=== PATIENT | female | born 1930 | race Caucasian/White ===

== ENCOUNTER 2017-04-30 16:18 | Inpatient (IN) | payer MEDICARE ==
[~2017-04-30] VITALS: Ht 175.3 cm; Wt 100.9 kg
--- NOTE | 2017-04-30 16:42 | PHYS DOC ---
General Chief Complaint: PSYCH EVALUATION Stated Complaint: [facility] EVALUATION Time Seen by MD: 16:32 Source: patient, assisted records Exam Limitations: clinical condition Problems: History of Present Illness Initial Comments Patient is an 86-year-old female sent to the emergency department from [facility] by EMS for medical clearance and [facility] admission. Facility records relay that the patient has had lifelong psychiatric issues, has history of ECT in the past. For the past week the patient has been yelling at others very agitated she's been hitting staff members and refusing medications and treatments. She's had hallucinations and worsening of confusion. She's been laughing inappropriately restless and not sleeping at night and makes jerking movements. Patient takes Coumadin. In the department the patient is hallucinating very confused she has difficulty following directions and screams inappropriately at times. No useful information obtained interviewing her. A CT of the head without contrast was completed April 26 of this year revealing no acute intracranial hemorrhage or hematoma. There was diffuse cerebral atrophy and chronic small vessel disease changes no acute intracranial process is noted. The results were placed on the chart. Patient has a DNR Timing/Duration: 1 week Severity: severe Modifying Factors: improves with other Associated Symptoms: other Past Medical History Medical History: other (major depressive disorder, diabetes, bipolar, cellulitis, atrial fibrillation, hypothyroidism, dementia, CHF, diabetes, hypertension, GERD) Surgical History: other (pacemaker) Social History Smoker: non-smoker Alcohol: none Drugs: none Review of Systems All Other Systems: Reviewed and Negative (patient has altered mental status accurate review of systems is unobtainable.) Physical Exam General Appearance: moderate distress Ear, Nose, Throat: hearing grossly normal, normal ENT inspection Neck: full range of motion, supple Respiratory: normal breath sounds, no respiratory distress Cardiovascular: normal peripheral pulses, irregularly irregular Gastrointestinal: normal bowel sounds, non tender, soft Back: no CVA tenderness, no vertebral tenderness Extremities: normal range of motion, non-tender Neurologic/Psychiatric: 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 Interpreted by me. Pertinent labs: Potassium 3.4, magnesium 1.4, INR 1.5 subtherapeutic IMPRESSIONS: Dementia with behavioral disorder Chronic congestive heart failure Hypokalemia/hypomagnesemia Diabetes Patient will be admitted to Dr. Lorenz as she is medically cleared for [facility] admission. Potassium and magnesium replacement initiated from the emergency department, we'll defer further replacement and INR adjustment to admitting physician. TSH is pending. Departure Disposition: ADMITTED INPATIENT Diagnosis: dementia with behavioral disorder, chronic CHF, hy Condition: STABLE Additional Instructions: [facility] admission [facility] is accepting JASMIN GOSS DO Apr 30, 2017 16:42
[2017-04-30 17:14] LABS: BASO % 1 % (0-3); EOS # 0.1 x10^3/uL (0.0-0.7); EOS % 1 % (0-3); HEMATOCRIT 38.4 % (36.0-47.0); HEMOGLOBIN 12.5 g/dL (12.0-15.5); LYMPH # 1.4 x10^3/uL (1.0-4.8); LYMPH % 21 % (24-48); MEAN CORPUSCULAR HEMOGLOBIN 28 pg (25-35); MEAN CORPUSCULAR HGB CONC 33 g/dL (31-37); MEAN CORPUSCULAR VOLUME 85 fL (79-100); MONO # 0.4 x10^3/uL (0.0-1.1); MONO % 6 % (0-9); NEUT # 4.9 x10^3uL (1.8-7.7); NEUT % 71 % (31-73); PLATELET COUNT 115 x10^3/uL (140-400); RED BLOOD COUNT 4.53 x10^6/uL (3.50-5.40); RED CELL DISTRIBUTION WIDTH 16.2 % (11.5-14.5); WHITE BLOOD COUNT 6.9 x10^3/uL (4.0-11.0)
[2017-04-30 17:25] LABS: BACTERIA,URINE 0 /HPF (0-FEW); BILIRUBIN,URINE NEG (NEG); CLARITY,URINE CLEAR; COLOR,URINE YELLOW; GLUCOSE,URINE NEG (NEG); NITRITE,URINE NEG (NEG); RBC,URINE 0 /HPF (0-2); UROBILINOGEN,URINE 0.2 mg/dL (0.2 mg/dL); WBC,URINE OCC /HPF (0-4)
[2017-04-30 17:30] LABS: ALBUMIN 3.6 g/dL (3.4-5.0); GFR 52.7; MAGNESIUM 1.4 mg/dL (1.8-2.4); POTASSIUM 3.4 mmol/L (3.5-5.1); TOTAL BILIRUBIN 0.6 mg/dL (0.2-1.0); TOTAL PROTEIN 7.2 g/dL (6.4-8.2)
[2017-04-30 17:42] LABS: DIG 0.5 ng/dL (0.9-2.0)
--- NOTE | 2017-04-30 18:28 | EKG ---
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
[2017-04-30] MEDS ORDERED: ACETAMINOPHEN 325 MG TABLET PO PRN ×2 (18:30→20:00)
[2017-04-30] MEDS ORDERED: TAMO20TA PO (19:42)
[2017-04-30] MEDS ORDERED: POTA10CA PO (19:42)
[2017-04-30] MEDS ORDERED: GLUC1TAB26 PO (19:42)
[2017-04-30] MEDS ORDERED: UBID1CAP41 PO (19:42)
[2017-04-30] MEDS ORDERED: CINN500C2 PO (19:42)
[2017-04-30] MEDS ORDERED: MELA1TAB2 PO (19:42)
[2017-04-30] MEDS ORDERED: DIGO125T PO (19:42)
[2017-04-30] MEDS ORDERED: SERT25TA PO (19:42)
[2017-04-30] MEDS ORDERED: MULT-299 PO (19:42)
[2017-04-30] MEDS ORDERED: WARF6TAB PO (19:42)
[2017-04-30] MEDS ORDERED: METF850T2 PO (19:42)
[2017-04-30] MEDS ORDERED: MIRT15TA PO (19:42)
[2017-04-30] MEDS ORDERED: SERT50TA PO (19:42)
[2017-04-30] MEDS ORDERED: CALC500T13 PO (19:42)
[2017-04-30] MEDS ORDERED: MIRT30TA PO (19:42)
[2017-04-30] MEDS ORDERED: ALLO100T PO (19:42)
[2017-04-30] MEDS ORDERED: FURO80TA72 PO (19:42)
[2017-04-30] MEDS ORDERED: OMEP20TA8 PO (19:42)
[2017-04-30] MEDS ORDERED: LUTE20CA4 PO (19:42)
[2017-04-30] MEDS ORDERED: LACT1CAP29 PO (19:42)
[2017-04-30] MEDS ORDERED: ATEN50TA PO (19:42)
[2017-04-30] MEDS ORDERED: CHOL10003 PO (19:42)
[2017-04-30] MEDS ORDERED: MAGNESIUM HYDROXIDE 2,400 MG/30 ML ORAL.SUSP. PO PRN (20:00)
[2017-04-30] MEDS ORDERED: POTASSIUM CHLORIDE 20 MEQ TABLET.ER. PO ONE (20:00)
[2017-04-30] MEDS ORDERED: MAG HYDROX/AL HYDROX/SIMETH 30 ML ORAL.SUSP PO PRN (20:00)
--- NOTE | 2017-04-30 20:13 | NUR ---
Admit Note: Admit 86 year old female patient of Dr. Mcmanus with DX: MDD, Pt arrived via EMS from ER at 2004, Pt alert and oriented to Name only, believes she is in [place] "[facility]" Pt is calm and cooperative with cares and assessment, Apical pulse 82 and Irregular with S1 and S2 heart tones noted, Respirations 20 shallow even and non-labored, Lungs CTA with diminished bases bilaterally, bowel sounds active x 4 quads, ABD round soft and non-tender to palpation, skin w/d with 2+ edema noted to BLE. Call placed to Dr. Mcmanus, Notified of arrival, Medications reviewed, orders received to continue Zoloft 50mg QHS (do not initiate taper in 3 days per facility DEC) Hold initiation of Remeron, Change Melatonin to 4.5mg QHS and Start Zydis 2.5mg PRN Q4Hr for Psychosis. Call placed to Dr. Mercer, Informed of Mg+ level of 1.4, Order received for Magnesium Oxide 400mg PO BID to start this HS. All orders processed at this time.
--- NOTE | 2017-04-30 20:41 | NUR ---
Skin Assessment complete, Pt noted with 2 small Skin tears to the R lateral Lower Leg, Upper on Measures 0.5cm x 0.2cm, Lower one Measures 0.1cm x 0.75cm. Both areas cleaned with wound wash and covered with Aquacel Foam, Wound consult entered. Pt also noted with Red Coccyx, Area does carmencita, Calzyme applied per Protocol at this time
[2017-04-30] MEDS ORDERED: WARFARIN 1 MG TABLET. PO ONE (20:45)
[2017-04-30] MEDS ORDERED: WARFARIN 6 MG TABLET. PO ONE (20:45)
[2017-04-30] MEDS: MELATONIN 3 MG TABLET PO SCH (20:52)
[2017-04-30] MEDS: MAGNESIUM OXIDE 400 MG TABLET PO SCH (20:52)
[2017-04-30] MEDS: ATENOLOL 50 MG TABLET PO SCH (20:53)
[2017-04-30] MEDS ORDERED: NON FORMULARY ITEM (Lutein 20 MG) PO SCH (21:00)
[2017-04-30] MEDS ORDERED: SERTRALINE 50 MG TABLET. PO SCH (21:00)
[2017-04-30] MEDS ORDERED: MELATONIN PO SCH (21:00)
[2017-04-30] MEDS ORDERED: PYRIDOXINE PO SCH (21:00)
[2017-04-30 23:31] VITALS: BP 169/76
--- NOTE | 2017-05-01 00:20 | NUR ---
Nursing Note: Patient awake in bed, anxious, agitated, combative, and yelling out that "...bugs are crawling on my legs!" Patient given PRN Zydis 2.5 mg at this time. Nursing will monitor response.
--- NOTE | 2017-05-01 02:45 | NUR ---
Nursing Note: Patient in her room; awake in bed. Continues to talk to herself, but less anxious/agitated s/p administration of PRN Zydis.
[2017-05-01 06:03] VITALS: BP 151/86
[2017-05-01] MEDS ORDERED: NON FORMULARY ITEM (Cinnamon Bark (Cinnamon) 500 MG) PO SCH (08:00)
[2017-05-01] MEDS: LACTOBACILLUS ACIDOPH & BULGAR 1 TABLET. PO SCH (09:18)
[2017-05-01] MEDS: PANTOPRAZOLE 40 MG TABLET. PO SCH (09:18)
[2017-05-01] MEDS: CHOLECALCIFEROL (VITAMIN D3) 1,000 UNIT TABLET PO SCH (09:19)
[2017-05-01] MEDS: GLUCOSAMINE/CHOND 500/400MG CAPSULE PO SCH ×2 (09:19→16:56)
[2017-05-01] MEDS: metFORMIN 850 MG TABLET PO SCH ×2 (09:19→16:56)
[2017-05-01] MEDS: CALCIUM CARBONATE 500 MG TABLET PO SCH ×2 (09:19→16:56)
[2017-05-01] MEDS: POTASSIUM CHLORIDE 20 MEQ TABLET.ER. PO SCH ×2 (09:21→19:46)
[2017-05-01] MEDS: MULTIVITAMIN I-VITE TABLET. PO SCH (09:21)
[2017-05-01] MEDS: MAGNESIUM OXIDE 400 MG TABLET PO SCH ×2 (09:24→19:46)
[2017-05-01] MEDS: DIGOXIN 125 MCG TABLET PO SCH (09:24)
[2017-05-01] MEDS: FUROSEMIDE 80 MG TABLET PO SCH (09:24)
[2017-05-01] MEDS: MAGNESIUM CHLORIDE ER 64 MG TABLET.ER PO SCH (09:24)
[2017-05-01] MEDS: TAMOXIFEN 10 MG TABLET PO SCH (09:26)
[2017-05-01] MEDS: ATENOLOL 50 MG TABLET PO SCH ×2 (09:26→19:46)
[2017-05-01] MEDS: UBIDECARENONE 50 MG CAPSULE. PO SCH ×2 (09:27→19:46)
--- NOTE | 2017-05-01 12:00 | NUR ---
Behavior Intervention Response and Plan: BIRP Note: Behavior: Assumed Care of patient, patient located in Patient Room at shift change. Patient exhibited the following behavior Restless, Agitated, Anxious. Brief assessment on rounds of vital signs, medication needs, lab studies, and pain. Treatment plan problems . Intervention: Patient assessed and the following interventions initiated safety checks 15 Minute Checks Medications , Head to toe Assessment , Cognitive Assessment. Response: After interactions and interventions patient responded in the following manner, Disorganized , Interactive ,Restless. Continue to assess behaviors and condition will continue to monitor throughout the shift as needed. 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 Continue to assess patient for changes in above assessment. Monitor for medication needs, pain, and safety concerns. Hourly rounding performed to ensure safe environment.
[2017-05-01 13:11] LABS: T3 TOTAL 93 ng/dL (71-180); THYROXINE 7.1 ug/dL (4.5-12.0)
--- NOTE | 2017-05-01 13:11 | PDOC ---
Exam Tahir Demential Exam: Tahir Note: Please also refer to the separate dictated note~for this date of service dictated separately.~Patient seen individually. Discussed the patient with Nursing staff reviewed the chart.~Reviewed interim history and current functioning. Reviewed vital signs,~Labs/ Radiology~and current medications noted below. Continue current treatment with the changes noted in the dictated addendum note Assessment: Vital Signs: Vital Signs Date Time Temp Pulse Resp B/P (MAP) Pulse Ox O2 Delivery O2 Flow Rate FiO2 05/01/17 09:26 108 151/86 05/01/17 06:03 97.9 20 100 I&O Intake and Output 05/01/17 07:00 Intake Total 0 ml Balance 0 ml Intake Oral 0 ml # Voids 2 Labs: Laboratory Tests Test 04/30/17 16:25 04/30/17 16:45 04/30/17 17:48 04/30/17 20:20 White Blood Count 6.9 x10^3/uL (4.0-11.0) Red Blood Count 4.53 x10^6/uL (3.50-5.40) Hemoglobin 12.5 g/dL (12.0-15.5) Hematocrit 38.4 % (36.0-47.0) Mean Corpuscular Volume 85 fL (79-100) Mean Corpuscular Hemoglobin 28 pg (25-35) Mean Corpuscular Hemoglobin Concent 33 g/dL (31-37) Red Cell Distribution Width 16.2 % (11.5-14.5) H Platelet Count 115 x10^3/uL (140-400) L Neutrophils (%) (Auto) 71 % (31-73) Lymphocytes (%) (Auto) 21 % (24-48) L Monocytes (%) (Auto) 6 % (0-9) Eosinophils (%) (Auto) 1 % (0-3) Basophils (%) (Auto) 1 % (0-3) Neutrophils # (Auto) 4.9 x10^3uL (1.8-7.7) Lymphocytes # (Auto) 1.4 x10^3/uL (1.0-4.8) Monocytes # (Auto) 0.4 x10^3/uL (0.0-1.1) Eosinophils # (Auto) 0.1 x10^3/uL (0.0-0.7) Basophils # (Auto) 0.0 x10^3/uL (0.0-0.2) Sodium Level 141 mmol/L (136-145) Potassium Level 3.4 mmol/L (3.5-5.1) L Chloride Level 101 mmol/L (98-107) Carbon Dioxide Level 30 mmol/L (21-32) Anion Gap 10 (6-14) Blood Urea Nitrogen 25 mg/dL (7-20) H Creatinine 1.0 mg/dL (0.6-1.0) Estimated GFR (Cockcroft-Gault) 52.7 BUN/Creatinine Ratio 25 (6-20) H Glucose Level 222 mg/dL (70-99) H Calcium Level 9.0 mg/dL (8.5-10.1) Magnesium Level 1.4 mg/dL (1.8-2.4) L Iron Level 32 ug/dL (50-170) L Total Iron Binding Capacity 463 ug/dL (250-450) H Iron Saturation 7 % (15-34) L Total Bilirubin 0.6 mg/dL (0.2-1.0) Aspartate Amino Transferase (AST) 23 U/L (15-37) Alanine Aminotransferase (ALT) 23 U/L (14-59) Alkaline Phosphatase 62 U/L (46-116) Creatine Kinase 65 U/L (26-192) Troponin I Quantitative < 0.017 ng/mL (0-0.055) AQ-Jbr-T-Type Natriuretic Peptide 1732 pg/mL (0-449) H Total Protein 7.2 g/dL (6.4-8.2) Albumin 3.6 g/dL (3.4-5.0) Albumin/Globulin Ratio 1.0 (1.0-1.7) 25-Hydroxy Vitamin D Total 38.1 ng/mL (30.0-100.0) Thyroid Stimulating Hormone (TSH) 1.535 uIU/mL (0.358-3.740) Urine Collection Type U cath Urine Color Yellow Urine Clarity Clear Urine pH 6.0 Urine Specific [place] 1.010 Urine Protein Neg (NEG-TRACE) Urine Glucose (UA) Neg mg/dL (NEG) Urine Ketones (Stick) Neg mg/dL (NEG) Urine Blood Neg (NEG) Urine Nitrite Neg (NEG) Urine Bilirubin Neg (NEG) Urine Urobilinogen Dipstick 0.2 mg/dL (0.2 mg/dL) Urine Leukocyte Esterase Neg (NEG) Urine RBC 0 /HPF (0-2) Urine WBC Occ /HPF (0-4) Urine Squamous Epithelial Cells None /LPF Urine Bacteria 0 /HPF (0-FEW) Digoxin Level 0.5 ng/dL (0.9-2.0) L Digoxin Last Dose Date 04/30/17 Digoxin Last Dose Time 0700 Prothrombin Time 15.3 SEC (9.4-11.4) H Prothrombin Time INR 1.5 (0.9-1.1) H PTT 26 SEC (23-33) Triglycerides Level 85 mg/dL (0-150) Cholesterol Level 146 mg/dL (0-200) LDL Cholesterol, Calculated 84 mg/dL (0-100) VLDL Cholesterol, Calculated 17 mg/dL (0-40) Non-HDL Cholesterol Calculated 101 mg/dL (0-129) HDL Cholesterol 45 mg/dL (40-60) Cholesterol/HDL Ratio 3.0 Test 05/01/17 07:19 05/01/17 11:23 Glucose (Fingerstick) 251 mg/dL (70-99) H 359 mg/dL (70-99) H Current Medications: Meds: Current Medications Acetaminophen (Tylenol) 650 mg PRN Q6HRS PRN PO PAIN / TEMP; Start 04/30/17 at 18:30; Stop 04/30/17 at 19:53; Status DC Potassium Chloride (Klor-Con) 20 meq 1X ONCE PO Last administered on 20:51; Start 04/30/17 at 20:00; Stop 04/30/17 at 20:01; Status DC Magnesium Chloride (Mag Delay) 64 mg DAILY PO Last administered on 05/01/17 09: 24; Start 05/01/17 at 09:00 Acetaminophen (Tylenol) 650 mg PRN Q6HRS PRN PO PAIN / TEMP; Start 04/30/17 at 20:00 Al Hydroxide/Mg Hydroxide (Mylanta Plus Xs) 15 ml PRN AFTMEALHC PRN PO DYSPEPSIA; Start 04/30/17 at 20:00 Magnesium Hydroxide (Milk Of Magnesia) 2,400 mg PRN QHS PRN PO CONSTIPATION; Start 04/30/17 at 20:00 Allopurinol (Zyloprim) 200 mg DAILYWSUP PO ; Start 05/01/17 at 17:00 Atenolol (Tenormin) 50 mg BID PO Last administered on 05/01/17 09:26; Start at 21:00 Calcium Carbonate/ Glycine (Oscal) 500 mg BIDWMEALS PO Last administered on 05/01 09:19; Start 05/01/17 at 08:00 Vitamin D (Vitamin D3) 1,000 unit DAILYWBKFT PO Last administered on 05/01/17 09:19; Start 05/01/17 at 08:00 Digoxin (Lanoxin) 125 mcg DAILY PO Last administered on 05/01/17 09:24; Start 05/01/17 at 09:00 Furosemide (Lasix) 120 mg DAILY PO Last administered on 05/01/17 09:24; Start 05/01/17 at 09:00 Metformin HCl (Glucophage) 850 mg BIDWMEALS PO Last administered on 05/01/17 09 :19; Start 05/01/17 at 08:00 Potassium Chloride (Klor-Con) 20 meq BID PO Last administered on 05/01/17 09:21 ; Start 05/01/17 at 09:00 Warfarin Sodium (Coumadin) 6 mg DAILY16 PO ; Start 05/01/17 at 16:00 Non-Formulary Medication 500 mg BIDWMEALS PO ; Start 05/01/17 at 08:00; Stop 05/01 at 08:00; Status DC Glucosamine/ Chondroitin (Glucosamine-Chondroitin 500/400mg) 1 cap BIDWMEALS PO Last administered on 05/01/17 09:19; Start 05/01/17 at 08:00 Lactobacillus Acidophilus (Bacid, Orly-Bid) 2 tab DAILYWBKFT PO Last administered on 05/01/17 09:18; Start 05/01/17 at 08:00 Non-Formulary Medication 20 mg QHS PO ; Start 04/30/17 at 21:00; Stop 04/30/17 at 21:00; Status DC Non-Formulary Medication 5 mg QHS PO ; Start 04/30/17 at 21:00; Stop 04/30/17 at 21:00; Status DC Multivitamins/ Minerals (I-Gera) 1 tab DAILY PO Last administered on 05/01/17 09:21; Start 05/01/17 at 09:00 Pantoprazole Sodium (Protonix) 40 mg DAILYAC PO Last administered on 05/01/17 09:18; Start 05/01/17 at 07:30 Tamoxifen Citrate (Nolvadex) 20 mg DAILY PO Last administered on 05/01/17 09:26 ; Start 05/01/17 at 09:00 Coenzyme Q10 (Coenzyme Q10) 100 mg BID PO Last administered on 05/01/17 09:27; Start 05/01/17 at 09:00 Sertraline HCl (Zoloft) 50 mg QHS PO Last administered on 04/30/17 20:51; Start 04/30/17 at 21:00; Stop 05/01/17 at 11:00; Status DC Melatonin 4.5 mg QHS PO Last administered on 04/30/17 20:52; Start 04/30/17 at 21:00 Olanzapine (ZyPREXA ZYDIS) 2.5 mg PRN Q4HRS PRN PO Psych Last administered on 00:16; Start 04/30/17 at 20:15 Magnesium Oxide (Magnesium Oxide) 400 mg BID PO Last administered on 05/01/17 09:24; Start 04/30/17 at 21:00 Warfarin Sodium (Coumadin) 6 mg 1X WARF ONCE PO Last administered on 20:51; Start 04/30/17 at 20:45; Stop 04/30/17 at 20:46; Status DC Warfarin Sodium (Coumadin) 0.5 mg 1X WARF ONCE PO Last administered on 20:51; Start 04/30/17 at 20:45; Stop 04/30/17 at 20:46; Status DC Warfarin Sodium (Coumadin Per Physician) 1 each PRN DAILY PRN MC SEE COMMENTS; Start 05/01/17 at 09:45 Risperidone (RisperDAL) 0.25 mg HS PO ; Start 05/01/17 at 21:00 Trazodone HCl (Desyrel) 100 mg QHS PO ; Start 05/01/17 at 21:00 Trazodone HCl (Desyrel) 100 mg PRN QHS PRN PO INSOMNIA; Start 05/01/17 at 10:45 Active Scripts Active Reported Probiotic (Lactobacillus Combo No.10) 1 Each Capsule 1 Cap PO DAILYWBKFT Women's Daily Caplet (Multivits,Ca,Minerals/Iron/Fa) 1 Each Tablet 1 Tab PO BID Zoloft (Sertraline Hcl) 25 Mg Tablet 25 Mg PO QHS 7 Days Zoloft (Sertraline Hcl) 50 Mg Tablet 50 Mg PO QHS 3 Days Omeprazole 20 Mg Tablet.dr 20 Mg PO DAILY07 Allopurinol 100 Mg Tablet 200 Mg PO DAILYWSUP Vitamin D3 (Cholecalciferol (Vitamin D3)) 1,000 Unit Tablet 1,000 Unit PO DAILYWBKFT Oyster Shell Calcium (Calcium Carbonate) 500 Mg Tablet 500 Mg PO BIDWMEALS Cinnamon (Cinnamon Bark) 500 Mg Capsule 500 Mg PO BIDWMEALS Co Q-10 100 Mg Softgel (Ubidecarenone/Vit E Acetate) 1 Each Capsule 100 Mg PO BID Melatonin 5 Mg Tablet (Melatonin/Pyridoxine) 1 Each Tablet 5 Mg PO QHS Lutein 20 Mg Capsule 20 Mg PO QHS Sgypurabcv-Ozlejlcaeix-Snp Tab (Gluc/Victor M-Msm#2/C/D3/Anthony/Born) 1 Each Tablet 1 Tab PO BIDWMEALS Metformin Hcl 850 Mg Tablet 850 Mg PO BIDWMEALS Digoxin 125 Mcg Tablet 125 Mcg PO DAILY Tamoxifen Citrate 20 Mg Tablet 20 Mg PO DAILY Atenolol 50 Mg Tablet 50 Mg PO BID Lasix (Furosemide) 80 Mg Tablet 120 Mg PO DAILY Coumadin (Warfarin Sodium) 6 Mg Tablet 6 Mg PO QPM Potassium Chloride 10 Meq Capsule.er 10 Meq PO BID Diagnosis: Problems: (1) Anxiety disorder (2) Bipolar affective, mixed, sev w/ psych (3) Impulse control disorder (4) Dementia, vascular, 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
[2017-05-01] MEDS ORDERED: DEXTROSE 50% 25 GM / 50ML DISP.SYRIN. IV PRN (14:45)
--- NOTE | 2017-05-01 15:15 | NUR ---
Pharmacy Warfarin Dosing Note S:Pharmacy consulted to assist with anticoagulation therapy started with target INR: 2 -3 O:RAINER WASHINGTON is a 86 year old F with Atrial Fibrillation LABS: Last INR: 1.5 Last HGB: 12.5 Last HCT: 38.4 Last PLT: 115 Last dose of 6.5 given on 04/30/17 at 2100 Previous Regimen: 6MG DAILY Vitamin K given: Drug Interaction Changes: Ongoing Drug Interactions: ALLOPURINOL, TAMOXIFEN, GLUCOSAMINE/CHONDROTIN A:INR Below desired Range. Target Range for this patient is: 2 -3 P: Warfarin dose: 6 mg Today at 1600 Bridge Therapy: Next INR due 05/02 Pharmacy anticoagulation service will continue to follow. TERI CARLSON, 05/01/17 [id number]
[2017-05-01] MEDS ORDERED: WARFARIN 6 MG TABLET. PO SCH (16:00)
[2017-05-01 16:26] VITALS: BP 118/64
[2017-05-01] MEDS: ALLOPURINOL 100 MG TABLET. PO SCH (16:56)
[2017-05-01] MEDS: INSULIN ASPART 300 UNITS/3 ML INSULN.PEN SQ SCH ×2 (17:02→20:06)
--- NOTE | 2017-05-01 17:03 | NUR ---
Dr. Mercer informed of FSBS of 374. new order to give SS 5 units plus additional 10.
[2017-05-01] MEDS ORDERED: INSULIN ASPART 300 UNITS/3 ML INSULN.PEN SQ ONE (17:15)
[2017-05-01] MEDS: MELATONIN 3 MG TABLET PO SCH (19:46)
[2017-05-01] MEDS: risperiDONE 0.25 MG TABLET. PO SCH (19:47)
[2017-05-01] MEDS: traZODone 100 MG TABLET. PO SCH (19:47)
[2017-05-01] MEDS: INSULIN DETEMIR 300 UNITS/3 ML INSULN.PEN. SQ SCH (20:08)
--- NOTE | 2017-05-01 21:36 | PDOC ---
Exam Tahir Demential Exam: Tahir Note: Please also refer to the separate dictated note~for this date of service dictated separately.~Patient seen individually. Discussed the patient with Nursing staff reviewed the chart.~Reviewed interim history and current functioning. Reviewed vital signs,~Labs/ Radiology~and current medications noted below. Continue current treatment with the changes noted in the dictated addendum note Assessment: Vital Signs: Vital Signs Date Time Temp Pulse Resp B/P (MAP) Pulse Ox O2 Delivery O2 Flow Rate FiO2 05/01/17 19:46 89 118/64 05/01/17 16:26 98.4 20 96 I&O Intake and Output 05/01/17 07:00 Intake Total 0 ml Balance 0 ml Intake Oral 0 ml # Voids 2 Labs: Laboratory Tests Test 05/01/17 07:19 05/01/17 11:23 05/01/17 16:59 05/01/17 18:59 Glucose (Fingerstick) 251 mg/dL (70-99) H 359 mg/dL (70-99) H 374 mg/dL (70-99) H 303 mg/dL (70-99) H Current Medications: Meds: Current Medications Acetaminophen (Tylenol) 650 mg PRN Q6HRS PRN PO PAIN / TEMP; Start 04/30/17 at 18:30; Stop 04/30/17 at 19:53; Status DC Potassium Chloride (Klor-Con) 20 meq 1X ONCE PO Last administered on 20:51; Start 04/30/17 at 20:00; Stop 04/30/17 at 20:01; Status DC Magnesium Chloride (Mag Delay) 64 mg DAILY PO Last administered on 05/01/17 09: 24; Start 05/01/17 at 09:00 Acetaminophen (Tylenol) 650 mg PRN Q6HRS PRN PO PAIN / TEMP; Start 04/30/17 at 20:00 Al Hydroxide/Mg Hydroxide (Mylanta Plus Xs) 15 ml PRN AFTMEALHC PRN PO DYSPEPSIA; Start 04/30/17 at 20:00 Magnesium Hydroxide (Milk Of Magnesia) 2,400 mg PRN QHS PRN PO CONSTIPATION; Start 04/30/17 at 20:00 Allopurinol (Zyloprim) 200 mg DAILYWSUP PO Last administered on 05/01/17 16:56 ; Start 05/01/17 at 17:00 Atenolol (Tenormin) 50 mg BID PO Last administered on 05/01/17 19:46; Start at 21:00 Calcium Carbonate/ Glycine (Oscal) 500 mg BIDWMEALS PO Last administered on 05/01 16:56; Start 05/01/17 at 08:00 Vitamin D (Vitamin D3) 1,000 unit DAILYWBKFT PO Last administered on 05/01/17 09:19; Start 05/01/17 at 08:00 Digoxin (Lanoxin) 125 mcg DAILY PO Last administered on 05/01/17 09:24; Start 05/01/17 at 09:00 Furosemide (Lasix) 120 mg DAILY PO Last administered on 05/01/17 09:24; Start 05/01/17 at 09:00 Metformin HCl (Glucophage) 850 mg BIDWMEALS PO Last administered on 05/01/17 16 :56; Start 05/01/17 at 08:00 Potassium Chloride (Klor-Con) 20 meq BID PO Last administered on 05/01/17 19:46 ; Start 05/01/17 at 09:00 Warfarin Sodium (Coumadin) 6 mg DAILY16 PO Last administered on 05/01/17 16:56 ; Start 05/01/17 at 16:00 Non-Formulary Medication 500 mg BIDWMEALS PO ; Start 05/01/17 at 08:00; Stop 05/01 at 08:00; Status DC Glucosamine/ Chondroitin (Glucosamine-Chondroitin 500/400mg) 1 cap BIDWMEALS PO Last administered on 05/01/17 16:56; Start 05/01/17 at 08:00 Lactobacillus Acidophilus (Bacid, Orly-Bid) 2 tab DAILYWBKFT PO Last administered on 05/01/17 09:18; Start 05/01/17 at 08:00 Non-Formulary Medication 20 mg QHS PO ; Start 04/30/17 at 21:00; Stop 04/30/17 at 21:00; Status DC Non-Formulary Medication 5 mg QHS PO ; Start 04/30/17 at 21:00; Stop 04/30/17 at 21:00; Status DC Multivitamins/ Minerals (I-Gera) 1 tab DAILY PO Last administered on 05/01/17 09:21; Start 05/01/17 at 09:00 Pantoprazole Sodium (Protonix) 40 mg DAILYAC PO Last administered on 05/01/17 09:18; Start 05/01/17 at 07:30 Tamoxifen Citrate (Nolvadex) 20 mg DAILY PO Last administered on 05/01/17 09:26 ; Start 05/01/17 at 09:00 Coenzyme Q10 (Coenzyme Q10) 100 mg BID PO Last administered on 05/01/17 19:46; Start 05/01/17 at 09:00 Sertraline HCl (Zoloft) 50 mg QHS PO Last administered on 04/30/17 20:51; Start 04/30/17 at 21:00; Stop 05/01/17 at 11:00; Status DC Melatonin 4.5 mg QHS PO Last administered on 05/01/17 19:46; Start 04/30/17 at 21:00 Olanzapine (ZyPREXA ZYDIS) 2.5 mg PRN Q4HRS PRN PO Psych Last administered on 00:16; Start 04/30/17 at 20:15 Magnesium Oxide (Magnesium Oxide) 400 mg BID PO Last administered on 05/01/17 19:46; Start 04/30/17 at 21:00 Warfarin Sodium (Coumadin) 6 mg 1X WARF ONCE PO Last administered on 20:51; Start 04/30/17 at 20:45; Stop 04/30/17 at 20:46; Status DC Warfarin Sodium (Coumadin) 0.5 mg 1X WARF ONCE PO Last administered on 20:51; Start 04/30/17 at 20:45; Stop 04/30/17 at 20:46; Status DC Warfarin Sodium (Coumadin Per Physician) 1 each PRN DAILY PRN MC SEE COMMENTS; Start 05/01/17 at 09:45; Stop 05/01/17 at 14:54; Status DC Risperidone (RisperDAL) 0.25 mg HS PO Last administered on 05/01/17 19:47; Start 05/01/17 at 21:00 Trazodone HCl (Desyrel) 100 mg QHS PO Last administered on 05/01/17 19:47; Start 05/01/17 at 21:00 Trazodone HCl (Desyrel) 100 mg PRN QHS PRN PO INSOMNIA; Start 05/01/17 at 10:45 Insulin Detemir (Levemir) 5 units QHS SQ Last administered on 05/01/17 20:08; Start 05/01/17 at 21:00 Insulin Aspart (NovoLOG) 0-5 UNITS QIDACHS SQ Last administered on 05/01/17 20: 06; Start 05/01/17 at 16:30 Dextrose 12.5 gm PRN Q15MIN PRN IV SEE COMMENTS; Start 05/01/17 at 14:45 Warfarin Sodium (Coumadin Per Pharmacy) 1 each PRN DAILY PRN MC SEE COMMENTS Last administered on 05/01/17 15:08; Start 05/01/17 at 14:45 Insulin Aspart (NovoLOG) 10 units 1X ONCE SQ Last administered on 05/01/17 17: 15; Start 05/01/17 at 17:15; Stop 05/01/17 at 17:16; Status DC Active Scripts Active Reported Probiotic (Lactobacillus Combo No.10) 1 Each Capsule 1 Cap PO DAILYWBKFT Women's Daily Caplet (Multivits,Ca,Minerals/Iron/Fa) 1 Each Tablet 1 Tab PO BID Zoloft (Sertraline Hcl) 25 Mg Tablet 25 Mg PO QHS 7 Days Zoloft (Sertraline Hcl) 50 Mg Tablet 50 Mg PO QHS 3 Days Omeprazole 20 Mg Tablet.dr 20 Mg PO DAILY07 Allopurinol 100 Mg Tablet 200 Mg PO DAILYWSUP Vitamin D3 (Cholecalciferol (Vitamin D3)) 1,000 Unit Tablet 1,000 Unit PO DAILYWBKFT Oyster Shell Calcium (Calcium Carbonate) 500 Mg Tablet 500 Mg PO BIDWMEALS Cinnamon (Cinnamon Bark) 500 Mg Capsule 500 Mg PO BIDWMEALS Co Q-10 100 Mg Softgel (Ubidecarenone/Vit E Acetate) 1 Each Capsule 100 Mg PO BID Melatonin 5 Mg Tablet (Melatonin/Pyridoxine) 1 Each Tablet 5 Mg PO QHS Lutein 20 Mg Capsule 20 Mg PO QHS Ucyjlbzuxi-Gakbhpyidln-Fjz Tab (Gluc/Victor M-Msm#2/C/D3/Anthony/Born) 1 Each Tablet 1 Tab PO BIDWMEALS Metformin Hcl 850 Mg Tablet 850 Mg PO BIDWMEALS Digoxin 125 Mcg Tablet 125 Mcg PO DAILY Tamoxifen Citrate 20 Mg Tablet 20 Mg PO DAILY Atenolol 50 Mg Tablet 50 Mg PO BID Lasix (Furosemide) 80 Mg Tablet 120 Mg PO DAILY Coumadin (Warfarin Sodium) 6 Mg Tablet 6 Mg PO QPM Potassium Chloride 10 Meq Capsule.er 10 Meq PO BID Diagnosis: Problems: (1) Dementia with behavioral disturbance (2) Anxiety disorder (3) Impulse control disorder (4) Bipolar affective, mixed, sev w/ psych (5) Dementia, vascular, with delusions (6) Dementia in Alzheimer's disease with delusions CHAU GROSS MD May 01, 2017 21:36
--- NOTE | 2017-05-01 22:38 | NUR ---
Nursing Note: Pt up in day room, very restless and agitated, exit seeking, pounding on the doors, becomes very agitated and tearful with attempts to redirect, PRN Zydis administered per PRN order r/t continued escalation of agitation, aggression and exit seeking.
--- NOTE | 2017-05-01 23:28 | NUR ---
Behavior Intervention Response and Plan: BIRP Note: Behavior: Assumed Care of patient, patient located in Day Room at shift change. Patient exhibited the following behavior Restless, Irritable, Agitated. Brief assessment on rounds of vital signs, medication needs, lab studies, and pain. Treatment plan problems Alteration in Mood, Danger to Others and Fall Risk. Intervention: Patient assessed and the following interventions initiated safety checks 15 Minute Checks Cognitive Assessment , Head to toe Assessment , Medications. Response: After interactions and interventions patient responded in the following manner, Calm , Compliant ,Cooperative. Continue to assess behaviors and condition will continue to monitor throughout the shift as needed. 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 Continue to assess patient for changes in above assessment. Monitor for medication needs, pain, and safety concerns. Hourly rounding performed to ensure safe environment.
[2017-05-02 01:11] LABS: HEMOGLOBIN A1C 6.9 % (4.8-5.6)
[2017-05-02 06:25] VITALS: BP 153/58
[2017-05-02] MEDS: INSULIN ASPART 300 UNITS/3 ML INSULN.PEN SQ SCH ×4 (07:53→19:43)
[2017-05-02] MEDS: PANTOPRAZOLE 40 MG TABLET. PO SCH (07:54)
[2017-05-02] MEDS: LACTOBACILLUS ACIDOPH & BULGAR 1 TABLET. PO SCH (07:54)
[2017-05-02] MEDS: GLUCOSAMINE/CHOND 500/400MG CAPSULE PO SCH ×3 (07:56→17:35)
[2017-05-02] MEDS: CALCIUM CARBONATE 500 MG TABLET PO SCH ×3 (07:56→17:35)
[2017-05-02] MEDS: metFORMIN 850 MG TABLET PO SCH ×3 (07:56→17:34)
[2017-05-02] MEDS: MULTIVITAMIN I-VITE TABLET. PO SCH (07:57)
[2017-05-02] MEDS: UBIDECARENONE 50 MG CAPSULE. PO SCH ×2 (07:57→19:42)
[2017-05-02] MEDS: POTASSIUM CHLORIDE 20 MEQ TABLET.ER. PO SCH ×2 (07:57→19:40)
[2017-05-02] MEDS: CHOLECALCIFEROL (VITAMIN D3) 1,000 UNIT TABLET PO SCH (07:57)
[2017-05-02] MEDS: MAGNESIUM CHLORIDE ER 64 MG TABLET.ER PO SCH (07:58)
[2017-05-02] MEDS: FUROSEMIDE 80 MG TABLET PO SCH (07:58)
[2017-05-02] MEDS: MAGNESIUM OXIDE 400 MG TABLET PO SCH ×2 (07:58→19:40)
[2017-05-02] MEDS: ATENOLOL 50 MG TABLET PO SCH ×2 (07:58→19:39)
[2017-05-02] MEDS: DIGOXIN 125 MCG TABLET PO SCH (07:58)
[2017-05-02] MEDS: TAMOXIFEN 10 MG TABLET PO SCH (08:10)
--- NOTE | 2017-05-02 09:28 | NUR ---
Behavior Intervention Response and Plan: BIRP Note: Behavior: Assumed Care of patient, patient located in Patient Room at shift change. Patient exhibited the following behavior Restless at times, calm at other times, Anxious but cooperative with medication and assessment. Brief assessment on rounds of vital signs, medication needs, lab studies, and pain. Treatment plan problems . Intervention: Patient assessed and the following interventions initiated safety checks 15 Minute Checks Medications , Head to toe Assessment , Cognitive Assessment. Response: After interactions and interventions patient responded in the following manner, Disorganized , Interactive ,Restless, and cooperative. Continue to assess behaviors and condition will continue to monitor throughout the shift as needed. Plan: Continue to monitor Master Treatment Plan for patient's progress toward short term goals of Medication Compliance, Decreased Aggression, nursing home goals to return to previous living setting vs placement. Continue to assess patient for changes in above assessment. Monitor for medication needs, pain, and safety concerns. Hourly rounding performed to ensure safe environment.
[2017-05-02] MEDS ORDERED: WARFARIN 7.5 MG TABLET. PO ONE (16:00)
[2017-05-02 16:04] VITALS: BP 146/81
[2017-05-02] MEDS: ALLOPURINOL 100 MG TABLET. PO SCH (17:17)
--- NOTE | 2017-05-02 17:35 | NUR ---
Pt spit out evening medications. Nurse made multiple attempts to administer pts medication including hiding medication. COPY LATHE OPERATOR also encouraged pt to take medication however pt spit out medication. Nurse reminded pt how important her medications are however pt was not able to focus on task and would yell out random words.
[2017-05-02] MEDS: MELATONIN 3 MG TABLET PO SCH (19:38)
[2017-05-02] MEDS: traZODone 100 MG TABLET. PO SCH (19:39)
[2017-05-02] MEDS: risperiDONE 0.25 MG TABLET. PO SCH (19:39)
[2017-05-02] MEDS: INSULIN DETEMIR 300 UNITS/3 ML INSULN.PEN. SQ SCH (19:46)
--- NOTE | 2017-05-02 19:55 | NUR ---
Behavior Intervention Response and Plan: BIRP Note: Behavior: Assumed Care of patient, patient located in Day Room at shift change. Patient exhibited the following behavior Restless at times, calm at other times, Anxious but cooperative with medication and assessment, hyperverbal. Brief assessment on rounds of vital signs, medication needs, lab studies, and pain. Treatment plan problems:1-2 . Intervention: Patient assessed and the following interventions initiated safety checks 15 Minute Checks Medications , Head to toe Assessment , Cognitive Assessment. Response: After interactions and interventions patient responded in the following manner, Disorganized , Interactive ,Restless, and cooperative. Continue to assess behaviors and condition will continue to monitor throughout the shift as needed. Plan: Continue to monitor Master Treatment Plan for patient's progress toward short term goals of Improved Mood, Decreased Anxiety, nursing home goals to return to previous living setting vs placement. Continue to assess patient for changes in above assessment. Monitor for medication needs, pain, and safety concerns. Hourly rounding performed to ensure safe environment.
--- NOTE | 2017-05-02 21:21 | PDOC ---
Exam Tahir Demential Exam: Tahir Note: Please also refer to the separate dictated note~for this date of service dictated separately.~Patient seen individually. Discussed the patient with Nursing staff reviewed the chart.~Reviewed interim history and current functioning. Reviewed vital signs,~Labs/ Radiology~and current medications noted below. Continue current treatment with the changes noted in the dictated addendum note Assessment: Vital Signs: Vital Signs Date Time Temp Pulse Resp B/P (MAP) Pulse Ox O2 Delivery O2 Flow Rate FiO2 05/02/17 19:39 90 146/81 05/02/17 16:04 98.0 24 98 04/30/17 16:18 Room Air I&O Intake and Output 05/02/17 07:00 Intake Total 480 ml Balance 480 ml Intake Oral 480 ml # Voids 2 Labs: Laboratory Tests Test 05/02/17 07:18 05/02/17 07:24 05/02/17 12:02 05/02/17 16:50 Glucose (Fingerstick) 160 mg/dL (70-99) H 261 mg/dL (70-99) H 167 mg/dL (70-99) H Prothrombin Time 16.1 SEC (9.4-11.4) H Prothrombin Time INR 1.6 (0.9-1.1) H Test 05/02/17 19:06 Glucose (Fingerstick) 191 mg/dL (70-99) H Current Medications: Meds: Current Medications Acetaminophen (Tylenol) 650 mg PRN Q6HRS PRN PO PAIN / TEMP; Start 04/30/17 at 18:30; Stop 04/30/17 at 19:53; Status DC Potassium Chloride (Klor-Con) 20 meq 1X ONCE PO Last administered on 20:51; Start 04/30/17 at 20:00; Stop 04/30/17 at 20:01; Status DC Magnesium Chloride (Mag Delay) 64 mg DAILY PO Last administered on 05/02/17 07: 58; Start 05/01/17 at 09:00 Acetaminophen (Tylenol) 650 mg PRN Q6HRS PRN PO PAIN / TEMP; Start 04/30/17 at 20:00 Al Hydroxide/Mg Hydroxide (Mylanta Plus Xs) 15 ml PRN AFTMEALHC PRN PO DYSPEPSIA; Start 04/30/17 at 20:00 Magnesium Hydroxide (Milk Of Magnesia) 2,400 mg PRN QHS PRN PO CONSTIPATION; Start 04/30/17 at 20:00 Allopurinol (Zyloprim) 200 mg DAILYWSUP PO Last administered on 05/02/17 17:17 ; Start 05/01/17 at 17:00 Atenolol (Tenormin) 50 mg BID PO Last administered on 05/02/17 19:39; Start at 21:00 Calcium Carbonate/ Glycine (Oscal) 500 mg BIDWMEALS PO Last administered on 05/02 07:56; Start 05/01/17 at 08:00 Vitamin D (Vitamin D3) 1,000 unit DAILYWBKFT PO Last administered on 05/02/17 07:57; Start 05/01/17 at 08:00 Digoxin (Lanoxin) 125 mcg DAILY PO Last administered on 05/02/17 07:58; Start 05/01/17 at 09:00 Furosemide (Lasix) 120 mg DAILY PO Last administered on 05/02/17 07:58; Start 05/01/17 at 09:00 Metformin HCl (Glucophage) 850 mg BIDWMEALS PO Last administered on 05/02/17 07 :56; Start 05/01/17 at 08:00 Potassium Chloride (Klor-Con) 20 meq BID PO Last administered on 05/02/17 19:40 ; Start 05/01/17 at 09:00 Warfarin Sodium (Coumadin) 6 mg DAILY16 PO Last administered on 05/01/17 16:56 ; Start 05/01/17 at 16:00; Stop 05/02/17 at 11:39; Status DC Non-Formulary Medication 500 mg BIDWMEALS PO ; Start 05/01/17 at 08:00; Stop 05/01 at 08:00; Status DC Glucosamine/ Chondroitin (Glucosamine-Chondroitin 500/400mg) 1 cap BIDWMEALS PO Last administered on 05/02/17 07:56; Start 05/01/17 at 08:00 Lactobacillus Acidophilus (Bacid, Orly-Bid) 2 tab DAILYWBKFT PO Last administered on 05/02/17 07:54; Start 05/01/17 at 08:00 Non-Formulary Medication 20 mg QHS PO ; Start 04/30/17 at 21:00; Stop 04/30/17 at 21:00; Status DC Non-Formulary Medication 5 mg QHS PO ; Start 04/30/17 at 21:00; Stop 04/30/17 at 21:00; Status DC Multivitamins/ Minerals (I-Gera) 1 tab DAILY PO Last administered on 05/02/17 07:57; Start 05/01/17 at 09:00 Pantoprazole Sodium (Protonix) 40 mg DAILYAC PO Last administered on 05/02/17 07:54; Start 05/01/17 at 07:30 Tamoxifen Citrate (Nolvadex) 20 mg DAILY PO Last administered on 05/02/17 08:10 ; Start 05/01/17 at 09:00 Coenzyme Q10 (Coenzyme Q10) 100 mg BID PO Last administered on 05/02/17 07:57; Start 05/01/17 at 09:00 Sertraline HCl (Zoloft) 50 mg QHS PO Last administered on 04/30/17 20:51; Start 04/30/17 at 21:00; Stop 05/01/17 at 11:00; Status DC Melatonin 4.5 mg QHS PO Last administered on 05/02/17 19:38; Start 04/30/17 at 21:00 Olanzapine (ZyPREXA ZYDIS) 2.5 mg PRN Q4HRS PRN PO Psych Last administered on 22:40; Start 04/30/17 at 20:15 Magnesium Oxide (Magnesium Oxide) 400 mg BID PO Last administered on 05/02/17 19:40; Start 04/30/17 at 21:00 Warfarin Sodium (Coumadin) 6 mg 1X WARF ONCE PO Last administered on 20:51; Start 04/30/17 at 20:45; Stop 04/30/17 at 20:46; Status DC Warfarin Sodium (Coumadin) 0.5 mg 1X WARF ONCE PO Last administered on 20:51; Start 04/30/17 at 20:45; Stop 04/30/17 at 20:46; Status DC Warfarin Sodium (Coumadin Per Physician) 1 each PRN DAILY PRN MC SEE COMMENTS; Start 05/01/17 at 09:45; Stop 05/01/17 at 14:54; Status DC Risperidone (RisperDAL) 0.25 mg HS PO Last administered on 05/02/17 19:39; Start 05/01/17 at 21:00 Trazodone HCl (Desyrel) 100 mg QHS PO Last administered on 05/02/17 19:39; Start 05/01/17 at 21:00 Trazodone HCl (Desyrel) 100 mg PRN QHS PRN PO INSOMNIA; Start 05/01/17 at 10:45 Insulin Detemir (Levemir) 5 units QHS SQ Last administered on 05/02/17 19:46; Start 05/01/17 at 21:00 Insulin Aspart (NovoLOG) 0-5 UNITS QIDACHS SQ Last administered on 05/02/17 17: 16; Start 05/01/17 at 16:30 Dextrose 12.5 gm PRN Q15MIN PRN IV SEE COMMENTS; Start 05/01/17 at 14:45 Warfarin Sodium (Coumadin Per Pharmacy) 1 each PRN DAILY PRN MC SEE COMMENTS Last administered on 05/02/17 11:49; Start 05/01/17 at 14:45 Insulin Aspart (NovoLOG) 10 units 1X ONCE SQ Last administered on 05/01/17 17: 15; Start 05/01/17 at 17:15; Stop 05/01/17 at 17:16; Status DC Warfarin Sodium (Coumadin) 7.5 mg 1X WARF ONCE PO Last administered on 17:16; Start 05/02/17 at 16:00; Stop 05/02/17 at 16:01; Status DC Active Scripts Active Reported Probiotic (Lactobacillus Combo No.10) 1 Each Capsule 1 Cap PO DAILYWBKFT Women's Daily Caplet (Multivits,Ca,Minerals/Iron/Fa) 1 Each Tablet 1 Tab PO BID Zoloft (Sertraline Hcl) 25 Mg Tablet 25 Mg PO QHS 7 Days Zoloft (Sertraline Hcl) 50 Mg Tablet 50 Mg PO QHS 3 Days Omeprazole 20 Mg Tablet.dr 20 Mg PO DAILY07 Allopurinol 100 Mg Tablet 200 Mg PO DAILYWSUP Vitamin D3 (Cholecalciferol (Vitamin D3)) 1,000 Unit Tablet 1,000 Unit PO DAILYWBKFT Oyster Shell Calcium (Calcium Carbonate) 500 Mg Tablet 500 Mg PO BIDWMEALS Cinnamon (Cinnamon Bark) 500 Mg Capsule 500 Mg PO BIDWMEALS Co Q-10 100 Mg Softgel (Ubidecarenone/Vit E Acetate) 1 Each Capsule 100 Mg PO BID Melatonin 5 Mg Tablet (Melatonin/Pyridoxine) 1 Each Tablet 5 Mg PO QHS Lutein 20 Mg Capsule 20 Mg PO QHS Jojgdrtcub-Usuppmmjaum-Ive Tab (Gluc/Victor M-Msm#2/C/D3/Anthony/Born) 1 Each Tablet 1 Tab PO BIDWMEALS Metformin Hcl 850 Mg Tablet 850 Mg PO BIDWMEALS Digoxin 125 Mcg Tablet 125 Mcg PO DAILY Tamoxifen Citrate 20 Mg Tablet 20 Mg PO DAILY Atenolol 50 Mg Tablet 50 Mg PO BID Lasix (Furosemide) 80 Mg Tablet 120 Mg PO DAILY Coumadin (Warfarin Sodium) 6 Mg Tablet 6 Mg PO QPM Potassium Chloride 10 Meq Capsule.er 10 Meq PO BID Diagnosis: Problems: (1) Anxiety disorder (2) Impulse control disorder (3) Bipolar affective, mixed, sev w/ psych (4) Dementia, vascular, 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
[2017-05-03 06:50] VITALS: BP 128/50
[2017-05-03] MEDS: PANTOPRAZOLE 40 MG TABLET. PO SCH (07:18)
[2017-05-03] MEDS: metFORMIN 850 MG TABLET PO SCH ×2 (07:19→16:19)
[2017-05-03] MEDS: GLUCOSAMINE/CHOND 500/400MG CAPSULE PO SCH ×2 (07:19→16:18)
[2017-05-03] MEDS: LACTOBACILLUS ACIDOPH & BULGAR 1 TABLET. PO SCH (07:19)
[2017-05-03] MEDS: UBIDECARENONE 50 MG CAPSULE. PO SCH ×2 (07:20→20:03)
[2017-05-03] MEDS: MULTIVITAMIN I-VITE TABLET. PO SCH (07:20)
[2017-05-03] MEDS: CHOLECALCIFEROL (VITAMIN D3) 1,000 UNIT TABLET PO SCH (07:20)
[2017-05-03] MEDS: CALCIUM CARBONATE 500 MG TABLET PO SCH ×2 (07:20→16:19)
[2017-05-03] MEDS: POTASSIUM CHLORIDE 20 MEQ TABLET.ER. PO SCH ×2 (07:21→22:53)
[2017-05-03] MEDS: DIGOXIN 125 MCG TABLET PO SCH (07:21)
[2017-05-03] MEDS: FUROSEMIDE 80 MG TABLET PO SCH (07:22)
[2017-05-03] MEDS: MAGNESIUM OXIDE 400 MG TABLET PO SCH ×2 (07:22→20:04)
[2017-05-03] MEDS: MAGNESIUM CHLORIDE ER 64 MG TABLET.ER PO SCH (07:22)
[2017-05-03] MEDS: TAMOXIFEN 10 MG TABLET PO SCH (07:25)
[2017-05-03] MEDS: ATENOLOL 50 MG TABLET PO SCH ×2 (07:28→20:03)
[2017-05-03] MEDS: INSULIN ASPART 300 UNITS/3 ML INSULN.PEN SQ SCH ×4 (07:48→20:53)
--- NOTE | 2017-05-03 11:30 | NUR ---
THERAPEUTIC RECREATION GROUP NOTE TITLE :[place] and Fun ACTIVITY : Leisure Awareness GOAL : Increase knowledge of leisure activities DURATION : 30 Minutes RESPONSE : Minimal participation. Pt. sat with the group the entire time but had difficulty answering the questions. She was very talkative and at times shouted loudly. She randomly waved her arms and hands around. She held other patient's arms at times and needed to be redirected.
--- NOTE | 2017-05-03 13:00 | NUR ---
THERAPEUTIC RECREATION GROUP NOTE TITLE :Movement to Music: Flexibility ACTIVITY : Movement/ Exercise GOAL : Increase morale, attention, flexibility. Decrease stress/anxiety. DURATION : 30 Minutes RESPONSE : Full participation. Pt. began the session very talkative while following along with the moves. She did not make sense when she spoke. She needed occasional prompting but she was moving the entire time. She moved arms while remaining quiet towards the second half of the session.
--- NOTE | 2017-05-03 13:57 | NUR ---
Group Note [facility] Group Type May [facility] Start Time: 10:20 End Time: 10:55 Problem: Agitation Purpose: Increase Attention, motivation, stimulation, socialization Level of Participation:high Behaviors or Symptoms Observed: Intrusive and impulsivity. Interventions: Reinforcement Response: high Plan: Group Participation Additional Comments: Pt sat at table and colored for a little while, pt started her jerking movements and unable to focus on task as she was singing and talking to herself. Pt thoughts and ideas had lose associations. Pt mood was very liable throughout the group.
--- NOTE | 2017-05-03 14:03 | NUR ---
Behavior Intervention Response and Plan: BIRP Note: Behavior: Assumed Care of patient, patient located in Dining Room at shift change. Patient exhibited the following behavior Restless, Disorganized, Non Compliant. Brief assessment on rounds of vital signs, medication needs, lab studies, and pain. Treatment plan problems 1 and 2. Intervention: Patient assessed and the following interventions initiated safety checks 15 Minute Checks Cognitive Assessment , Head to toe Assessment , Medications. Response: After interactions and interventions patient responded in the following manner, Non Compliant with Meds , Delusions ,Hallucinating. Continue to assess behaviors and condition will continue to monitor throughout the shift as needed. 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 Continue to assess patient for changes in above assessment. Monitor for medication needs, pain, and safety concerns. Hourly rounding performed to ensure safe environment.
--- NOTE | 2017-05-03 14:35 | NUR ---
ACTIVITY THERAPY ASSESSMENT Completed based on observation and interview in the day room. Pt. had her dentures in her hand and was singing "Row your boat." She did not stop talking and handed her dentured to FULLER BRUSH MAN. Pt. was able to copy one shape with popsicle sticks she was given by FULLER BRUSH MAN. Pt. banged them on the table and then handed them back to FULLER BRUSH MAN. Pt. was able to identify numbers, letters and colors but had difficulty following directions. She is unable to carry a conversation and answer assessment questions clearly. She randomly touches and grabs other people. Family that was visiting over lunch stated Pt. used to like to read, sing/ music, and talk about her family. They did not know what she might enjoy now. Initial goal aimed to increase relaxation and socialization: Pt. will participate appropriately in all groups she is invited to.
--- NOTE | 2017-05-03 14:57 | NUR ---
Pharmacy Warfarin Dosing Note S:Pharmacy consulted to assist with anticoagulation therapy started with target INR: 2 -3 O:RAINER WASHINGTON is a 86 year old F with Atrial Fibrillation LABS: Last INR: 1.5 Last HGB: 12.5 Last HCT: 38.4 Last PLT: 115 Last dose of 7.5 mg given on 05/02/17 at 1600 Previous Regimen: 6MG DAILY Ongoing Drug Interactions: ALLOPURINOL, TAMOXIFEN, GLUCOSAMINE/CHONDROTIN A:INR is below the desired range. Target Range for this patient is: 2 -3. P: Warfarin dose: Coumadin 7.5mg po today at 1600. Bridge Therapy: none Next INR due 05/04/17 Pharmacy anticoagulation service will continue to follow. JESUS CLEANING, [facility] 05/03/17 [id number]
--- NOTE | 2017-05-03 15:00 | NUR ---
THERAPEUTIC RECREATION GROUP NOTE TITLE :Cookie Decoratin04 of May ACTIVITY : Activities and Games GOAL : Facilitate sense of belonging and well-being, elevate mood, increase socialization and social skills. Incorporate traditions. DURATION : 45 minutes RESPONSE : Full participation. Pt. was very talkative and needed repeat prompting to eat her cookies. She only ate the cookie when it did not have frosting on it. She hooted, hollered randomly the entire session. She did not make sense when she spoke.
--- NOTE | 2017-05-03 15:41 | NUR ---
SHYANN met with pt son who came in for lunch visitation. Pt grew up in [place], [place]. Pt had 2 full siblings and 2 1/2 siblings. Pt had one sibling pass a . Pt son reports he doesn't know much about her childhood. Pt has a GED and didn't work much if any outside of the home. Pt was at the age of 17, and had her first "breakdown" prior to giving to her first child. She lost her first child in and had another "breakdown". Pt son reports then she had a breakdown about five years ago. Pt has 4 children whom are all involved in her care. Pt lives with son and he hopes for her to return home with him as he reports she had been independent two weeks prior. Pt has only been at facility for a few days prior to coming to [place]. Pt has long history of MDD. Pt at this time unable to answer questions, pt is signing at times, pt words have little to no assoication. Pt family goal is for pt to return home. ( pt has family support) Pt to be stable and have residential placement(Pt is verbal )
[2017-05-03 15:55] VITALS: BP 125/64
[2017-05-03] MEDS ORDERED: WARFARIN 7.5 MG TABLET. PO ONE (16:00)
[2017-05-03] MEDS: ALLOPURINOL 100 MG TABLET. PO SCH ×2 (16:19→17:00)
[2017-05-03] MEDS: traZODone 100 MG TABLET. PO SCH (20:03)
[2017-05-03] MEDS: MELATONIN 3 MG TABLET PO SCH (20:05)
--- NOTE | 2017-05-03 20:06 | NUR ---
Nursing Note Patient is agitated yelling in day room and is non redirectable. Patient is resistive to medications. Patient given PRN Zyprexa per PRN order.
[2017-05-03] MEDS: INSULIN DETEMIR 300 UNITS/3 ML INSULN.PEN. SQ SCH (20:52)
--- NOTE | 2017-05-03 21:00 | PDOC1 ---
History and Physicial Identifying data: This is late entry for date of service 05/01/2017. The patient is an 87-year-old female referred to us from [facility] by Dr. Jakob Hardy, her primary care physician on account of yelling out, being intrusive, increasingly agitated, physically hitting staff members, not taking her medications, having startling jerking movements, laughing inappropriately, not sleeping, restless, and psychotic. Symptoms have worsened for one week and she has failed past inpatient psychiatric admissions at [facility] and has a history of electroconvulsive therapy in the past for bipolar disorder and a lifelong history of psychiatric problems. Chief complaint: "La, la, la, la, going there, , march there." The patient 's verbalizations were unintelligible. She was at times singing, laughing, disorganized, and psychotic as I met with her. H P I: The patient has a lifelong history of bipolar disorder treated with ECTs in the past. More recently she has been getting more demented, confused. The patient is admitted to [facility] April 27 from the [facility] emergency room prior to where she was living at home with her son. She has had marked insomnia, psychotic symptoms, grandiosity, mood lability, aggression, dangerous behaviors as noted above prompting this referral. No active suicidal or homicidal ideation. Past Psychiatric History: As noted above. Medical History: Atrial fibrillation, pacemaker in place, diabetes mellitus, history of cellulitis, and Accu-Cheks a.c. and h.s. Allergies: Sulfa, aspirin, codeine, morphine, milk. Current Psychotropics: Melatonin 4.5 mg h.s., Zoloft 50 mg a day, and Zyprexa p.r.n. Family H/o: Noncontributory. Social H/o: No alcohol or drug abuse, physical, sexual, and/or abuse history is noted. She is not known to be a perpetrator. Vital Signs: Temperature 97.9, BP 151/86, pulse 108, respirations 20. Review of Systems: Ambulation impaired, in wheelchair. No CV, , Eye, ENT, Pulmonary system symptoms on review. Reliability poor. MSE: The patient is oriented to herself, anxious, labile, hyperverbal, distractible, loud, singing repeatedly as I met with her at some length. Insight and judgment, recent and remote memory, attention and concentration, fund of knowledge poor consistent with her diagnosis. Labs: Reviewed. Impression: Bipolar I disorder mixed with psychotic features; anxiety disorder , unspecified; impulse control disorder, unspecified nature; neurocognitive disorder Alzheimer vascular with delusions; behavioral disturbance. Rest of the diagnoses as above. Plan: Continue current psychotropics but stopped the Zoloft as it could be worsening her manic symptoms. Start Risperdal 0.25 mg h.s., trazodone 100 mg h.s. p.r.n., may repeat x1 for insomnia. I will see the patient daily from a psychiatric standpoint and request medical follow up with Dr. Mercer. Problems: CHAU GROSS MD May 03, 2017 21:00
--- NOTE | 2017-05-03 21:13 | PDOC ---
Exam Tahir Demential Exam: Tahir Note: Please also refer to the separate dictated note~for this date of service dictated separately.~Patient seen individually. Discussed the patient with Nursing staff reviewed the chart.~Reviewed interim history and current functioning. Reviewed vital signs,~Labs/ Radiology~and current medications noted below. Continue current treatment with the changes noted in the dictated addendum note Assessment: Vital Signs: Vital Signs Date Time Temp Pulse Resp B/P (MAP) Pulse Ox O2 Delivery O2 Flow Rate FiO2 05/03/17 20:03 88 125/64 05/03/17 15:55 98.2 22 96 Room Air I&O Intake and Output 05/03/17 07:00 Intake Total 1080 ml Balance 1080 ml Intake Oral 1080 ml # Voids 1 # Bowel Movements 1 Labs: Laboratory Tests Test 05/03/17 07:03 05/03/17 07:18 05/03/17 11:29 05/03/17 16:43 Glucose (Fingerstick) 223 mg/dL (70-99) H 231 mg/dL (70-99) H 233 mg/dL (70-99) H Prothrombin Time 15.4 SEC (9.4-11.4) H Prothrombin Time INR 1.5 (0.9-1.1) H Test 05/03/17 19:11 Glucose (Fingerstick) 275 mg/dL (70-99) H Current Medications: Meds: Current Medications Acetaminophen (Tylenol) 650 mg PRN Q6HRS PRN PO PAIN / TEMP; Start 04/30/17 at 18:30; Stop 04/30/17 at 19:53; Status DC Potassium Chloride (Klor-Con) 20 meq 1X ONCE PO Last administered on 20:51; Start 04/30/17 at 20:00; Stop 04/30/17 at 20:01; Status DC Magnesium Chloride (Mag Delay) 64 mg DAILY PO Last administered on 05/03/17 07: 22; Start 05/01/17 at 09:00 Acetaminophen (Tylenol) 650 mg PRN Q6HRS PRN PO PAIN / TEMP; Start 04/30/17 at 20:00 Al Hydroxide/Mg Hydroxide (Mylanta Plus Xs) 15 ml PRN AFTMEALHC PRN PO DYSPEPSIA; Start 04/30/17 at 20:00 Magnesium Hydroxide (Milk Of Magnesia) 2,400 mg PRN QHS PRN PO CONSTIPATION; Start 04/30/17 at 20:00 Allopurinol (Zyloprim) 200 mg DAILYWSUP PO Last administered on 05/03/17 16:19 ; Start 05/01/17 at 17:00 Atenolol (Tenormin) 50 mg BID PO Last administered on 05/03/17 20:03; Start at 21:00 Calcium Carbonate/ Glycine (Oscal) 500 mg BIDWMEALS PO Last administered on 05/03 16:19; Start 05/01/17 at 08:00 Vitamin D (Vitamin D3) 1,000 unit DAILYWBKFT PO Last administered on 05/03/17 07:20; Start 05/01/17 at 08:00 Digoxin (Lanoxin) 125 mcg DAILY PO Last administered on 05/03/17 07:21; Start 05/01/17 at 09:00 Furosemide (Lasix) 120 mg DAILY PO Last administered on 05/03/17 07:22; Start 05/01/17 at 09:00 Metformin HCl (Glucophage) 850 mg BIDWMEALS PO Last administered on 05/03/17 16 :19; Start 05/01/17 at 08:00 Potassium Chloride (Klor-Con) 20 meq BID PO Last administered on 05/03/17 07:21 ; Start 05/01/17 at 09:00 Warfarin Sodium (Coumadin) 6 mg DAILY16 PO Last administered on 05/01/17 16:56 ; Start 05/01/17 at 16:00; Stop 05/02/17 at 11:39; Status DC Non-Formulary Medication 500 mg BIDWMEALS PO ; Start 05/01/17 at 08:00; Stop 05/01 at 08:00; Status DC Glucosamine/ Chondroitin (Glucosamine-Chondroitin 500/400mg) 1 cap BIDWMEALS PO Last administered on 05/03/17 16:18; Start 05/01/17 at 08:00 Lactobacillus Acidophilus (Bacid, Orly-Bid) 2 tab DAILYWBKFT PO Last administered on 05/03/17 07:19; Start 05/01/17 at 08:00 Non-Formulary Medication 20 mg QHS PO ; Start 04/30/17 at 21:00; Stop 04/30/17 at 21:00; Status DC Non-Formulary Medication 5 mg QHS PO ; Start 04/30/17 at 21:00; Stop 04/30/17 at 21:00; Status DC Multivitamins/ Minerals (I-Gera) 1 tab DAILY PO Last administered on 05/03/17 07:20; Start 05/01/17 at 09:00 Pantoprazole Sodium (Protonix) 40 mg DAILYAC PO Last administered on 05/03/17 07:18; Start 05/01/17 at 07:30 Tamoxifen Citrate (Nolvadex) 20 mg DAILY PO Last administered on 05/03/17 07:25 ; Start 05/01/17 at 09:00 Coenzyme Q10 (Coenzyme Q10) 100 mg BID PO Last administered on 05/03/17 20:03; Start 05/01/17 at 09:00 Sertraline HCl (Zoloft) 50 mg QHS PO Last administered on 04/30/17 20:51; Start 04/30/17 at 21:00; Stop 05/01/17 at 11:00; Status DC Melatonin 4.5 mg QHS PO Last administered on 05/03/17 20:05; Start 04/30/17 at 21:00 Olanzapine (ZyPREXA ZYDIS) 2.5 mg PRN Q4HRS PRN PO Psych Last administered on 20:06; Start 04/30/17 at 20:15 Magnesium Oxide (Magnesium Oxide) 400 mg BID PO Last administered on 05/03/17 20:04; Start 04/30/17 at 21:00 Warfarin Sodium (Coumadin) 6 mg 1X WARF ONCE PO Last administered on 20:51; Start 04/30/17 at 20:45; Stop 04/30/17 at 20:46; Status DC Warfarin Sodium (Coumadin) 0.5 mg 1X WARF ONCE PO Last administered on 20:51; Start 04/30/17 at 20:45; Stop 04/30/17 at 20:46; Status DC Warfarin Sodium (Coumadin Per Physician) 1 each PRN DAILY PRN MC SEE COMMENTS; Start 05/01/17 at 09:45; Stop 05/01/17 at 14:54; Status DC Risperidone (RisperDAL) 0.25 mg HS PO Last administered on 05/02/17 19:39; Start 05/01/17 at 21:00; Stop 05/03/17 at 18:28; Status DC Trazodone HCl (Desyrel) 100 mg QHS PO Last administered on 05/03/17 20:03; Start 05/01/17 at 21:00 Trazodone HCl (Desyrel) 100 mg PRN QHS PRN PO INSOMNIA; Start 05/01/17 at 10:45 Insulin Detemir (Levemir) 5 units QHS SQ Last administered on 05/03/17 20:52; Start 05/01/17 at 21:00 Insulin Aspart (NovoLOG) 0-5 UNITS QIDACHS SQ Last administered on 05/03/17 20: 53; Start 05/01/17 at 16:30 Dextrose 12.5 gm PRN Q15MIN PRN IV SEE COMMENTS; Start 05/01/17 at 14:45 Warfarin Sodium (Coumadin Per Pharmacy) 1 each PRN DAILY PRN MC SEE COMMENTS Last administered on 05/03/17 14:57; Start 05/01/17 at 14:45 Insulin Aspart (NovoLOG) 10 units 1X ONCE SQ Last administered on 05/01/17 17: 15; Start 05/01/17 at 17:15; Stop 05/01/17 at 17:16; Status DC Warfarin Sodium (Coumadin) 7.5 mg 1X WARF ONCE PO Last administered on 17:16; Start 05/02/17 at 16:00; Stop 05/02/17 at 16:01; Status DC Warfarin Sodium (Coumadin) 7.5 mg 1X WARF ONCE PO Last administered on 16:18; Start 05/03/17 at 16:00; Stop 05/03/17 at 16:01; Status DC Risperidone (RisperDAL) 0.5 mg HS SL ; Start 05/03/17 at 21:00 Valproic Acid (Depakene) 250 mg BIDWMEALS PO ; Start 05/04/17 at 08:00 Active Scripts Active Reported Probiotic (Lactobacillus Combo No.10) 1 Each Capsule 1 Cap PO DAILYWBKFT Women's Daily Caplet (Multivits,Ca,Minerals/Iron/Fa) 1 Each Tablet 1 Tab PO BID Zoloft (Sertraline Hcl) 25 Mg Tablet 25 Mg PO QHS 7 Days Zoloft (Sertraline Hcl) 50 Mg Tablet 50 Mg PO QHS 3 Days Omeprazole 20 Mg Tablet.dr 20 Mg PO DAILY07 Allopurinol 100 Mg Tablet 200 Mg PO DAILYWSUP Vitamin D3 (Cholecalciferol (Vitamin D3)) 1,000 Unit Tablet 1,000 Unit PO DAILYWBKFT Oyster Shell Calcium (Calcium Carbonate) 500 Mg Tablet 500 Mg PO BIDWMEALS Cinnamon (Cinnamon Bark) 500 Mg Capsule 500 Mg PO BIDWMEALS Co Q-10 100 Mg Softgel (Ubidecarenone/Vit E Acetate) 1 Each Capsule 100 Mg PO BID Melatonin 5 Mg Tablet (Melatonin/Pyridoxine) 1 Each Tablet 5 Mg PO QHS Lutein 20 Mg Capsule 20 Mg PO QHS Wokdzfbkhi-Mvngytkkrsj-Hjo Tab (Gluc/Victor M-Msm#2/C/D3/Anthony/Born) 1 Each Tablet 1 Tab PO BIDWMEALS Metformin Hcl 850 Mg Tablet 850 Mg PO BIDWMEALS Digoxin 125 Mcg Tablet 125 Mcg PO DAILY Tamoxifen Citrate 20 Mg Tablet 20 Mg PO DAILY Atenolol 50 Mg Tablet 50 Mg PO BID Lasix (Furosemide) 80 Mg Tablet 120 Mg PO DAILY Coumadin (Warfarin Sodium) 6 Mg Tablet 6 Mg PO QPM Potassium Chloride 10 Meq Capsule.er 10 Meq PO BID Diagnosis: Problems: (1) Anxiety disorder (2) Impulse control disorder (3) Bipolar affective, mixed, sev w/ psych (4) Dementia, vascular, 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
[2017-05-03] MEDS: risperiDONE ORAL 1 MG/ML 30ml BOTTLE. SL SCH (22:17)
[2017-05-04] MEDS: traZODone 100 MG TABLET. PO PRN (00:32)
--- NOTE | 2017-05-04 00:32 | NUR ---
Nursing Note Patient is in bed yelling unintelligible words. Patient grabs this nurse when approaching bedside and holds hand tightly and is hesitant to let go. Patient is agitated and having difficulty sleeping. Patient given PRN Zyprexa and Trazodone per PRN order.
[2017-05-04 06:08] VITALS: BP 130/74
--- NOTE | 2017-05-04 06:18 | NUR ---
Behavior Intervention Response and Plan: BIRP Note: Behavior: Assumed Care of patient, patient located in Day Room at shift change. Patient exhibited the following behavior Restless, Compliant, Cooperative. Brief assessment on rounds of vital signs, medication needs, lab studies, and pain. Treatment plan problems Alteration in Mood, Danger to Others and Fall Risk. Intervention: Patient assessed and the following interventions initiated safety checks 15 Minute Checks Personal Alarm in place , Cognitive Assessment , Medications. Response: After interactions and interventions patient responded in the following manner, Calm , Compliant ,Cooperative. Continue to assess behaviors and condition will continue to monitor throughout the shift as needed. 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 Continue to assess patient for changes in above assessment. Monitor for medication needs, pain, and safety concerns. Hourly rounding performed to ensure safe environment.
[2017-05-04] MEDS: PANTOPRAZOLE 40 MG TABLET. PO SCH ×2 (07:30→07:42)
[2017-05-04] MEDS: MULTIVITAMIN I-VITE TABLET. PO SCH ×2 (07:42→09:00)
[2017-05-04] MEDS: UBIDECARENONE 50 MG CAPSULE. PO SCH ×3 (07:42→20:36)
[2017-05-04] MEDS: FUROSEMIDE 80 MG TABLET PO SCH ×2 (07:42→09:00)
[2017-05-04] MEDS: GLUCOSAMINE/CHOND 500/400MG CAPSULE PO SCH ×3 (07:43→16:03)
[2017-05-04] MEDS: metFORMIN 850 MG TABLET PO SCH ×3 (07:43→16:02)
[2017-05-04] MEDS: LACTOBACILLUS ACIDOPH & BULGAR 1 TABLET. PO SCH ×2 (07:43→08:00)
[2017-05-04] MEDS: POTASSIUM CHLORIDE 20 MEQ TABLET.ER. PO SCH ×3 (07:43→20:37)
[2017-05-04] MEDS: CHOLECALCIFEROL (VITAMIN D3) 1,000 UNIT TABLET PO SCH ×2 (07:43→08:00)
[2017-05-04] MEDS: MAGNESIUM CHLORIDE ER 64 MG TABLET.ER PO SCH ×2 (07:44→09:00)
[2017-05-04] MEDS: CALCIUM CARBONATE 500 MG TABLET PO SCH ×3 (07:44→16:03)
[2017-05-04] MEDS: DIGOXIN 125 MCG TABLET PO SCH ×2 (07:44→09:00)
[2017-05-04] MEDS: MAGNESIUM OXIDE 400 MG TABLET PO SCH ×3 (07:44→20:37)
[2017-05-04] MEDS: ATENOLOL 50 MG TABLET PO SCH ×3 (07:44→20:37)
[2017-05-04] MEDS: TAMOXIFEN 10 MG TABLET PO SCH ×2 (07:46→09:00)
[2017-05-04] MEDS: VALPROATE ACID 250 MG/5 ML ORAL SOLUTION PO SCH ×2 (07:47→16:02)
[2017-05-04] MEDS: INSULIN ASPART 300 UNITS/3 ML INSULN.PEN SQ SCH ×4 (08:01→20:45)
--- NOTE | 2017-05-04 09:15 | NUR ---
THERAPEUTIC RECREATION GROUP NOTE TITLE :04 of May Jeopardy and Holiday Sing Along ACTIVITY : Cognitive Stimulation, Music GOAL : Maintain or improve cognitive functioning and memory. Increase morale, attention, flexibility. Decrease stress/anxiety. DURATION : 45 Minutes RESPONSE : Full participation. Pt. was alert and stayed with the group the entire time. At times, she sat quietly and at other times she talked loudly and shouted. She mumbled several guesses and answered one question clearly and correctly. She watched and sang along to several patriotic songs after jeopardy. Throughout the entire session, she randomly waved her arms around in the air.
--- NOTE | 2017-05-04 10:23 | NUR ---
Behavior Intervention Response and Plan: BIRP Note: Behavior: Assumed Care of patient, patient located in Dining Room at shift change. Patient exhibited the following behavior Disorganized, Compulsive, Non Compliant. Brief assessment on rounds of vital signs, medication needs, lab studies, and pain. Treatment plan problems . Intervention: Patient assessed and the following interventions initiated safety checks 15 Minute Checks Cognitive Assessment , Head to toe Assessment , Medications. Response: After interactions and interventions patient responded in the following manner, Restless , Disorganized ,Delusions. Continue to assess behaviors and condition will continue to monitor throughout the shift as needed. 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 Continue to assess patient for changes in above assessment. Monitor for medication needs, pain, and safety concerns. Hourly rounding performed to ensure safe environment.
--- NOTE | 2017-05-04 11:00 | NUR ---
SW talked w/Pt. while Pt. sitting in wc in hallway. PT. was making random chirping noises. SW asked how Pt. was doing and Pt. began to mime her answer. SW asked if PT. could use her words to talk w/this PT. and Pt. smiled, leaned back in her wc and continued to "act out" her answer. Pt. did make a statement about being in pain and pointed to her pelvic area. SHYANN asked Pt. if she would like for SHYANN to notify a nurse and Pt. answered yes w/her head. SHYANN notified RN who stated Pt. was not med compliant this am, therefore not able to provide w/Pain medication yet.
--- NOTE | 2017-05-04 11:30 | NUR ---
THERAPEUTIC RECREATION GROUP NOTE TITLE :Ball Bounce ACTIVITY : Movement/ Exercise GOAL : Increase morale, attention, flexibility. Decrease stress/anxiety. DURATION : 30 Minutes RESPONSE : No participation.
--- NOTE | 2017-05-04 13:21 | NUR ---
Pharmacy Warfarin Dosing Note S:Pharmacy consulted to assist with anticoagulation therapy started with target INR: 2 -3 O:RAINER WASHINGTON is a 86 year old F with Atrial Fibrillation LABS: Last INR: 1.4 Last HGB: 12.5 Last HCT: 38.4 Last PLT: 115 Last dose of 7.5 mg given on 05/03/17 at 1600 Previous Regimen: 6MG DAILY Vitamin K given: No Drug Interaction Changes: No Ongoing Drug Interactions: ALLOPURINOL, TAMOXIFEN, GLUCOSAMINE/CHONDROTIN A:INR is below the desired range. Unsure if patient is being compliant with meds. Bridge therapy may be necessary. Will continue to order Coumadin 7.5mg for now. P: Warfarin dose: Coumadin 7.5mg po today at 1600 Bridge Therapy: None Next INR due 05/05/17. Pharmacy anticoagulation service will continue to follow. JESUS CLEANING RPh 05/04/17 [id number]
--- NOTE | 2017-05-04 14:23 | NUR ---
pt up in wc for meals. yelling out intermittently. non sensical speech. miming with hands. refused am meds in [place]. Gave Depakene per syringe. took well. Family here at noon. was able to give. atenolol, lasix and digoxin with family help. c/0 pain befor lunch. gave tylenol and zydis. pt took meds whole.
[2017-05-04] MEDS ORDERED: WARFARIN 7.5 MG TABLET. PO ONE (16:00)
[2017-05-04] MEDS: ALLOPURINOL 100 MG TABLET. PO SCH (16:03)
[2017-05-04 16:31] VITALS: BP 109/78
--- NOTE | 2017-05-04 20:23 | PDOC ---
Exam Tahir Demential Exam: Tahir Note: Please also refer to the separate dictated note~for this date of service dictated separately.~Patient seen individually. Discussed the patient with Nursing staff reviewed the chart.~Reviewed interim history and current functioning. Reviewed vital signs,~Labs/ Radiology~and current medications noted below. Continue current treatment with the changes noted in the dictated addendum note DATE OF SERVICE: 05/02/2017. PSYCHIATRIC PROGRESS NOTE This is a late entry for Date of Service 05/02/2017 and covers elements not covered in my initial note. The patient remains confused, anxious, restless, labile in her mood, somewhat intrusive, agitated, singing disrupting the unit, redirects at times. REVIEW OF SYSTEMS Ambulation impaired. No CV, , pulmonary, eye, ENT systems symptoms, on review. Reliability poor. MENTAL STATUS EXAM: Oriented to herself. Insight and judgment, recent and remote memory, attention and concentration, fund of knowledge poor consistent with her diagnosis mentioned in my initial note. IMPRESSION: Major neurocognitive disorder; Alzheimer vascular with depression, delusion, behavioral disturbance; bipolar 1 disorder, mixed with psychotic features; anxiety disorder, unspecified. PLAN: Continue melatonin, Risperdal, trazodone, May increase Risperdal starting tomorrow and consider Depakote as a mood stabilizer. Assessment: Vital Signs: Vital Signs Date Time Temp Pulse Resp B/P (MAP) Pulse Ox O2 Delivery O2 Flow Rate FiO2 05/04/17 16:31 98.3 72 16 109/78 (88) 93 05/03/17 15:55 Room Air I&O Intake and Output 05/04/17 07:00 Intake Total 240 ml Balance 240 ml Intake Oral 240 ml Labs: Laboratory Tests Test 05/04/17 07:48 05/04/17 09:40 05/04/17 12:21 05/04/17 17:18 Glucose (Fingerstick) 187 mg/dL (70-99) H 258 mg/dL (70-99) H 276 mg/dL (70-99) H Prothrombin Time 14.3 SEC (9.4-11.4) H Prothrombin Time INR 1.4 (0.9-1.1) H Test 05/04/17 18:57 Glucose (Fingerstick) 255 mg/dL (70-99) H Current Medications: Meds: Current Medications Acetaminophen (Tylenol) 650 mg PRN Q6HRS PRN PO PAIN / TEMP; Start 04/30/17 at 18:30; Stop 04/30/17 at 19:53; Status DC Potassium Chloride (Klor-Con) 20 meq 1X ONCE PO Last administered on 20:51; Start 04/30/17 at 20:00; Stop 04/30/17 at 20:01; Status DC Magnesium Chloride (Mag Delay) 64 mg DAILY PO Last administered on 05/03/17 07: 22; Start 05/01/17 at 09:00 Acetaminophen (Tylenol) 650 mg PRN Q6HRS PRN PO PAIN / TEMP Last administered on 05/04/17 11:44; Start 04/30/17 at 20:00 Al Hydroxide/Mg Hydroxide (Mylanta Plus Xs) 15 ml PRN AFTMEALHC PRN PO DYSPEPSIA; Start 04/30/17 at 20:00 Magnesium Hydroxide (Milk Of Magnesia) 2,400 mg PRN QHS PRN PO CONSTIPATION; Start 04/30/17 at 20:00 Allopurinol (Zyloprim) 200 mg DAILYWSUP PO Last administered on 05/04/17 16:03 ; Start 05/01/17 at 17:00 Atenolol (Tenormin) 50 mg BID PO Last administered on 05/04/17 09:00; Start at 21:00 Calcium Carbonate/ Glycine (Oscal) 500 mg BIDWMEALS PO Last administered on 05/03 16:19; Start 05/01/17 at 08:00 Vitamin D (Vitamin D3) 1,000 unit DAILYWBKFT PO Last administered on 05/03/17 07:20; Start 05/01/17 at 08:00 Digoxin (Lanoxin) 125 mcg DAILY PO Last administered on 05/04/17 09:00; Start 05/01/17 at 09:00 Furosemide (Lasix) 120 mg DAILY PO Last administered on 05/04/17 09:00; Start 05/01/17 at 09:00 Metformin HCl (Glucophage) 850 mg BIDWMEALS PO Last administered on 05/04/17 16 :02; Start 05/01/17 at 08:00 Potassium Chloride (Klor-Con) 20 meq BID PO Last administered on 05/03/17 22:53 ; Start 05/01/17 at 09:00 Warfarin Sodium (Coumadin) 6 mg DAILY16 PO Last administered on 05/01/17 16:56 ; Start 05/01/17 at 16:00; Stop 05/02/17 at 11:39; Status DC Non-Formulary Medication 500 mg BIDWMEALS PO ; Start 05/01/17 at 08:00; Stop 05/01 at 08:00; Status DC Glucosamine/ Chondroitin (Glucosamine-Chondroitin 500/400mg) 1 cap BIDWMEALS PO Last administered on 05/03/17 16:18; Start 05/01/17 at 08:00 Lactobacillus Acidophilus (Bacid, Orly-Bid) 2 tab DAILYWBKFT PO Last administered on 05/03/17 07:19; Start 05/01/17 at 08:00 Non-Formulary Medication 20 mg QHS PO ; Start 04/30/17 at 21:00; Stop 04/30/17 at 21:00; Status DC Non-Formulary Medication 5 mg QHS PO ; Start 04/30/17 at 21:00; Stop 04/30/17 at 21:00; Status DC Multivitamins/ Minerals (I-Gera) 1 tab DAILY PO Last administered on 05/03/17 07:20; Start 05/01/17 at 09:00 Pantoprazole Sodium (Protonix) 40 mg DAILYAC PO Last administered on 05/03/17 07:18; Start 05/01/17 at 07:30 Tamoxifen Citrate (Nolvadex) 20 mg DAILY PO Last administered on 05/03/17 07:25 ; Start 05/01/17 at 09:00 Coenzyme Q10 (Coenzyme Q10) 100 mg BID PO Last administered on 05/03/17 20:03; Start 05/01/17 at 09:00 Sertraline HCl (Zoloft) 50 mg QHS PO Last administered on 04/30/17 20:51; Start 04/30/17 at 21:00; Stop 05/01/17 at 11:00; Status DC Melatonin 4.5 mg QHS PO Last administered on 05/03/17 20:05; Start 04/30/17 at 21:00 Olanzapine (ZyPREXA ZYDIS) 2.5 mg PRN Q4HRS PRN PO Psych Last administered on 11:44; Start 04/30/17 at 20:15 Magnesium Oxide (Magnesium Oxide) 400 mg BID PO Last administered on 05/03/17 20:04; Start 04/30/17 at 21:00 Warfarin Sodium (Coumadin) 6 mg 1X WARF ONCE PO Last administered on 20:51; Start 04/30/17 at 20:45; Stop 04/30/17 at 20:46; Status DC Warfarin Sodium (Coumadin) 0.5 mg 1X WARF ONCE PO Last administered on 20:51; Start 04/30/17 at 20:45; Stop 04/30/17 at 20:46; Status DC Warfarin Sodium (Coumadin Per Physician) 1 each PRN DAILY PRN MC SEE COMMENTS; Start 05/01/17 at 09:45; Stop 05/01/17 at 14:54; Status DC Risperidone (RisperDAL) 0.25 mg HS PO Last administered on 05/02/17 19:39; Start 05/01/17 at 21:00; Stop 05/03/17 at 18:28; Status DC Trazodone HCl (Desyrel) 100 mg QHS PO Last administered on 05/03/17 20:03; Start 05/01/17 at 21:00 Trazodone HCl (Desyrel) 100 mg PRN QHS PRN PO INSOMNIA Last administered on 05/04 00:32; Start 05/01/17 at 10:45 Insulin Detemir (Levemir) 5 units QHS SQ Last administered on 05/03/17 20:52; Start 05/01/17 at 21:00 Insulin Aspart (NovoLOG) 0-5 UNITS QIDACHS SQ Last administered on 05/04/17 17: 20; Start 05/01/17 at 16:30 Dextrose 12.5 gm PRN Q15MIN PRN IV SEE COMMENTS; Start 05/01/17 at 14:45 Warfarin Sodium (Coumadin Per Pharmacy) 1 each PRN DAILY PRN MC SEE COMMENTS Last administered on 05/04/17 13:21; Start 05/01/17 at 14:45 Insulin Aspart (NovoLOG) 10 units 1X ONCE SQ Last administered on 05/01/17 17: 15; Start 05/01/17 at 17:15; Stop 05/01/17 at 17:16; Status DC Warfarin Sodium (Coumadin) 7.5 mg 1X WARF ONCE PO Last administered on 17:16; Start 05/02/17 at 16:00; Stop 05/02/17 at 16:01; Status DC Warfarin Sodium (Coumadin) 7.5 mg 1X WARF ONCE PO Last administered on 16:18; Start 05/03/17 at 16:00; Stop 05/03/17 at 16:01; Status DC Risperidone (RisperDAL) 0.5 mg HS SL Last administered on 05/03/17 22:17; Start 05/03/17 at 21:00 Valproic Acid (Depakene) 250 mg BIDWMEALS PO Last administered on 05/04/17 16: 02; Start 05/04/17 at 08:00 Warfarin Sodium (Coumadin) 7.5 mg 1X WARF ONCE PO Last administered on 16:02; Start 05/04/17 at 16:00; Stop 05/04/17 at 16:01; Status DC Mirtazapine (Remeron) 7.5 mg QHS PO ; Start 05/04/17 at 21:00 Active Scripts Active Reported Probiotic (Lactobacillus Combo No.10) 1 Each Capsule 1 Cap PO DAILYWBKFT Women's Daily Caplet (Multivits,Ca,Minerals/Iron/Fa) 1 Each Tablet 1 Tab PO BID Zoloft (Sertraline Hcl) 25 Mg Tablet 25 Mg PO QHS 7 Days Zoloft (Sertraline Hcl) 50 Mg Tablet 50 Mg PO QHS 3 Days Omeprazole 20 Mg Tablet.dr 20 Mg PO DAILY07 Allopurinol 100 Mg Tablet 200 Mg PO DAILYWSUP Vitamin D3 (Cholecalciferol (Vitamin D3)) 1,000 Unit Tablet 1,000 Unit PO DAILYWBKFT Oyster Shell Calcium (Calcium Carbonate) 500 Mg Tablet 500 Mg PO BIDWMEALS Cinnamon (Cinnamon Bark) 500 Mg Capsule 500 Mg PO BIDWMEALS Co Q-10 100 Mg Softgel (Ubidecarenone/Vit E Acetate) 1 Each Capsule 100 Mg PO BID Melatonin 5 Mg Tablet (Melatonin/Pyridoxine) 1 Each Tablet 5 Mg PO QHS Lutein 20 Mg Capsule 20 Mg PO QHS Ctalctjaqf-Swclspkrcsy-Apy Tab (Gluc/Victor M-Msm#2/C/D3/Anthony/Born) 1 Each Tablet 1 Tab PO BIDWMEALS Metformin Hcl 850 Mg Tablet 850 Mg PO BIDWMEALS Digoxin 125 Mcg Tablet 125 Mcg PO DAILY Tamoxifen Citrate 20 Mg Tablet 20 Mg PO DAILY Atenolol 50 Mg Tablet 50 Mg PO BID Lasix (Furosemide) 80 Mg Tablet 120 Mg PO DAILY Coumadin (Warfarin Sodium) 6 Mg Tablet 6 Mg PO QPM Potassium Chloride 10 Meq Capsule.er 10 Meq PO BID CHAU GROSS MD May 04, 2017 20:23
[2017-05-04] MEDS: MELATONIN 3 MG TABLET PO SCH (20:37)
[2017-05-04] MEDS: traZODone 100 MG TABLET. PO SCH (20:37)
[2017-05-04] MEDS: risperiDONE ORAL 1 MG/ML 30ml BOTTLE. SL SCH (20:41)
[2017-05-04] MEDS: INSULIN DETEMIR 300 UNITS/3 ML INSULN.PEN. SQ SCH (20:43)
--- NOTE | 2017-05-04 20:49 | PDOC ---
Exam Tahir Demential Exam: Tahir Note: Please also refer to the separate dictated note~for this date of service dictated separately.~Patient seen individually. Discussed the patient with Nursing staff reviewed the chart.~Reviewed interim history and current functioning. Reviewed vital signs,~Labs/ Radiology~and current medications noted below. Continue current treatment with the changes noted in the dictated addendum note Assessment: Vital Signs: Vital Signs Date Time Temp Pulse Resp B/P (MAP) Pulse Ox O2 Delivery O2 Flow Rate FiO2 05/04/17 20:37 72 109/78 05/04/17 16:31 98.3 16 93 05/03/17 15:55 Room Air I&O Intake and Output 05/04/17 07:00 Intake Total 240 ml Balance 240 ml Intake Oral 240 ml Labs: Laboratory Tests Test 05/04/17 07:48 05/04/17 09:40 05/04/17 12:21 05/04/17 17:18 Glucose (Fingerstick) 187 mg/dL (70-99) H 258 mg/dL (70-99) H 276 mg/dL (70-99) H Prothrombin Time 14.3 SEC (9.4-11.4) H Prothrombin Time INR 1.4 (0.9-1.1) H Test 05/04/17 18:57 Glucose (Fingerstick) 255 mg/dL (70-99) H Current Medications: Meds: Current Medications Acetaminophen (Tylenol) 650 mg PRN Q6HRS PRN PO PAIN / TEMP; Start 04/30/17 at 18:30; Stop 04/30/17 at 19:53; Status DC Potassium Chloride (Klor-Con) 20 meq 1X ONCE PO Last administered on 20:51; Start 04/30/17 at 20:00; Stop 04/30/17 at 20:01; Status DC Magnesium Chloride (Mag Delay) 64 mg DAILY PO Last administered on 05/03/17 07: 22; Start 05/01/17 at 09:00 Acetaminophen (Tylenol) 650 mg PRN Q6HRS PRN PO PAIN / TEMP Last administered on 05/04/17 11:44; Start 04/30/17 at 20:00 Al Hydroxide/Mg Hydroxide (Mylanta Plus Xs) 15 ml PRN AFTMEALHC PRN PO DYSPEPSIA; Start 04/30/17 at 20:00 Magnesium Hydroxide (Milk Of Magnesia) 2,400 mg PRN QHS PRN PO CONSTIPATION; Start 04/30/17 at 20:00 Allopurinol (Zyloprim) 200 mg DAILYWSUP PO Last administered on 05/04/17 16:03 ; Start 05/01/17 at 17:00 Atenolol (Tenormin) 50 mg BID PO Last administered on 05/04/17 20:37; Start at 21:00 Calcium Carbonate/ Glycine (Oscal) 500 mg BIDWMEALS PO Last administered on 05/03 16:19; Start 05/01/17 at 08:00 Vitamin D (Vitamin D3) 1,000 unit DAILYWBKFT PO Last administered on 05/03/17 07:20; Start 05/01/17 at 08:00 Digoxin (Lanoxin) 125 mcg DAILY PO Last administered on 05/04/17 09:00; Start 05/01/17 at 09:00 Furosemide (Lasix) 120 mg DAILY PO Last administered on 05/04/17 09:00; Start 05/01/17 at 09:00 Metformin HCl (Glucophage) 850 mg BIDWMEALS PO Last administered on 05/04/17 16 :02; Start 05/01/17 at 08:00 Potassium Chloride (Klor-Con) 20 meq BID PO Last administered on 05/04/17 20:37 ; Start 05/01/17 at 09:00 Warfarin Sodium (Coumadin) 6 mg DAILY16 PO Last administered on 05/01/17 16:56 ; Start 05/01/17 at 16:00; Stop 05/02/17 at 11:39; Status DC Non-Formulary Medication 500 mg BIDWMEALS PO ; Start 05/01/17 at 08:00; Stop 05/01 at 08:00; Status DC Glucosamine/ Chondroitin (Glucosamine-Chondroitin 500/400mg) 1 cap BIDWMEALS PO Last administered on 05/03/17 16:18; Start 05/01/17 at 08:00 Lactobacillus Acidophilus (Bacid, Orly-Bid) 2 tab DAILYWBKFT PO Last administered on 05/03/17 07:19; Start 05/01/17 at 08:00 Non-Formulary Medication 20 mg QHS PO ; Start 04/30/17 at 21:00; Stop 04/30/17 at 21:00; Status DC Non-Formulary Medication 5 mg QHS PO ; Start 04/30/17 at 21:00; Stop 04/30/17 at 21:00; Status DC Multivitamins/ Minerals (I-Gera) 1 tab DAILY PO Last administered on 05/03/17 07:20; Start 05/01/17 at 09:00 Pantoprazole Sodium (Protonix) 40 mg DAILYAC PO Last administered on 05/03/17 07:18; Start 05/01/17 at 07:30 Tamoxifen Citrate (Nolvadex) 20 mg DAILY PO Last administered on 05/03/17 07:25 ; Start 05/01/17 at 09:00 Coenzyme Q10 (Coenzyme Q10) 100 mg BID PO Last administered on 05/04/17 20:36; Start 05/01/17 at 09:00 Sertraline HCl (Zoloft) 50 mg QHS PO Last administered on 04/30/17 20:51; Start 04/30/17 at 21:00; Stop 05/01/17 at 11:00; Status DC Melatonin 4.5 mg QHS PO Last administered on 05/04/17 20:37; Start 04/30/17 at 21:00 Olanzapine (ZyPREXA ZYDIS) 2.5 mg PRN Q4HRS PRN PO Psych Last administered on 11:44; Start 04/30/17 at 20:15 Magnesium Oxide (Magnesium Oxide) 400 mg BID PO Last administered on 05/04/17 20:37; Start 04/30/17 at 21:00 Warfarin Sodium (Coumadin) 6 mg 1X WARF ONCE PO Last administered on 20:51; Start 04/30/17 at 20:45; Stop 04/30/17 at 20:46; Status DC Warfarin Sodium (Coumadin) 0.5 mg 1X WARF ONCE PO Last administered on 20:51; Start 04/30/17 at 20:45; Stop 04/30/17 at 20:46; Status DC Warfarin Sodium (Coumadin Per Physician) 1 each PRN DAILY PRN MC SEE COMMENTS; Start 05/01/17 at 09:45; Stop 05/01/17 at 14:54; Status DC Risperidone (RisperDAL) 0.25 mg HS PO Last administered on 05/02/17 19:39; Start 05/01/17 at 21:00; Stop 05/03/17 at 18:28; Status DC Trazodone HCl (Desyrel) 100 mg QHS PO Last administered on 05/04/17 20:37; Start 05/01/17 at 21:00 Trazodone HCl (Desyrel) 100 mg PRN QHS PRN PO INSOMNIA Last administered on 05/04 00:32; Start 05/01/17 at 10:45 Insulin Detemir (Levemir) 5 units QHS SQ Last administered on 05/04/17 20:43; Start 05/01/17 at 21:00 Insulin Aspart (NovoLOG) 0-5 UNITS QIDACHS SQ Last administered on 05/04/17 20: 45; Start 05/01/17 at 16:30 Dextrose 12.5 gm PRN Q15MIN PRN IV SEE COMMENTS; Start 05/01/17 at 14:45 Warfarin Sodium (Coumadin Per Pharmacy) 1 each PRN DAILY PRN MC SEE COMMENTS Last administered on 05/04/17 13:21; Start 05/01/17 at 14:45 Insulin Aspart (NovoLOG) 10 units 1X ONCE SQ Last administered on 05/01/17 17: 15; Start 05/01/17 at 17:15; Stop 05/01/17 at 17:16; Status DC Warfarin Sodium (Coumadin) 7.5 mg 1X WARF ONCE PO Last administered on 17:16; Start 05/02/17 at 16:00; Stop 05/02/17 at 16:01; Status DC Warfarin Sodium (Coumadin) 7.5 mg 1X WARF ONCE PO Last administered on 16:18; Start 05/03/17 at 16:00; Stop 05/03/17 at 16:01; Status DC Risperidone (RisperDAL) 0.5 mg HS SL Last administered on 05/04/17 20:41; Start 05/03/17 at 21:00 Valproic Acid (Depakene) 250 mg BIDWMEALS PO Last administered on 05/04/17 16: 02; Start 05/04/17 at 08:00 Warfarin Sodium (Coumadin) 7.5 mg 1X WARF ONCE PO Last administered on 16:02; Start 05/04/17 at 16:00; Stop 05/04/17 at 16:01; Status DC Mirtazapine (Remeron) 7.5 mg QHS PO Last administered on 05/04/17 20:38; Start 05/04/17 at 21:00 Active Scripts Active Reported Probiotic (Lactobacillus Combo No.10) 1 Each Capsule 1 Cap PO DAILYWBKFT Women's Daily Caplet (Multivits,Ca,Minerals/Iron/Fa) 1 Each Tablet 1 Tab PO BID Zoloft (Sertraline Hcl) 25 Mg Tablet 25 Mg PO QHS 7 Days Zoloft (Sertraline Hcl) 50 Mg Tablet 50 Mg PO QHS 3 Days Omeprazole 20 Mg Tablet.dr 20 Mg PO DAILY07 Allopurinol 100 Mg Tablet 200 Mg PO DAILYWSUP Vitamin D3 (Cholecalciferol (Vitamin D3)) 1,000 Unit Tablet 1,000 Unit PO DAILYWBKFT Oyster Shell Calcium (Calcium Carbonate) 500 Mg Tablet 500 Mg PO BIDWMEALS Cinnamon (Cinnamon Bark) 500 Mg Capsule 500 Mg PO BIDWMEALS Co Q-10 100 Mg Softgel (Ubidecarenone/Vit E Acetate) 1 Each Capsule 100 Mg PO BID Melatonin 5 Mg Tablet (Melatonin/Pyridoxine) 1 Each Tablet 5 Mg PO QHS Lutein 20 Mg Capsule 20 Mg PO QHS Jmhyctmwyi-Ekyjfhcvdbo-Jln Tab (Gluc/Victor M-Msm#2/C/D3/Anthony/Born) 1 Each Tablet 1 Tab PO BIDWMEALS Metformin Hcl 850 Mg Tablet 850 Mg PO BIDWMEALS Digoxin 125 Mcg Tablet 125 Mcg PO DAILY Tamoxifen Citrate 20 Mg Tablet 20 Mg PO DAILY Atenolol 50 Mg Tablet 50 Mg PO BID Lasix (Furosemide) 80 Mg Tablet 120 Mg PO DAILY Coumadin (Warfarin Sodium) 6 Mg Tablet 6 Mg PO QPM Potassium Chloride 10 Meq Capsule.er 10 Meq PO BID Diagnosis: Problems: (1) Anxiety disorder (2) Impulse control disorder (3) Bipolar affective, mixed, sev w/ psych (4) Dementia, vascular, 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
[2017-05-04] MEDS ORDERED: MIRTAZAPINE 7.5 MG TABLET. PO SCH (21:00)
--- NOTE | 2017-05-05 01:48 | NUR ---
Behavior Intervention Response and Plan: BIRP Note: Behavior: Assumed Care of patient, patient located in Day Room at shift change. Patient exhibited the following behavior Restless, Disorganized, Agitated. Brief assessment on rounds of vital signs, medication needs, lab studies, and pain. Treatment plan problems Alteration in Mood, Danger to Others and Fall Risk. Intervention: Patient assessed and the following interventions initiated safety checks 15 Minute Checks Personal Alarm in place , Cognitive Assessment , Medications. Response: After interactions and interventions patient responded in the following manner, Disorganized , Non Compliant with Meds ,Disorganized. Continue to assess behaviors and condition will continue to monitor throughout the shift as needed. Plan: Continue to monitor Master Treatment Plan for patient's progress toward short term goals of Decreased Agitation, Medication Compliance, fci goals to return to previous living setting vs placement. Continue to assess patient for changes in above assessment. Monitor for medication needs, pain, and safety concerns. Hourly rounding performed to ensure safe environment.
[2017-05-05 06:02] VITALS: BP 111/75
[2017-05-05] MEDS: PANTOPRAZOLE 40 MG TABLET. PO SCH (07:47)
[2017-05-05] MEDS: VALPROATE ACID 250 MG/5 ML ORAL SOLUTION PO SCH ×2 (07:47→16:45)
[2017-05-05] MEDS: INSULIN ASPART 300 UNITS/3 ML INSULN.PEN SQ SCH ×4 (07:48→20:24)
[2017-05-05] MEDS: metFORMIN 850 MG TABLET PO SCH ×3 (08:00→16:45)
[2017-05-05] MEDS: LACTOBACILLUS ACIDOPH & BULGAR 1 TABLET. PO SCH ×2 (08:00→09:15)
[2017-05-05] MEDS: CHOLECALCIFEROL (VITAMIN D3) 1,000 UNIT TABLET PO SCH ×2 (08:00→09:14)
[2017-05-05] MEDS: GLUCOSAMINE/CHOND 500/400MG CAPSULE PO SCH ×3 (08:00→16:45)
[2017-05-05] MEDS: CALCIUM CARBONATE 500 MG TABLET PO SCH ×3 (08:00→16:45)
[2017-05-05] MEDS: MAGNESIUM OXIDE 400 MG TABLET PO SCH ×4 (09:00→21:00)
[2017-05-05] MEDS: TAMOXIFEN 10 MG TABLET PO SCH ×2 (09:00→09:17)
[2017-05-05] MEDS: DIGOXIN 125 MCG TABLET PO SCH ×3 (09:00→13:31)
[2017-05-05] MEDS: FUROSEMIDE 80 MG TABLET PO SCH ×3 (09:00→13:31)
[2017-05-05] MEDS: MULTIVITAMIN I-VITE TABLET. PO SCH ×2 (09:00→09:15)
[2017-05-05] MEDS: ATENOLOL 50 MG TABLET PO SCH ×5 (09:00→21:00)
[2017-05-05] MEDS: MAGNESIUM CHLORIDE ER 64 MG TABLET.ER PO SCH ×2 (09:00→09:15)
[2017-05-05] MEDS: UBIDECARENONE 50 MG CAPSULE. PO SCH ×2 (09:00→09:16)
[2017-05-05] MEDS: POTASSIUM CHLORIDE 20 MEQ TABLET.ER. PO SCH ×2 (09:00→09:15)
--- NOTE | 2017-05-05 09:10 | NUR ---
THERAPEUTIC RECREATION GROUP NOTE TITLE :[place], [place], and Laughter Therapy ACTIVITY : Movement/ Exercise, Humor GOAL : Increase morale, attention, flexibility. Decrease stress/anxiety. DURATION : 50 Minutes RESPONSE : Full participation. Pt. followed directions with simple cues but often made random movements. At times, she sat quietly but at other times she hooted, hollered, talked loudly. She and REPORT WRITER exchanged funny faces to each other and she laughed often and different ways during laughter therapy.
--- NOTE | 2017-05-05 09:40 | NUR ---
Behavior Intervention Response and Plan: BIRP Note: Behavior: Assumed Care of patient, patient located in Day Room at shift change. Patient exhibited the following behavior Motor Retardation, Disorganized, Non Compliant with Meds. Brief assessment on rounds of vital signs, medication needs, lab studies, and pain. Treatment plan problems 1 & 2. Intervention: Patient assessed and the following interventions initiated safety checks 15 Minute Checks Cognitive Assessment , Head to toe Assessment , Cognitive Assessment. Response: After interactions and interventions patient responded in the following manner, Calm , Appropriate ,Compliant. Continue to assess behaviors and condition will continue to monitor throughout the shift as needed. Plan: Continue to monitor Master Treatment Plan for patient's progress toward short term goals of Decreased Agitation, Medication Compliance, intermission coordinator goals to return to previous living setting vs placement. Continue to assess patient for changes in above assessment. Monitor for medication needs, pain, and safety concerns. Hourly rounding performed to ensure safe environment.
--- NOTE | 2017-05-05 11:20 | NUR ---
THERAPEUTIC RECREATION GROUP NOTE TITLE :Movement to Music: Strength ACTIVITY : Movement/ Exercise GOAL : Increase morale, attention, flexibility. Decrease stress/anxiety. DURATION : 40 Minutes RESPONSE : Moderate participation. Pt. was alert and with the group the entire time. She moved her arms randomly about half of the time and followed along with the moves, to the best of her ability, the rest of the time. She shouted out randomly throughout the entire session. She occasionally reached out and touched other patient's arms and hands.
--- NOTE | 2017-05-05 13:11 | NUR ---
Pharmacy Warfarin Dosing Note S:Pharmacy consulted to assist with anticoagulation therapy started with target INR: 2 -3 O:RAINER WASHINGTON is a 86 year old F with Atrial Fibrillation LABS: Last INR: 1.7 Last HGB: 12.5 Last HCT: 38.4 Last PLT: 115 Last dose of 7.5 mg given on 05/04/17 at 1600 Previous Regimen: 6MG DAILY Vitamin K given: Drug Interaction Changes: Ongoing Drug Interactions: ALLOPURINOL, TAMOXIFEN, GLUCOSAMINE/CHONDROTIN A:INR Below desired Range but did increase from 1.4 yesterday to 1.7 today. Target Range for this patient is: 2 -3 Warfarin doses charted as given, but RN states pt has been non compliant and some meds being crushed in pudding and it is questionalbe if pt has been mouth pocketing meds. INR has not increased significantly on the 7.5mg dose the past 3 days. P: Warfarin dose: 7.5 mg Today at 1600 and recheck INR tomorrow Bridge Therapy: Next INR due 05/06/17 Pharmacy anticoagulation service will continue to follow. JOSE M ERAZO, 05/05/17 [id number]
--- NOTE | 2017-05-05 14:15 | NUR ---
THERAPEUTIC RECREATION GROUP NOTE TITLE :[place] ACTIVITY : Activities and Games GOAL : Increase social interaction, fine motor skills. Maintain or improve mental functioning. Decrease restlessness DURATION : 50 Minutes RESPONSE : No participation.
[2017-05-05] MEDS ORDERED: WARFARIN 7.5 MG TABLET. PO ONE (16:00)
[2017-05-05 16:14] VITALS: BP 119/59
[2017-05-05] MEDS: ALLOPURINOL 100 MG TABLET. PO SCH (16:45)
--- NOTE | 2017-05-05 19:55 | PDOC ---
Exam Tahir Demential Exam: Tahir Note: Please also refer to the separate dictated note~for this date of service dictated separately.~Patient seen individually. Discussed the patient with Nursing staff reviewed the chart.~Reviewed interim history and current functioning. Reviewed vital signs,~Labs/ Radiology~and current medications noted below. Continue current treatment with the changes noted in the dictated addendum note Assessment: Vital Signs: Vital Signs Date Time Temp Pulse Resp B/P (MAP) Pulse Ox O2 Delivery O2 Flow Rate FiO2 05/05/17 16:14 97.6 74 20 119/59 (79) 97 05/03/17 15:55 Room Air I&O Intake and Output 05/05/17 07:00 Intake Total 960 ml Balance 960 ml Intake Oral 960 ml # Bowel Movements 3 Labs: Laboratory Tests Test 05/05/17 06:01 05/05/17 07:03 05/05/17 11:49 05/05/17 16:42 Prothrombin Time 17.1 SEC (9.4-11.4) H Prothrombin Time INR 1.7 (0.9-1.1) H Glucose (Fingerstick) 214 mg/dL (70-99) H 294 mg/dL (70-99) H 225 mg/dL (70-99) H Test 05/05/17 19:01 Glucose (Fingerstick) 231 mg/dL (70-99) H Current Medications: Meds: Current Medications Acetaminophen (Tylenol) 650 mg PRN Q6HRS PRN PO PAIN / TEMP; Start 04/30/17 at 18:30; Stop 04/30/17 at 19:53; Status DC Potassium Chloride (Klor-Con) 20 meq 1X ONCE PO Last administered on 20:51; Start 04/30/17 at 20:00; Stop 04/30/17 at 20:01; Status DC Magnesium Chloride (Mag Delay) 64 mg DAILY PO Last administered on 05/03/17 07: 22; Start 05/01/17 at 09:00 Acetaminophen (Tylenol) 650 mg PRN Q6HRS PRN PO PAIN / TEMP Last administered on 05/04/17 11:44; Start 04/30/17 at 20:00; Stop 05/05/17 at 19:37; Status DC Al Hydroxide/Mg Hydroxide (Mylanta Plus Xs) 15 ml PRN AFTMEALHC PRN PO DYSPEPSIA; Start 04/30/17 at 20:00 Magnesium Hydroxide (Milk Of Magnesia) 2,400 mg PRN QHS PRN PO CONSTIPATION; Start 04/30/17 at 20:00 Allopurinol (Zyloprim) 200 mg DAILYWSUP PO Last administered on 05/05/17 16:45 ; Start 05/01/17 at 17:00 Atenolol (Tenormin) 50 mg BID PO Last administered on 05/05/17 13:30; Start at 21:00 Calcium Carbonate/ Glycine (Oscal) 500 mg BIDWMEALS PO Last administered on 05/05 16:45; Start 05/01/17 at 08:00 Vitamin D (Vitamin D3) 1,000 unit DAILYWBKFT PO Last administered on 05/03/17 07:20; Start 05/01/17 at 08:00 Digoxin (Lanoxin) 125 mcg DAILY PO Last administered on 05/05/17 13:31; Start 05/01/17 at 09:00 Furosemide (Lasix) 120 mg DAILY PO Last administered on 05/05/17 13:31; Start 05/01/17 at 09:00; Stop 05/05/17 at 19:39; Status DC Metformin HCl (Glucophage) 850 mg BIDWMEALS PO Last administered on 05/05/17 16 :45; Start 05/01/17 at 08:00 Potassium Chloride (Klor-Con) 20 meq BID PO Last administered on 05/04/17 20:37 ; Start 05/01/17 at 09:00; Stop 05/05/17 at 19:31; Status DC Warfarin Sodium (Coumadin) 6 mg DAILY16 PO Last administered on 05/01/17 16:56 ; Start 05/01/17 at 16:00; Stop 05/02/17 at 11:39; Status DC Non-Formulary Medication 500 mg BIDWMEALS PO ; Start 05/01/17 at 08:00; Stop 05/01 at 08:00; Status DC Glucosamine/ Chondroitin (Glucosamine-Chondroitin 500/400mg) 1 cap BIDWMEALS PO Last administered on 05/05/17 16:45; Start 05/01/17 at 08:00; Stop 05/05/17 at 18:18; Status DC Lactobacillus Acidophilus (Bacid, Orly-Bid) 2 tab DAILYWBKFT PO Last administered on 05/03/17 07:19; Start 05/01/17 at 08:00; Stop 05/05/17 at 18:18; Status DC Non-Formulary Medication 20 mg QHS PO ; Start 04/30/17 at 21:00; Stop 04/30/17 at 21:00; Status DC Non-Formulary Medication 5 mg QHS PO ; Start 04/30/17 at 21:00; Stop 04/30/17 at 21:00; Status DC Multivitamins/ Minerals (I-Gera) 1 tab DAILY PO Last administered on 05/03/17 07:20; Start 05/01/17 at 09:00; Stop 05/05/17 at 19:39; Status DC Pantoprazole Sodium (Protonix) 40 mg DAILYAC PO Last administered on 05/05/17 07:47; Start 05/01/17 at 07:30 Tamoxifen Citrate (Nolvadex) 20 mg DAILY PO Last administered on 05/03/17 07:25 ; Start 05/01/17 at 09:00 Coenzyme Q10 (Coenzyme Q10) 100 mg BID PO Last administered on 05/04/17 20:36; Start 05/01/17 at 09:00; Stop 05/05/17 at 18:18; Status DC Sertraline HCl (Zoloft) 50 mg QHS PO Last administered on 04/30/17 20:51; Start 04/30/17 at 21:00; Stop 05/01/17 at 11:00; Status DC Melatonin 4.5 mg QHS PO Last administered on 05/04/17 20:37; Start 04/30/17 at 21:00; Stop 05/05/17 at 18:18; Status DC Olanzapine (ZyPREXA ZYDIS) 2.5 mg PRN Q4HRS PRN PO Psych Last administered on 11:44; Start 04/30/17 at 20:15 Magnesium Oxide (Magnesium Oxide) 400 mg BID PO Last administered on 05/04/17 20:37; Start 04/30/17 at 21:00 Warfarin Sodium (Coumadin) 6 mg 1X WARF ONCE PO Last administered on 20:51; Start 04/30/17 at 20:45; Stop 04/30/17 at 20:46; Status DC Warfarin Sodium (Coumadin) 0.5 mg 1X WARF ONCE PO Last administered on 20:51; Start 04/30/17 at 20:45; Stop 04/30/17 at 20:46; Status DC Warfarin Sodium (Coumadin Per Physician) 1 each PRN DAILY PRN MC SEE COMMENTS; Start 05/01/17 at 09:45; Stop 05/01/17 at 14:54; Status DC Risperidone (RisperDAL) 0.25 mg HS PO Last administered on 05/02/17 19:39; Start 05/01/17 at 21:00; Stop 05/03/17 at 18:28; Status DC Trazodone HCl (Desyrel) 100 mg QHS PO Last administered on 05/04/17 20:37; Start 05/01/17 at 21:00 Trazodone HCl (Desyrel) 100 mg PRN QHS PRN PO INSOMNIA Last administered on 05/04 00:32; Start 05/01/17 at 10:45 Insulin Detemir (Levemir) 5 units QHS SQ Last administered on 05/04/17 20:43; Start 05/01/17 at 21:00 Insulin Aspart (NovoLOG) 0-5 UNITS QIDACHS SQ Last administered on 05/05/17 16: 48; Start 05/01/17 at 16:30 Dextrose 12.5 gm PRN Q15MIN PRN IV SEE COMMENTS; Start 05/01/17 at 14:45 Warfarin Sodium (Coumadin Per Pharmacy) 1 each PRN DAILY PRN MC SEE COMMENTS Last administered on 05/05/17 13:09; Start 05/01/17 at 14:45 Insulin Aspart (NovoLOG) 10 units 1X ONCE SQ Last administered on 05/01/17 17: 15; Start 05/01/17 at 17:15; Stop 05/01/17 at 17:16; Status DC Warfarin Sodium (Coumadin) 7.5 mg 1X WARF ONCE PO Last administered on 17:16; Start 05/02/17 at 16:00; Stop 05/02/17 at 16:01; Status DC Warfarin Sodium (Coumadin) 7.5 mg 1X WARF ONCE PO Last administered on 16:18; Start 05/03/17 at 16:00; Stop 05/03/17 at 16:01; Status DC Risperidone (RisperDAL) 0.5 mg HS SL Last administered on 05/04/17 20:41; Start 05/03/17 at 21:00; Stop 05/05/17 at 19:33; Status DC Valproic Acid (Depakene) 250 mg BIDWMEALS PO Last administered on 05/05/17 16: 45; Start 05/04/17 at 08:00 Warfarin Sodium (Coumadin) 7.5 mg 1X WARF ONCE PO Last administered on 16:02; Start 05/04/17 at 16:00; Stop 05/04/17 at 16:01; Status DC Mirtazapine (Remeron) 7.5 mg QHS PO Last administered on 05/04/17 20:38; Start 05/04/17 at 21:00; Stop 05/05/17 at 19:33; Status DC Warfarin Sodium (Coumadin) 7.5 mg 1X WARF ONCE PO Last administered on 16:46; Start 05/05/17 at 16:00; Stop 05/05/17 at 16:01; Status DC Potassium Chloride (KCl Oral Soln) 20 meq BID PO ; Start 05/05/17 at 21:00 Risperidone (RisperDAL) 1 mg HS SL ; Start 05/05/17 at 21:00 Mirtazapine (Remeron Olive-Tab) 7.5 mg QHS PO ; Start 05/05/17 at 21:00 Acetaminophen (Tylenol) 650 mg PRN Q6HRS PRN PO PAIN / TEMP; Start 05/05/17 at 19:45 Furosemide (Lasix) 120 mg DAILY PO ; Start 05/06/17 at 09:00 Multivitamins (Thera-Plus) 5 ml DAILY PO ; Start 05/06/17 at 09:00 Active Scripts Active Reported Probiotic (Lactobacillus Combo No.10) 1 Each Capsule 1 Cap PO DAILYWBKFT Women's Daily Caplet (Multivits,Ca,Minerals/Iron/Fa) 1 Each Tablet 1 Tab PO BID Zoloft (Sertraline Hcl) 25 Mg Tablet 25 Mg PO QHS 7 Days Zoloft (Sertraline Hcl) 50 Mg Tablet 50 Mg PO QHS 3 Days Omeprazole 20 Mg Tablet.dr 20 Mg PO DAILY07 Allopurinol 100 Mg Tablet 200 Mg PO DAILYWSUP Vitamin D3 (Cholecalciferol (Vitamin D3)) 1,000 Unit Tablet 1,000 Unit PO DAILYWBKFT Oyster Shell Calcium (Calcium Carbonate) 500 Mg Tablet 500 Mg PO BIDWMEALS Cinnamon (Cinnamon Bark) 500 Mg Capsule 500 Mg PO BIDWMEALS Co Q-10 100 Mg Softgel (Ubidecarenone/Vit E Acetate) 1 Each Capsule 100 Mg PO BID Melatonin 5 Mg Tablet (Melatonin/Pyridoxine) 1 Each Tablet 5 Mg PO QHS Lutein 20 Mg Capsule 20 Mg PO QHS Vripthyzmz-Cguzqixtywn-Dhy Tab (Gluc/Victor M-Msm#2/C/D3/Anthony/Born) 1 Each Tablet 1 Tab PO BIDWMEALS Metformin Hcl 850 Mg Tablet 850 Mg PO BIDWMEALS Digoxin 125 Mcg Tablet 125 Mcg PO DAILY Tamoxifen Citrate 20 Mg Tablet 20 Mg PO DAILY Atenolol 50 Mg Tablet 50 Mg PO BID Lasix (Furosemide) 80 Mg Tablet 120 Mg PO DAILY Coumadin (Warfarin Sodium) 6 Mg Tablet 6 Mg PO QPM Potassium Chloride 10 Meq Capsule.er 10 Meq PO BID Diagnosis: Problems: (1) Anxiety disorder (2) Impulse control disorder (3) Bipolar affective, mixed, sev w/ psych (4) Dementia, vascular, with delusions (5) Dementia in Alzheimer's disease with delusions (6) Dementia with behavioral disturbance CHAU GROSS MD May 05, 2017 19:55
[2017-05-05] MEDS: POTASSIUM CHLORIDE 20 MEQ/15 ML ORAL LIQUID. PO SCH ×2 (20:12→21:00)
[2017-05-05] MEDS: MIRTAZAPINE 15 MG TAB.RAPDIS PO SCH ×2 (20:13→21:00)
[2017-05-05] MEDS: traZODone 100 MG TABLET. PO SCH ×2 (20:13→21:00)
[2017-05-05] MEDS: risperiDONE ORAL 1 MG/ML 30ml BOTTLE. SL SCH ×2 (20:15→21:00)
[2017-05-05] MEDS: INSULIN DETEMIR 300 UNITS/3 ML INSULN.PEN. SQ SCH (20:24)
--- NOTE | 2017-05-05 22:52 | NUR ---
Nursing Note: Pt resistive to medications at HS. Attempted to hide medications in snack, however, pt spit meds/snack out.
--- NOTE | 2017-05-06 03:30 | NUR ---
Behavior Intervention Response and Plan: BIRP Note: Behavior: Assumed Care of patient, patient located in Day Room at shift change. Patient exhibited the following behavior Restless, Agitated, Hallucinating. Brief assessment on rounds of vital signs, medication needs, lab studies, and pain. Treatment plan problems 1 and 2. Intervention: Patient assessed and the following interventions initiated safety checks 15 Minute Checks Cognitive Assessment , Head to toe Assessment , Medications. Response: After interactions and interventions patient responded in the following manner, Non Compliant , Non Compliant with Meds ,Hallucinating. Continue to assess behaviors and condition will continue to monitor throughout the shift as needed. Plan: Continue to monitor Master Treatment Plan for patient's progress toward short term goals of No harm To self/ others, Medication Compliance, care home goals to return to previous living setting vs placement. Continue to assess patient for changes in above assessment. Monitor for medication needs, pain, and safety concerns. Hourly rounding performed to ensure safe environment.
[2017-05-06 06:11] VITALS: BP 137/72
[2017-05-06 06:43] LABS: BASO % 0 % (0-3); EOS # 0.1 x10^3/uL (0.0-0.7); EOS % 2 % (0-3); HEMATOCRIT 37.1 % (36.0-47.0); HEMOGLOBIN 12.1 g/dL (12.0-15.5); LYMPH # 1.4 x10^3/uL (1.0-4.8); LYMPH % 25 % (24-48); MEAN CORPUSCULAR HEMOGLOBIN 27 pg (25-35); MEAN CORPUSCULAR HGB CONC 33 g/dL (31-37); MEAN CORPUSCULAR VOLUME 84 fL (79-100); MONO # 0.3 x10^3/uL (0.0-1.1); MONO % 5 % (0-9); NEUT # 3.8 x10^3uL (1.8-7.7); NEUT % 68 % (31-73); PLATELET COUNT 108 x10^3/uL (140-400); RED BLOOD COUNT 4.43 x10^6/uL (3.50-5.40); RED CELL DISTRIBUTION WIDTH 15.7 % (11.5-14.5); WHITE BLOOD COUNT 5.6 x10^3/uL (4.0-11.0)
[2017-05-06 06:54] LABS: ALBUMIN 3.3 g/dL (3.4-5.0); CALCIUM 8.2 mg/dL (8.5-10.1); CREATININE 1.2 mg/dL (0.6-1.0); GFR 42.7; POTASSIUM 3.1 mmol/L (3.5-5.1); TOTAL BILIRUBIN 0.6 mg/dL (0.2-1.0); TOTAL PROTEIN 6.6 g/dL (6.4-8.2)
[2017-05-06 06:57] LABS: VAL ACID 23 mcg/mL (50-100)
[2017-05-06] MEDS: INSULIN ASPART 300 UNITS/3 ML INSULN.PEN SQ SCH ×4 (07:30→23:33)
[2017-05-06] MEDS: VALPROATE ACID 250 MG/5 ML ORAL SOLUTION PO SCH ×2 (08:15→18:00)
[2017-05-06] MEDS: POTASSIUM CHLORIDE 20 MEQ/15 ML ORAL LIQUID. PO SCH ×2 (08:15→20:47)
[2017-05-06] MEDS: MAGNESIUM CHLORIDE ER 64 MG TABLET.ER PO SCH (08:16)
[2017-05-06] MEDS: ATENOLOL 50 MG TABLET PO SCH ×2 (08:16→20:48)
[2017-05-06] MEDS: CALCIUM CARBONATE 500 MG TABLET PO SCH ×2 (08:16→18:01)
[2017-05-06] MEDS: DIGOXIN 125 MCG TABLET PO SCH (08:16)
[2017-05-06] MEDS: metFORMIN 850 MG TABLET PO SCH ×2 (08:16→18:01)
[2017-05-06] MEDS: PANTOPRAZOLE 40 MG TABLET. PO SCH (08:16)
[2017-05-06] MEDS: MAGNESIUM OXIDE 400 MG TABLET PO SCH ×2 (08:16→20:47)
[2017-05-06] MEDS: CHOLECALCIFEROL (VITAMIN D3) 1,000 UNIT TABLET PO SCH (08:17)
[2017-05-06] MEDS: MULTIVITAMINS,THERAPEUTIC 5 ML ORAL LIQUID. PO SCH (08:19)
[2017-05-06] MEDS: TAMOXIFEN 10 MG TABLET PO SCH (08:20)
[2017-05-06] MEDS: FUROSEMIDE 40 MG/5 ML PO SCH (08:20)
--- NOTE | 2017-05-06 11:25 | NUR ---
THERAPEUTIC RECREATION GROUP NOTE TITLE :Movement to Music: Flexibility ACTIVITY : Movement/ Exercise GOAL : Increase morale, attention, flexibility. Decrease stress/anxiety. DURATION : 35 Minutes RESPONSE : Full participation. Pt. was quiet and alert the entire time and followed along with most of the moves involving both her arms and legs. She smiled often and occasionally moves body to the beat of the music instead of the stretches.
--- NOTE | 2017-05-06 11:33 | NUR ---
Pharmacy Warfarin Dosing Note S:Pharmacy consulted to assist with anticoagulation therapy started with target INR: 2 -3 O:RAINER WASHINGTON is a 86 year old F with Atrial Fibrillation LABS: Last INR: 1.9 Last HGB: 12.1 Last HCT: 37.1 Last PLT: 108 Last dose of 7.5 mg given on 05/05/17 at 1600 Previous Regimen: 6MG DAILY Vitamin K given: NO Drug Interaction Changes: NONE Ongoing Drug Interactions: ALLOPURINOL, TAMOXIFEN, GLUCOSAMINE/CHONDROTIN A:INR is slightly below the desired range. Target Range for this patient is: 2 -3 P: Warfarin dose: Give Coumadin 7.5mg po today at 1600 Bridge Therapy: none Next INR due 05/07/17 Pharmacy anticoagulation service will continue to follow. JESUS CLEANING [facility] 05/06/17 1139
--- NOTE | 2017-05-06 14:00 | NUR ---
THERAPEUTIC RECREATION GROUP NOTE TITLE :Music Bingo ACTIVITY : Music GOAL : Increase socialization, elevate mood, stimulate memory DURATION : 60 minutes RESPONSE : No participation.
[2017-05-06 15:33] VITALS: BP 161/68
--- NOTE | 2017-05-06 16:55 | NUR ---
wound care patient seen per wound care consult. see wound assessment. patient had documentation of 2 wounds to the right lower leg, 1 wound is closed/scabbed at this time the right lateral lower leg wound is open an has a minimal amount of yellow drainage, patient has very edematous lower legs, recommendations of an Aquacel foam, change every 3 days or prn if saturated, and a Medigrip. notified AXEL Hoang about the POC and wound care will continue to f/u for possible changes.
[2017-05-06] MEDS: ALLOPURINOL 100 MG TABLET. PO SCH (18:00)
[2017-05-06] MEDS ORDERED: MELATONIN 3 MG TABLET PO PRN (18:15)
--- NOTE | 2017-05-06 20:19 | PDOC ---
Exam Tahir Demential Exam: Tahir Note: Please also refer to the separate dictated note~for this date of service dictated separately.~Patient seen individually. Discussed the patient with Nursing staff reviewed the chart.~Reviewed interim history and current functioning. Reviewed vital signs,~Labs/ Radiology~and current medications noted below. Continue current treatment with the changes noted in the dictated addendum note S/O: This is a late entry for date of service 05/03/2017. The patient was seen individually on May 03. This note covers elements not covered in my initial note. Per nursing report, the patient slept five hours. Her son shared information that she was at one point at [facility], transferred to [place] and then back to [place]. She remains quiet psychotic, labile in her mood, loudly singing, disorganized as I met with her. Review of Systems: Ambulation impaired. No CV, , Pulmonary, Eye, ENT system symptoms on review. Reliability poor. MSE: Oriented to herself. Insight, judgment, recent and remote memory, attention and concentration, fund of knowledge are poor consistent with her diagnosis mentioned in my initial note. Plan: Increase Risperdal from 0.25 mg h.s. to Risperdal liquid 0.5 mg h.s. since she does not take the tablets even if it is crushed. We will change on this weekend to liquid. Continue melatonin 4.5 mg h.s., trazodone, and Zyprexa p.r.n. Start Depakene liquid 250 mg twice a day. Check labs and the valproic acid level in three days. Hopefully, the Depakote would help stabilize her bipolar symptoms or we may have to adjust the Risperdal further. Assessment: Vital Signs: Vital Signs Date Time Temp Pulse Resp B/P (MAP) Pulse Ox O2 Delivery O2 Flow Rate FiO2 05/06/17 15:33 98.4 90 20 161/68 (99) 96 05/06/17 06:11 Room Air I&O Intake and Output 05/06/17 07:00 Intake Total 780 ml Balance 780 ml Intake Oral 780 ml Labs: Laboratory Tests Test 05/06/17 06:22 05/06/17 07:19 05/06/17 12:02 05/06/17 17:12 White Blood Count 5.6 x10^3/uL (4.0-11.0) Red Blood Count 4.43 x10^6/uL (3.50-5.40) Hemoglobin 12.1 g/dL (12.0-15.5) Hematocrit 37.1 % (36.0-47.0) Mean Corpuscular Volume 84 fL (79-100) Mean Corpuscular Hemoglobin 27 pg (25-35) Mean Corpuscular Hemoglobin Concent 33 g/dL (31-37) Red Cell Distribution Width 15.7 % (11.5-14.5) H Platelet Count 108 x10^3/uL (140-400) L Neutrophils (%) (Auto) 68 % (31-73) Lymphocytes (%) (Auto) 25 % (24-48) Monocytes (%) (Auto) 5 % (0-9) Eosinophils (%) (Auto) 2 % (0-3) Basophils (%) (Auto) 0 % (0-3) Neutrophils # (Auto) 3.8 x10^3uL (1.8-7.7) Lymphocytes # (Auto) 1.4 x10^3/uL (1.0-4.8) Monocytes # (Auto) 0.3 x10^3/uL (0.0-1.1) Eosinophils # (Auto) 0.1 x10^3/uL (0.0-0.7) Basophils # (Auto) 0.0 x10^3/uL (0.0-0.2) Prothrombin Time 19.6 SEC (9.4-11.4) H Prothrombin Time INR 1.9 (0.9-1.1) H Sodium Level 141 mmol/L (136-145) Potassium Level 3.1 mmol/L (3.5-5.1) L Chloride Level 101 mmol/L (98-107) Carbon Dioxide Level 30 mmol/L (21-32) Anion Gap 10 (6-14) Blood Urea Nitrogen 34 mg/dL (7-20) H Creatinine 1.2 mg/dL (0.6-1.0) H Estimated GFR (Cockcroft-Gault) 42.7 BUN/Creatinine Ratio 28 (6-20) H Glucose Level 183 mg/dL (70-99) H Calcium Level 8.2 mg/dL (8.5-10.1) L Total Bilirubin 0.6 mg/dL (0.2-1.0) Aspartate Amino Transferase (AST) 25 U/L (15-37) Alanine Aminotransferase (ALT) 26 U/L (14-59) Alkaline Phosphatase 52 U/L (46-116) Total Protein 6.6 g/dL (6.4-8.2) Albumin 3.3 g/dL (3.4-5.0) L Albumin/Globulin Ratio 1.0 (1.0-1.7) Valproic Acid Level 23 mcg/mL (50-100) L Valproic Acid Last Dose Date 05/05/2017 Valproic Acid Last Dose Time 1700 Glucose (Fingerstick) 143 mg/dL (70-99) H 189 mg/dL (70-99) H 235 mg/dL (70-99) H Test 05/06/17 19:05 Glucose (Fingerstick) 291 mg/dL (70-99) H Current Medications: Meds: Current Medications Acetaminophen (Tylenol) 650 mg PRN Q6HRS PRN PO PAIN / TEMP; Start 04/30/17 at 18:30; Stop 04/30/17 at 19:53; Status DC Potassium Chloride (Klor-Con) 20 meq 1X ONCE PO Last administered on 20:51; Start 04/30/17 at 20:00; Stop 04/30/17 at 20:01; Status DC Magnesium Chloride (Mag Delay) 64 mg DAILY PO Last administered on 05/06/17 08: 16; Start 05/01/17 at 09:00; Stop 05/06/17 at 18:08; Status DC Acetaminophen (Tylenol) 650 mg PRN Q6HRS PRN PO PAIN / TEMP Last administered on 05/04/17 11:44; Start 04/30/17 at 20:00; Stop 05/05/17 at 19:37; Status DC Al Hydroxide/Mg Hydroxide (Mylanta Plus Xs) 15 ml PRN AFTMEALHC PRN PO DYSPEPSIA; Start 04/30/17 at 20:00 Magnesium Hydroxide (Milk Of Magnesia) 2,400 mg PRN QHS PRN PO CONSTIPATION; Start 04/30/17 at 20:00 Allopurinol (Zyloprim) 200 mg DAILYWSUP PO Last administered on 05/06/17 18:00 ; Start 05/01/17 at 17:00 Atenolol (Tenormin) 50 mg BID PO Last administered on 05/06/17 08:16; Start at 21:00 Calcium Carbonate/ Glycine (Oscal) 500 mg BIDWMEALS PO Last administered on 05/06 18:01; Start 05/01/17 at 08:00 Vitamin D (Vitamin D3) 1,000 unit DAILYWBKFT PO Last administered on 05/06/17 08:17; Start 05/01/17 at 08:00 Digoxin (Lanoxin) 125 mcg DAILY PO Last administered on 05/06/17 08:16; Start 05/01/17 at 09:00 Furosemide (Lasix) 120 mg DAILY PO Last administered on 05/05/17 13:31; Start 05/01/17 at 09:00; Stop 05/05/17 at 19:39; Status DC Metformin HCl (Glucophage) 850 mg BIDWMEALS PO Last administered on 05/06/17 18 :01; Start 05/01/17 at 08:00 Potassium Chloride (Klor-Con) 20 meq BID PO Last administered on 05/04/17 20:37 ; Start 05/01/17 at 09:00; Stop 05/05/17 at 19:31; Status DC Warfarin Sodium (Coumadin) 6 mg DAILY16 PO Last administered on 05/01/17 16:56 ; Start 05/01/17 at 16:00; Stop 05/02/17 at 11:39; Status DC Non-Formulary Medication 500 mg BIDWMEALS PO ; Start 05/01/17 at 08:00; Stop 05/01 at 08:00; Status DC Glucosamine/ Chondroitin (Glucosamine-Chondroitin 500/400mg) 1 cap BIDWMEALS PO Last administered on 05/05/17 16:45; Start 05/01/17 at 08:00; Stop 05/05/17 at 18:18; Status DC Lactobacillus Acidophilus (Bacid, Orly-Bid) 2 tab DAILYWBKFT PO Last administered on 05/03/17 07:19; Start 05/01/17 at 08:00; Stop 05/05/17 at 18:18; Status DC Non-Formulary Medication 20 mg QHS PO ; Start 04/30/17 at 21:00; Stop 04/30/17 at 21:00; Status DC Non-Formulary Medication 5 mg QHS PO ; Start 04/30/17 at 21:00; Stop 04/30/17 at 21:00; Status DC Multivitamins/ Minerals (I-Gera) 1 tab DAILY PO Last administered on 05/03/17 07:20; Start 05/01/17 at 09:00; Stop 05/05/17 at 19:39; Status DC Pantoprazole Sodium (Protonix) 40 mg DAILYAC PO Last administered on 05/06/17 08:16; Start 05/01/17 at 07:30 Tamoxifen Citrate (Nolvadex) 20 mg DAILY PO Last administered on 05/06/17 08:20 ; Start 05/01/17 at 09:00 Coenzyme Q10 (Coenzyme Q10) 100 mg BID PO Last administered on 05/04/17 20:36; Start 05/01/17 at 09:00; Stop 05/05/17 at 18:18; Status DC Sertraline HCl (Zoloft) 50 mg QHS PO Last administered on 04/30/17 20:51; Start 04/30/17 at 21:00; Stop 05/01/17 at 11:00; Status DC Melatonin 4.5 mg QHS PO Last administered on 05/04/17 20:37; Start 04/30/17 at 21:00; Stop 05/05/17 at 18:18; Status DC Olanzapine (ZyPREXA ZYDIS) 2.5 mg PRN Q4HRS PRN PO Psych Last administered on 16:52; Start 04/30/17 at 20:15 Magnesium Oxide (Magnesium Oxide) 400 mg BID PO Last administered on 05/06/17 08:16; Start 04/30/17 at 21:00 Warfarin Sodium (Coumadin) 6 mg 1X WARF ONCE PO Last administered on 20:51; Start 04/30/17 at 20:45; Stop 04/30/17 at 20:46; Status DC Warfarin Sodium (Coumadin) 0.5 mg 1X WARF ONCE PO Last administered on 20:51; Start 04/30/17 at 20:45; Stop 04/30/17 at 20:46; Status DC Warfarin Sodium (Coumadin Per Physician) 1 each PRN DAILY PRN MC SEE COMMENTS; Start 05/01/17 at 09:45; Stop 05/01/17 at 14:54; Status DC Risperidone (RisperDAL) 0.25 mg HS PO Last administered on 05/02/17 19:39; Start 05/01/17 at 21:00; Stop 05/03/17 at 18:28; Status DC Trazodone HCl (Desyrel) 100 mg QHS PO Last administered on 05/04/17 20:37; Start 05/01/17 at 21:00 Trazodone HCl (Desyrel) 100 mg PRN QHS PRN PO INSOMNIA Last administered on 05/04 00:32; Start 05/01/17 at 10:45 Insulin Detemir (Levemir) 5 units QHS SQ Last administered on 05/05/17 20:24; Start 05/01/17 at 21:00 Insulin Aspart (NovoLOG) 0-5 UNITS QIDACHS SQ Last administered on 05/06/17 18: 09; Start 05/01/17 at 16:30 Dextrose 12.5 gm PRN Q15MIN PRN IV SEE COMMENTS; Start 05/01/17 at 14:45 Warfarin Sodium (Coumadin Per Pharmacy) 1 each PRN DAILY PRN MC SEE COMMENTS Last administered on 05/06/17 11:33; Start 05/01/17 at 14:45 Insulin Aspart (NovoLOG) 10 units 1X ONCE SQ Last administered on 05/01/17 17: 15; Start 05/01/17 at 17:15; Stop 05/01/17 at 17:16; Status DC Warfarin Sodium (Coumadin) 7.5 mg 1X WARF ONCE PO Last administered on 17:16; Start 05/02/17 at 16:00; Stop 05/02/17 at 16:01; Status DC Warfarin Sodium (Coumadin) 7.5 mg 1X WARF ONCE PO Last administered on 16:18; Start 05/03/17 at 16:00; Stop 05/03/17 at 16:01; Status DC Risperidone (RisperDAL) 0.5 mg HS SL Last administered on 05/04/17 20:41; Start 05/03/17 at 21:00; Stop 05/05/17 at 19:33; Status DC Valproic Acid (Depakene) 250 mg BIDWMEALS PO Last administered on 05/06/17 18: 00; Start 05/04/17 at 08:00 Warfarin Sodium (Coumadin) 7.5 mg 1X WARF ONCE PO Last administered on 16:02; Start 05/04/17 at 16:00; Stop 05/04/17 at 16:01; Status DC Mirtazapine (Remeron) 7.5 mg QHS PO Last administered on 05/04/17 20:38; Start 05/04/17 at 21:00; Stop 05/05/17 at 19:33; Status DC Warfarin Sodium (Coumadin) 7.5 mg 1X WARF ONCE PO Last administered on 16:46; Start 05/05/17 at 16:00; Stop 05/05/17 at 16:01; Status DC Potassium Chloride (KCl Oral Soln) 20 meq BID PO Last administered on 05/06/17 08:15; Start 05/05/17 at 21:00 Risperidone (RisperDAL) 1 mg HS SL ; Start 05/05/17 at 21:00; Stop 05/06/17 at 11: 05; Status DC Mirtazapine (Remeron Olive-Tab) 7.5 mg QHS PO ; Start 05/05/17 at 21:00 Acetaminophen (Tylenol) 650 mg PRN Q6HRS PRN PO PAIN / TEMP; Start 05/05/17 at 19:45 Furosemide (Lasix) 120 mg DAILY PO Last administered on 05/06/17 08:20; Start 05/06/17 at 09:00 Multivitamins (Thera-Plus) 5 ml DAILY PO Last administered on 05/06/17 08:19; Start 05/06/17 at 09:00 Risperidone (RisperDAL) 0.5 mg HS SL ; Start 05/06/17 at 21:00; Stop 05/09/17 at 09:00 Melatonin 3 mg PRN QHS PRN PO INSOMNIA; Start 05/06/17 at 18:15 Active Scripts Active Reported Probiotic (Lactobacillus Combo No.10) 1 Each Capsule 1 Cap PO DAILYWBKFT Women's Daily Caplet (Multivits,Ca,Minerals/Iron/Fa) 1 Each Tablet 1 Tab PO BID Zoloft (Sertraline Hcl) 25 Mg Tablet 25 Mg PO QHS 7 Days Zoloft (Sertraline Hcl) 50 Mg Tablet 50 Mg PO QHS 3 Days Omeprazole 20 Mg Tablet.dr 20 Mg PO DAILY07 Allopurinol 100 Mg Tablet 200 Mg PO DAILYWSUP Vitamin D3 (Cholecalciferol (Vitamin D3)) 1,000 Unit Tablet 1,000 Unit PO DAILYWBKFT Oyster Shell Calcium (Calcium Carbonate) 500 Mg Tablet 500 Mg PO BIDWMEALS Cinnamon (Cinnamon Bark) 500 Mg Capsule 500 Mg PO BIDWMEALS Co Q-10 100 Mg Softgel (Ubidecarenone/Vit E Acetate) 1 Each Capsule 100 Mg PO BID Melatonin 5 Mg Tablet (Melatonin/Pyridoxine) 1 Each Tablet 5 Mg PO QHS Lutein 20 Mg Capsule 20 Mg PO QHS Gqvpnhepec-Mvtjzmlebeh-Gin Tab (Gluc/Victor M-Msm#2/C/D3/Anthony/Born) 1 Each Tablet 1 Tab PO BIDWMEALS Metformin Hcl 850 Mg Tablet 850 Mg PO BIDWMEALS Digoxin 125 Mcg Tablet 125 Mcg PO DAILY Tamoxifen Citrate 20 Mg Tablet 20 Mg PO DAILY Atenolol 50 Mg Tablet 50 Mg PO BID Lasix (Furosemide) 80 Mg Tablet 120 Mg PO DAILY Coumadin (Warfarin Sodium) 6 Mg Tablet 6 Mg PO QPM Potassium Chloride 10 Meq Capsule.er 10 Meq PO BID CHAU GROSS MD May 06, 2017 20:19
[2017-05-06] MEDS: MIRTAZAPINE 15 MG TAB.RAPDIS PO SCH (20:47)
[2017-05-06] MEDS: traZODone 100 MG TABLET. PO SCH (20:48)
[2017-05-06] MEDS: risperiDONE ORAL 1 MG/ML 30ml BOTTLE. SL SCH (20:50)
[2017-05-06] MEDS: INSULIN DETEMIR 300 UNITS/3 ML INSULN.PEN. SQ SCH (20:51)
--- NOTE | 2017-05-06 20:57 | PDOC ---
Exam Tahir Demential Exam: Tahir Note: Please also refer to the separate dictated note~for this date of service dictated separately.~Patient seen individually. Discussed the patient with Nursing staff reviewed the chart.~Reviewed interim history and current functioning. Reviewed vital signs,~Labs/ Radiology~and current medications noted below. Continue current treatment with the changes noted in the dictated addendum note DATE OF SERVICE: 05/04/2017. PSYCHIATRIC PROGRESS NOTE This is a late entry for Date of Service 05/04/2017. The patient seen individually on rounds the evening of 05/04/2017. Discussed with nursing staff. Reviewed the chart. The patient seen in the evening of 05/05/2017. Per nursing report she slept four hours last night. Yelling at times. Took her Depakote syringed. She has been singing with some clanging and miming. Remains somewhat grandiose consistent with the bipolar manic. REVIEW OF SYSTEMS Ambulation impaired in wheelchair. No CV, , pulmonary, eye systems symptoms on review. Reliability poor. MENTAL STATUS EXAM: Oriented to herself. Insight, judgment, recent memory is impaired. Language function intact. Mood and affect remains labile. LABS: Reviewed. IMPRESSION: Bipolar 1 disorder, mixed versus manic with psychotic features. Major neurocognitive disorder, Alzheimer vascular with psychotic features. Rest unchanged. PLAN: Start Remeron 7.5 mg h.s. and she slept four hours. Continue rest of the psychotropics. Follow labs level and the Depakote adjust as clinically indicated. Assessment: Vital Signs: Vital Signs Date Time Temp Pulse Resp B/P (MAP) Pulse Ox O2 Delivery O2 Flow Rate FiO2 05/06/17 20:48 90 161/68 05/06/17 15:33 98.4 20 96 05/06/17 06:11 Room Air I&O Intake and Output 05/06/17 07:00 Intake Total 780 ml Balance 780 ml Intake Oral 780 ml Labs: Laboratory Tests Test 05/06/17 06:22 05/06/17 07:19 05/06/17 12:02 05/06/17 17:12 White Blood Count 5.6 x10^3/uL (4.0-11.0) Red Blood Count 4.43 x10^6/uL (3.50-5.40) Hemoglobin 12.1 g/dL (12.0-15.5) Hematocrit 37.1 % (36.0-47.0) Mean Corpuscular Volume 84 fL (79-100) Mean Corpuscular Hemoglobin 27 pg (25-35) Mean Corpuscular Hemoglobin Concent 33 g/dL (31-37) Red Cell Distribution Width 15.7 % (11.5-14.5) H Platelet Count 108 x10^3/uL (140-400) L Neutrophils (%) (Auto) 68 % (31-73) Lymphocytes (%) (Auto) 25 % (24-48) Monocytes (%) (Auto) 5 % (0-9) Eosinophils (%) (Auto) 2 % (0-3) Basophils (%) (Auto) 0 % (0-3) Neutrophils # (Auto) 3.8 x10^3uL (1.8-7.7) Lymphocytes # (Auto) 1.4 x10^3/uL (1.0-4.8) Monocytes # (Auto) 0.3 x10^3/uL (0.0-1.1) Eosinophils # (Auto) 0.1 x10^3/uL (0.0-0.7) Basophils # (Auto) 0.0 x10^3/uL (0.0-0.2) Prothrombin Time 19.6 SEC (9.4-11.4) H Prothrombin Time INR 1.9 (0.9-1.1) H Sodium Level 141 mmol/L (136-145) Potassium Level 3.1 mmol/L (3.5-5.1) L Chloride Level 101 mmol/L (98-107) Carbon Dioxide Level 30 mmol/L (21-32) Anion Gap 10 (6-14) Blood Urea Nitrogen 34 mg/dL (7-20) H Creatinine 1.2 mg/dL (0.6-1.0) H Estimated GFR (Cockcroft-Gault) 42.7 BUN/Creatinine Ratio 28 (6-20) H Glucose Level 183 mg/dL (70-99) H Calcium Level 8.2 mg/dL (8.5-10.1) L Total Bilirubin 0.6 mg/dL (0.2-1.0) Aspartate Amino Transferase (AST) 25 U/L (15-37) Alanine Aminotransferase (ALT) 26 U/L (14-59) Alkaline Phosphatase 52 U/L (46-116) Total Protein 6.6 g/dL (6.4-8.2) Albumin 3.3 g/dL (3.4-5.0) L Albumin/Globulin Ratio 1.0 (1.0-1.7) Valproic Acid Level 23 mcg/mL (50-100) L Valproic Acid Last Dose Date 05/05/2017 Valproic Acid Last Dose Time 1700 Glucose (Fingerstick) 143 mg/dL (70-99) H 189 mg/dL (70-99) H 235 mg/dL (70-99) H Test 05/06/17 19:05 Glucose (Fingerstick) 291 mg/dL (70-99) H Current Medications: Meds: Current Medications Acetaminophen (Tylenol) 650 mg PRN Q6HRS PRN PO PAIN / TEMP; Start 04/30/17 at 18:30; Stop 04/30/17 at 19:53; Status DC Potassium Chloride (Klor-Con) 20 meq 1X ONCE PO Last administered on 20:51; Start 04/30/17 at 20:00; Stop 04/30/17 at 20:01; Status DC Magnesium Chloride (Mag Delay) 64 mg DAILY PO Last administered on 05/06/17 08: 16; Start 05/01/17 at 09:00; Stop 05/06/17 at 18:08; Status DC Acetaminophen (Tylenol) 650 mg PRN Q6HRS PRN PO PAIN / TEMP Last administered on 05/04/17 11:44; Start 04/30/17 at 20:00; Stop 05/05/17 at 19:37; Status DC Al Hydroxide/Mg Hydroxide (Mylanta Plus Xs) 15 ml PRN AFTMEALHC PRN PO DYSPEPSIA; Start 04/30/17 at 20:00 Magnesium Hydroxide (Milk Of Magnesia) 2,400 mg PRN QHS PRN PO CONSTIPATION; Start 04/30/17 at 20:00 Allopurinol (Zyloprim) 200 mg DAILYWSUP PO Last administered on 05/06/17 18:00 ; Start 05/01/17 at 17:00 Atenolol (Tenormin) 50 mg BID PO Last administered on 05/06/17 20:48; Start at 21:00 Calcium Carbonate/ Glycine (Oscal) 500 mg BIDWMEALS PO Last administered on 05/06 18:01; Start 05/01/17 at 08:00 Vitamin D (Vitamin D3) 1,000 unit DAILYWBKFT PO Last administered on 05/06/17 08:17; Start 05/01/17 at 08:00 Digoxin (Lanoxin) 125 mcg DAILY PO Last administered on 05/06/17 08:16; Start 05/01/17 at 09:00 Furosemide (Lasix) 120 mg DAILY PO Last administered on 05/05/17 13:31; Start 05/01/17 at 09:00; Stop 05/05/17 at 19:39; Status DC Metformin HCl (Glucophage) 850 mg BIDWMEALS PO Last administered on 05/06/17 18 :01; Start 05/01/17 at 08:00 Potassium Chloride (Klor-Con) 20 meq BID PO Last administered on 05/04/17 20:37 ; Start 05/01/17 at 09:00; Stop 05/05/17 at 19:31; Status DC Warfarin Sodium (Coumadin) 6 mg DAILY16 PO Last administered on 05/01/17 16:56 ; Start 05/01/17 at 16:00; Stop 05/02/17 at 11:39; Status DC Non-Formulary Medication 500 mg BIDWMEALS PO ; Start 05/01/17 at 08:00; Stop 05/01 at 08:00; Status DC Glucosamine/ Chondroitin (Glucosamine-Chondroitin 500/400mg) 1 cap BIDWMEALS PO Last administered on 05/05/17 16:45; Start 05/01/17 at 08:00; Stop 05/05/17 at 18:18; Status DC Lactobacillus Acidophilus (Bacid, Orly-Bid) 2 tab DAILYWBKFT PO Last administered on 05/03/17 07:19; Start 05/01/17 at 08:00; Stop 05/05/17 at 18:18; Status DC Non-Formulary Medication 20 mg QHS PO ; Start 04/30/17 at 21:00; Stop 04/30/17 at 21:00; Status DC Non-Formulary Medication 5 mg QHS PO ; Start 04/30/17 at 21:00; Stop 04/30/17 at 21:00; Status DC Multivitamins/ Minerals (I-Gera) 1 tab DAILY PO Last administered on 05/03/17 07:20; Start 05/01/17 at 09:00; Stop 05/05/17 at 19:39; Status DC Pantoprazole Sodium (Protonix) 40 mg DAILYAC PO Last administered on 05/06/17 08:16; Start 05/01/17 at 07:30 Tamoxifen Citrate (Nolvadex) 20 mg DAILY PO Last administered on 05/06/17 08:20 ; Start 05/01/17 at 09:00 Coenzyme Q10 (Coenzyme Q10) 100 mg BID PO Last administered on 05/04/17 20:36; Start 05/01/17 at 09:00; Stop 05/05/17 at 18:18; Status DC Sertraline HCl (Zoloft) 50 mg QHS PO Last administered on 04/30/17 20:51; Start 04/30/17 at 21:00; Stop 05/01/17 at 11:00; Status DC Melatonin 4.5 mg QHS PO Last administered on 05/04/17 20:37; Start 04/30/17 at 21:00; Stop 05/05/17 at 18:18; Status DC Olanzapine (ZyPREXA ZYDIS) 2.5 mg PRN Q4HRS PRN PO Psych Last administered on 16:52; Start 04/30/17 at 20:15 Magnesium Oxide (Magnesium Oxide) 400 mg BID PO Last administered on 05/06/17 20:47; Start 04/30/17 at 21:00 Warfarin Sodium (Coumadin) 6 mg 1X WARF ONCE PO Last administered on 20:51; Start 04/30/17 at 20:45; Stop 04/30/17 at 20:46; Status DC Warfarin Sodium (Coumadin) 0.5 mg 1X WARF ONCE PO Last administered on 20:51; Start 04/30/17 at 20:45; Stop 04/30/17 at 20:46; Status DC Warfarin Sodium (Coumadin Per Physician) 1 each PRN DAILY PRN MC SEE COMMENTS; Start 05/01/17 at 09:45; Stop 05/01/17 at 14:54; Status DC Risperidone (RisperDAL) 0.25 mg HS PO Last administered on 05/02/17 19:39; Start 05/01/17 at 21:00; Stop 05/03/17 at 18:28; Status DC Trazodone HCl (Desyrel) 100 mg QHS PO Last administered on 05/06/17 20:48; Start 05/01/17 at 21:00 Trazodone HCl (Desyrel) 100 mg PRN QHS PRN PO INSOMNIA Last administered on 05/04 00:32; Start 05/01/17 at 10:45 Insulin Detemir (Levemir) 5 units QHS SQ Last administered on 05/06/17 20:51; Start 05/01/17 at 21:00 Insulin Aspart (NovoLOG) 0-5 UNITS QIDACHS SQ Last administered on 05/06/17 18: 09; Start 05/01/17 at 16:30 Dextrose 12.5 gm PRN Q15MIN PRN IV SEE COMMENTS; Start 05/01/17 at 14:45 Warfarin Sodium (Coumadin Per Pharmacy) 1 each PRN DAILY PRN MC SEE COMMENTS Last administered on 05/06/17 11:33; Start 05/01/17 at 14:45 Insulin Aspart (NovoLOG) 10 units 1X ONCE SQ Last administered on 05/01/17 17: 15; Start 05/01/17 at 17:15; Stop 05/01/17 at 17:16; Status DC Warfarin Sodium (Coumadin) 7.5 mg 1X WARF ONCE PO Last administered on 17:16; Start 05/02/17 at 16:00; Stop 05/02/17 at 16:01; Status DC Warfarin Sodium (Coumadin) 7.5 mg 1X WARF ONCE PO Last administered on 16:18; Start 05/03/17 at 16:00; Stop 05/03/17 at 16:01; Status DC Risperidone (RisperDAL) 0.5 mg HS SL Last administered on 05/04/17 20:41; Start 05/03/17 at 21:00; Stop 05/05/17 at 19:33; Status DC Valproic Acid (Depakene) 250 mg BIDWMEALS PO Last administered on 05/06/17 18: 00; Start 05/04/17 at 08:00 Warfarin Sodium (Coumadin) 7.5 mg 1X WARF ONCE PO Last administered on 16:02; Start 05/04/17 at 16:00; Stop 05/04/17 at 16:01; Status DC Mirtazapine (Remeron) 7.5 mg QHS PO Last administered on 05/04/17 20:38; Start 05/04/17 at 21:00; Stop 05/05/17 at 19:33; Status DC Warfarin Sodium (Coumadin) 7.5 mg 1X WARF ONCE PO Last administered on 16:46; Start 05/05/17 at 16:00; Stop 05/05/17 at 16:01; Status DC Potassium Chloride (KCl Oral Soln) 20 meq BID PO Last administered on 05/06/17 20:47; Start 05/05/17 at 21:00 Risperidone (RisperDAL) 1 mg HS SL ; Start 05/05/17 at 21:00; Stop 05/06/17 at 11: 05; Status DC Mirtazapine (Remeron Olive-Tab) 7.5 mg QHS PO Last administered on 05/06/17 20:47 ; Start 05/05/17 at 21:00 Acetaminophen (Tylenol) 650 mg PRN Q6HRS PRN PO PAIN / TEMP; Start 05/05/17 at 19:45 Furosemide (Lasix) 120 mg DAILY PO Last administered on 05/06/17 08:20; Start 05/06/17 at 09:00 Multivitamins (Thera-Plus) 5 ml DAILY PO Last administered on 05/06/17 08:19; Start 05/06/17 at 09:00 Risperidone (RisperDAL) 0.5 mg HS SL Last administered on 05/06/17 20:50; Start 05/06/17 at 21:00; Stop 05/09/17 at 09:00 Melatonin 3 mg PRN QHS PRN PO INSOMNIA; Start 05/06/17 at 18:15 Active Scripts Active Reported Probiotic (Lactobacillus Combo No.10) 1 Each Capsule 1 Cap PO [id number] Women's Daily Caplet (Multivits,Ca,Minerals/Iron/Fa) 1 Each Tablet 1 Tab PO BID Zoloft (Sertraline Hcl) 25 Mg Tablet 25 Mg PO QHS 7 Days Zoloft (Sertraline Hcl) 50 Mg Tablet 50 Mg PO QHS 3 Days Omeprazole 20 Mg Tablet.dr 20 Mg PO DAILY07 Allopurinol 100 Mg Tablet 200 Mg PO DAILYWSUP Vitamin D3 (Cholecalciferol (Vitamin D3)) 1,000 Unit Tablet 1,000 Unit PO DAILYWBKFT Oyster Shell Calcium (Calcium Carbonate) 500 Mg Tablet 500 Mg PO BIDWMEALS Cinnamon (Cinnamon Bark) 500 Mg Capsule 500 Mg PO BIDWMEALS Co Q-10 100 Mg Softgel (Ubidecarenone/Vit E Acetate) 1 Each Capsule 100 Mg PO BID Melatonin 5 Mg Tablet (Melatonin/Pyridoxine) 1 Each Tablet 5 Mg PO QHS Lutein 20 Mg Capsule 20 Mg PO QHS Vfwrhkrufm-Pcohgxxwpqj-Ekk Tab (Gluc/Victor M-Msm#2/C/D3/Anthony/Born) 1 Each Tablet 1 Tab PO BIDWMEALS Metformin Hcl 850 Mg Tablet 850 Mg PO BIDWMEALS Digoxin 125 Mcg Tablet 125 Mcg PO DAILY Tamoxifen Citrate 20 Mg Tablet 20 Mg PO DAILY Atenolol 50 Mg Tablet 50 Mg PO BID Lasix (Furosemide) 80 Mg Tablet 120 Mg PO DAILY Coumadin (Warfarin Sodium) 6 Mg Tablet 6 Mg PO QPM Potassium Chloride 10 Meq Capsule.er 10 Meq PO BID CHAU GROSS MD May 06, 2017 20:57
--- NOTE | 2017-05-06 21:20 | PDOC ---
Exam Tahir Demential Exam: Tahir Note: Please also refer to the separate dictated note~for this date of service dictated separately.~Patient seen individually. Discussed the patient with Nursing staff reviewed the chart.~Reviewed interim history and current functioning. Reviewed vital signs,~Labs/ Radiology~and current medications noted below. Continue current treatment with the changes noted in the dictated addendum note Assessment: Vital Signs: Vital Signs Date Time Temp Pulse Resp B/P (MAP) Pulse Ox O2 Delivery O2 Flow Rate FiO2 05/06/17 20:48 90 161/68 05/06/17 15:33 98.4 20 96 05/06/17 06:11 Room Air I&O Intake and Output 05/06/17 07:00 Intake Total 780 ml Balance 780 ml Intake Oral 780 ml Labs: Laboratory Tests Test 05/06/17 06:22 05/06/17 07:19 05/06/17 12:02 05/06/17 17:12 White Blood Count 5.6 x10^3/uL (4.0-11.0) Red Blood Count 4.43 x10^6/uL (3.50-5.40) Hemoglobin 12.1 g/dL (12.0-15.5) Hematocrit 37.1 % (36.0-47.0) Mean Corpuscular Volume 84 fL (79-100) Mean Corpuscular Hemoglobin 27 pg (25-35) Mean Corpuscular Hemoglobin Concent 33 g/dL (31-37) Red Cell Distribution Width 15.7 % (11.5-14.5) H Platelet Count 108 x10^3/uL (140-400) L Neutrophils (%) (Auto) 68 % (31-73) Lymphocytes (%) (Auto) 25 % (24-48) Monocytes (%) (Auto) 5 % (0-9) Eosinophils (%) (Auto) 2 % (0-3) Basophils (%) (Auto) 0 % (0-3) Neutrophils # (Auto) 3.8 x10^3uL (1.8-7.7) Lymphocytes # (Auto) 1.4 x10^3/uL (1.0-4.8) Monocytes # (Auto) 0.3 x10^3/uL (0.0-1.1) Eosinophils # (Auto) 0.1 x10^3/uL (0.0-0.7) Basophils # (Auto) 0.0 x10^3/uL (0.0-0.2) Prothrombin Time 19.6 SEC (9.4-11.4) H Prothrombin Time INR 1.9 (0.9-1.1) H Sodium Level 141 mmol/L (136-145) Potassium Level 3.1 mmol/L (3.5-5.1) L Chloride Level 101 mmol/L (98-107) Carbon Dioxide Level 30 mmol/L (21-32) Anion Gap 10 (6-14) Blood Urea Nitrogen 34 mg/dL (7-20) H Creatinine 1.2 mg/dL (0.6-1.0) H Estimated GFR (Cockcroft-Gault) 42.7 BUN/Creatinine Ratio 28 (6-20) H Glucose Level 183 mg/dL (70-99) H Calcium Level 8.2 mg/dL (8.5-10.1) L Total Bilirubin 0.6 mg/dL (0.2-1.0) Aspartate Amino Transferase (AST) 25 U/L (15-37) Alanine Aminotransferase (ALT) 26 U/L (14-59) Alkaline Phosphatase 52 U/L (46-116) Total Protein 6.6 g/dL (6.4-8.2) Albumin 3.3 g/dL (3.4-5.0) L Albumin/Globulin Ratio 1.0 (1.0-1.7) Valproic Acid Level 23 mcg/mL (50-100) L Valproic Acid Last Dose Date 05/05/2017 Valproic Acid Last Dose Time 1700 Glucose (Fingerstick) 143 mg/dL (70-99) H 189 mg/dL (70-99) H 235 mg/dL (70-99) H Test 05/06/17 19:05 Glucose (Fingerstick) 291 mg/dL (70-99) H Current Medications: Meds: Current Medications Acetaminophen (Tylenol) 650 mg PRN Q6HRS PRN PO PAIN / TEMP; Start 04/30/17 at 18:30; Stop 04/30/17 at 19:53; Status DC Potassium Chloride (Klor-Con) 20 meq 1X ONCE PO Last administered on t 20:51; Start 04/30/17 at 20:00; Stop 04/30/17 at 20:01; Status DC Magnesium Chloride (Mag Delay) 64 mg DAILY PO Last administered on 05/06/17 08: 16; Start 05/01/17 at 09:00; Stop 05/06/17 at 18:08; Status DC Acetaminophen (Tylenol) 650 mg PRN Q6HRS PRN PO PAIN / TEMP Last administered on 05/04/17 11:44; Start 04/30/17 at 20:00; Stop 05/05/17 at 19:37; Status DC Al Hydroxide/Mg Hydroxide (Mylanta Plus Xs) 15 ml PRN AFTMEALHC PRN PO DYSPEPSIA; Start 04/30/17 at 20:00 Magnesium Hydroxide (Milk Of Magnesia) 2,400 mg PRN QHS PRN PO CONSTIPATION; Start 04/30/17 at 20:00 Allopurinol (Zyloprim) 200 mg DAILYWSUP PO Last administered on 05/06/17 18:00 ; Start 05/01/17 at 17:00 Atenolol (Tenormin) 50 mg BID PO Last administered on 05/06/17 20:48; Start at 21:00 Calcium Carbonate/ Glycine (Oscal) 500 mg BIDWMEALS PO Last administered on 05/06 18:01; Start 05/01/17 at 08:00 Vitamin D (Vitamin D3) 1,000 unit DAILYWBKFT PO Last administered on 05/06/17 08:17; Start 05/01/17 at 08:00 Digoxin (Lanoxin) 125 mcg DAILY PO Last administered on 05/06/17 08:16; Start 05/01/17 at 09:00 Furosemide (Lasix) 120 mg DAILY PO Last administered on 05/05/17 13:31; Start 05/01/17 at 09:00; Stop 05/05/17 at 19:39; Status DC Metformin HCl (Glucophage) 850 mg BIDWMEALS PO Last administered on 05/06/17 18 :01; Start 05/01/17 at 08:00 Potassium Chloride (Klor-Con) 20 meq BID PO Last administered on 05/04/17 20:37 ; Start 05/01/17 at 09:00; Stop 05/05/17 at 19:31; Status DC Warfarin Sodium (Coumadin) 6 mg DAILY16 PO Last administered on 05/01/17 16:56 ; Start 05/01/17 at 16:00; Stop 05/02/17 at 11:39; Status DC Non-Formulary Medication 500 mg BIDWMEALS PO ; Start 05/01/17 at 08:00; Stop 05/01 at 08:00; Status DC Glucosamine/ Chondroitin (Glucosamine-Chondroitin 500/400mg) 1 cap BIDWMEALS PO Last administered on 05/05/17 16:45; Start 05/01/17 at 08:00; Stop 05/05/17 at 18:18; Status DC Lactobacillus Acidophilus (Bacid, Orly-Bid) 2 tab DAILYWBKFT PO Last administered on 05/03/17 07:19; Start 05/01/17 at 08:00; Stop 05/05/17 at 18:18; Status DC Non-Formulary Medication 20 mg QHS PO ; Start 04/30/17 at 21:00; Stop 04/30/17 at 21:00; Status DC Non-Formulary Medication 5 mg QHS PO ; Start 04/30/17 at 21:00; Stop 04/30/17 at 21:00; Status DC Multivitamins/ Minerals (I-Gera) 1 tab DAILY PO Last administered on 05/03/17 07:20; Start 05/01/17 at 09:00; Stop 05/05/17 at 19:39; Status DC Pantoprazole Sodium (Protonix) 40 mg DAILYAC PO Last administered on 05/06/17 08:16; Start 05/01/17 at 07:30 Tamoxifen Citrate (Nolvadex) 20 mg DAILY PO Last administered on 05/06/17 08:20 ; Start 05/01/17 at 09:00 Coenzyme Q10 (Coenzyme Q10) 100 mg BID PO Last administered on 05/04/17 20:36; Start 05/01/17 at 09:00; Stop 05/05/17 at 18:18; Status DC Sertraline HCl (Zoloft) 50 mg QHS PO Last administered on 04/30/17 20:51; Start 04/30/17 at 21:00; Stop 05/01/17 at 11:00; Status DC Melatonin 4.5 mg QHS PO Last administered on 05/04/17 20:37; Start 04/30/17 at 21:00; Stop 05/05/17 at 18:18; Status DC Olanzapine (ZyPREXA ZYDIS) 2.5 mg PRN Q4HRS PRN PO Psych Last administered on 16:52; Start 04/30/17 at 20:15 Magnesium Oxide (Magnesium Oxide) 400 mg BID PO Last administered on 05/06/17 20:47; Start 04/30/17 at 21:00 Warfarin Sodium (Coumadin) 6 mg 1X WARF ONCE PO Last administered on 20:51; Start 04/30/17 at 20:45; Stop 04/30/17 at 20:46; Status DC Warfarin Sodium (Coumadin) 0.5 mg 1X WARF ONCE PO Last administered on 20:51; Start 04/30/17 at 20:45; Stop 04/30/17 at 20:46; Status DC Warfarin Sodium (Coumadin Per Physician) 1 each PRN DAILY PRN MC SEE COMMENTS; Start 05/01/17 at 09:45; Stop 05/01/17 at 14:54; Status DC Risperidone (RisperDAL) 0.25 mg HS PO Last administered on 05/02/17 19:39; Start 05/01/17 at 21:00; Stop 05/03/17 at 18:28; Status DC Trazodone HCl (Desyrel) 100 mg QHS PO Last administered on 05/06/17 20:48; Start 05/01/17 at 21:00 Trazodone HCl (Desyrel) 100 mg PRN QHS PRN PO INSOMNIA Last administered on 05/04 00:32; Start 05/01/17 at 10:45 Insulin Detemir (Levemir) 5 units QHS SQ Last administered on 05/06/17 20:51; Start 05/01/17 at 21:00 Insulin Aspart (NovoLOG) 0-5 UNITS QIDACHS SQ Last administered on 05/06/17 18: 09; Start 05/01/17 at 16:30 Dextrose 12.5 gm PRN Q15MIN PRN IV SEE COMMENTS; Start 05/01/17 at 14:45 Warfarin Sodium (Coumadin Per Pharmacy) 1 each PRN DAILY PRN MC SEE COMMENTS Last administered on 05/06/17 11:33; Start 05/01/17 at 14:45 Insulin Aspart (NovoLOG) 10 units 1X ONCE SQ Last administered on 05/01/17 17: 15; Start 05/01/17 at 17:15; Stop 05/01/17 at 17:16; Status DC Warfarin Sodium (Coumadin) 7.5 mg 1X WARF ONCE PO Last administered on 17:16; Start 05/02/17 at 16:00; Stop 05/02/17 at 16:01; Status DC Warfarin Sodium (Coumadin) 7.5 mg 1X WARF ONCE PO Last administered on 16:18; Start 05/03/17 at 16:00; Stop 05/03/17 at 16:01; Status DC Risperidone (RisperDAL) 0.5 mg HS SL Last administered on 05/04/17 20:41; Start 05/03/17 at 21:00; Stop 05/05/17 at 19:33; Status DC Valproic Acid (Depakene) 250 mg BIDWMEALS PO Last administered on 05/06/17 18: 00; Start 05/04/17 at 08:00 Warfarin Sodium (Coumadin) 7.5 mg 1X WARF ONCE PO Last administered on 16:02; Start 05/04/17 at 16:00; Stop 05/04/17 at 16:01; Status DC Mirtazapine (Remeron) 7.5 mg QHS PO Last administered on 05/04/17 20:38; Start 05/04/17 at 21:00; Stop 05/05/17 at 19:33; Status DC Warfarin Sodium (Coumadin) 7.5 mg 1X WARF ONCE PO Last administered on 16:46; Start 05/05/17 at 16:00; Stop 05/05/17 at 16:01; Status DC Potassium Chloride (KCl Oral Soln) 20 meq BID PO Last administered on 05/06/17 20:47; Start 05/05/17 at 21:00 Risperidone (RisperDAL) 1 mg HS SL ; Start 05/05/17 at 21:00; Stop 05/06/17 at 11: 05; Status DC Mirtazapine (Remeron Olive-Tab) 7.5 mg QHS PO Last administered on 05/06/17 20:47 ; Start 05/05/17 at 21:00 Acetaminophen (Tylenol) 650 mg PRN Q6HRS PRN PO PAIN / TEMP; Start 05/05/17 at 19:45 Furosemide (Lasix) 120 mg DAILY PO Last administered on 05/06/17 08:20; Start 05/06/17 at 09:00 Multivitamins (Thera-Plus) 5 ml DAILY PO Last administered on 05/06/17 08:19; Start 05/06/17 at 09:00 Risperidone (RisperDAL) 0.5 mg HS SL Last administered on 05/06/17 20:50; Start 05/06/17 at 21:00; Stop 05/09/17 at 09:00 Melatonin 3 mg PRN QHS PRN PO INSOMNIA; Start 05/06/17 at 18:15 Active Scripts Active Reported Probiotic (Lactobacillus Combo No.10) 1 Each Capsule 1 Cap PO DAILYWBKFT Women's Daily Caplet (Multivits,Ca,Minerals/Iron/Fa) 1 Each Tablet 1 Tab PO BID Zoloft (Sertraline Hcl) 25 Mg Tablet 25 Mg PO QHS 7 Days Zoloft (Sertraline Hcl) 50 Mg Tablet 50 Mg PO QHS 3 Days Omeprazole 20 Mg Tablet.dr 20 Mg PO DAILY07 Allopurinol 100 Mg Tablet 200 Mg PO DAILYWSUP Vitamin D3 (Cholecalciferol (Vitamin D3)) 1,000 Unit Tablet 1,000 Unit PO DAILYWBKFT Oyster Shell Calcium (Calcium Carbonate) 500 Mg Tablet 500 Mg PO BIDWMEALS Cinnamon (Cinnamon Bark) 500 Mg Capsule 500 Mg PO BIDWMEALS Co Q-10 100 Mg Softgel (Ubidecarenone/Vit E Acetate) 1 Each Capsule 100 Mg PO BID Melatonin 5 Mg Tablet (Melatonin/Pyridoxine) 1 Each Tablet 5 Mg PO QHS Lutein 20 Mg Capsule 20 Mg PO QHS Zfmuiwvmos-Yvsqnbuhkja-Jgc Tab (Gluc/Victor M-Msm#2/C/D3/Anthony/Born) 1 Each Tablet 1 Tab PO BIDWMEALS Metformin Hcl 850 Mg Tablet 850 Mg PO BIDWMEALS Digoxin 125 Mcg Tablet 125 Mcg PO DAILY Tamoxifen Citrate 20 Mg Tablet 20 Mg PO DAILY Atenolol 50 Mg Tablet 50 Mg PO BID Lasix (Furosemide) 80 Mg Tablet 120 Mg PO DAILY Coumadin (Warfarin Sodium) 6 Mg Tablet 6 Mg PO QPM Potassium Chloride 10 Meq Capsule.er 10 Meq PO BID Diagnosis: Problems: (1) Anxiety disorder (2) Impulse control disorder (3) Bipolar affective, mixed, sev w/ psych (4) Dementia, vascular, 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
[2017-05-07] MEDS: ACETAMINOPHEN 650 MG/20.3 ML SOLUTION. PO PRN (05:07)
--- NOTE | 2017-05-07 05:31 | NUR ---
Behavior Intervention Response and Plan: BIRP Note: Behavior: Assumed Care of patient, patient located in Hallway at shift change. Patient exhibited the following behavior Compliant, Interactive, Cooperative. Brief assessment on rounds of vital signs, medication needs, lab studies, and pain. Treatment plan problems Major Depressive Disorder, and Fall Risk. Intervention: Patient assessed and the following interventions initiated safety checks 15 Minute Checks Cognitive Assessment , Head to toe Assessment , Medications. Response: After interactions and interventions patient responded in the following manner, Compliant , Cooperative ,Interactive. Continue to assess behaviors and condition will continue to monitor throughout the shift as needed. Plan: Continue to monitor Master Treatment Plan for patient's progress toward short term goals of Decreased Agitation, Medication Compliance, retirement goals to return to previous living setting vs placement. Continue to assess patient for changes in above assessment. Monitor for medication needs, pain, and safety concerns. Hourly rounding performed to ensure safe environment.
[2017-05-07 05:49] VITALS: BP 131/62
[2017-05-07] MEDS: metFORMIN 850 MG TABLET PO SCH ×2 (08:50→16:51)
[2017-05-07] MEDS: CHOLECALCIFEROL (VITAMIN D3) 1,000 UNIT TABLET PO SCH (08:50)
[2017-05-07] MEDS: POTASSIUM CHLORIDE 20 MEQ/15 ML ORAL LIQUID. PO SCH ×2 (08:50→20:42)
[2017-05-07] MEDS: VALPROATE ACID 250 MG/5 ML ORAL SOLUTION PO SCH ×2 (08:50→16:52)
[2017-05-07] MEDS: MAGNESIUM OXIDE 400 MG TABLET PO SCH ×2 (08:51→20:36)
[2017-05-07] MEDS: PANTOPRAZOLE 40 MG TABLET. PO SCH (08:51)
[2017-05-07] MEDS: DIGOXIN 125 MCG TABLET PO SCH (08:51)
[2017-05-07] MEDS: CALCIUM CARBONATE 500 MG TABLET PO SCH ×2 (08:51→16:51)
[2017-05-07] MEDS: ATENOLOL 50 MG TABLET PO SCH ×2 (08:52→20:40)
[2017-05-07] MEDS: MULTIVITAMINS,THERAPEUTIC 5 ML ORAL LIQUID. PO SCH (08:54)
[2017-05-07] MEDS: FUROSEMIDE 40 MG/5 ML PO SCH (08:54)
[2017-05-07] MEDS: INSULIN ASPART 300 UNITS/3 ML INSULN.PEN SQ SCH ×4 (08:55→20:47)
--- NOTE | 2017-05-07 08:55 | NUR ---
Behavior Intervention Response and Plan: BIRP Note: Behavior: Assumed Care of patient, patient located in Dining Room at shift change. Patient exhibited the following behavior Hallucinating, Disorganized, Compliant. Brief assessment on rounds of vital signs, medication needs, lab studies, and pain. Treatment plan problems 1 & 2. Intervention: Patient assessed and the following interventions initiated safety checks 15 Minute Checks Cognitive Assessment , Head to toe Assessment , Medications. Response: After interactions and interventions patient responded in the following manner, Calm , Appropriate ,Compliant. Continue to assess behaviors and condition will continue to monitor throughout the shift as needed. 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 Continue to assess patient for changes in above assessment. Monitor for medication needs, pain, and safety concerns. Hourly rounding performed to ensure safe environment.
[2017-05-07] MEDS: LURASIDONE 40 MG TABLET. PO SCH (08:56)
[2017-05-07] MEDS: TAMOXIFEN 10 MG TABLET PO SCH (08:56)
--- NOTE | 2017-05-07 09:00 | NUR ---
THERAPEUTIC RECREATION GROUP NOTE TITLE :Social Session: Table ball, Reminisce, Puzzles, and Outside Time ACTIVITY : Activities and Games GOAL : Increase alertness/focus, socialization, decrease stress DURATION : 75 Minutes RESPONSE : Full participation. Pt. needed encouragement to join the group. She was given a puzzle and she worked independently to compete it. She was unable to put the pieces in the correct spot but she was focused and quiet the entire time she was working on it.
--- NOTE | 2017-05-07 11:20 | NUR ---
THERAPEUTIC RECREATION GROUP NOTE TITLE :Movement to Music: Strength ACTIVITY : Movement/ Exercise GOAL : Increase morale, attention, flexibility. Decrease stress/anxiety. DURATION : 30 Minutes RESPONSE : Moderate participation. Pt. followed along with the moves about half of the time. She needed prompting and encouragement to stay on task. She smiled often and exchanged funny faces with FUDGER. She hooted and hollered loudly a few times.
--- NOTE | 2017-05-07 11:21 | NUR ---
Pharmacy Warfarin Dosing Note S:Pharmacy consulted to assist with anticoagulation therapy started with target INR: 2 -3 O:RAINER WASHINGTON is a 86 year old F with Atrial Fibrillation LABS: Last INR: 2.1 Last HGB: 12.1 Last HCT: 37.1 Last PLT: 108 Last dose of 7.5 mg given on 05/06/17 at 1600 Previous Regimen: 6MG DAILY Vitamin K given: NO Drug Interaction Changes: NO Ongoing Drug Interactions: ALLOPURINOL, TAMOXIFEN, GLUCOSAMINE/CHONDROTIN A:INR is within the desired range. Target Range for this patient is: 2 -3 P: Warfarin dose: Coumadin 7.5mg today at 1600 Bridge Therapy: None Next INR due 05/08/17 Pharmacy anticoagulation service will continue to follow. JESUS CLEANING [facility] 05/07/17 1121 Signed: 05/07/17 at 1123 by JESUS CLEANING [facility]
--- NOTE | 2017-05-07 14:15 | NUR ---
THERAPEUTIC RECREATION GROUP NOTE TITLE :Neofect ACTIVITY : Music GOAL : Increase socialization, elevate mood, stimulate memory DURATION : 60 Minutes RESPONSE : Full participation. Pt. stayed with the group the entire time. She sang along from her seat, smiled often and applauded after several songs. She made random movements with her arms and hands at times. She also hollered and shouted during the session.
[2017-05-07] MEDS ORDERED: WARFARIN 7.5 MG TABLET. PO ONE (16:00)
[2017-05-07 16:05] VITALS: BP 116/57
--- NOTE | 2017-05-07 16:36 | NUR ---
SHYANN contacted Pt's son, Teodoro, regarding dc plans for PT. next week. Teodoro would like for PT. to be dc to a skilled facility for continued PT before she returns to his house. [facility] [place], although they do not offer skilled services. SW spend time looking at alternative skilled facilities near [place], [place] for PT. SW confirmed w/Teodoro location preferences: [facility] [place], [facility], [facility] SW to follow up on Wednesday when closer to target dc date.
[2017-05-07] MEDS: ALLOPURINOL 100 MG TABLET. PO SCH (16:51)
--- NOTE | 2017-05-07 20:12 | PDOC ---
Exam Tahir Demential Exam: Tahir Note: Please also refer to the separate dictated note~for this date of service dictated separately.~Patient seen individually. Discussed the patient with Nursing staff reviewed the chart.~Reviewed interim history and current functioning. Reviewed vital signs,~Labs/ Radiology~and current medications noted below. Continue current treatment with the changes noted in the dictated addendum note Assessment: Vital Signs: Vital Signs Date Time Temp Pulse Resp B/P (MAP) Pulse Ox O2 Delivery O2 Flow Rate FiO2 05/07/17 16:05 98.0 70 18 116/57 (76) 97 05/06/17 06:11 Room Air I&O Intake and Output 05/07/17 07:00 Intake Total 1080 ml Balance 1080 ml Intake Oral 1080 ml # Bowel Movements 1 Labs: Laboratory Tests Test 05/07/17 06:39 05/07/17 07:11 05/07/17 11:18 05/07/17 16:23 Prothrombin Time 21.2 SEC (9.4-11.4) H Prothrombin Time INR 2.1 (0.9-1.1) H Glucose (Fingerstick) 192 mg/dL (70-99) H 255 mg/dL (70-99) H 279 mg/dL (70-99) H Test 05/07/17 19:04 Glucose (Fingerstick) 247 mg/dL (70-99) H Current Medications: Meds: Current Medications Acetaminophen (Tylenol) 650 mg PRN Q6HRS PRN PO PAIN / TEMP; Start 04/30/17 at 18:30; Stop 04/30/17 at 19:53; Status DC Potassium Chloride (Klor-Con) 20 meq 1X ONCE PO Last administered on 20:51; Start 04/30/17 at 20:00; Stop 04/30/17 at 20:01; Status DC Magnesium Chloride (Mag Delay) 64 mg DAILY PO Last administered on 05/06/17 08: 16; Start 05/01/17 at 09:00; Stop 05/06/17 at 18:08; Status DC Acetaminophen (Tylenol) 650 mg PRN Q6HRS PRN PO PAIN / TEMP Last administered on 05/04/17 11:44; Start 04/30/17 at 20:00; Stop 05/05/17 at 19:37; Status DC Al Hydroxide/Mg Hydroxide (Mylanta Plus Xs) 15 ml PRN AFTMEALHC PRN PO DYSPEPSIA; Start 04/30/17 at 20:00 Magnesium Hydroxide (Milk Of Magnesia) 2,400 mg PRN QHS PRN PO CONSTIPATION; Start 04/30/17 at 20:00 Allopurinol (Zyloprim) 200 mg DAILYWSUP PO Last administered on 05/07/17 16:51 ; Start 05/01/17 at 17:00 Atenolol (Tenormin) 50 mg BID PO Last administered on 05/07/17 08:52; Start at 21:00 Calcium Carbonate/ Glycine (Oscal) 500 mg BIDWMEALS PO Last administered on 05/07 16:51; Start 05/01/17 at 08:00 Vitamin D (Vitamin D3) 1,000 unit DAILYWBKFT PO Last administered on 05/07/17 08:50; Start 05/01/17 at 08:00 Digoxin (Lanoxin) 125 mcg DAILY PO Last administered on 05/07/17 08:51; Start 05/01/17 at 09:00 Furosemide (Lasix) 120 mg DAILY PO Last administered on 05/05/17 13:31; Start 05/01/17 at 09:00; Stop 05/05/17 at 19:39; Status DC Metformin HCl (Glucophage) 850 mg BIDWMEALS PO Last administered on 05/07/17 16 :51; Start 05/01/17 at 08:00 Potassium Chloride (Klor-Con) 20 meq BID PO Last administered on 05/04/17 20:37 ; Start 05/01/17 at 09:00; Stop 05/05/17 at 19:31; Status DC Warfarin Sodium (Coumadin) 6 mg DAILY16 PO Last administered on 05/01/17 16:56 ; Start 05/01/17 at 16:00; Stop 05/02/17 at 11:39; Status DC Non-Formulary Medication 500 mg BIDWMEALS PO ; Start 05/01/17 at 08:00; Stop 05/01 at 08:00; Status DC Glucosamine/ Chondroitin (Glucosamine-Chondroitin 500/400mg) 1 cap BIDWMEALS PO Last administered on 05/05/17 16:45; Start 05/01/17 at 08:00; Stop 05/05/17 at 18:18; Status DC Lactobacillus Acidophilus (Bacid, Orly-Bid) 2 tab DAILYWBKFT PO Last administered on 05/03/17 07:19; Start 05/01/17 at 08:00; Stop 05/05/17 at 18:18; Status DC Non-Formulary Medication 20 mg QHS PO ; Start 04/30/17 at 21:00; Stop 04/30/17 at 21:00; Status DC Non-Formulary Medication 5 mg QHS PO ; Start 04/30/17 at 21:00; Stop 04/30/17 at 21:00; Status DC Multivitamins/ Minerals (I-Gera) 1 tab DAILY PO Last administered on 05/03/17 07:20; Start 05/01/17 at 09:00; Stop 05/05/17 at 19:39; Status DC Pantoprazole Sodium (Protonix) 40 mg DAILYAC PO Last administered on 05/07/17 08:51; Start 05/01/17 at 07:30 Tamoxifen Citrate (Nolvadex) 20 mg DAILY PO Last administered on 05/07/17 08:56 ; Start 05/01/17 at 09:00 Coenzyme Q10 (Coenzyme Q10) 100 mg BID PO Last administered on 05/04/17 20:36; Start 05/01/17 at 09:00; Stop 05/05/17 at 18:18; Status DC Sertraline HCl (Zoloft) 50 mg QHS PO Last administered on 04/30/17 20:51; Start 04/30/17 at 21:00; Stop 05/01/17 at 11:00; Status DC Melatonin 4.5 mg QHS PO Last administered on 05/04/17 20:37; Start 04/30/17 at 21:00; Stop 05/05/17 at 18:18; Status DC Olanzapine (ZyPREXA ZYDIS) 2.5 mg PRN Q4HRS PRN PO Psych Last administered on 16:52; Start 04/30/17 at 20:15 Magnesium Oxide (Magnesium Oxide) 400 mg BID PO Last administered on 05/07/17 08:51; Start 04/30/17 at 21:00 Warfarin Sodium (Coumadin) 6 mg 1X WARF ONCE PO Last administered on 20:51; Start 04/30/17 at 20:45; Stop 04/30/17 at 20:46; Status DC Warfarin Sodium (Coumadin) 0.5 mg 1X WARF ONCE PO Last administered on 20:51; Start 04/30/17 at 20:45; Stop 04/30/17 at 20:46; Status DC Warfarin Sodium (Coumadin Per Physician) 1 each PRN DAILY PRN MC SEE COMMENTS; Start 05/01/17 at 09:45; Stop 05/01/17 at 14:54; Status DC Risperidone (RisperDAL) 0.25 mg HS PO Last administered on 05/02/17 19:39; Start 05/01/17 at 21:00; Stop 05/03/17 at 18:28; Status DC Trazodone HCl (Desyrel) 100 mg QHS PO Last administered on 05/06/17 20:48; Start 05/01/17 at 21:00 Trazodone HCl (Desyrel) 100 mg PRN QHS PRN PO INSOMNIA Last administered on 05/04 00:32; Start 05/01/17 at 10:45 Insulin Detemir (Levemir) 5 units QHS SQ Last administered on 05/06/17 20:51; Start 05/01/17 at 21:00 Insulin Aspart (NovoLOG) 0-5 UNITS QIDACHS SQ Last administered on 05/07/17 16: 55; Start 05/01/17 at 16:30 Dextrose 12.5 gm PRN Q15MIN PRN IV SEE COMMENTS; Start 05/01/17 at 14:45 Warfarin Sodium (Coumadin Per Pharmacy) 1 each PRN DAILY PRN MC SEE COMMENTS Last administered on 05/07/17 11:21; Start 05/01/17 at 14:45 Insulin Aspart (NovoLOG) 10 units 1X ONCE SQ Last administered on 05/01/17 17: 15; Start 05/01/17 at 17:15; Stop 05/01/17 at 17:16; Status DC Warfarin Sodium (Coumadin) 7.5 mg 1X WARF ONCE PO Last administered on 17:16; Start 05/02/17 at 16:00; Stop 05/02/17 at 16:01; Status DC Warfarin Sodium (Coumadin) 7.5 mg 1X WARF ONCE PO Last administered on 16:18; Start 05/03/17 at 16:00; Stop 05/03/17 at 16:01; Status DC Risperidone (RisperDAL) 0.5 mg HS SL Last administered on 05/04/17 20:41; Start 05/03/17 at 21:00; Stop 05/05/17 at 19:33; Status DC Valproic Acid (Depakene) 250 mg BIDWMEALS PO Last administered on 05/07/17 16: 52; Start 05/04/17 at 08:00; Stop 05/07/17 at 18:23; Status DC Warfarin Sodium (Coumadin) 7.5 mg 1X WARF ONCE PO Last administered on 16:02; Start 05/04/17 at 16:00; Stop 05/04/17 at 16:01; Status DC Mirtazapine (Remeron) 7.5 mg QHS PO Last administered on 05/04/17 20:38; Start 05/04/17 at 21:00; Stop 05/05/17 at 19:33; Status DC Warfarin Sodium (Coumadin) 7.5 mg 1X WARF ONCE PO Last administered on 16:46; Start 05/05/17 at 16:00; Stop 05/05/17 at 16:01; Status DC Potassium Chloride (KCl Oral Soln) 20 meq BID PO Last administered on 05/07/17 08:50; Start 05/05/17 at 21:00 Risperidone (RisperDAL) 1 mg HS SL ; Start 05/05/17 at 21:00; Stop 05/06/17 at 11: 05; Status DC Mirtazapine (Remeron Olive-Tab) 7.5 mg QHS PO Last administered on 05/06/17 20:47 ; Start 05/05/17 at 21:00 Acetaminophen (Tylenol) 650 mg PRN Q6HRS PRN PO PAIN / TEMP Last administered on 05/07/17 05:07; Start 05/05/17 at 19:45 Furosemide (Lasix) 120 mg DAILY PO Last administered on 05/07/17 08:54; Start 05/06/17 at 09:00 Multivitamins (Thera-Plus) 5 ml DAILY PO Last administered on 05/07/17 08:54; Start 05/06/17 at 09:00 Risperidone (RisperDAL) 0.5 mg HS SL Last administered on 05/06/17 20:50; Start 05/06/17 at 21:00; Stop 05/09/17 at 09:00 Melatonin 3 mg PRN QHS PRN PO INSOMNIA; Start 05/06/17 at 18:15 Warfarin Sodium (Coumadin) 7.5 mg 1X WARF ONCE PO Last administered on 16:51; Start 05/07/17 at 16:00; Stop 05/07/17 at 16:01; Status DC Valproic Acid (Depakene) 375 mg BIDWMEALS PO ; Start 05/08/17 at 08:00 Active Scripts Active Reported Probiotic (Lactobacillus Combo No.10) 1 Each Capsule 1 Cap PO DAILYWBKFT Women's Daily Caplet (Multivits,Ca,Minerals/Iron/Fa) 1 Each Tablet 1 Tab PO BID Zoloft (Sertraline Hcl) 25 Mg Tablet 25 Mg PO QHS 7 Days Zoloft (Sertraline Hcl) 50 Mg Tablet 50 Mg PO QHS 3 Days Omeprazole 20 Mg Tablet.dr 20 Mg PO DAILY07 Allopurinol 100 Mg Tablet 200 Mg PO DAILYWSUP Vitamin D3 (Cholecalciferol (Vitamin D3)) 1,000 Unit Tablet 1,000 Unit PO DAILYWBKFT Oyster Shell Calcium (Calcium Carbonate) 500 Mg Tablet 500 Mg PO BIDWMEALS Cinnamon (Cinnamon Bark) 500 Mg Capsule 500 Mg PO BIDWMEALS Co Q-10 100 Mg Softgel (Ubidecarenone/Vit E Acetate) 1 Each Capsule 100 Mg PO BID Melatonin 5 Mg Tablet (Melatonin/Pyridoxine) 1 Each Tablet 5 Mg PO QHS Lutein 20 Mg Capsule 20 Mg PO QHS Awhlvejjio-Ijjsbnqaxzs-Sqb Tab (Gluc/Victor M-Msm#2/C/D3/Anthony/Born) 1 Each Tablet 1 Tab PO BIDWMEALS Metformin Hcl 850 Mg Tablet 850 Mg PO BIDWMEALS Digoxin 125 Mcg Tablet 125 Mcg PO DAILY Tamoxifen Citrate 20 Mg Tablet 20 Mg PO DAILY Atenolol 50 Mg Tablet 50 Mg PO BID Lasix (Furosemide) 80 Mg Tablet 120 Mg PO DAILY Coumadin (Warfarin Sodium) 6 Mg Tablet 6 Mg PO QPM Potassium Chloride 10 Meq Capsule.er 10 Meq PO BID Diagnosis: Problems: (1) Anxiety disorder (2) Impulse control disorder (3) Bipolar affective, mixed, sev w/ psych (4) Dementia, vascular, 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
[2017-05-07 20:35] VITALS: BP 116/75
[2017-05-07] MEDS: MIRTAZAPINE 15 MG TAB.RAPDIS PO SCH (20:35)
[2017-05-07] MEDS: traZODone 100 MG TABLET. PO SCH (20:41)
[2017-05-07] MEDS: risperiDONE ORAL 1 MG/ML 30ml BOTTLE. SL SCH (20:43)
[2017-05-07] MEDS: INSULIN DETEMIR 300 UNITS/3 ML INSULN.PEN. SQ SCH (20:49)
--- NOTE | 2017-05-07 22:43 | NUR ---
Behavior Intervention Response and Plan: BIRP Note: Behavior: Assumed Care of patient, patient located in Day Room at shift change. Patient exhibited the following behavior Hallucinating, Disorganized, Compliant. Brief assessment on rounds of vital signs, medication needs, lab studies, and pain. Treatment plan problems MDD and Fall Risk. Intervention: Patient assessed and the following interventions initiated safety checks 15 Minute Checks Head to toe Assessment , Medications , Cognitive Assessment. Response: After interactions and interventions patient responded in the following manner, Calm , Disorganized ,Cooperative. Continue to assess behaviors and condition will continue to monitor throughout the shift as needed. Plan: Continue to monitor Master Treatment Plan for patient's progress toward short term goals of Decreased Agitation, Medication Compliance, group home goals to return to previous living setting vs placement. Continue to assess patient for changes in above assessment. Monitor for medication needs, pain, and safety concerns. Hourly rounding performed to ensure safe environment.
[2017-05-08 06:17] VITALS: BP 137/72
[2017-05-08] MEDS: MULTIVITAMINS,THERAPEUTIC 5 ML ORAL LIQUID. PO SCH (08:02)
[2017-05-08] MEDS: FUROSEMIDE 40 MG/5 ML PO SCH (08:02)
[2017-05-08] MEDS: CALCIUM CARBONATE 500 MG TABLET PO SCH ×2 (08:03→16:53)
[2017-05-08] MEDS: LURASIDONE 40 MG TABLET. PO SCH (08:03)
[2017-05-08] MEDS: metFORMIN 850 MG TABLET PO SCH ×2 (08:03→16:53)
[2017-05-08] MEDS: CHOLECALCIFEROL (VITAMIN D3) 1,000 UNIT TABLET PO SCH (08:03)
[2017-05-08] MEDS: MAGNESIUM OXIDE 400 MG TABLET PO SCH ×3 (08:03→21:48)
[2017-05-08] MEDS: POTASSIUM CHLORIDE 20 MEQ/15 ML ORAL LIQUID. PO SCH ×3 (08:03→21:47)
[2017-05-08] MEDS: DIGOXIN 125 MCG TABLET PO SCH (08:03)
[2017-05-08] MEDS: ATENOLOL 50 MG TABLET PO SCH ×3 (08:04→21:48)
[2017-05-08] MEDS: VALPROATE ACID 250 MG/5 ML ORAL SOLUTION PO SCH ×2 (08:06→16:54)
[2017-05-08] MEDS: PANTOPRAZOLE 40 MG TABLET. PO SCH (08:06)
[2017-05-08] MEDS: TAMOXIFEN 10 MG TABLET PO SCH (08:07)
[2017-05-08] MEDS: INSULIN ASPART 300 UNITS/3 ML INSULN.PEN SQ SCH ×4 (08:08→21:00)
--- NOTE | 2017-05-08 09:17 | NUR ---
Behavior Intervention Response and Plan: BIRP Note: Behavior: Assumed Care of patient, patient located in Day Room at shift change. Patient exhibited the following behavior Disorganized, Hallucinating, Calm. Brief assessment on rounds of vital signs, medication needs, lab studies, and pain. Treatment plan problems 1 and 2. Intervention: Patient assessed and the following interventions initiated safety checks 15 Minute Checks Cognitive Assessment , Head to toe Assessment , Medications. Response: After interactions and interventions patient responded in the following manner, Interactive , Calm ,Compliant. Continue to assess behaviors and condition will continue to monitor throughout the shift as needed. Plan: Continue to monitor Master Treatment Plan for patient's progress toward short term goals of Decreased Agitation, Medication Compliance, prison goals to return to previous living setting vs placement. Continue to assess patient for changes in above assessment. Monitor for medication needs, pain, and safety concerns. Hourly rounding performed to ensure safe environment.
--- NOTE | 2017-05-08 13:19 | NUR ---
Pharmacy Warfarin Dosing Note S:Pharmacy consulted to assist with anticoagulation therapy started 04/30/17 with target INR: 2 -3 O:RAINER WASHINGTON is a 86 year old F with Atrial Fibrillation LABS: Last INR: 1.9 Last HGB: 12.1 Last HCT: 37.1 Last PLT: 108 Last dose of 7.5 mg given on 05/07/17 at 1600 Previous Regimen: 6MG HOME DOSE Vitamin K given: N Drug Interaction Changes: Same Interacting Drug Ongoing Drug Interactions: ALLOPURINOL, TAMOXIFEN, GLUCOSAMINE/CHONDROTIN A:INR Below desired Range. Target Range for this patient is: 2 -3 P: Warfarin dose: 7.5 mg Today at 1600 Bridge Therapy: None Next INR due 05/09 @ 0600 Pharmacy anticoagulation service will continue to follow. FERNANDO RAYA RP, 05/08/17 [id number]
[2017-05-08 15:56] VITALS: BP 153/75
[2017-05-08] MEDS ORDERED: WARFARIN 7.5 MG TABLET. PO ONE (16:00)
--- NOTE | 2017-05-08 16:11 | NUR ---
Pt pleasant, disorganized thoughts and speech. Med compliant with some meds given whole, and liquid meds given in grape juice.
[2017-05-08] MEDS: ALLOPURINOL 100 MG TABLET. PO SCH (16:54)
[2017-05-08] MEDS: traZODone 100 MG TABLET. PO SCH ×2 (21:00→21:48)
[2017-05-08] MEDS: MIRTAZAPINE 15 MG TAB.RAPDIS PO SCH ×2 (21:00→21:48)
[2017-05-08] MEDS: risperiDONE ORAL 1 MG/ML 30ml BOTTLE. SL SCH (21:49)
[2017-05-08] MEDS: INSULIN DETEMIR 300 UNITS/3 ML INSULN.PEN. SQ SCH (21:53)
--- NOTE | 2017-05-08 22:50 | NUR ---
Nursing Note: Multiple attempts were made to give pt her HS medications; pt refused. However, pt was compliant w/ HS care.
--- NOTE | 2017-05-08 23:24 | PDOC ---
Exam Tahir Demential Exam: Tahir Note: Please also refer to the separate dictated note~for this date of service dictated separately.~Patient seen individually. Discussed the patient with Nursing staff reviewed the chart.~Reviewed interim history and current functioning. Reviewed vital signs,~Labs/ Radiology~and current medications noted below. Continue current treatment with the changes noted in the dictated addendum note Assessment: Vital Signs: Vital Signs Date Time Temp Pulse Resp B/P (MAP) Pulse Ox O2 Delivery O2 Flow Rate FiO2 05/08/17 21:00 71 153/75 05/08/17 15:56 98.5 16 99 Room Air I&O Intake and Output 05/08/17 07:00 Intake Total 1020 ml Balance 1020 ml Intake Oral 1020 ml # Voids 1 # Bowel Movements 1 Labs: Laboratory Tests Test 05/08/17 07:25 05/08/17 08:03 05/08/17 12:02 05/08/17 17:17 Prothrombin Time 19.9 SEC (9.4-11.4) H Prothrombin Time INR 1.9 (0.9-1.1) H Glucose (Fingerstick) 209 mg/dL (70-99) H 230 mg/dL (70-99) H 175 mg/dL (70-99) H Current Medications: Meds: Current Medications Acetaminophen (Tylenol) 650 mg PRN Q6HRS PRN PO PAIN / TEMP; Start 04/30/17 at 18:30; Stop 04/30/17 at 19:53; Status DC Potassium Chloride (Klor-Con) 20 meq 1X ONCE PO Last administered on 20:51; Start 04/30/17 at 20:00; Stop 04/30/17 at 20:01; Status DC Magnesium Chloride (Mag Delay) 64 mg DAILY PO Last administered on 05/06/17 08: 16; Start 05/01/17 at 09:00; Stop 05/06/17 at 18:08; Status DC Acetaminophen (Tylenol) 650 mg PRN Q6HRS PRN PO PAIN / TEMP Last administered on 05/04/17 11:44; Start 04/30/17 at 20:00; Stop 05/05/17 at 19:37; Status DC Al Hydroxide/Mg Hydroxide (Mylanta Plus Xs) 15 ml PRN AFTMEALHC PRN PO DYSPEPSIA; Start 04/30/17 at 20:00 Magnesium Hydroxide (Milk Of Magnesia) 2,400 mg PRN QHS PRN PO CONSTIPATION; Start 04/30/17 at 20:00 Allopurinol (Zyloprim) 200 mg DAILYWSUP PO Last administered on 05/08/17 16:54 ; Start 05/01/17 at 17:00 Atenolol (Tenormin) 50 mg BID PO Last administered on 05/08/17 08:04; Start at 21:00 Calcium Carbonate/ Glycine (Oscal) 500 mg BIDWMEALS PO Last administered on 05/08 16:53; Start 05/01/17 at 08:00 Vitamin D (Vitamin D3) 1,000 unit DAILYWBKFT PO Last administered on 05/08/17 08:03; Start 05/01/17 at 08:00 Digoxin (Lanoxin) 125 mcg DAILY PO Last administered on 05/08/17 08:03; Start 05/01/17 at 09:00 Furosemide (Lasix) 120 mg DAILY PO Last administered on 05/05/17 13:31; Start 05/01/17 at 09:00; Stop 05/05/17 at 19:39; Status DC Metformin HCl (Glucophage) 850 mg BIDWMEALS PO Last administered on 05/08/17 16 :53; Start 05/01/17 at 08:00 Potassium Chloride (Klor-Con) 20 meq BID PO Last administered on 05/04/17 20:37 ; Start 05/01/17 at 09:00; Stop 05/05/17 at 19:31; Status DC Warfarin Sodium (Coumadin) 6 mg DAILY16 PO Last administered on 05/01/17 16:56 ; Start 05/01/17 at 16:00; Stop 05/02/17 at 11:39; Status DC Non-Formulary Medication 500 mg BIDWMEALS PO ; Start 05/01/17 at 08:00; Stop 05/01 at 08:00; Status DC Glucosamine/ Chondroitin (Glucosamine-Chondroitin 500/400mg) 1 cap BIDWMEALS PO Last administered on 05/05/17 16:45; Start 05/01/17 at 08:00; Stop 05/05/17 at 18:18; Status DC Lactobacillus Acidophilus (Bacid, Orly-Bid) 2 tab DAILYWBKFT PO Last administered on 05/03/17 07:19; Start 05/01/17 at 08:00; Stop 05/05/17 at 18:18; Status DC Non-Formulary Medication 20 mg QHS PO ; Start 04/30/17 at 21:00; Stop 04/30/17 at 21:00; Status DC Non-Formulary Medication 5 mg QHS PO ; Start 04/30/17 at 21:00; Stop 04/30/17 at 21:00; Status DC Multivitamins/ Minerals (I-Gera) 1 tab DAILY PO Last administered on 05/03/17 07:20; Start 05/01/17 at 09:00; Stop 05/05/17 at 19:39; Status DC Pantoprazole Sodium (Protonix) 40 mg DAILYAC PO Last administered on 05/08/17 08:06; Start 05/01/17 at 07:30 Tamoxifen Citrate (Nolvadex) 20 mg DAILY PO Last administered on 05/08/17 08:07 ; Start 05/01/17 at 09:00 Coenzyme Q10 (Coenzyme Q10) 100 mg BID PO Last administered on 05/04/17 20:36; Start 05/01/17 at 09:00; Stop 05/05/17 at 18:18; Status DC Sertraline HCl (Zoloft) 50 mg QHS PO Last administered on 04/30/17 20:51; Start 04/30/17 at 21:00; Stop 05/01/17 at 11:00; Status DC Melatonin 4.5 mg QHS PO Last administered on 05/04/17 20:37; Start 04/30/17 at 21:00; Stop 05/05/17 at 18:18; Status DC Olanzapine (ZyPREXA ZYDIS) 2.5 mg PRN Q4HRS PRN PO Psych Last administered on 16:52; Start 04/30/17 at 20:15 Magnesium Oxide (Magnesium Oxide) 400 mg BID PO Last administered on 05/08/17 08:03; Start 04/30/17 at 21:00 Warfarin Sodium (Coumadin) 6 mg 1X WARF ONCE PO Last administered on 20:51; Start 04/30/17 at 20:45; Stop 04/30/17 at 20:46; Status DC Warfarin Sodium (Coumadin) 0.5 mg 1X WARF ONCE PO Last administered on 20:51; Start 04/30/17 at 20:45; Stop 04/30/17 at 20:46; Status DC Warfarin Sodium (Coumadin Per Physician) 1 each PRN DAILY PRN MC SEE COMMENTS; Start 05/01/17 at 09:45; Stop 05/01/17 at 14:54; Status DC Risperidone (RisperDAL) 0.25 mg HS PO Last administered on 05/02/17 19:39; Start 05/01/17 at 21:00; Stop 05/03/17 at 18:28; Status DC Trazodone HCl (Desyrel) 100 mg QHS PO Last administered on 05/07/17 20:41; Start 05/01/17 at 21:00 Trazodone HCl (Desyrel) 100 mg PRN QHS PRN PO INSOMNIA Last administered on 05/04 00:32; Start 05/01/17 at 10:45 Insulin Detemir (Levemir) 5 units QHS SQ Last administered on 05/08/17 21:53; Start 05/01/17 at 21:00 Insulin Aspart (NovoLOG) 0-5 UNITS QIDACHS SQ Last administered on 05/08/17 17: 28; Start 05/01/17 at 16:30 Dextrose 12.5 gm PRN Q15MIN PRN IV SEE COMMENTS; Start 05/01/17 at 14:45 Warfarin Sodium (Coumadin Per Pharmacy) 1 each PRN DAILY PRN MC SEE COMMENTS Last administered on 05/08/17 13:18; Start 05/01/17 at 14:45 Insulin Aspart (NovoLOG) 10 units 1X ONCE SQ Last administered on 05/01/17 17: 15; Start 05/01/17 at 17:15; Stop 05/01/17 at 17:16; Status DC Warfarin Sodium (Coumadin) 7.5 mg 1X WARF ONCE PO Last administered on 17:16; Start 05/02/17 at 16:00; Stop 05/02/17 at 16:01; Status DC Warfarin Sodium (Coumadin) 7.5 mg 1X WARF ONCE PO Last administered on 16:18; Start 05/03/17 at 16:00; Stop 05/03/17 at 16:01; Status DC Risperidone (RisperDAL) 0.5 mg HS SL Last administered on 05/04/17 20:41; Start 05/03/17 at 21:00; Stop 05/05/17 at 19:33; Status DC Valproic Acid (Depakene) 250 mg BIDWMEALS PO Last administered on 05/07/17 16: 52; Start 05/04/17 at 08:00; Stop 05/07/17 at 18:23; Status DC Warfarin Sodium (Coumadin) 7.5 mg 1X WARF ONCE PO Last administered on 16:02; Start 05/04/17 at 16:00; Stop 05/04/17 at 16:01; Status DC Mirtazapine (Remeron) 7.5 mg QHS PO Last administered on 05/04/17 20:38; Start 05/04/17 at 21:00; Stop 05/05/17 at 19:33; Status DC Warfarin Sodium (Coumadin) 7.5 mg 1X WARF ONCE PO Last administered on 16:46; Start 05/05/17 at 16:00; Stop 05/05/17 at 16:01; Status DC Potassium Chloride (KCl Oral Soln) 20 meq BID PO Last administered on 05/08/17 08:03; Start 05/05/17 at 21:00 Risperidone (RisperDAL) 1 mg HS SL ; Start 05/05/17 at 21:00; Stop 05/06/17 at 11: 05; Status DC Mirtazapine (Remeron Olive-Tab) 7.5 mg QHS PO Last administered on 05/07/17 20:35 ; Start 05/05/17 at 21:00 Acetaminophen (Tylenol) 650 mg PRN Q6HRS PRN PO PAIN / TEMP Last administered on 05/07/17 05:07; Start 05/05/17 at 19:45 Furosemide (Lasix) 120 mg DAILY PO Last administered on 05/08/17 08:02; Start 05/06/17 at 09:00 Multivitamins (Thera-Plus) 5 ml DAILY PO Last administered on 05/08/17 08:02; Start 05/06/17 at 09:00 Risperidone (RisperDAL) 0.5 mg HS SL Last administered on 05/08/17 21:49; Start 05/06/17 at 21:00; Stop 05/09/17 at 09:00 Melatonin 3 mg PRN QHS PRN PO INSOMNIA; Start 05/06/17 at 18:15 Warfarin Sodium (Coumadin) 7.5 mg 1X WARF ONCE PO Last administered on 16:51; Start 05/07/17 at 16:00; Stop 05/07/17 at 16:01; Status DC Valproic Acid (Depakene) 375 mg BIDWMEALS PO Last administered on 05/08/17 16: 54; Start 05/08/17 at 08:00 Warfarin Sodium (Coumadin) 7.5 mg 1X WARF ONCE PO Last administered on 16:53; Start 05/08/17 at 16:00; Stop 05/08/17 at 16:01; Status DC Active Scripts Active Reported Probiotic (Lactobacillus Combo No.10) 1 Each Capsule 1 Cap PO DAILYWBKFT Women's Daily Caplet (Multivits,Ca,Minerals/Iron/Fa) 1 Each Tablet 1 Tab PO BID Zoloft (Sertraline Hcl) 25 Mg Tablet 25 Mg PO QHS 7 Days Zoloft (Sertraline Hcl) 50 Mg Tablet 50 Mg PO QHS 3 Days Omeprazole 20 Mg Tablet.dr 20 Mg PO DAILY07 Allopurinol 100 Mg Tablet 200 Mg PO DAILYWSUP Vitamin D3 (Cholecalciferol (Vitamin D3)) 1,000 Unit Tablet 1,000 Unit PO DAILYWBKFT Oyster Shell Calcium (Calcium Carbonate) 500 Mg Tablet 500 Mg PO BIDWMEALS Cinnamon (Cinnamon Bark) 500 Mg Capsule 500 Mg PO BIDWMEALS Co Q-10 100 Mg Softgel (Ubidecarenone/Vit E Acetate) 1 Each Capsule 100 Mg PO BID Melatonin 5 Mg Tablet (Melatonin/Pyridoxine) 1 Each Tablet 5 Mg PO QHS Lutein 20 Mg Capsule 20 Mg PO QHS Jvsktuqwcq-Dgpuflybxtw-Liu Tab (Gluc/Victor M-Msm#2/C/D3/Anthony/Born) 1 Each Tablet 1 Tab PO BIDWMEALS Metformin Hcl 850 Mg Tablet 850 Mg PO BIDWMEALS Digoxin 125 Mcg Tablet 125 Mcg PO DAILY Tamoxifen Citrate 20 Mg Tablet 20 Mg PO DAILY Atenolol 50 Mg Tablet 50 Mg PO BID Lasix (Furosemide) 80 Mg Tablet 120 Mg PO DAILY Coumadin (Warfarin Sodium) 6 Mg Tablet 6 Mg PO QPM Potassium Chloride 10 Meq Capsule.er 10 Meq PO BID Diagnosis: Problems: (1) Anxiety disorder (2) Impulse control disorder (3) Bipolar affective, mixed, sev w/ psych (4) Dementia, vascular, with 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
--- NOTE | 2017-05-09 01:43 | NUR ---
Behavior Intervention Response and Plan: BIRP Note: Behavior: Assumed Care of patient, patient located in Day Room at shift change. Patient exhibited the following behavior Hallucinating, Disorganized, Non Compliant with Meds. Brief assessment on rounds of vital signs, medication needs, lab studies, and pain. Treatment plan problems Major Depressive Disorder, Danger to Others and Fall risk. Intervention: Patient assessed and the following interventions initiated safety checks 15 Minute Checks Cognitive Assessment , Head to toe Assessment , Medications. Response: After interactions and interventions patient responded in the following manner, Restless , Disorganized ,Non Compliant with Meds. Continue to assess behaviors and condition will continue to monitor throughout the shift as needed. Plan: Continue to monitor Master Treatment Plan for patient's progress toward short term goals of No harm To self/ others, Decreased Agitation, longterm goals to return to previous living setting vs placement. Continue to assess patient for changes in above assessment. Monitor for medication needs, pain, and safety concerns. Hourly rounding performed to ensure safe environment.
[2017-05-09] MEDS: ACETAMINOPHEN 650 MG/20.3 ML SOLUTION. PO PRN ×2 (05:06→09:12)
--- NOTE | 2017-05-09 05:12 | NUR ---
Nursing Note: Pt c/o pain all over when she awoke; unable to give a pain level. Tylenol given.
[2017-05-09 06:29] VITALS: BP 166/86
[2017-05-09] MEDS: PANTOPRAZOLE 40 MG TABLET. PO SCH ×2 (07:30→07:53)
[2017-05-09] MEDS: VALPROATE ACID 250 MG/5 ML ORAL SOLUTION PO SCH ×3 (07:51→16:27)
[2017-05-09] MEDS: MAGNESIUM OXIDE 400 MG TABLET PO SCH ×3 (07:52→19:56)
[2017-05-09] MEDS: CALCIUM CARBONATE 500 MG TABLET PO SCH ×3 (07:52→16:26)
[2017-05-09] MEDS: metFORMIN 850 MG TABLET PO SCH ×3 (07:52→16:26)
[2017-05-09] MEDS: LURASIDONE 40 MG TABLET. PO SCH ×2 (07:52→09:42)
[2017-05-09] MEDS: POTASSIUM CHLORIDE 20 MEQ/15 ML ORAL LIQUID. PO SCH ×2 (07:52→09:13)
[2017-05-09] MEDS: CHOLECALCIFEROL (VITAMIN D3) 1,000 UNIT TABLET PO SCH ×2 (07:52→08:00)
[2017-05-09] MEDS: FUROSEMIDE 40 MG/5 ML PO SCH ×2 (07:53→09:43)
[2017-05-09] MEDS: DIGOXIN 125 MCG TABLET PO SCH ×2 (07:53→09:14)
[2017-05-09] MEDS: ATENOLOL 50 MG TABLET PO SCH ×3 (07:53→19:55)
[2017-05-09] MEDS: TAMOXIFEN 10 MG TABLET PO SCH ×2 (07:54→09:42)
[2017-05-09] MEDS: MULTIVITAMINS,THERAPEUTIC 5 ML ORAL LIQUID. PO SCH ×2 (07:54→09:00)
[2017-05-09] MEDS: INSULIN ASPART 300 UNITS/3 ML INSULN.PEN SQ SCH ×4 (07:55→21:00)
--- NOTE | 2017-05-09 10:07 | NUR ---
Behavior Intervention Response and Plan: BIRP Note: Behavior: Assumed Care of patient, patient located in Dining Room at shift change. Patient exhibited the following behavior Disorganized, Cooperative, Resistive. Brief assessment on rounds of vital signs, medication needs, lab studies, and pain. Treatment plan problems . Intervention: Patient assessed and the following interventions initiated safety checks 15 Minute Checks Cognitive Assessment , Head to toe Assessment , Medications. Response: After interactions and interventions patient responded in the following manner, Disorganized , Compliant ,Cooperative. Continue to assess behaviors and condition will continue to monitor throughout the shift as needed. 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 Continue to assess patient for changes in above assessment. Monitor for medication needs, pain, and safety concerns. Hourly rounding performed to ensure safe environment.
--- NOTE | 2017-05-09 11:29 | NUR ---
Pharmacy Warfarin Dosing Note S:Pharmacy consulted to assist with anticoagulation therapy started 04/30/17 with target INR: 2 -3 O:RAINER WASHINGTON is a 86 year old F with Atrial Fibrillation LABS: Last INR: 2.1 Last HGB: 12.1 Last HCT: 37.1 Last PLT: 108 Last dose of 7.5 mg given on 05/08/17 at 1600 Previous Regimen: 6MG HOME DOSE Vitamin K given: N Drug Interaction Changes: Same Interacting Drug Ongoing Drug Interactions: ALLOPURINOL, TAMOXIFEN, GLUCOSAMINE/CHONDROTIN A:INR Within desired Range. Target Range for this patient is: 2 -3 P: Warfarin dose: 7.5 mg Today at 1600 Bridge Therapy: None Next INR due 05/10 @0600 Pharmacy anticoagulation service will continue to follow. FERNANDO RAYA RP, 05/09/17 1121
[2017-05-09] MEDS ORDERED: WARFARIN 7.5 MG TABLET. PO ONE (16:00)
[2017-05-09] MEDS: ALLOPURINOL 100 MG TABLET. PO SCH (16:26)
[2017-05-09 16:49] VITALS: BP 102/61
[2017-05-09] MEDS: MIRTAZAPINE 15 MG TAB.RAPDIS PO SCH (19:55)
[2017-05-09] MEDS: traZODone 100 MG TABLET. PO SCH (19:56)
[2017-05-09] MEDS: POTASSIUM CHLORIDE 20 MEQ TABLET.ER. PO SCH (20:00)
--- NOTE | 2017-05-09 20:20 | PDOC ---
Exam Tahir Demential Exam: Tahir Note: Please also refer to the separate dictated note~for this date of service dictated separately.~Patient seen individually. Discussed the patient with Nursing staff reviewed the chart.~Reviewed interim history and current functioning. Reviewed vital signs,~Labs/ Radiology~and current medications noted below. Continue current treatment with the changes noted in the dictated addendum note Assessment: Vital Signs: Vital Signs Date Time Temp Pulse Resp B/P (MAP) Pulse Ox O2 Delivery O2 Flow Rate FiO2 05/09/17 19:55 70 102/61 05/09/17 16:49 96.7 18 99 05/09/17 06:29 Room Air I&O Intake and Output 05/09/17 07:00 Intake Total 1020 ml Balance 1020 ml Intake Oral 1020 ml # Voids 1 Labs: Laboratory Tests Test 05/09/17 07:27 05/09/17 07:43 05/09/17 12:00 05/09/17 16:36 Glucose (Fingerstick) 177 mg/dL (70-99) H 169 mg/dL (70-99) H 178 mg/dL (70-99) H Prothrombin Time 21.4 SEC (9.4-11.4) H Prothrombin Time INR 2.1 (0.9-1.1) H Test 05/09/17 19:08 Glucose (Fingerstick) 217 mg/dL (70-99) H Current Medications: Meds: Current Medications Acetaminophen (Tylenol) 650 mg PRN Q6HRS PRN PO PAIN / TEMP; Start 04/30/17 at 18:30; Stop 04/30/17 at 19:53; Status DC Potassium Chloride (Klor-Con) 20 meq 1X ONCE PO Last administered on 20:51; Start 04/30/17 at 20:00; Stop 04/30/17 at 20:01; Status DC Magnesium Chloride (Mag Delay) 64 mg DAILY PO Last administered on 05/06/17 08: 16; Start 05/01/17 at 09:00; Stop 05/06/17 at 18:08; Status DC Acetaminophen (Tylenol) 650 mg PRN Q6HRS PRN PO PAIN / TEMP Last administered on 05/04/17 11:44; Start 04/30/17 at 20:00; Stop 05/05/17 at 19:37; Status DC Al Hydroxide/Mg Hydroxide (Mylanta Plus Xs) 15 ml PRN AFTMEALHC PRN PO DYSPEPSIA; Start 04/30/17 at 20:00 Magnesium Hydroxide (Milk Of Magnesia) 2,400 mg PRN QHS PRN PO CONSTIPATION; Start 04/30/17 at 20:00 Allopurinol (Zyloprim) 200 mg DAILYWSUP PO Last administered on 05/09/17 16:26 ; Start 05/01/17 at 17:00 Atenolol (Tenormin) 50 mg BID PO Last administered on 05/09/17 19:55; Start at 21:00 Calcium Carbonate/ Glycine (Oscal) 500 mg BIDWMEALS PO Last administered on 05/09 16:26; Start 05/01/17 at 08:00 Vitamin D (Vitamin D3) 1,000 unit DAILYWBKFT PO Last administered on 05/08/17 08:03; Start 05/01/17 at 08:00 Digoxin (Lanoxin) 125 mcg DAILY PO Last administered on 05/09/17 09:14; Start 05/01/17 at 09:00 Furosemide (Lasix) 120 mg DAILY PO Last administered on 05/05/17 13:31; Start 05/01/17 at 09:00; Stop 05/05/17 at 19:39; Status DC Metformin HCl (Glucophage) 850 mg BIDWMEALS PO Last administered on 05/09/17 16 :26; Start 05/01/17 at 08:00 Potassium Chloride (Klor-Con) 20 meq BID PO Last administered on 05/04/17 20:37 ; Start 05/01/17 at 09:00; Stop 05/05/17 at 19:31; Status DC Warfarin Sodium (Coumadin) 6 mg DAILY16 PO Last administered on 05/01/17 16:56 ; Start 05/01/17 at 16:00; Stop 05/02/17 at 11:39; Status DC Non-Formulary Medication 500 mg BIDWMEALS PO ; Start 05/01/17 at 08:00; Stop 05/01 at 08:00; Status DC Glucosamine/ Chondroitin (Glucosamine-Chondroitin 500/400mg) 1 cap BIDWMEALS PO Last administered on 05/05/17 16:45; Start 05/01/17 at 08:00; Stop 05/05/17 at 18:18; Status DC Lactobacillus Acidophilus (Bacid, Orly-Bid) 2 tab DAILYWBKFT PO Last administered on 05/03/17 07:19; Start 05/01/17 at 08:00; Stop 05/05/17 at 18:18; Status DC Non-Formulary Medication 20 mg QHS PO ; Start 04/30/17 at 21:00; Stop 04/30/17 at 21:00; Status DC Non-Formulary Medication 5 mg QHS PO ; Start 04/30/17 at 21:00; Stop 04/30/17 at 21:00; Status DC Multivitamins/ Minerals (I-Gera) 1 tab DAILY PO Last administered on 05/03/17 07:20; Start 05/01/17 at 09:00; Stop 05/05/17 at 19:39; Status DC Pantoprazole Sodium (Protonix) 40 mg DAILYAC PO Last administered on 05/08/17 08:06; Start 05/01/17 at 07:30 Tamoxifen Citrate (Nolvadex) 20 mg DAILY PO Last administered on 05/09/17 09:42 ; Start 05/01/17 at 09:00 Coenzyme Q10 (Coenzyme Q10) 100 mg BID PO Last administered on 05/04/17 20:36; Start 05/01/17 at 09:00; Stop 05/05/17 at 18:18; Status DC Sertraline HCl (Zoloft) 50 mg QHS PO Last administered on 04/30/17 20:51; Start 04/30/17 at 21:00; Stop 05/01/17 at 11:00; Status DC Melatonin 4.5 mg QHS PO Last administered on 05/04/17 20:37; Start 04/30/17 at 21:00; Stop 05/05/17 at 18:18; Status DC Olanzapine (ZyPREXA ZYDIS) 2.5 mg PRN Q4HRS PRN PO Psych Last administered on 16:52; Start 04/30/17 at 20:15 Magnesium Oxide (Magnesium Oxide) 400 mg BID PO Last administered on 05/09/17 19:56; Start 04/30/17 at 21:00 Warfarin Sodium (Coumadin) 6 mg 1X WARF ONCE PO Last administered on 20:51; Start 04/30/17 at 20:45; Stop 04/30/17 at 20:46; Status DC Warfarin Sodium (Coumadin) 0.5 mg 1X WARF ONCE PO Last administered on 20:51; Start 04/30/17 at 20:45; Stop 04/30/17 at 20:46; Status DC Warfarin Sodium (Coumadin Per Physician) 1 each PRN DAILY PRN MC SEE COMMENTS; Start 05/01/17 at 09:45; Stop 05/01/17 at 14:54; Status DC Risperidone (RisperDAL) 0.25 mg HS PO Last administered on 05/02/17 19:39; Start 05/01/17 at 21:00; Stop 05/03/17 at 18:28; Status DC Trazodone HCl (Desyrel) 100 mg QHS PO Last administered on 05/09/17 19:56; Start 05/01/17 at 21:00 Trazodone HCl (Desyrel) 100 mg PRN QHS PRN PO INSOMNIA Last administered on 05/04 00:32; Start 05/01/17 at 10:45 Insulin Detemir (Levemir) 5 units QHS SQ Last administered on 05/08/17 21:53; Start 05/01/17 at 21:00 Insulin Aspart (NovoLOG) 0-5 UNITS QIDACHS SQ Last administered on 05/09/17 16: 39; Start 05/01/17 at 16:30 Dextrose 12.5 gm PRN Q15MIN PRN IV SEE COMMENTS; Start 05/01/17 at 14:45 Warfarin Sodium (Coumadin Per Pharmacy) 1 each PRN DAILY PRN MC SEE COMMENTS Last administered on 05/09/17 11:29; Start 05/01/17 at 14:45 Insulin Aspart (NovoLOG) 10 units 1X ONCE SQ Last administered on 05/01/17 17: 15; Start 05/01/17 at 17:15; Stop 05/01/17 at 17:16; Status DC Warfarin Sodium (Coumadin) 7.5 mg 1X WARF ONCE PO Last administered on 17:16; Start 05/02/17 at 16:00; Stop 05/02/17 at 16:01; Status DC Warfarin Sodium (Coumadin) 7.5 mg 1X WARF ONCE PO Last administered on 16:18; Start 05/03/17 at 16:00; Stop 05/03/17 at 16:01; Status DC Risperidone (RisperDAL) 0.5 mg HS SL Last administered on 05/04/17 20:41; Start 05/03/17 at 21:00; Stop 05/05/17 at 19:33; Status DC Valproic Acid (Depakene) 250 mg BIDWMEALS PO Last administered on 05/07/17 16: 52; Start 05/04/17 at 08:00; Stop 05/07/17 at 18:23; Status DC Warfarin Sodium (Coumadin) 7.5 mg 1X WARF ONCE PO Last administered on 16:02; Start 05/04/17 at 16:00; Stop 05/04/17 at 16:01; Status DC Mirtazapine (Remeron) 7.5 mg QHS PO Last administered on 05/04/17 20:38; Start 05/04/17 at 21:00; Stop 05/05/17 at 19:33; Status DC Warfarin Sodium (Coumadin) 7.5 mg 1X WARF ONCE PO Last administered on 16:46; Start 05/05/17 at 16:00; Stop 05/05/17 at 16:01; Status DC Potassium Chloride (KCl Oral Soln) 20 meq BID PO Last administered on 05/09/17 09:13; Start 05/05/17 at 21:00; Stop 05/09/17 at 18:44; Status DC Risperidone (RisperDAL) 1 mg HS SL ; Start 05/05/17 at 21:00; Stop 05/06/17 at 11: 05; Status DC Mirtazapine (Remeron Olive-Tab) 7.5 mg QHS PO Last administered on 05/09/17 19:55 ; Start 05/05/17 at 21:00 Acetaminophen (Tylenol) 650 mg PRN Q6HRS PRN PO PAIN / TEMP Last administered on 05/09/17 09:12; Start 05/05/17 at 19:45 Furosemide (Lasix) 120 mg DAILY PO Last administered on 05/09/17 09:43; Start 05/06/17 at 09:00; Stop 05/09/17 at 18:44; Status DC Multivitamins (Thera-Plus) 5 ml DAILY PO Last administered on 05/08/17 08:02; Start 05/06/17 at 09:00 Risperidone (RisperDAL) 0.5 mg HS SL Last administered on 05/08/17 21:49; Start 05/06/17 at 21:00; Stop 05/09/17 at 09:00; Status DC Melatonin 3 mg PRN QHS PRN PO INSOMNIA; Start 05/06/17 at 18:15 Warfarin Sodium (Coumadin) 7.5 mg 1X WARF ONCE PO Last administered on 16:51; Start 05/07/17 at 16:00; Stop 05/07/17 at 16:01; Status DC Valproic Acid (Depakene) 375 mg BIDWMEALS PO Last administered on 05/09/17 16: 27; Start 05/08/17 at 08:00; Stop 05/09/17 at 18:44; Status DC Warfarin Sodium (Coumadin) 7.5 mg 1X WARF ONCE PO Last administered on 16:53; Start 05/08/17 at 16:00; Stop 05/08/17 at 16:01; Status DC Warfarin Sodium (Coumadin) 7.5 mg 1X WARF ONCE PO Last administered on 16:26; Start 05/09/17 at 16:00; Stop 05/09/17 at 16:01; Status DC Furosemide (Lasix) 120 mg DAILY PO ; Start 05/10/17 at 09:00 Potassium Chloride (Klor-Con) 20 meq BID PO Last administered on 05/09/17 20:00 ; Start 05/09/17 at 21:00 Divalproex Sodium (Depakote Sprinkles) 375 mg BIDWMEALS PO ; Start 05/10/17 at 08:00 Active Scripts Active Reported Probiotic (Lactobacillus Combo No.10) 1 Each Capsule 1 Cap PO DAILYWBKFT Women's Daily Caplet (Multivits,Ca,Minerals/Iron/Fa) 1 Each Tablet 1 Tab PO BID Zoloft (Sertraline Hcl) 25 Mg Tablet 25 Mg PO QHS 7 Days Zoloft (Sertraline Hcl) 50 Mg Tablet 50 Mg PO QHS 3 Days Omeprazole 20 Mg Tablet.dr 20 Mg PO DAILY07 Allopurinol 100 Mg Tablet 200 Mg PO DAILYWSUP Vitamin D3 (Cholecalciferol (Vitamin D3)) 1,000 Unit Tablet 1,000 Unit PO DAILYWBKFT Oyster Shell Calcium (Calcium Carbonate) 500 Mg Tablet 500 Mg PO BIDWMEALS Cinnamon (Cinnamon Bark) 500 Mg Capsule 500 Mg PO BIDWMEALS Co Q-10 100 Mg Softgel (Ubidecarenone/Vit E Acetate) 1 Each Capsule 100 Mg PO BID Melatonin 5 Mg Tablet (Melatonin/Pyridoxine) 1 Each Tablet 5 Mg PO QHS Lutein 20 Mg Capsule 20 Mg PO QHS Tavntgojjm-Lbgmhbzqhwf-Fsg Tab (Gluc/Victor M-Msm#2/C/D3/Anthony/Born) 1 Each Tablet 1 Tab PO BIDWMEALS Metformin Hcl 850 Mg Tablet 850 Mg PO BIDWMEALS Digoxin 125 Mcg Tablet 125 Mcg PO DAILY Tamoxifen Citrate 20 Mg Tablet 20 Mg PO DAILY Atenolol 50 Mg Tablet 50 Mg PO BID Lasix (Furosemide) 80 Mg Tablet 120 Mg PO DAILY Coumadin (Warfarin Sodium) 6 Mg Tablet 6 Mg PO QPM Potassium Chloride 10 Meq Capsule.er 10 Meq PO BID Diagnosis: Problems: (1) Anxiety disorder (2) Impulse control disorder (3) Bipolar affective, mixed, sev w/ psych (4) Dementia, vascular, 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
[2017-05-09] MEDS: INSULIN DETEMIR 300 UNITS/3 ML INSULN.PEN. SQ SCH (21:43)
--- NOTE | 2017-05-09 23:55 | NUR ---
Behavior Intervention Response and Plan: BIRP Note: Behavior: Assumed Care of patient, patient located in Day Room at shift change. Patient exhibited the following behavior Restless, Disorganized, Cooperative. Brief assessment on rounds of vital signs, medication needs, lab studies, and pain. Treatment plan problems :1-2 Intervention: Patient assessed and the following interventions initiated safety checks 15 Minute Checks Cognitive Assessment , Head to toe Assessment , Medications. Response: After interactions and interventions patient responded in the following manner, Restless , Disorganized ,Compliant. Continue to assess behaviors and condition will continue to monitor throughout the shift as needed. 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 Continue to assess patient for changes in above assessment. Monitor for medication needs, pain, and safety concerns. Hourly rounding performed to ensure safe environment.
[2017-05-10 05:57] VITALS: BP 129/66
[2017-05-10] MEDS ORDERED: LURASIDONE 40 MG TABLET. PO SCH (08:00)
[2017-05-10] MEDS: LURASIDONE 40 MG TABLET. PO SCH (08:00)
[2017-05-10] MEDS: metFORMIN 850 MG TABLET PO SCH ×2 (08:16→16:14)
[2017-05-10] MEDS: CHOLECALCIFEROL (VITAMIN D3) 1,000 UNIT TABLET PO SCH (08:17)
[2017-05-10] MEDS: DIGOXIN 125 MCG TABLET PO SCH (08:17)
[2017-05-10] MEDS: CALCIUM CARBONATE 500 MG TABLET PO SCH ×2 (08:17→16:15)
[2017-05-10] MEDS: MAGNESIUM OXIDE 400 MG TABLET PO SCH ×2 (08:17→20:19)
[2017-05-10] MEDS: POTASSIUM CHLORIDE 20 MEQ TABLET.ER. PO SCH ×2 (08:17→20:20)
[2017-05-10] MEDS: ATENOLOL 50 MG TABLET PO SCH ×2 (08:17→20:20)
[2017-05-10] MEDS: PANTOPRAZOLE 40 MG TABLET. PO SCH (08:17)
[2017-05-10] MEDS: FUROSEMIDE 40 MG TABLET PO SCH (08:21)
[2017-05-10] MEDS: DIVALPROEX 125 MG CAP.SPRINK PO SCH ×2 (08:21→16:14)
[2017-05-10] MEDS: TAMOXIFEN 10 MG TABLET PO SCH (08:29)
[2017-05-10] MEDS: INSULIN ASPART 300 UNITS/3 ML INSULN.PEN SQ SCH ×4 (08:30→20:24)
[2017-05-10] MEDS: MULTIVITAMINS,THERAPEUTIC 5 ML ORAL LIQUID. PO SCH (08:31)
--- NOTE | 2017-05-10 09:15 | NUR ---
THERAPEUTIC RECREATION GROUP NOTE TITLE :Summer Time Draw and Watercolor ACTIVITY : Arts and Crafts GOAL : Reduce stress, anxiety. Increase creativity and fine motor functioning DURATION : 60 minutes RESPONSE : Full participation. Pt. joined the group and focused on her project. She wrote sentences that did not make sense and yosef pictures throughout. She needed hand over had assistance to paint but was compliant. She was quiet the entire for half before she left for a scan. She returned and was a little more talkative but still, did not make sense.
--- NOTE | 2017-05-10 10:12 | RAD ---
CT head without contrast 05/10/2017 at 9:42 AM Indication: Change in mental status Comparison: None available Technique: Multiple CT axial images of the head were obtained from skull base to the vertex without intravenous contrast. Findings: Ventricles, sulci and basal cisterns are mildly prominent compatible with generalized cerebral volume loss. There is low-attenuation in the periventricular white matter compatible chronic small vessel ischemic changes. There is no loss of the johns-white matter differentiation. No geographic low attenuation to suggest acute or subacute ischemia. There is no acute intracranial hemorrhage. There is no mass, mass effect or midline shift. Sellar and suprasellar regions are normal. Visualized orbits are normal in appearance. Paranasal sinuses and mastoid air cells are well aerated. Soft tissue calcification noted along the anterior external auditory canals. Impression: 1. Mild cerebral volume loss with mild chronic small vessel ischemic changes. 2. No acute intracranial hemorrhage.
--- NOTE | 2017-05-10 10:38 | NUR ---
Behavior Intervention Response and Plan: BIRP Note: Behavior: Assumed Care of patient, patient located in Dining Room at shift change. Patient exhibited the following behavior Restless, Disorganized, Compliant. Brief assessment on rounds of vital signs, medication needs, lab studies, and pain. Treatment plan problems . Intervention: Patient assessed and the following interventions initiated safety checks 15 Minute Checks Cognitive Assessment , Head to toe Assessment , Medications. Response: After interactions and interventions patient responded in the following manner, Restless , Disorganized ,Compulsive. Continue to assess behaviors and condition will continue to monitor throughout the shift as needed. Plan: Continue to monitor Master Treatment Plan for patient's progress toward short term goals of Decreased Anxiety, Medication Compliance, assisted goals to return to previous living setting vs placement. Continue to assess patient for changes in above assessment. Monitor for medication needs, pain, and safety concerns. Hourly rounding performed to ensure safe environment.
--- NOTE | 2017-05-10 11:30 | NUR ---
THERAPEUTIC RECREATION GROUP NOTE TITLE :Movement to Music:Flexibility ACTIVITY : Movement/ Exercise GOAL : Increase morale, attention, flexibility. Decrease stress/anxiety. DURATION : 30 Minutes RESPONSE : Full participation. Pt. followed along with the moves to the best of her ability. She needed encouragement and prompting. At times, she was slow to comply but overall pleasant and calm.
[2017-05-10] MEDS: MULTIVITAMIN with MINERAL TABLET. PO SCH (12:12)
--- NOTE | 2017-05-10 13:27 | NUR ---
Pharmacy Warfarin Dosing Note S:Pharmacy consulted to assist with anticoagulation therapy started 04/30/17 with target INR: 2 -3 O:RAINER WASHINGTON is a 86 year old F with Atrial Fibrillation LABS: Last INR: 2.7 Last HGB: 12.1 Last HCT: 37.1 Last PLT: 108 Last dose of 7.5 mg given on 05/09/17 at 1600 Previous Regimen: 6MG HOME DOSE Vitamin K given: N Drug Interaction Changes: Same Interacting Drug Ongoing Drug Interactions: ALLOPURINOL, TAMOXIFEN, GLUCOSAMINE/CHONDROTIN A:INR is within the desired range, but increasing. Will decrease dose to Coumadin 7mg today. Target Range for this patient is: 2 -3. P: Warfarin dose: Coumadin 7mg po today at 1600 Bridge Therapy: None Next INR due 05/11/17 Pharmacy anticoagulation service will continue to follow. JESUS CLEANING [facility] 05/10/17 1327 Signed: 05/10/17 at 1329 by JESUS ANTUNEZ
--- NOTE | 2017-05-10 14:15 | NUR ---
THERAPEUTIC RECREATION GROUP NOTE TITLE :Complete the popular idioms ACTIVITY : Cognitive Stimulation GOAL : Stimulate memory, Increase problem solving DURATION : 35 minutes RESPONSE : Minimal participation. Pt. was with the group the entire time. She started off the group talking to herself but gradually stopped talking and sat quietly. Her answers did not make sense and were not close to the correct response.
--- NOTE | 2017-05-10 14:32 | NUR ---
SW met w/Pt's son during noon visiting hours to discuss dc plans. PT's medications were recently adjusted and Pt. has continued to show mild hallucinations and med non compliance. SW explained it best to wait a few more days before attempting to secure skilled rehab. PT's son would like for PT. to return home once skilled services are concluded. Pt's son asked if PT. could stay here until Pt. is back to "normal". SW explained often times it takes several weeks for medications to become therapeutic, and we are never sure as to when the Pt. will "snap back to normal". Pt's son understood this and was agreeable to wait a few days before sending out referrals to skilled places closer to their home in [place]. 1st preference is the skilled/swing bed at [facility]. SW explained usually swing beds are for PT.s that are currently PTs. of that hospital. PT's son was not sure if it was actually called a Swing Bed program or if it was a separate Skilled Rehab w/in the Hospital. Family's 2nd choice would be a facility in [place]. SW will follow up later in the week when dc is planned.
[2017-05-10] MEDS ORDERED: WARFARIN 4 MG TABLET. PO ONE (16:00)
[2017-05-10] MEDS ORDERED: WARFARIN 3 MG TABLET. PO ONE (16:00)
[2017-05-10] MEDS: ALLOPURINOL 100 MG TABLET. PO SCH (16:14)
[2017-05-10 20:00] VITALS: BP 111/73
[2017-05-10] MEDS: MIRTAZAPINE 15 MG TAB.RAPDIS PO SCH (20:20)
[2017-05-10] MEDS: traZODone 100 MG TABLET. PO SCH (20:21)
[2017-05-10] MEDS: ACETAMINOPHEN 325 MG TABLET PO PRN (20:24)
--- NOTE | 2017-05-10 20:24 | PDOC ---
Exam Tahir Demential Exam: Tahir Note: Please also refer to the separate dictated note~for this date of service dictated separately.~Patient seen individually. Discussed the patient with Nursing staff reviewed the chart.~Reviewed interim history and current functioning. Reviewed vital signs,~Labs/ Radiology~and current medications noted below. Continue current treatment with the changes noted in the dictated addendum note Assessment: Vital Signs: Vital Signs Date Time Temp Pulse Resp B/P (MAP) Pulse Ox O2 Delivery O2 Flow Rate FiO2 05/10/17 08:17 78 129/66 05/10/17 05:57 98.3 20 97 05/09/17 06:29 Room Air I&O Intake and Output 05/10/17 07:00 Intake Total 720 ml Balance 720 ml Intake Oral 720 ml # Bowel Movements 1 Labs: Laboratory Tests Test 05/10/17 06:26 05/10/17 07:05 05/10/17 11:32 05/10/17 16:30 Prothrombin Time 27.7 SEC (9.4-11.4) H Prothrombin Time INR 2.7 (0.9-1.1) H Glucose (Fingerstick) 167 mg/dL (70-99) H 221 mg/dL (70-99) H 181 mg/dL (70-99) H Test 05/10/17 19:03 Glucose (Fingerstick) 177 mg/dL (70-99) H Current Medications: Meds: Current Medications Acetaminophen (Tylenol) 650 mg PRN Q6HRS PRN PO PAIN / TEMP; Start 04/30/17 at 18:30; Stop 04/30/17 at 19:53; Status DC Potassium Chloride (Klor-Con) 20 meq 1X ONCE PO Last administered on 20:51; Start 04/30/17 at 20:00; Stop 04/30/17 at 20:01; Status DC Magnesium Chloride (Mag Delay) 64 mg DAILY PO Last administered on 05/06/17 08: 16; Start 05/01/17 at 09:00; Stop 05/06/17 at 18:08; Status DC Acetaminophen (Tylenol) 650 mg PRN Q6HRS PRN PO PAIN / TEMP Last administered on 05/04/17 11:44; Start 04/30/17 at 20:00; Stop 05/05/17 at 19:37; Status DC Al Hydroxide/Mg Hydroxide (Mylanta Plus Xs) 15 ml PRN AFTMEALHC PRN PO DYSPEPSIA; Start 04/30/17 at 20:00 Magnesium Hydroxide (Milk Of Magnesia) 2,400 mg PRN QHS PRN PO CONSTIPATION; Start 04/30/17 at 20:00 Allopurinol (Zyloprim) 200 mg DAILYWSUP PO Last administered on 05/10/17 16:14 ; Start 05/01/17 at 17:00 Atenolol (Tenormin) 50 mg BID PO Last administered on 05/10/17 08:17; Start at 21:00 Calcium Carbonate/ Glycine (Oscal) 500 mg BIDWMEALS PO Last administered on 16:15; Start 05/01/17 at 08:00 Vitamin D (Vitamin D3) 1,000 unit DAILYWBKFT PO Last administered on 05/10/17 08:17; Start 05/01/17 at 08:00 Digoxin (Lanoxin) 125 mcg DAILY PO Last administered on 05/10/17 08:17; Start 05/01/17 at 09:00 Furosemide (Lasix) 120 mg DAILY PO Last administered on 05/05/17 13:31; Start 05/01/17 at 09:00; Stop 05/05/17 at 19:39; Status DC Metformin HCl (Glucophage) 850 mg BIDWMEALS PO Last administered on 05/10/17 16:14; Start 05/01/17 at 08:00 Potassium Chloride (Klor-Con) 20 meq BID PO Last administered on 05/04/17 20:37 ; Start 05/01/17 at 09:00; Stop 05/05/17 at 19:31; Status DC Warfarin Sodium (Coumadin) 6 mg DAILY16 PO Last administered on 05/01/17 16:56 ; Start 05/01/17 at 16:00; Stop 05/02/17 at 11:39; Status DC Non-Formulary Medication 500 mg BIDWMEALS PO ; Start 05/01/17 at 08:00; Stop 05/01 at 08:00; Status DC Glucosamine/ Chondroitin (Glucosamine-Chondroitin 500/400mg) 1 cap BIDWMEALS PO Last administered on 05/05/17 16:45; Start 05/01/17 at 08:00; Stop 05/05/17 at 18:18; Status DC Lactobacillus Acidophilus (Bacid, Orly-Bid) 2 tab DAILYWBKFT PO Last administered on 05/03/17 07:19; Start 05/01/17 at 08:00; Stop 05/05/17 at 18:18; Status DC Non-Formulary Medication 20 mg QHS PO ; Start 04/30/17 at 21:00; Stop 04/30/17 at 21:00; Status DC Non-Formulary Medication 5 mg QHS PO ; Start 04/30/17 at 21:00; Stop 04/30/17 at 21:00; Status DC Multivitamins/ Minerals (I-Gera) 1 tab DAILY PO Last administered on 05/03/17 07:20; Start 05/01/17 at 09:00; Stop 05/05/17 at 19:39; Status DC Pantoprazole Sodium (Protonix) 40 mg DAILYAC PO Last administered on 05/10/17 08:17; Start 05/01/17 at 07:30 Tamoxifen Citrate (Nolvadex) 20 mg DAILY PO Last administered on 05/10/17 08: 29; Start 05/01/17 at 09:00 Coenzyme Q10 (Coenzyme Q10) 100 mg BID PO Last administered on 05/04/17 20:36; Start 05/01/17 at 09:00; Stop 05/05/17 at 18:18; Status DC Sertraline HCl (Zoloft) 50 mg QHS PO Last administered on 04/30/17 20:51; Start 04/30/17 at 21:00; Stop 05/01/17 at 11:00; Status DC Melatonin 4.5 mg QHS PO Last administered on 05/04/17 20:37; Start 04/30/17 at 21:00; Stop 05/05/17 at 18:18; Status DC Olanzapine (ZyPREXA ZYDIS) 2.5 mg PRN Q4HRS PRN PO Psych Last administered on 16:52; Start 04/30/17 at 20:15 Magnesium Oxide (Magnesium Oxide) 400 mg BID PO Last administered on 05/10/17 08:17; Start 04/30/17 at 21:00 Warfarin Sodium (Coumadin) 6 mg 1X WARF ONCE PO Last administered on 20:51; Start 04/30/17 at 20:45; Stop 04/30/17 at 20:46; Status DC Warfarin Sodium (Coumadin) 0.5 mg 1X WARF ONCE PO Last administered on 20:51; Start 04/30/17 at 20:45; Stop 04/30/17 at 20:46; Status DC Warfarin Sodium (Coumadin Per Physician) 1 each PRN DAILY PRN MC SEE COMMENTS; Start 05/01/17 at 09:45; Stop 05/01/17 at 14:54; Status DC Risperidone (RisperDAL) 0.25 mg HS PO Last administered on 05/02/17 19:39; Start 05/01/17 at 21:00; Stop 05/03/17 at 18:28; Status DC Trazodone HCl (Desyrel) 100 mg QHS PO Last administered on 05/09/17 19:56; Start 05/01/17 at 21:00 Trazodone HCl (Desyrel) 100 mg PRN QHS PRN PO INSOMNIA Last administered on 05/04 00:32; Start 05/01/17 at 10:45 Insulin Detemir (Levemir) 5 units QHS SQ Last administered on 05/09/17 21:43; Start 05/01/17 at 21:00 Insulin Aspart (NovoLOG) 0-5 UNITS QIDACHS SQ Last administered on 05/10/17 16 :30; Start 05/01/17 at 16:30 Dextrose 12.5 gm PRN Q15MIN PRN IV SEE COMMENTS; Start 05/01/17 at 14:45 Warfarin Sodium (Coumadin Per Pharmacy) 1 each PRN DAILY PRN MC SEE COMMENTS Last administered on 05/10/17 13:27; Start 05/01/17 at 14:45 Insulin Aspart (NovoLOG) 10 units 1X ONCE SQ Last administered on 05/01/17 17: 15; Start 05/01/17 at 17:15; Stop 05/01/17 at 17:16; Status DC Warfarin Sodium (Coumadin) 7.5 mg 1X WARF ONCE PO Last administered on 17:16; Start 05/02/17 at 16:00; Stop 05/02/17 at 16:01; Status DC Warfarin Sodium (Coumadin) 7.5 mg 1X WARF ONCE PO Last administered on 16:18; Start 05/03/17 at 16:00; Stop 05/03/17 at 16:01; Status DC Risperidone (RisperDAL) 0.5 mg HS SL Last administered on 05/04/17 20:41; Start 05/03/17 at 21:00; Stop 05/05/17 at 19:33; Status DC Valproic Acid (Depakene) 250 mg BIDWMEALS PO Last administered on 05/07/17 16: 52; Start 05/04/17 at 08:00; Stop 05/07/17 at 18:23; Status DC Warfarin Sodium (Coumadin) 7.5 mg 1X WARF ONCE PO Last administered on 16:02; Start 05/04/17 at 16:00; Stop 05/04/17 at 16:01; Status DC Mirtazapine (Remeron) 7.5 mg QHS PO Last administered on 05/04/17 20:38; Start 05/04/17 at 21:00; Stop 05/05/17 at 19:33; Status DC Warfarin Sodium (Coumadin) 7.5 mg 1X WARF ONCE PO Last administered on 16:46; Start 05/05/17 at 16:00; Stop 05/05/17 at 16:01; Status DC Potassium Chloride (KCl Oral Soln) 20 meq BID PO Last administered on 05/09/17 09:13; Start 05/05/17 at 21:00; Stop 05/09/17 at 18:44; Status DC Risperidone (RisperDAL) 1 mg HS SL ; Start 05/05/17 at 21:00; Stop 05/06/17 at 11: 05; Status DC Mirtazapine (Remeron Olive-Tab) 7.5 mg QHS PO Last administered on 05/09/17 19:55 ; Start 05/05/17 at 21:00 Acetaminophen (Tylenol) 650 mg PRN Q6HRS PRN PO PAIN / TEMP Last administered on 05/09/17 09:12; Start 05/05/17 at 19:45; Stop 05/10/17 at 08:51; Status DC Furosemide (Lasix) 120 mg DAILY PO Last administered on 05/09/17 09:43; Start 05/06/17 at 09:00; Stop 05/09/17 at 18:44; Status DC Multivitamins (Thera-Plus) 5 ml DAILY PO Last administered on 05/08/17 08:02; Start 05/06/17 at 09:00; Stop 05/10/17 at 08:51; Status DC Risperidone (RisperDAL) 0.5 mg HS SL Last administered on 05/08/17 21:49; Start 05/06/17 at 21:00; Stop 05/09/17 at 09:00; Status DC Melatonin 3 mg PRN QHS PRN PO INSOMNIA; Start 05/06/17 at 18:15 Warfarin Sodium (Coumadin) 7.5 mg 1X WARF ONCE PO Last administered on 16:51; Start 05/07/17 at 16:00; Stop 05/07/17 at 16:01; Status DC Valproic Acid (Depakene) 375 mg BIDWMEALS PO Last administered on 05/09/17 16: 27; Start 05/08/17 at 08:00; Stop 05/09/17 at 18:44; Status DC Warfarin Sodium (Coumadin) 7.5 mg 1X WARF ONCE PO Last administered on 16:53; Start 05/08/17 at 16:00; Stop 05/08/17 at 16:01; Status DC Warfarin Sodium (Coumadin) 7.5 mg 1X WARF ONCE PO Last administered on 16:26; Start 05/09/17 at 16:00; Stop 05/09/17 at 16:01; Status DC Furosemide (Lasix) 120 mg DAILY PO Last administered on 05/10/17 08:21; Start 05/10/17 at 09:00 Potassium Chloride (Klor-Con) 20 meq BID PO Last administered on 05/10/17 08: 17; Start 05/09/17 at 21:00 Divalproex Sodium (Depakote Sprinkles) 375 mg BIDWMEALS PO Last administered on 05/10/17 16:14; Start 05/10/17 at 08:00 Multivitamins/ Calcium (Thera-M Plus) 1 tab DAILY PO Last administered on 12:12; Start 05/10/17 at 09:00 Acetaminophen (Tylenol) 650 mg PRN Q6HRS PRN PO PAIN / TEMP; Start 05/10/17 at 09:00 Warfarin Sodium (Coumadin) 4 mg 1X WARF ONCE PO Last administered on 16:17; Start 05/10/17 at 16:00; Stop 05/10/17 at 16:01; Status DC Warfarin Sodium (Coumadin) 3 mg 1X WARF ONCE PO Last administered on 16:17; Start 05/10/17 at 16:00; Stop 05/10/17 at 16:01; Status DC Active Scripts Active Reported Probiotic (Lactobacillus Combo No.10) 1 Each Capsule 1 Cap PO DAILYWBKFT Women's Daily Caplet (Multivits,Ca,Minerals/Iron/Fa) 1 Each Tablet 1 Tab PO BID Zoloft (Sertraline Hcl) 25 Mg Tablet 25 Mg PO QHS 7 Days Zoloft (Sertraline Hcl) 50 Mg Tablet 50 Mg PO QHS 3 Days Omeprazole 20 Mg Tablet.dr 20 Mg PO DAILY07 Allopurinol 100 Mg Tablet 200 Mg PO DAILYWSUP Vitamin D3 (Cholecalciferol (Vitamin D3)) 1,000 Unit Tablet 1,000 Unit PO DAILYWBKFT Oyster Shell Calcium (Calcium Carbonate) 500 Mg Tablet 500 Mg PO BIDWMEALS Cinnamon (Cinnamon Bark) 500 Mg Capsule 500 Mg PO BIDWMEALS Co Q-10 100 Mg Softgel (Ubidecarenone/Vit E Acetate) 1 Each Capsule 100 Mg PO BID Melatonin 5 Mg Tablet (Melatonin/Pyridoxine) 1 Each Tablet 5 Mg PO QHS Lutein 20 Mg Capsule 20 Mg PO QHS [facility] Tab (Gluc/Victor M-Msm#2/C/D3/Anthony/Born) 1 Each Tablet 1 Tab PO BIDWMEALS Metformin Hcl 850 Mg Tablet 850 Mg PO BIDWMEALS Digoxin 125 Mcg Tablet 125 Mcg PO DAILY Tamoxifen Citrate 20 Mg Tablet 20 Mg PO DAILY Atenolol 50 Mg Tablet 50 Mg PO BID Lasix (Furosemide) 80 Mg Tablet 120 Mg PO DAILY Coumadin (Warfarin Sodium) 6 Mg Tablet 6 Mg PO QPM Potassium Chloride 10 Meq Capsule.er 10 Meq PO BID Diagnosis: Problems: (1) Anxiety disorder (2) Impulse control disorder (3) Bipolar affective, mixed, sev w/ psych (4) Dementia, vascular, 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
--- NOTE | 2017-05-10 21:09 | PDOC ---
Exam Tahir Demential Exam: Tahir Note: Please also refer to the separate dictated note~for this date of service dictated separately.~Patient seen individually. Discussed the patient with Nursing staff reviewed the chart.~Reviewed interim history and current functioning. Reviewed vital signs,~Labs/ Radiology~and current medications noted below. Continue current treatment with the changes noted in the dictated addendum note PSYCHIATRIC PROGRESS NOTE This is a late entry for Date of Service 05/05/2017. The patient seen individually. Discussed with nursing staff. Reviewed the chart evening of May 05, 2017. This note covers elements not covered in my initial of 05/05/2017. The patient slept just 1-1/4 hours last night. Was singing all night, up all nights, grandiose, manic, labile in her mood, pocketing her medication and then spits them out two hours later. Hallucinating at times. Family came for lunch. She took her meds from them. Took p.m. medications. REVIEW OF SYSTEMS Ambulation impaired in wheelchair. No CV, , pulmonary, eye systems symptoms on review. Reliability poor. MENTAL STATUS EXAM: Oriented to herself. Insight and judgment, recent and remote memory, attention and concentration, fund of knowledge poor consistent with her diagnosis mentioned in my initial note. PLAN: Continue melatonin 4.5 mg h.s. Increase Risperdal from 0.5 mg h.s. to 1 mg h.s. liquid. Change Remeron 7.5 mg h.s. to sublingual. Continue trazodone 100 mg h.s. p.r.n. may repeat x1, Zyprexa p.r.n., Depakene Liquid 250 b.i.d. Make further adjustments in psychotropics as clinically indicated. Follow labs level on the Depakote. Assessment: Vital Signs: Vital Signs Date Time Temp Pulse Resp B/P (MAP) Pulse Ox O2 Delivery O2 Flow Rate FiO2 05/10/17 20:20 76 129/66 05/10/17 05:57 98.3 20 97 05/09/17 06:29 Room Air I&O Intake and Output 05/10/17 07:00 Intake Total 720 ml Balance 720 ml Intake Oral 720 ml # Bowel Movements 1 Labs: Laboratory Tests Test 05/10/17 06:26 05/10/17 07:05 05/10/17 11:32 05/10/17 16:30 Prothrombin Time 27.7 SEC (9.4-11.4) H Prothrombin Time INR 2.7 (0.9-1.1) H Glucose (Fingerstick) 167 mg/dL (70-99) H 221 mg/dL (70-99) H 181 mg/dL (70-99) H Test 05/10/17 19:03 Glucose (Fingerstick) 177 mg/dL (70-99) H Current Medications: Meds: Current Medications Acetaminophen (Tylenol) 650 mg PRN Q6HRS PRN PO PAIN / TEMP; Start 04/30/17 at 18:30; Stop 04/30/17 at 19:53; Status DC Potassium Chloride (Klor-Con) 20 meq 1X ONCE PO Last administered on 20:51; Start 04/30/17 at 20:00; Stop 04/30/17 at 20:01; Status DC Magnesium Chloride (Mag Delay) 64 mg DAILY PO Last administered on 05/06/17 08: 16; Start 05/01/17 at 09:00; Stop 05/06/17 at 18:08; Status DC Acetaminophen (Tylenol) 650 mg PRN Q6HRS PRN PO PAIN / TEMP Last administered on 05/04/17 11:44; Start 04/30/17 at 20:00; Stop 05/05/17 at 19:37; Status DC Al Hydroxide/Mg Hydroxide (Mylanta Plus Xs) 15 ml PRN AFTMEALHC PRN PO DYSPEPSIA; Start 04/30/17 at 20:00 Magnesium Hydroxide (Milk Of Magnesia) 2,400 mg PRN QHS PRN PO CONSTIPATION; Start 04/30/17 at 20:00 Allopurinol (Zyloprim) 200 mg DAILYWSUP PO Last administered on 05/10/17 16:14 ; Start 05/01/17 at 17:00 Atenolol (Tenormin) 50 mg BID PO Last administered on 05/10/17 20:20; Start at 21:00 Calcium Carbonate/ Glycine (Oscal) 500 mg BIDWMEALS PO Last administered on 16:15; Start 05/01/17 at 08:00 Vitamin D (Vitamin D3) 1,000 unit DAILYWBKFT PO Last administered on 05/10/17 08:17; Start 05/01/17 at 08:00 Digoxin (Lanoxin) 125 mcg DAILY PO Last administered on 05/10/17 08:17; Start 05/01/17 at 09:00 Furosemide (Lasix) 120 mg DAILY PO Last administered on 05/05/17 13:31; Start 05/01/17 at 09:00; Stop 05/05/17 at 19:39; Status DC Metformin HCl (Glucophage) 850 mg BIDWMEALS PO Last administered on 05/10/17 16:14; Start 05/01/17 at 08:00 Potassium Chloride (Klor-Con) 20 meq BID PO Last administered on 05/04/17 20:37 ; Start 05/01/17 at 09:00; Stop 05/05/17 at 19:31; Status DC Warfarin Sodium (Coumadin) 6 mg DAILY16 PO Last administered on 05/01/17 16:56 ; Start 05/01/17 at 16:00; Stop 05/02/17 at 11:39; Status DC Non-Formulary Medication 500 mg BIDWMEALS PO ; Start 05/01/17 at 08:00; Stop 05/01 at 08:00; Status DC Glucosamine/ Chondroitin (Glucosamine-Chondroitin 500/400mg) 1 cap BIDWMEALS PO Last administered on 05/05/17 16:45; Start 05/01/17 at 08:00; Stop 05/05/17 at 18:18; Status DC Lactobacillus Acidophilus (Bacid, Orly-Bid) 2 tab DAILYWBKFT PO Last administered on 05/03/17 07:19; Start 05/01/17 at 08:00; Stop 05/05/17 at 18:18; Status DC Non-Formulary Medication 20 mg QHS PO ; Start 04/30/17 at 21:00; Stop 04/30/17 at 21:00; Status DC Non-Formulary Medication 5 mg QHS PO ; Start 04/30/17 at 21:00; Stop 04/30/17 at 21:00; Status DC Multivitamins/ Minerals (I-Gera) 1 tab DAILY PO Last administered on 05/03/17 07:20; Start 05/01/17 at 09:00; Stop 05/05/17 at 19:39; Status DC Pantoprazole Sodium (Protonix) 40 mg DAILYAC PO Last administered on 05/10/17 08:17; Start 05/01/17 at 07:30 Tamoxifen Citrate (Nolvadex) 20 mg DAILY PO Last administered on 05/10/17 08: 29; Start 05/01/17 at 09:00 Coenzyme Q10 (Coenzyme Q10) 100 mg BID PO Last administered on 05/04/17 20:36; Start 05/01/17 at 09:00; Stop 05/05/17 at 18:18; Status DC Sertraline HCl (Zoloft) 50 mg QHS PO Last administered on 04/30/17 20:51; Start 04/30/17 at 21:00; Stop 05/01/17 at 11:00; Status DC Melatonin 4.5 mg QHS PO Last administered on 05/04/17 20:37; Start 04/30/17 at 21:00; Stop 05/05/17 at 18:18; Status DC Olanzapine (ZyPREXA ZYDIS) 2.5 mg PRN Q4HRS PRN PO Psych Last administered on 16:52; Start 04/30/17 at 20:15 Magnesium Oxide (Magnesium Oxide) 400 mg BID PO Last administered on 05/10/17 20:19; Start 04/30/17 at 21:00 Warfarin Sodium (Coumadin) 6 mg 1X WARF ONCE PO Last administered on 20:51; Start 04/30/17 at 20:45; Stop 04/30/17 at 20:46; Status DC Warfarin Sodium (Coumadin) 0.5 mg 1X WARF ONCE PO Last administered on 20:51; Start 04/30/17 at 20:45; Stop 04/30/17 at 20:46; Status DC Warfarin Sodium (Coumadin Per Physician) 1 each PRN DAILY PRN MC SEE COMMENTS; Start 05/01/17 at 09:45; Stop 05/01/17 at 14:54; Status DC Risperidone (RisperDAL) 0.25 mg HS PO Last administered on 05/02/17 19:39; Start 05/01/17 at 21:00; Stop 05/03/17 at 18:28; Status DC Trazodone HCl (Desyrel) 100 mg QHS PO Last administered on 05/10/17 20:21; Start 05/01/17 at 21:00 Trazodone HCl (Desyrel) 100 mg PRN QHS PRN PO INSOMNIA Last administered on 05/04 00:32; Start 05/01/17 at 10:45 Insulin Detemir (Levemir) 5 units QHS SQ Last administered on 05/09/17 21:43; Start 05/01/17 at 21:00 Insulin Aspart (NovoLOG) 0-5 UNITS QIDACHS SQ Last administered on 05/10/17 16 :30; Start 05/01/17 at 16:30 Dextrose 12.5 gm PRN Q15MIN PRN IV SEE COMMENTS; Start 05/01/17 at 14:45 Warfarin Sodium (Coumadin Per Pharmacy) 1 each PRN DAILY PRN MC SEE COMMENTS Last administered on 05/10/17 13:27; Start 05/01/17 at 14:45 Insulin Aspart (NovoLOG) 10 units 1X ONCE SQ Last administered on 05/01/17 17: 15; Start 05/01/17 at 17:15; Stop 05/01/17 at 17:16; Status DC Warfarin Sodium (Coumadin) 7.5 mg 1X WARF ONCE PO Last administered on 17:16; Start 05/02/17 at 16:00; Stop 05/02/17 at 16:01; Status DC Warfarin Sodium (Coumadin) 7.5 mg 1X WARF ONCE PO Last administered on 16:18; Start 05/03/17 at 16:00; Stop 05/03/17 at 16:01; Status DC Risperidone (RisperDAL) 0.5 mg HS SL Last administered on 05/04/17 20:41; Start 05/03/17 at 21:00; Stop 05/05/17 at 19:33; Status DC Valproic Acid (Depakene) 250 mg BIDWMEALS PO Last administered on 05/07/17 16: 52; Start 05/04/17 at 08:00; Stop 05/07/17 at 18:23; Status DC Warfarin Sodium (Coumadin) 7.5 mg 1X WARF ONCE PO Last administered on 16:02; Start 05/04/17 at 16:00; Stop 05/04/17 at 16:01; Status DC Mirtazapine (Remeron) 7.5 mg QHS PO Last administered on 05/04/17 20:38; Start 05/04/17 at 21:00; Stop 05/05/17 at 19:33; Status DC Warfarin Sodium (Coumadin) 7.5 mg 1X WARF ONCE PO Last administered on 16:46; Start 05/05/17 at 16:00; Stop 05/05/17 at 16:01; Status DC Potassium Chloride (KCl Oral Soln) 20 meq BID PO Last administered on 05/09/17 09:13; Start 05/05/17 at 21:00; Stop 05/09/17 at 18:44; Status DC Risperidone (RisperDAL) 1 mg HS SL ; Start 05/05/17 at 21:00; Stop 05/06/17 at 11: 05; Status DC Mirtazapine (Remeron Olive-Tab) 7.5 mg QHS PO Last administered on 05/10/17 20: 20; Start 05/05/17 at 21:00 Acetaminophen (Tylenol) 650 mg PRN Q6HRS PRN PO PAIN / TEMP Last administered on 05/09/17 09:12; Start 05/05/17 at 19:45; Stop 05/10/17 at 08:51; Status DC Furosemide (Lasix) 120 mg DAILY PO Last administered on 05/09/17 09:43; Start 05/06/17 at 09:00; Stop 05/09/17 at 18:44; Status DC Multivitamins (Thera-Plus) 5 ml DAILY PO Last administered on 05/08/17 08:02; Start 05/06/17 at 09:00; Stop 05/10/17 at 08:51; Status DC Risperidone (RisperDAL) 0.5 mg HS SL Last administered on 05/08/17 21:49; Start 05/06/17 at 21:00; Stop 05/09/17 at 09:00; Status DC Melatonin 3 mg PRN QHS PRN PO INSOMNIA; Start 05/06/17 at 18:15 Warfarin Sodium (Coumadin) 7.5 mg 1X WARF ONCE PO Last administered on 16:51; Start 05/07/17 at 16:00; Stop 05/07/17 at 16:01; Status DC Valproic Acid (Depakene) 375 mg BIDWMEALS PO Last administered on 05/09/17 16: 27; Start 05/08/17 at 08:00; Stop 05/09/17 at 18:44; Status DC Warfarin Sodium (Coumadin) 7.5 mg 1X WARF ONCE PO Last administered on 16:53; Start 05/08/17 at 16:00; Stop 05/08/17 at 16:01; Status DC Warfarin Sodium (Coumadin) 7.5 mg 1X WARF ONCE PO Last administered on 16:26; Start 05/09/17 at 16:00; Stop 05/09/17 at 16:01; Status DC Furosemide (Lasix) 120 mg DAILY PO Last administered on 05/10/17 08:21; Start 05/10/17 at 09:00 Potassium Chloride (Klor-Con) 20 meq BID PO Last administered on 05/10/17 20: 20; Start 05/09/17 at 21:00 Divalproex Sodium (Depakote Sprinkles) 375 mg BIDWMEALS PO Last administered on 05/10/17 16:14; Start 05/10/17 at 08:00 Multivitamins/ Calcium (Thera-M Plus) 1 tab DAILY PO Last administered on 12:12; Start 05/10/17 at 09:00 Acetaminophen (Tylenol) 650 mg PRN Q6HRS PRN PO PAIN / TEMP Last administered on 05/10/17 20:24; Start 05/10/17 at 09:00 Warfarin Sodium (Coumadin) 4 mg 1X WARF ONCE PO Last administered on 16:17; Start 05/10/17 at 16:00; Stop 05/10/17 at 16:01; Status DC Warfarin Sodium (Coumadin) 3 mg 1X WARF ONCE PO Last administered on 16:17; Start 05/10/17 at 16:00; Stop 05/10/17 at 16:01; Status DC Active Scripts Active Reported Probiotic (Lactobacillus Combo No.10) 1 Each Capsule 1 Cap PO DAILYWBKFT Women's Daily Caplet (Multivits,Ca,Minerals/Iron/Fa) 1 Each Tablet 1 Tab PO BID Zoloft (Sertraline Hcl) 25 Mg Tablet 25 Mg PO QHS 7 Days Zoloft (Sertraline Hcl) 50 Mg Tablet 50 Mg PO QHS 3 Days Omeprazole 20 Mg Tablet.dr 20 Mg PO DAILY07 Allopurinol 100 Mg Tablet 200 Mg PO DAILYWSUP Vitamin D3 (Cholecalciferol (Vitamin D3)) 1,000 Unit Tablet 1,000 Unit PO DAILYWBKFT Oyster Shell Calcium (Calcium Carbonate) 500 Mg Tablet 500 Mg PO BIDWMEALS Cinnamon (Cinnamon Bark) 500 Mg Capsule 500 Mg PO BIDWMEALS Co Q-10 100 Mg Softgel (Ubidecarenone/Vit E Acetate) 1 Each Capsule 100 Mg PO BID Melatonin 5 Mg Tablet (Melatonin/Pyridoxine) 1 Each Tablet 5 Mg PO QHS Lutein 20 Mg Capsule 20 Mg PO QHS Sacepxkshw-Rakxdppnwzt-Qla Tab (Gluc/Victor M-Msm#2/C/D3/Anthony/Born) 1 Each Tablet 1 Tab PO BIDWMEALS Metformin Hcl 850 Mg Tablet 850 Mg PO BIDWMEALS Digoxin 125 Mcg Tablet 125 Mcg PO DAILY Tamoxifen Citrate 20 Mg Tablet 20 Mg PO DAILY Atenolol 50 Mg Tablet 50 Mg PO BID Lasix (Furosemide) 80 Mg Tablet 120 Mg PO DAILY Coumadin (Warfarin Sodium) 6 Mg Tablet 6 Mg PO QPM Potassium Chloride 10 Meq Capsule.er 10 Meq PO BID CHAU GROSS MD May 10, 2017 21:09
[2017-05-10] MEDS: INSULIN DETEMIR 300 UNITS/3 ML INSULN.PEN. SQ SCH (21:20)
--- NOTE | 2017-05-10 21:30 | NUR ---
Behavior Intervention Response and Plan: BIRP Note: Behavior: Assumed Care of patient, patient located in Day Room at shift change. Patient exhibited the following behavior Calm, Disorganized, Hyperverbal, Somatic. Brief assessment on rounds of vital signs, medication needs, lab studies, and pain. Treatment plan problems: 1-2/fall risk. Intervention: Patient assessed and the following interventions initiated safety checks 15 Minute Checks Cognitive Assessment , Head to toe Assessment , Medications. Response: After interactions and interventions patient responded in the following manner, Restless , Disorganized ,Cooperative. Continue to assess behaviors and condition will continue to monitor throughout the shift as needed. Plan: Continue to monitor Master Treatment Plan for patient's progress toward short term goals of Decreased Anxiety, Medication Compliance, rn long term care goals to return to previous living setting vs placement. Continue to assess patient for changes in above assessment. Monitor for medication needs, pain, and safety concerns. Hourly rounding performed to ensure safe environment.
[2017-05-11 06:10] VITALS: BP 136/80
[2017-05-11] MEDS: INSULIN ASPART 300 UNITS/3 ML INSULN.PEN SQ SCH ×4 (07:30→19:47)
[2017-05-11] MEDS: ATENOLOL 50 MG TABLET PO SCH ×2 (07:43→19:46)
[2017-05-11] MEDS: DIGOXIN 125 MCG TABLET PO SCH (07:44)
[2017-05-11] MEDS: POTASSIUM CHLORIDE 20 MEQ TABLET.ER. PO SCH ×2 (07:44→19:47)
[2017-05-11] MEDS: CHOLECALCIFEROL (VITAMIN D3) 1,000 UNIT TABLET PO SCH (07:44)
[2017-05-11] MEDS: MAGNESIUM OXIDE 400 MG TABLET PO SCH ×2 (07:44→19:46)
[2017-05-11] MEDS: MULTIVITAMIN with MINERAL TABLET. PO SCH (07:44)
[2017-05-11] MEDS: FUROSEMIDE 40 MG TABLET PO SCH (07:45)
[2017-05-11] MEDS: CALCIUM CARBONATE 500 MG TABLET PO SCH ×2 (07:45→16:43)
[2017-05-11] MEDS: metFORMIN 850 MG TABLET PO SCH ×2 (07:45→16:43)
[2017-05-11] MEDS: PANTOPRAZOLE 40 MG TABLET. PO SCH (07:45)
[2017-05-11] MEDS: DIVALPROEX 125 MG CAP.SPRINK PO SCH ×2 (07:46→16:43)
[2017-05-11] MEDS: LURASIDONE 40 MG TABLET. PO SCH (07:47)
[2017-05-11] MEDS: TAMOXIFEN 10 MG TABLET PO SCH (07:49)
[2017-05-11 08:11] LABS: BASO % 0 % (0-3); EOS # 0.1 x10^3/uL (0.0-0.7); EOS % 2 % (0-3); HEMATOCRIT 38.8 % (36.0-47.0); HEMOGLOBIN 12.4 g/dL (12.0-15.5); LYMPH # 1.1 x10^3/uL (1.0-4.8); LYMPH % 20 % (24-48); MEAN CORPUSCULAR HEMOGLOBIN 27 pg (25-35); MEAN CORPUSCULAR HGB CONC 32 g/dL (31-37); MEAN CORPUSCULAR VOLUME 85 fL (79-100); MONO # 0.3 x10^3/uL (0.0-1.1); MONO % 6 % (0-9); NEUT % 71 % (31-73); PLATELET COUNT 114 x10^3/uL (140-400); RED BLOOD COUNT 4.57 x10^6/uL (3.50-5.40); RED CELL DISTRIBUTION WIDTH 16.1 % (11.5-14.5); WHITE BLOOD COUNT 5.7 x10^3/uL (4.0-11.0)
[2017-05-11 08:14] LABS: ALBUMIN 3.1 g/dL (3.4-5.0); ALBUMIN/GLOBULIN RATIO 0.8 (1.0-1.7); ALK PHOS 57 U/L (46-116); ALT (SGPT) 27 U/L (14-59); ANION GAP 4 (6-14); AST (SGOT) 24 U/L (15-37); BLOOD UREA NITROGEN 29 mg/dL (7-20); BUN/CREATININE RATIO 26 (6-20); CARBON DIOXIDE 35 mmol/L (21-32); CHLORIDE 101 mmol/L (98-107); CREATININE 1.1 mg/dL (0.6-1.0); GFR 47.2; GLUCOSE 159 mg/dL (70-99); POTASSIUM 3.9 mmol/L (3.5-5.1); SODIUM 140 mmol/L (136-145); TOTAL BILIRUBIN 0.4 mg/dL (0.2-1.0); TOTAL PROTEIN 6.8 g/dL (6.4-8.2)
[2017-05-11 08:31] LABS: MAGNESIUM 1.4 mg/dL (1.8-2.4)
--- NOTE | 2017-05-11 08:57 | NUR ---
Patient yelling out at breakfast and in day room. Yelling Adams Adams. Talking in a rhyming voice and not making a lot of sense. Will continue to monitor.
--- NOTE | 2017-05-11 08:59 | NUR ---
Behavior Intervention Response and Plan: BIRP Note: Behavior: Assumed Care of patient, patient located in Day Room at shift change. Patient exhibited the following behavior Disorganized, Compliant, Cooperative. Brief assessment on rounds of vital signs, medication needs, lab studies, and pain. Treatment plan problems 1 and 2. Intervention: Patient assessed and the following interventions initiated safety checks 15 Minute Checks Cognitive Assessment , Head to toe Assessment , Medications. Response: After interactions and interventions patient responded in the following manner, Interactive , Disorganized ,Compliant. Continue to assess behaviors and condition will continue to monitor throughout the shift as needed. Plan: Continue to monitor Master Treatment Plan for patient's progress toward short term goals of Decreased Agitation, Medication Compliance, penitentiary goals to return to previous living setting vs placement. Continue to assess patient for changes in above assessment. Monitor for medication needs, pain, and safety concerns. Hourly rounding performed to ensure safe environment.
--- NOTE | 2017-05-11 09:00 | NUR ---
THERAPEUTIC RECREATION GROUP NOTE TITLE :Relaxation Session: Muscle Relaxation and Yanta (coloring page) ACTIVITY : Relaxation GOAL : Decrease stress, elevate mood, increase concentration/attention, encourage awareness DURATION : 90 Minutes RESPONSE : Full participation. Pt. began the session very talkative which was disrupting the muscle relaxation part of the session. She was guided over to color a Yanta and she sat quietly and focused on her picture. She left for a shower and returned back to her drawing. She needed prompting to keep quiet during a silent activity. She was given new colors which kept her interest for a few moments before she began to talk loudly again. She was unable to remain quiet and was assisted out of the room.
--- NOTE | 2017-05-11 09:37 | NUR ---
SW met with pt one on one pt states she has had a "breakdown" prior and had gone to [facility]. Pt reports this happened after she had her first child. She states she doesn't like to be in the hospital but knows she needs it right now. Pt states she wants to go home with Teodoro and she was living with him prior to coming into the hospital. Pt talked about where she currently lived in [facility] and then went on to tell SW where they had been living prior to moving to their current residents. Pt states she has lived close or in [facility] for many years. Pt was able to hold on a conversation and tell SW about her history, pt didn't go into much detail. Pt smiled, was pleasant, her thoughts were coherent and pt did not sing while talking to SW. Addendum: 05/17/17 at 0845 by INGRID BOOTHE late entry Date was 05/12/17
--- NOTE | 2017-05-11 10:39 | NUR ---
Pharmacy Warfarin Dosing Note S:Pharmacy consulted to assist with anticoagulation therapy started 04/30/17 with target INR: 2 -3 O:RAINER WASHINGTON is a 86 year old F with Atrial Fibrillation LABS: Last INR: 2.8 Last HGB: 12.4 Last HCT: 38.8 Last PLT: 114 Last dose of 7MG given on 05/10/17 at 1600 Previous Regimen: 6MG HOME DOSE Vitamin K given: N Drug Interaction Changes: Same Interacting Drug Ongoing Drug Interactions: ALLOPURINOL, TAMOXIFEN, GLUCOSAMINE/CHONDROTIN A:INR Within desired Range. Target Range for this patient is: 2 -3 P: Warfarin dose: Continue Coumadin 7mg po daily. Bridge Therapy: None Next INR due 05/13/17 Pharmacy anticoagulation service will continue to follow. JESUS CLEANING Osmani 05/11/17 1031
--- NOTE | 2017-05-11 14:00 | NUR ---
THERAPEUTIC RECREATION GROUP NOTE TITLE :Name that Tune ACTIVITY : Music GOAL : Increase socialization, elevate mood, stimulate memory DURATION : 45 Minutes RESPONSE : Minimal participation. Pt. started with the group and waved the scarves around. She sang her own songs and did not guess any tunes.
[2017-05-11 16:03] VITALS: BP 120/53
[2017-05-11] MEDS: ALLOPURINOL 100 MG TABLET. PO SCH (16:43)
[2017-05-11] MEDS: WARFARIN 4 MG TABLET. PO SCH (16:46)
[2017-05-11] MEDS: WARFARIN 3 MG TABLET. PO SCH (16:46)
[2017-05-11] MEDS: MIRTAZAPINE 15 MG TAB.RAPDIS PO SCH (19:46)
[2017-05-11] MEDS: traZODone 100 MG TABLET. PO SCH (19:47)
[2017-05-11] MEDS: INSULIN DETEMIR 300 UNITS/3 ML INSULN.PEN. SQ SCH (19:48)
--- NOTE | 2017-05-11 20:18 | PDOC ---
Exam Tahir Demential Exam: Tahir Note: Please also refer to the separate dictated note~for this date of service dictated separately.~Patient seen individually. Discussed the patient with Nursing staff reviewed the chart.~Reviewed interim history and current functioning. Reviewed vital signs,~Labs/ Radiology~and current medications noted below. Continue current treatment with the changes noted in the dictated addendum note Assessment: Vital Signs: Vital Signs Date Time Temp Pulse Resp B/P (MAP) Pulse Ox O2 Delivery O2 Flow Rate FiO2 05/11/17 19:46 62 120/53 05/11/17 16:03 98.5 20 99 Room Air I&O Intake and Output 05/11/17 07:00 Intake Total 1080 ml Balance 1080 ml Intake Oral 1080 ml # Voids 1 # Bowel Movements 2 Labs: Laboratory Tests Test 05/11/17 07:06 05/11/17 07:31 05/11/17 11:35 05/11/17 16:30 Glucose (Fingerstick) 139 mg/dL (70-99) H 218 mg/dL (70-99) H 184 mg/dL (70-99) H White Blood Count 5.7 x10^3/uL (4.0-11.0) Red Blood Count 4.57 x10^6/uL (3.50-5.40) Hemoglobin 12.4 g/dL (12.0-15.5) Hematocrit 38.8 % (36.0-47.0) Mean Corpuscular Volume 85 fL (79-100) Mean Corpuscular Hemoglobin 27 pg (25-35) Mean Corpuscular Hemoglobin Concent 32 g/dL (31-37) Red Cell Distribution Width 16.1 % (11.5-14.5) H Platelet Count 114 x10^3/uL (140-400) L Neutrophils (%) (Auto) 71 % (31-73) Lymphocytes (%) (Auto) 20 % (24-48) L Monocytes (%) (Auto) 6 % (0-9) Eosinophils (%) (Auto) 2 % (0-3) Basophils (%) (Auto) 0 % (0-3) Neutrophils # (Auto) 4.0 x10^3uL (1.8-7.7) Lymphocytes # (Auto) 1.1 x10^3/uL (1.0-4.8) Monocytes # (Auto) 0.3 x10^3/uL (0.0-1.1) Eosinophils # (Auto) 0.1 x10^3/uL (0.0-0.7) Basophils # (Auto) 0.0 x10^3/uL (0.0-0.2) Prothrombin Time 28.7 SEC (9.4-11.4) H Prothrombin Time INR 2.8 (0.9-1.1) H Sodium Level 140 mmol/L (136-145) Potassium Level 3.9 mmol/L (3.5-5.1) Chloride Level 101 mmol/L (98-107) Carbon Dioxide Level 35 mmol/L (21-32) H Anion Gap 4 (6-14) L Blood Urea Nitrogen 29 mg/dL (7-20) H Creatinine 1.1 mg/dL (0.6-1.0) H Estimated GFR (Cockcroft-Gault) 47.2 BUN/Creatinine Ratio 26 (6-20) H Glucose Level 159 mg/dL (70-99) H Calcium Level 9.0 mg/dL (8.5-10.1) Magnesium Level 1.4 mg/dL (1.8-2.4) L Total Bilirubin 0.4 mg/dL (0.2-1.0) Aspartate Amino Transferase (AST) 24 U/L (15-37) Alanine Aminotransferase (ALT) 27 U/L (14-59) Alkaline Phosphatase 57 U/L (46-116) Total Protein 6.8 g/dL (6.4-8.2) Albumin 3.1 g/dL (3.4-5.0) L Albumin/Globulin Ratio 0.8 (1.0-1.7) L Valproic Acid Level mcg/mL (50-100) Valproic Acid Last Dose Date 05/09/2017 Valproic Acid Last Dose Time 1700 Test 05/11/17 18:54 Glucose (Fingerstick) 210 mg/dL (70-99) H Current Medications: Meds: Current Medications Acetaminophen (Tylenol) 650 mg PRN Q6HRS PRN PO PAIN / TEMP; Start 04/30/17 at 18:30; Stop 04/30/17 at 19:53; Status DC Potassium Chloride (Klor-Con) 20 meq 1X ONCE PO Last administered on 20:51; Start 04/30/17 at 20:00; Stop 04/30/17 at 20:01; Status DC Magnesium Chloride (Mag Delay) 64 mg DAILY PO Last administered on 05/06/17 08: 16; Start 05/01/17 at 09:00; Stop 05/06/17 at 18:08; Status DC Acetaminophen (Tylenol) 650 mg PRN Q6HRS PRN PO PAIN / TEMP Last administered on 05/04/17 11:44; Start 04/30/17 at 20:00; Stop 05/05/17 at 19:37; Status DC Al Hydroxide/Mg Hydroxide (Mylanta Plus Xs) 15 ml PRN AFTMEALHC PRN PO DYSPEPSIA; Start 04/30/17 at 20:00 Magnesium Hydroxide (Milk Of Magnesia) 2,400 mg PRN QHS PRN PO CONSTIPATION; Start 04/30/17 at 20:00 Allopurinol (Zyloprim) 200 mg DAILYWSUP PO Last administered on 05/11/17 16:43 ; Start 05/01/17 at 17:00 Atenolol (Tenormin) 50 mg BID PO Last administered on 05/11/17 19:46; Start at 21:00 Calcium Carbonate/ Glycine (Oscal) 500 mg BIDWMEALS PO Last administered on 16:43; Start 05/01/17 at 08:00 Vitamin D (Vitamin D3) 1,000 unit DAILYWBKFT PO Last administered on 05/11/17 07:44; Start 05/01/17 at 08:00 Digoxin (Lanoxin) 125 mcg DAILY PO Last administered on 05/11/17 07:44; Start 05/01/17 at 09:00 Furosemide (Lasix) 120 mg DAILY PO Last administered on 05/05/17 13:31; Start 05/01/17 at 09:00; Stop 05/05/17 at 19:39; Status DC Metformin HCl (Glucophage) 850 mg BIDWMEALS PO Last administered on 05/11/17 16:43; Start 05/01/17 at 08:00 Potassium Chloride (Klor-Con) 20 meq BID PO Last administered on 05/04/17 20:37 ; Start 05/01/17 at 09:00; Stop 05/05/17 at 19:31; Status DC Warfarin Sodium (Coumadin) 6 mg DAILY16 PO Last administered on 05/01/17 16:56 ; Start 05/01/17 at 16:00; Stop 05/02/17 at 11:39; Status DC Non-Formulary Medication 500 mg BIDWMEALS PO ; Start 05/01/17 at 08:00; Stop 05/01 at 08:00; Status DC Glucosamine/ Chondroitin (Glucosamine-Chondroitin 500/400mg) 1 cap BIDWMEALS PO Last administered on 05/05/17 16:45; Start 05/01/17 at 08:00; Stop 05/05/17 at 18:18; Status DC Lactobacillus Acidophilus (Bacid, Orly-Bid) 2 tab DAILYWBKFT PO Last administered on 05/03/17 07:19; Start 05/01/17 at 08:00; Stop 05/05/17 at 18:18; Status DC Non-Formulary Medication 20 mg QHS PO ; Start 04/30/17 at 21:00; Stop 04/30/17 at 21:00; Status DC Non-Formulary Medication 5 mg QHS PO ; Start 04/30/17 at 21:00; Stop 04/30/17 at 21:00; Status DC Multivitamins/ Minerals (I-Gera) 1 tab DAILY PO Last administered on 05/03/17 07:20; Start 05/01/17 at 09:00; Stop 05/05/17 at 19:39; Status DC Pantoprazole Sodium (Protonix) 40 mg DAILYAC PO Last administered on 05/11/17 07:45; Start 05/01/17 at 07:30 Tamoxifen Citrate (Nolvadex) 20 mg DAILY PO Last administered on 05/11/17 07: 49; Start 05/01/17 at 09:00 Coenzyme Q10 (Coenzyme Q10) 100 mg BID PO Last administered on 05/04/17 20:36; Start 05/01/17 at 09:00; Stop 05/05/17 at 18:18; Status DC Sertraline HCl (Zoloft) 50 mg QHS PO Last administered on 04/30/17 20:51; Start 04/30/17 at 21:00; Stop 05/01/17 at 11:00; Status DC Melatonin 4.5 mg QHS PO Last administered on 05/04/17 20:37; Start 04/30/17 at 21:00; Stop 05/05/17 at 18:18; Status DC Olanzapine (ZyPREXA ZYDIS) 2.5 mg PRN Q4HRS PRN PO Psych Last administered on 16:52; Start 04/30/17 at 20:15 Magnesium Oxide (Magnesium Oxide) 400 mg BID PO Last administered on 05/11/17 19:46; Start 04/30/17 at 21:00 Warfarin Sodium (Coumadin) 6 mg 1X WARF ONCE PO Last administered on 20:51; Start 04/30/17 at 20:45; Stop 04/30/17 at 20:46; Status DC Warfarin Sodium (Coumadin) 0.5 mg 1X WARF ONCE PO Last administered on 20:51; Start 04/30/17 at 20:45; Stop 04/30/17 at 20:46; Status DC Warfarin Sodium (Coumadin Per Physician) 1 each PRN DAILY PRN MC SEE COMMENTS; Start 05/01/17 at 09:45; Stop 05/01/17 at 14:54; Status DC Risperidone (RisperDAL) 0.25 mg HS PO Last administered on 05/02/17 19:39; Start 05/01/17 at 21:00; Stop 05/03/17 at 18:28; Status DC Trazodone HCl (Desyrel) 100 mg QHS PO Last administered on 05/11/17 19:47; Start 05/01/17 at 21:00 Trazodone HCl (Desyrel) 100 mg PRN QHS PRN PO INSOMNIA Last administered on 05/04 00:32; Start 05/01/17 at 10:45 Insulin Detemir (Levemir) 5 units QHS SQ Last administered on 05/11/17 19:48; Start 05/01/17 at 21:00 Insulin Aspart (NovoLOG) 0-5 UNITS QIDACHS SQ Last administered on 05/11/17 16 :58; Start 05/01/17 at 16:30 Dextrose 12.5 gm PRN Q15MIN PRN IV SEE COMMENTS; Start 05/01/17 at 14:45 Warfarin Sodium (Coumadin Per Pharmacy) 1 each PRN DAILY PRN MC SEE COMMENTS Last administered on 05/11/17 10:39; Start 05/01/17 at 14:45 Insulin Aspart (NovoLOG) 10 units 1X ONCE SQ Last administered on 05/01/17 17: 15; Start 05/01/17 at 17:15; Stop 05/01/17 at 17:16; Status DC Warfarin Sodium (Coumadin) 7.5 mg 1X WARF ONCE PO Last administered on 17:16; Start 05/02/17 at 16:00; Stop 05/02/17 at 16:01; Status DC Warfarin Sodium (Coumadin) 7.5 mg 1X WARF ONCE PO Last administered on 16:18; Start 05/03/17 at 16:00; Stop 05/03/17 at 16:01; Status DC Risperidone (RisperDAL) 0.5 mg HS SL Last administered on 05/04/17 20:41; Start 05/03/17 at 21:00; Stop 05/05/17 at 19:33; Status DC Valproic Acid (Depakene) 250 mg BIDWMEALS PO Last administered on 05/07/17 16: 52; Start 05/04/17 at 08:00; Stop 05/07/17 at 18:23; Status DC Warfarin Sodium (Coumadin) 7.5 mg 1X WARF ONCE PO Last administered on 16:02; Start 05/04/17 at 16:00; Stop 05/04/17 at 16:01; Status DC Mirtazapine (Remeron) 7.5 mg QHS PO Last administered on 05/04/17 20:38; Start 05/04/17 at 21:00; Stop 05/05/17 at 19:33; Status DC Warfarin Sodium (Coumadin) 7.5 mg 1X WARF ONCE PO Last administered on 16:46; Start 05/05/17 at 16:00; Stop 05/05/17 at 16:01; Status DC Potassium Chloride (KCl Oral Soln) 20 meq BID PO Last administered on 05/09/17 09:13; Start 05/05/17 at 21:00; Stop 05/09/17 at 18:44; Status DC Risperidone (RisperDAL) 1 mg HS SL ; Start 05/05/17 at 21:00; Stop 05/06/17 at 11: 05; Status DC Mirtazapine (Remeron Olive-Tab) 7.5 mg QHS PO Last administered on 05/11/17 19: 46; Start 05/05/17 at 21:00 Acetaminophen (Tylenol) 650 mg PRN Q6HRS PRN PO PAIN / TEMP Last administered on 05/09/17 09:12; Start 05/05/17 at 19:45; Stop 05/10/17 at 08:51; Status DC Furosemide (Lasix) 120 mg DAILY PO Last administered on 05/09/17 09:43; Start 05/06/17 at 09:00; Stop 05/09/17 at 18:44; Status DC Multivitamins (Thera-Plus) 5 ml DAILY PO Last administered on 05/08/17 08:02; Start 05/06/17 at 09:00; Stop 05/10/17 at 08:51; Status DC Risperidone (RisperDAL) 0.5 mg HS SL Last administered on 05/08/17 21:49; Start 05/06/17 at 21:00; Stop 05/09/17 at 09:00; Status DC Melatonin 3 mg PRN QHS PRN PO INSOMNIA; Start 05/06/17 at 18:15 Warfarin Sodium (Coumadin) 7.5 mg 1X WARF ONCE PO Last administered on 16:51; Start 05/07/17 at 16:00; Stop 05/07/17 at 16:01; Status DC Valproic Acid (Depakene) 375 mg BIDWMEALS PO Last administered on 05/09/17 16: 27; Start 05/08/17 at 08:00; Stop 05/09/17 at 18:44; Status DC Warfarin Sodium (Coumadin) 7.5 mg 1X WARF ONCE PO Last administered on 16:53; Start 05/08/17 at 16:00; Stop 05/08/17 at 16:01; Status DC Warfarin Sodium (Coumadin) 7.5 mg 1X WARF ONCE PO Last administered on 16:26; Start 05/09/17 at 16:00; Stop 05/09/17 at 16:01; Status DC Furosemide (Lasix) 120 mg DAILY PO Last administered on 05/11/17 07:45; Start 05/10/17 at 09:00 Potassium Chloride (Klor-Con) 20 meq BID PO Last administered on 05/11/17 19: 47; Start 05/09/17 at 21:00 Divalproex Sodium (Depakote Sprinkles) 375 mg BIDWMEALS PO Last administered on 05/11/17 16:43; Start 05/10/17 at 08:00 Multivitamins/ Calcium (Thera-M Plus) 1 tab DAILY PO Last administered on 07:44; Start 05/10/17 at 09:00 Acetaminophen (Tylenol) 650 mg PRN Q6HRS PRN PO PAIN / TEMP Last administered on 05/10/17 20:24; Start 05/10/17 at 09:00 Warfarin Sodium (Coumadin) 4 mg 1X WARF ONCE PO Last administered on 16:17; Start 05/10/17 at 16:00; Stop 05/10/17 at 16:01; Status DC Warfarin Sodium (Coumadin) 3 mg 1X WARF ONCE PO Last administered on 16:17; Start 05/10/17 at 16:00; Stop 05/10/17 at 16:01; Status DC Warfarin Sodium (Coumadin) 4 mg DAILY16 PO Last administered on 05/11/17 16:46 ; Start 05/11/17 at 16:00 Warfarin Sodium (Coumadin) 3 mg DAILY16 PO Last administered on 05/11/17 16:46 ; Start 05/11/17 at 16:00 Active Scripts Active Reported Probiotic (Lactobacillus Combo No.10) 1 Each Capsule 1 Cap PO DAILYWBKFT Women's Daily Caplet (Multivits,Ca,Minerals/Iron/Fa) 1 Each Tablet 1 Tab PO BID Zoloft (Sertraline Hcl) 25 Mg Tablet 25 Mg PO QHS 7 Days Zoloft (Sertraline Hcl) 50 Mg Tablet 50 Mg PO QHS 3 Days Omeprazole 20 Mg Tablet.dr 20 Mg PO DAILY07 Allopurinol 100 Mg Tablet 200 Mg PO DAILYWSUP Vitamin D3 (Cholecalciferol (Vitamin D3)) 1,000 Unit Tablet 1,000 Unit PO DAILYWBKFT Oyster Shell Calcium (Calcium Carbonate) 500 Mg Tablet 500 Mg PO BIDWMEALS Cinnamon (Cinnamon Bark) 500 Mg Capsule 500 Mg PO BIDWMEALS Co Q-10 100 Mg Softgel (Ubidecarenone/Vit E Acetate) 1 Each Capsule 100 Mg PO BID Melatonin 5 Mg Tablet (Melatonin/Pyridoxine) 1 Each Tablet 5 Mg PO QHS Lutein 20 Mg Capsule 20 Mg PO QHS Ijqejwqyzq-Zslxlskdyem-Qch Tab (Gluc/Victor M-Msm#2/C/D3/Anthony/Born) 1 Each Tablet 1 Tab PO BIDWMEALS Metformin Hcl 850 Mg Tablet 850 Mg PO BIDWMEALS Digoxin 125 Mcg Tablet 125 Mcg PO DAILY Tamoxifen Citrate 20 Mg Tablet 20 Mg PO DAILY Atenolol 50 Mg Tablet 50 Mg PO BID Lasix (Furosemide) 80 Mg Tablet 120 Mg PO DAILY Coumadin (Warfarin Sodium) 6 Mg Tablet 6 Mg PO QPM Potassium Chloride 10 Meq Capsule.er 10 Meq PO BID Diagnosis: Problems: (1) Anxiety disorder (2) Impulse control disorder (3) Bipolar affective, mixed, sev w/ psych (4) Dementia, vascular, 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
--- NOTE | 2017-05-11 20:57 | PDOC ---
Exam Tahir Demential Exam: Tahir Note: Please also refer to the separate dictated note~for this date of service dictated separately.~Patient seen individually. Discussed the patient with Nursing staff reviewed the chart.~Reviewed interim history and current functioning. Reviewed vital signs,~Labs/ Radiology~and current medications noted below. Continue current treatment with the changes noted in the dictated addendum note S/O: This is a late entry for date of service 05/06/2017 and covers elements not covered in my initial note. The patient was staffed with the entire team in morning of 05/06/2017 and seen individually in evening of 05/06/2017. During the treatment team meeting, the patient's son, Paresh and his , attended the conference. Lengthy discussion about the patient's diagnosis and past treatment at [facility] where the patient responded very positively to Latuda 20 mg a day and Remeron and the family would like to go back on that. Reviewed her diagnosis. Family history of bipolar disorder in her sister and the patient's history of mood swings with gayla, over spinning followed by episodes of depression. She slept 2 hours previous night. Review of Systems: Ambulation impaired, in wheelchair. No CV, , Pulmonary, Eye, ENT system symptoms on review. Reliability is poor. MSE: Oriented to herself. Insight, judgment, and recent memory are impaired. Language function is intact. Mood and affect remains somewhat manic, hyperverbal. No active suicidal or homicidal ideation. Quite disorganized. Labs: Reviewed. Imp: Bipolar 1 disorder mixed with psychotic features. Cognitive disorder unspecified versus major neurocognitive disorder, Alzheimer vascular with delusion. Plan: I have reviewed records from [place] at length as noted above. We will start the patient on Latuda 40 mg a day, taper and stop the Risperdal. Continue Depakote. Follow lab levels. Maintain the Remeron, adjust as indicated along with trazodone. Assessment: Vital Signs: Vital Signs Date Time Temp Pulse Resp B/P (MAP) Pulse Ox O2 Delivery O2 Flow Rate FiO2 05/11/17 19:46 62 120/53 05/11/17 16:03 98.5 20 99 Room Air I&O Intake and Output 05/11/17 07:00 Intake Total 1080 ml Balance 1080 ml Intake Oral 1080 ml # Voids 1 # Bowel Movements 2 Labs: Laboratory Tests Test 05/11/17 07:06 05/11/17 07:31 05/11/17 11:35 05/11/17 16:30 Glucose (Fingerstick) 139 mg/dL (70-99) H 218 mg/dL (70-99) H 184 mg/dL (70-99) H White Blood Count 5.7 x10^3/uL (4.0-11.0) Red Blood Count 4.57 x10^6/uL (3.50-5.40) Hemoglobin 12.4 g/dL (12.0-15.5) Hematocrit 38.8 % (36.0-47.0) Mean Corpuscular Volume 85 fL (79-100) Mean Corpuscular Hemoglobin 27 pg (25-35) Mean Corpuscular Hemoglobin Concent 32 g/dL (31-37) Red Cell Distribution Width 16.1 % (11.5-14.5) H Platelet Count 114 x10^3/uL (140-400) L Neutrophils (%) (Auto) 71 % (31-73) Lymphocytes (%) (Auto) 20 % (24-48) L Monocytes (%) (Auto) 6 % (0-9) Eosinophils (%) (Auto) 2 % (0-3) Basophils (%) (Auto) 0 % (0-3) Neutrophils # (Auto) 4.0 x10^3uL (1.8-7.7) Lymphocytes # (Auto) 1.1 x10^3/uL (1.0-4.8) Monocytes # (Auto) 0.3 x10^3/uL (0.0-1.1) Eosinophils # (Auto) 0.1 x10^3/uL (0.0-0.7) Basophils # (Auto) 0.0 x10^3/uL (0.0-0.2) Prothrombin Time 28.7 SEC (9.4-11.4) H Prothrombin Time INR 2.8 (0.9-1.1) H Sodium Level 140 mmol/L (136-145) Potassium Level 3.9 mmol/L (3.5-5.1) Chloride Level 101 mmol/L (98-107) Carbon Dioxide Level 35 mmol/L (21-32) H Anion Gap 4 (6-14) L Blood Urea Nitrogen 29 mg/dL (7-20) H Creatinine 1.1 mg/dL (0.6-1.0) H Estimated GFR (Cockcroft-Gault) 47.2 BUN/Creatinine Ratio 26 (6-20) H Glucose Level 159 mg/dL (70-99) H Calcium Level 9.0 mg/dL (8.5-10.1) Magnesium Level 1.4 mg/dL (1.8-2.4) L Total Bilirubin 0.4 mg/dL (0.2-1.0) Aspartate Amino Transferase (AST) 24 U/L (15-37) Alanine Aminotransferase (ALT) 27 U/L (14-59) Alkaline Phosphatase 57 U/L (46-116) Total Protein 6.8 g/dL (6.4-8.2) Albumin 3.1 g/dL (3.4-5.0) L Albumin/Globulin Ratio 0.8 (1.0-1.7) L Valproic Acid Level mcg/mL (50-100) Valproic Acid Last Dose Date 05/09/2017 Valproic Acid Last Dose Time 1700 Test 05/11/17 18:54 Glucose (Fingerstick) 210 mg/dL (70-99) H Current Medications: Meds: Current Medications Acetaminophen (Tylenol) 650 mg PRN Q6HRS PRN PO PAIN / TEMP; Start 04/30/17 at 18:30; Stop 04/30/17 at 19:53; Status DC Potassium Chloride (Klor-Con) 20 meq 1X ONCE PO Last administered on 20:51; Start 04/30/17 at 20:00; Stop 04/30/17 at 20:01; Status DC Magnesium Chloride (Mag Delay) 64 mg DAILY PO Last administered on 05/06/17 08: 16; Start 05/01/17 at 09:00; Stop 05/06/17 at 18:08; Status DC Acetaminophen (Tylenol) 650 mg PRN Q6HRS PRN PO PAIN / TEMP Last administered on 05/04/17 11:44; Start 04/30/17 at 20:00; Stop 05/05/17 at 19:37; Status DC Al Hydroxide/Mg Hydroxide (Mylanta Plus Xs) 15 ml PRN AFTMEALHC PRN PO DYSPEPSIA; Start 04/30/17 at 20:00 Magnesium Hydroxide (Milk Of Magnesia) 2,400 mg PRN QHS PRN PO CONSTIPATION; Start 04/30/17 at 20:00 Allopurinol (Zyloprim) 200 mg DAILYWSUP PO Last administered on 05/11/17 16:43 ; Start 05/01/17 at 17:00 Atenolol (Tenormin) 50 mg BID PO Last administered on 05/11/17 19:46; Start at 21:00 Calcium Carbonate/ Glycine (Oscal) 500 mg BIDWMEALS PO Last administered on 16:43; Start 05/01/17 at 08:00 Vitamin D (Vitamin D3) 1,000 unit DAILYWBKFT PO Last administered on 05/11/17 07:44; Start 05/01/17 at 08:00 Digoxin (Lanoxin) 125 mcg DAILY PO Last administered on 05/11/17 07:44; Start 05/01/17 at 09:00 Furosemide (Lasix) 120 mg DAILY PO Last administered on 05/05/17 13:31; Start 05/01/17 at 09:00; Stop 05/05/17 at 19:39; Status DC Metformin HCl (Glucophage) 850 mg BIDWMEALS PO Last administered on 05/11/17 16:43; Start 05/01/17 at 08:00 Potassium Chloride (Klor-Con) 20 meq BID PO Last administered on 05/04/17 20:37 ; Start 05/01/17 at 09:00; Stop 05/05/17 at 19:31; Status DC Warfarin Sodium (Coumadin) 6 mg DAILY16 PO Last administered on 05/01/17 16:56 ; Start 05/01/17 at 16:00; Stop 05/02/17 at 11:39; Status DC Non-Formulary Medication 500 mg BIDWMEALS PO ; Start 05/01/17 at 08:00; Stop 05/01 at 08:00; Status DC Glucosamine/ Chondroitin (Glucosamine-Chondroitin 500/400mg) 1 cap BIDWMEALS PO Last administered on 05/05/17 16:45; Start 05/01/17 at 08:00; Stop 05/05/17 at 18:18; Status DC Lactobacillus Acidophilus (Bacid, Orly-Bid) 2 tab DAILYWBKFT PO Last administered on 05/03/17 07:19; Start 05/01/17 at 08:00; Stop 05/05/17 at 18:18; Status DC Non-Formulary Medication 20 mg QHS PO ; Start 04/30/17 at 21:00; Stop 04/30/17 at 21:00; Status DC Non-Formulary Medication 5 mg QHS PO ; Start 04/30/17 at 21:00; Stop 04/30/17 at 21:00; Status DC Multivitamins/ Minerals (I-Gera) 1 tab DAILY PO Last administered on 05/03/17 07:20; Start 05/01/17 at 09:00; Stop 05/05/17 at 19:39; Status DC Pantoprazole Sodium (Protonix) 40 mg DAILYAC PO Last administered on 05/11/17 07:45; Start 05/01/17 at 07:30 Tamoxifen Citrate (Nolvadex) 20 mg DAILY PO Last administered on 05/11/17 07: 49; Start 05/01/17 at 09:00 Coenzyme Q10 (Coenzyme Q10) 100 mg BID PO Last administered on 05/04/17 20:36; Start 05/01/17 at 09:00; Stop 05/05/17 at 18:18; Status DC Sertraline HCl (Zoloft) 50 mg QHS PO Last administered on 04/30/17 20:51; Start 04/30/17 at 21:00; Stop 05/01/17 at 11:00; Status DC Melatonin 4.5 mg QHS PO Last administered on 05/04/17 20:37; Start 04/30/17 at 21:00; Stop 05/05/17 at 18:18; Status DC Olanzapine (ZyPREXA ZYDIS) 2.5 mg PRN Q4HRS PRN PO Psych Last administered on 16:52; Start 04/30/17 at 20:15 Magnesium Oxide (Magnesium Oxide) 400 mg BID PO Last administered on 05/11/17 19:46; Start 04/30/17 at 21:00 Warfarin Sodium (Coumadin) 6 mg 1X WARF ONCE PO Last administered on 20:51; Start 04/30/17 at 20:45; Stop 04/30/17 at 20:46; Status DC Warfarin Sodium (Coumadin) 0.5 mg 1X WARF ONCE PO Last administered on 20:51; Start 04/30/17 at 20:45; Stop 04/30/17 at 20:46; Status DC Warfarin Sodium (Coumadin Per Physician) 1 each PRN DAILY PRN MC SEE COMMENTS; Start 05/01/17 at 09:45; Stop 05/01/17 at 14:54; Status DC Risperidone (RisperDAL) 0.25 mg HS PO Last administered on 05/02/17 19:39; Start 05/01/17 at 21:00; Stop 05/03/17 at 18:28; Status DC Trazodone HCl (Desyrel) 100 mg QHS PO Last administered on 05/11/17 19:47; Start 05/01/17 at 21:00 Trazodone HCl (Desyrel) 100 mg PRN QHS PRN PO INSOMNIA Last administered on 05/04 00:32; Start 05/01/17 at 10:45 Insulin Detemir (Levemir) 5 units QHS SQ Last administered on 05/11/17 19:48; Start 05/01/17 at 21:00 Insulin Aspart (NovoLOG) 0-5 UNITS QIDACHS SQ Last administered on 05/11/17 16 :58; Start 05/01/17 at 16:30 Dextrose 12.5 gm PRN Q15MIN PRN IV SEE COMMENTS; Start 05/01/17 at 14:45 Warfarin Sodium (Coumadin Per Pharmacy) 1 each PRN DAILY PRN MC SEE COMMENTS Last administered on 05/11/17 10:39; Start 05/01/17 at 14:45 Insulin Aspart (NovoLOG) 10 units 1X ONCE SQ Last administered on 05/01/17 17: 15; Start 05/01/17 at 17:15; Stop 05/01/17 at 17:16; Status DC Warfarin Sodium (Coumadin) 7.5 mg 1X WARF ONCE PO Last administered on 17:16; Start 05/02/17 at 16:00; Stop 05/02/17 at 16:01; Status DC Warfarin Sodium (Coumadin) 7.5 mg 1X WARF ONCE PO Last administered on 16:18; Start 05/03/17 at 16:00; Stop 05/03/17 at 16:01; Status DC Risperidone (RisperDAL) 0.5 mg HS SL Last administered on 05/04/17 20:41; Start 05/03/17 at 21:00; Stop 05/05/17 at 19:33; Status DC Valproic Acid (Depakene) 250 mg BIDWMEALS PO Last administered on 05/07/17 16: 52; Start 05/04/17 at 08:00; Stop 05/07/17 at 18:23; Status DC Warfarin Sodium (Coumadin) 7.5 mg 1X WARF ONCE PO Last administered on 16:02; Start 05/04/17 at 16:00; Stop 05/04/17 at 16:01; Status DC Mirtazapine (Remeron) 7.5 mg QHS PO Last administered on 05/04/17 20:38; Start 05/04/17 at 21:00; Stop 05/05/17 at 19:33; Status DC Warfarin Sodium (Coumadin) 7.5 mg 1X WARF ONCE PO Last administered on 16:46; Start 05/05/17 at 16:00; Stop 05/05/17 at 16:01; Status DC Potassium Chloride (KCl Oral Soln) 20 meq BID PO Last administered on 05/09/17 09:13; Start 05/05/17 at 21:00; Stop 05/09/17 at 18:44; Status DC Risperidone (RisperDAL) 1 mg HS SL ; Start 05/05/17 at 21:00; Stop 05/06/17 at 11: 05; Status DC Mirtazapine (Remeron Olive-Tab) 7.5 mg QHS PO Last administered on 05/11/17 19: 46; Start 05/05/17 at 21:00 Acetaminophen (Tylenol) 650 mg PRN Q6HRS PRN PO PAIN / TEMP Last administered on 05/09/17 09:12; Start 05/05/17 at 19:45; Stop 05/10/17 at 08:51; Status DC Furosemide (Lasix) 120 mg DAILY PO Last administered on 05/09/17 09:43; Start 05/06/17 at 09:00; Stop 05/09/17 at 18:44; Status DC Multivitamins (Thera-Plus) 5 ml DAILY PO Last administered on 05/08/17 08:02; Start 05/06/17 at 09:00; Stop 05/10/17 at 08:51; Status DC Risperidone (RisperDAL) 0.5 mg HS SL Last administered on 05/08/17 21:49; Start 05/06/17 at 21:00; Stop 05/09/17 at 09:00; Status DC Melatonin 3 mg PRN QHS PRN PO INSOMNIA; Start 05/06/17 at 18:15 Warfarin Sodium (Coumadin) 7.5 mg 1X WARF ONCE PO Last administered on 16:51; Start 05/07/17 at 16:00; Stop 05/07/17 at 16:01; Status DC Valproic Acid (Depakene) 375 mg BIDWMEALS PO Last administered on 05/09/17 16: 27; Start 05/08/17 at 08:00; Stop 05/09/17 at 18:44; Status DC Warfarin Sodium (Coumadin) 7.5 mg 1X WARF ONCE PO Last administered on 16:53; Start 05/08/17 at 16:00; Stop 05/08/17 at 16:01; Status DC Warfarin Sodium (Coumadin) 7.5 mg 1X WARF ONCE PO Last administered on 16:26; Start 05/09/17 at 16:00; Stop 05/09/17 at 16:01; Status DC Furosemide (Lasix) 120 mg DAILY PO Last administered on 05/11/17 07:45; Start 05/10/17 at 09:00 Potassium Chloride (Klor-Con) 20 meq BID PO Last administered on 05/11/17 19: 47; Start 05/09/17 at 21:00 Divalproex Sodium (Depakote Sprinkles) 375 mg BIDWMEALS PO Last administered on 05/11/17 16:43; Start 05/10/17 at 08:00 Multivitamins/ Calcium (Thera-M Plus) 1 tab DAILY PO Last administered on 07:44; Start 05/10/17 at 09:00 Acetaminophen (Tylenol) 650 mg PRN Q6HRS PRN PO PAIN / TEMP Last administered on 05/10/17 20:24; Start 05/10/17 at 09:00 Warfarin Sodium (Coumadin) 4 mg 1X WARF ONCE PO Last administered on 16:17; Start 05/10/17 at 16:00; Stop 05/10/17 at 16:01; Status DC Warfarin Sodium (Coumadin) 3 mg 1X WARF ONCE PO Last administered on 16:17; Start 05/10/17 at 16:00; Stop 05/10/17 at 16:01; Status DC Warfarin Sodium (Coumadin) 4 mg DAILY16 PO Last administered on 05/11/17 16:46 ; Start 05/11/17 at 16:00 Warfarin Sodium (Coumadin) 3 mg DAILY16 PO Last administered on 05/11/17 16:46 ; Start 05/11/17 at 16:00 Active Scripts Active Reported Probiotic (Lactobacillus Combo No.10) 1 Each Capsule 1 Cap PO DAILYWBKFT Women's Daily Caplet (Multivits,Ca,Minerals/Iron/Fa) 1 Each Tablet 1 Tab PO BID Zoloft (Sertraline Hcl) 25 Mg Tablet 25 Mg PO QHS 7 Days Zoloft (Sertraline Hcl) 50 Mg Tablet 50 Mg PO QHS 3 Days Omeprazole 20 Mg Tablet.dr 20 Mg PO DAILY07 Allopurinol 100 Mg Tablet 200 Mg PO DAILYWSUP Vitamin D3 (Cholecalciferol (Vitamin D3)) 1,000 Unit Tablet 1,000 Unit PO DAILYWBKFT Oyster Shell Calcium (Calcium Carbonate) 500 Mg Tablet 500 Mg PO BIDWMEALS Cinnamon (Cinnamon Bark) 500 Mg Capsule 500 Mg PO BIDWMEALS Co Q-10 100 Mg Softgel (Ubidecarenone/Vit E Acetate) 1 Each Capsule 100 Mg PO BID Melatonin 5 Mg Tablet (Melatonin/Pyridoxine) 1 Each Tablet 5 Mg PO QHS Lutein 20 Mg Capsule 20 Mg PO QHS Ycpbyekkun-Rrserpoymbj-Pko Tab (Gluc/Victor M-Msm#2/C/D3/Anthony/Born) 1 Each Tablet 1 Tab PO BIDWMEALS Metformin Hcl 850 Mg Tablet 850 Mg PO BIDWMEALS Digoxin 125 Mcg Tablet 125 Mcg PO DAILY Tamoxifen Citrate 20 Mg Tablet 20 Mg PO DAILY Atenolol 50 Mg Tablet 50 Mg PO BID Lasix (Furosemide) 80 Mg Tablet 120 Mg PO DAILY Coumadin (Warfarin Sodium) 6 Mg Tablet 6 Mg PO QPM Potassium Chloride 10 Meq Capsule.er 10 Meq PO BID CHAU GROSS MD May 11, 2017 20:57
--- NOTE | 2017-05-11 21:30 | PDOC ---
Exam Tahir Demential Exam: Tahir Note: Please also refer to the separate dictated note~for this date of service dictated separately.~Patient seen individually. Discussed the patient with Nursing staff reviewed the chart.~Reviewed interim history and current functioning. Reviewed vital signs,~Labs/ Radiology~and current medications noted below. Continue current treatment with the changes noted in the dictated addendum note S/O: This is a late entry for date of service 05/07/2017. The patient was seen individually in the evening of May 07, discussed with nursing staff, and reviewed the chart. This note covers elements not covered in my initial note. Per nursing report, the patient has done better, still hyperverbal, disorganized , and loose associations, but not yelling or screaming. She often takes her medications properly, sometimes resist. Review of Systems: Ambulation impaired, in wheelchair. No CV, , Pulmonary, Eye, ENT system symptoms on review. MSE: Oriented to herself. Insight, judgment, recent and remote memory, attention, concentration, fund of knowledge are poor consistent with her diagnosis mentioned in my initial note. Plan: Valproic acid level is 23 on Depakote liquid 250 mg b.i.d. We will increase to 375 mg b.i.d. Family said that she did very well on Latuda and Remeron in the past and Risperdal has been tapered and she is on Latuda 40 mg a day, which we will continue together with melatonin and Remeron. Assessment: Vital Signs: Vital Signs Date Time Temp Pulse Resp B/P (MAP) Pulse Ox O2 Delivery O2 Flow Rate FiO2 05/11/17 19:46 62 120/53 05/11/17 16:03 98.5 20 99 Room Air I&O Intake and Output 05/11/17 07:00 Intake Total 1080 ml Balance 1080 ml Intake Oral 1080 ml # Voids 1 # Bowel Movements 2 Labs: Laboratory Tests Test 05/11/17 07:06 05/11/17 07:31 05/11/17 11:35 05/11/17 16:30 Glucose (Fingerstick) 139 mg/dL (70-99) H 218 mg/dL (70-99) H 184 mg/dL (70-99) H White Blood Count 5.7 x10^3/uL (4.0-11.0) Red Blood Count 4.57 x10^6/uL (3.50-5.40) Hemoglobin 12.4 g/dL (12.0-15.5) Hematocrit 38.8 % (36.0-47.0) Mean Corpuscular Volume 85 fL (79-100) Mean Corpuscular Hemoglobin 27 pg (25-35) Mean Corpuscular Hemoglobin Concent 32 g/dL (31-37) Red Cell Distribution Width 16.1 % (11.5-14.5) H Platelet Count 114 x10^3/uL (140-400) L Neutrophils (%) (Auto) 71 % (31-73) Lymphocytes (%) (Auto) 20 % (24-48) L Monocytes (%) (Auto) 6 % (0-9) Eosinophils (%) (Auto) 2 % (0-3) Basophils (%) (Auto) 0 % (0-3) Neutrophils # (Auto) 4.0 x10^3uL (1.8-7.7) Lymphocytes # (Auto) 1.1 x10^3/uL (1.0-4.8) Monocytes # (Auto) 0.3 x10^3/uL (0.0-1.1) Eosinophils # (Auto) 0.1 x10^3/uL (0.0-0.7) Basophils # (Auto) 0.0 x10^3/uL (0.0-0.2) Prothrombin Time 28.7 SEC (9.4-11.4) H Prothrombin Time INR 2.8 (0.9-1.1) H Sodium Level 140 mmol/L (136-145) Potassium Level 3.9 mmol/L (3.5-5.1) Chloride Level 101 mmol/L (98-107) Carbon Dioxide Level 35 mmol/L (21-32) H Anion Gap 4 (6-14) L Blood Urea Nitrogen 29 mg/dL (7-20) H Creatinine 1.1 mg/dL (0.6-1.0) H Estimated GFR (Cockcroft-Gault) 47.2 BUN/Creatinine Ratio 26 (6-20) H Glucose Level 159 mg/dL (70-99) H Calcium Level 9.0 mg/dL (8.5-10.1) Magnesium Level 1.4 mg/dL (1.8-2.4) L Total Bilirubin 0.4 mg/dL (0.2-1.0) Aspartate Amino Transferase (AST) 24 U/L (15-37) Alanine Aminotransferase (ALT) 27 U/L (14-59) Alkaline Phosphatase 57 U/L (46-116) Total Protein 6.8 g/dL (6.4-8.2) Albumin 3.1 g/dL (3.4-5.0) L Albumin/Globulin Ratio 0.8 (1.0-1.7) L Valproic Acid Level mcg/mL (50-100) Valproic Acid Last Dose Date 05/09/2017 Valproic Acid Last Dose Time 1700 Test 05/11/17 18:54 Glucose (Fingerstick) 210 mg/dL (70-99) H Current Medications: Meds: Current Medications Acetaminophen (Tylenol) 650 mg PRN Q6HRS PRN PO PAIN / TEMP; Start 04/30/17 at 18:30; Stop 04/30/17 at 19:53; Status DC Potassium Chloride (Klor-Con) 20 meq 1X ONCE PO Last administered on 20:51; Start 04/30/17 at 20:00; Stop 04/30/17 at 20:01; Status DC Magnesium Chloride (Mag Delay) 64 mg DAILY PO Last administered on 05/06/17 08: 16; Start 05/01/17 at 09:00; Stop 05/06/17 at 18:08; Status DC Acetaminophen (Tylenol) 650 mg PRN Q6HRS PRN PO PAIN / TEMP Last administered on 05/04/17 11:44; Start 04/30/17 at 20:00; Stop 05/05/17 at 19:37; Status DC Al Hydroxide/Mg Hydroxide (Mylanta Plus Xs) 15 ml PRN AFTMEALHC PRN PO DYSPEPSIA; Start 04/30/17 at 20:00 Magnesium Hydroxide (Milk Of Magnesia) 2,400 mg PRN QHS PRN PO CONSTIPATION; Start 04/30/17 at 20:00 Allopurinol (Zyloprim) 200 mg DAILYWSUP PO Last administered on 05/11/17 16:43 ; Start 05/01/17 at 17:00 Atenolol (Tenormin) 50 mg BID PO Last administered on 05/11/17 19:46; Start at 21:00 Calcium Carbonate/ Glycine (Oscal) 500 mg BIDWMEALS PO Last administered on 16:43; Start 05/01/17 at 08:00 Vitamin D (Vitamin D3) 1,000 unit DAILYWBKFT PO Last administered on 05/11/17 07:44; Start 05/01/17 at 08:00 Digoxin (Lanoxin) 125 mcg DAILY PO Last administered on 05/11/17 07:44; Start 05/01/17 at 09:00 Furosemide (Lasix) 120 mg DAILY PO Last administered on 05/05/17 13:31; Start 05/01/17 at 09:00; Stop 05/05/17 at 19:39; Status DC Metformin HCl (Glucophage) 850 mg BIDWMEALS PO Last administered on 05/11/17 16:43; Start 05/01/17 at 08:00 Potassium Chloride (Klor-Con) 20 meq BID PO Last administered on 05/04/17 20:37 ; Start 05/01/17 at 09:00; Stop 05/05/17 at 19:31; Status DC Warfarin Sodium (Coumadin) 6 mg DAILY16 PO Last administered on 05/01/17 16:56 ; Start 05/01/17 at 16:00; Stop 05/02/17 at 11:39; Status DC Non-Formulary Medication 500 mg BIDWMEALS PO ; Start 05/01/17 at 08:00; Stop 05/01 at 08:00; Status DC Glucosamine/ Chondroitin (Glucosamine-Chondroitin 500/400mg) 1 cap BIDWMEALS PO Last administered on 05/05/17 16:45; Start 05/01/17 at 08:00; Stop 05/05/17 at 18:18; Status DC Lactobacillus Acidophilus (Bacid, Orly-Bid) 2 tab DAILYWBKFT PO Last administered on 05/03/17 07:19; Start 05/01/17 at 08:00; Stop 05/05/17 at 18:18; Status DC Non-Formulary Medication 20 mg QHS PO ; Start 04/30/17 at 21:00; Stop 04/30/17 at 21:00; Status DC Non-Formulary Medication 5 mg QHS PO ; Start 04/30/17 at 21:00; Stop 04/30/17 at 21:00; Status DC Multivitamins/ Minerals (I-Gera) 1 tab DAILY PO Last administered on 05/03/17 07:20; Start 05/01/17 at 09:00; Stop 05/05/17 at 19:39; Status DC Pantoprazole Sodium (Protonix) 40 mg DAILYAC PO Last administered on 05/11/17 07:45; Start 05/01/17 at 07:30 Tamoxifen Citrate (Nolvadex) 20 mg DAILY PO Last administered on 05/11/17 07: 49; Start 05/01/17 at 09:00 Coenzyme Q10 (Coenzyme Q10) 100 mg BID PO Last administered on 05/04/17 20:36; Start 05/01/17 at 09:00; Stop 05/05/17 at 18:18; Status DC Sertraline HCl (Zoloft) 50 mg QHS PO Last administered on 04/30/17 20:51; Start 04/30/17 at 21:00; Stop 05/01/17 at 11:00; Status DC Melatonin 4.5 mg QHS PO Last administered on 05/04/17 20:37; Start 04/30/17 at 21:00; Stop 05/05/17 at 18:18; Status DC Olanzapine (ZyPREXA ZYDIS) 2.5 mg PRN Q4HRS PRN PO Psych Last administered on 16:52; Start 04/30/17 at 20:15 Magnesium Oxide (Magnesium Oxide) 400 mg BID PO Last administered on 05/11/17 19:46; Start 04/30/17 at 21:00 Warfarin Sodium (Coumadin) 6 mg 1X WARF ONCE PO Last administered on 20:51; Start 04/30/17 at 20:45; Stop 04/30/17 at 20:46; Status DC Warfarin Sodium (Coumadin) 0.5 mg 1X WARF ONCE PO Last administered on 20:51; Start 04/30/17 at 20:45; Stop 04/30/17 at 20:46; Status DC Warfarin Sodium (Coumadin Per Physician) 1 each PRN DAILY PRN MC SEE COMMENTS; Start 05/01/17 at 09:45; Stop 05/01/17 at 14:54; Status DC Risperidone (RisperDAL) 0.25 mg HS PO Last administered on 05/02/17 19:39; Start 05/01/17 at 21:00; Stop 05/03/17 at 18:28; Status DC Trazodone HCl (Desyrel) 100 mg QHS PO Last administered on 05/11/17 19:47; Start 05/01/17 at 21:00 Trazodone HCl (Desyrel) 100 mg PRN QHS PRN PO INSOMNIA Last administered on 05/04 00:32; Start 05/01/17 at 10:45 Insulin Detemir (Levemir) 5 units QHS SQ Last administered on 05/11/17 19:48; Start 05/01/17 at 21:00 Insulin Aspart (NovoLOG) 0-5 UNITS QIDACHS SQ Last administered on 05/11/17 16 :58; Start 05/01/17 at 16:30 Dextrose 12.5 gm PRN Q15MIN PRN IV SEE COMMENTS; Start 05/01/17 at 14:45 Warfarin Sodium (Coumadin Per Pharmacy) 1 each PRN DAILY PRN MC SEE COMMENTS Last administered on 05/11/17 10:39; Start 05/01/17 at 14:45 Insulin Aspart (NovoLOG) 10 units 1X ONCE SQ Last administered on 05/01/17 17: 15; Start 05/01/17 at 17:15; Stop 05/01/17 at 17:16; Status DC Warfarin Sodium (Coumadin) 7.5 mg 1X WARF ONCE PO Last administered on 17:16; Start 05/02/17 at 16:00; Stop 05/02/17 at 16:01; Status DC Warfarin Sodium (Coumadin) 7.5 mg 1X WARF ONCE PO Last administered on 16:18; Start 05/03/17 at 16:00; Stop 05/03/17 at 16:01; Status DC Risperidone (RisperDAL) 0.5 mg HS SL Last administered on 05/04/17 20:41; Start 05/03/17 at 21:00; Stop 05/05/17 at 19:33; Status DC Valproic Acid (Depakene) 250 mg BIDWMEALS PO Last administered on 05/07/17 16: 52; Start 05/04/17 at 08:00; Stop 05/07/17 at 18:23; Status DC Warfarin Sodium (Coumadin) 7.5 mg 1X WARF ONCE PO Last administered on 16:02; Start 05/04/17 at 16:00; Stop 05/04/17 at 16:01; Status DC Mirtazapine (Remeron) 7.5 mg QHS PO Last administered on 05/04/17 20:38; Start 05/04/17 at 21:00; Stop 05/05/17 at 19:33; Status DC Warfarin Sodium (Coumadin) 7.5 mg 1X WARF ONCE PO Last administered on 16:46; Start 05/05/17 at 16:00; Stop 05/05/17 at 16:01; Status DC Potassium Chloride (KCl Oral Soln) 20 meq BID PO Last administered on 05/09/17 09:13; Start 05/05/17 at 21:00; Stop 05/09/17 at 18:44; Status DC Risperidone (RisperDAL) 1 mg HS SL ; Start 05/05/17 at 21:00; Stop 05/06/17 at 11: 05; Status DC Mirtazapine (Remeron Olive-Tab) 7.5 mg QHS PO Last administered on 05/11/17 19: 46; Start 05/05/17 at 21:00 Acetaminophen (Tylenol) 650 mg PRN Q6HRS PRN PO PAIN / TEMP Last administered on 05/09/17 09:12; Start 05/05/17 at 19:45; Stop 05/10/17 at 08:51; Status DC Furosemide (Lasix) 120 mg DAILY PO Last administered on 05/09/17 09:43; Start 05/06/17 at 09:00; Stop 05/09/17 at 18:44; Status DC Multivitamins (Thera-Plus) 5 ml DAILY PO Last administered on 05/08/17 08:02; Start 05/06/17 at 09:00; Stop 05/10/17 at 08:51; Status DC Risperidone (RisperDAL) 0.5 mg HS SL Last administered on 05/08/17 21:49; Start 05/06/17 at 21:00; Stop 05/09/17 at 09:00; Status DC Melatonin 3 mg PRN QHS PRN PO INSOMNIA; Start 05/06/17 at 18:15 Warfarin Sodium (Coumadin) 7.5 mg 1X WARF ONCE PO Last administered on 16:51; Start 05/07/17 at 16:00; Stop 05/07/17 at 16:01; Status DC Valproic Acid (Depakene) 375 mg BIDWMEALS PO Last administered on 05/09/17 16: 27; Start 05/08/17 at 08:00; Stop 05/09/17 at 18:44; Status DC Warfarin Sodium (Coumadin) 7.5 mg 1X WARF ONCE PO Last administered on 16:53; Start 05/08/17 at 16:00; Stop 05/08/17 at 16:01; Status DC Warfarin Sodium (Coumadin) 7.5 mg 1X WARF ONCE PO Last administered on 16:26; Start 05/09/17 at 16:00; Stop 05/09/17 at 16:01; Status DC Furosemide (Lasix) 120 mg DAILY PO Last administered on 05/11/17 07:45; Start 05/10/17 at 09:00 Potassium Chloride (Klor-Con) 20 meq BID PO Last administered on 05/11/17 19: 47; Start 05/09/17 at 21:00 Divalproex Sodium (Depakote Sprinkles) 375 mg BIDWMEALS PO Last administered on 05/11/17 16:43; Start 05/10/17 at 08:00 Multivitamins/ Calcium (Thera-M Plus) 1 tab DAILY PO Last administered on 07:44; Start 05/10/17 at 09:00 Acetaminophen (Tylenol) 650 mg PRN Q6HRS PRN PO PAIN / TEMP Last administered on 05/10/17 20:24; Start 05/10/17 at 09:00 Warfarin Sodium (Coumadin) 4 mg 1X WARF ONCE PO Last administered on 16:17; Start 05/10/17 at 16:00; Stop 05/10/17 at 16:01; Status DC Warfarin Sodium (Coumadin) 3 mg 1X WARF ONCE PO Last administered on 16:17; Start 05/10/17 at 16:00; Stop 05/10/17 at 16:01; Status DC Warfarin Sodium (Coumadin) 4 mg DAILY16 PO Last administered on 05/11/17 16:46 ; Start 05/11/17 at 16:00 Warfarin Sodium (Coumadin) 3 mg DAILY16 PO Last administered on 05/11/17 16:46 ; Start 05/11/17 at 16:00 Active Scripts Active Reported Probiotic (Lactobacillus Combo No.10) 1 Each Capsule 1 Cap PO DAILYWBKFT Women's Daily Caplet (Multivits,Ca,Minerals/Iron/Fa) 1 Each Tablet 1 Tab PO BID Zoloft (Sertraline Hcl) 25 Mg Tablet 25 Mg PO QHS 7 Days Zoloft (Sertraline Hcl) 50 Mg Tablet 50 Mg PO QHS 3 Days Omeprazole 20 Mg Tablet.dr 20 Mg PO DAILY07 Allopurinol 100 Mg Tablet 200 Mg PO DAILYWSUP Vitamin D3 (Cholecalciferol (Vitamin D3)) 1,000 Unit Tablet 1,000 Unit PO DAILYWBKFT Oyster Shell Calcium (Calcium Carbonate) 500 Mg Tablet 500 Mg PO BIDWMEALS Cinnamon (Cinnamon Bark) 500 Mg Capsule 500 Mg PO BIDWMEALS Co Q-10 100 Mg Softgel (Ubidecarenone/Vit E Acetate) 1 Each Capsule 100 Mg PO BID Melatonin 5 Mg Tablet (Melatonin/Pyridoxine) 1 Each Tablet 5 Mg PO QHS Lutein 20 Mg Capsule 20 Mg PO QHS [id number] Tab (Gluc/Victor M-Msm#2/C/D3/Anthony/Born) 1 Each Tablet 1 Tab PO BIDWMEALS Metformin Hcl 850 Mg Tablet 850 Mg PO BIDWMEALS Digoxin 125 Mcg Tablet 125 Mcg PO DAILY Tamoxifen Citrate 20 Mg Tablet 20 Mg PO DAILY Atenolol 50 Mg Tablet 50 Mg PO BID Lasix (Furosemide) 80 Mg Tablet 120 Mg PO DAILY Coumadin (Warfarin Sodium) 6 Mg Tablet 6 Mg PO QPM Potassium Chloride 10 Meq Capsule.er 10 Meq PO BID CHAU GROSS MD May 11, 2017 21:29
--- NOTE | 2017-05-12 00:11 | NUR ---
Behavior Intervention Response and Plan: BIRP Note: Behavior: Assumed Care of patient, patient located in Day Room at shift change. Patient exhibited the following behavior Calm, Disorganized, Cooperative. Brief assessment on rounds of vital signs, medication needs, lab studies, and pain. Treatment plan problems 1 and 2. Intervention: Patient assessed and the following interventions initiated safety checks 15 Minute Checks Cognitive Assessment , Head to toe Assessment , Medications. Response: After interactions and interventions patient responded in the following manner, Calm , Compliant ,Cooperative. Continue to assess behaviors and condition will continue to monitor throughout the shift as needed. 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 Continue to assess patient for changes in above assessment. Monitor for medication needs, pain, and safety concerns. Hourly rounding performed to ensure safe environment.
[2017-05-12] MEDS: ACETAMINOPHEN 325 MG TABLET PO PRN (05:34)
--- NOTE | 2017-05-12 05:41 | NUR ---
Nursing Note: Pt c/o back pain this morning. PRN given.
[2017-05-12 05:57] VITALS: BP 174/77
[2017-05-12] MEDS: INSULIN ASPART 300 UNITS/3 ML INSULN.PEN SQ SCH ×4 (07:18→19:16)
[2017-05-12] MEDS: MAGNESIUM OXIDE 400 MG TABLET PO SCH ×2 (07:34→19:15)
[2017-05-12] MEDS: ATENOLOL 50 MG TABLET PO SCH ×2 (07:34→19:16)
[2017-05-12] MEDS: CALCIUM CARBONATE 500 MG TABLET PO SCH ×2 (07:35→17:08)
[2017-05-12] MEDS: DIGOXIN 125 MCG TABLET PO SCH (07:35)
[2017-05-12] MEDS: metFORMIN 850 MG TABLET PO SCH ×2 (07:35→17:08)
[2017-05-12] MEDS: CHOLECALCIFEROL (VITAMIN D3) 1,000 UNIT TABLET PO SCH (07:35)
[2017-05-12] MEDS: FUROSEMIDE 40 MG TABLET PO SCH (07:36)
[2017-05-12] MEDS: DIVALPROEX 125 MG CAP.SPRINK PO SCH ×2 (07:36→17:08)
[2017-05-12] MEDS: TAMOXIFEN 10 MG TABLET PO SCH (07:37)
[2017-05-12] MEDS: PANTOPRAZOLE 40 MG TABLET. PO SCH (07:37)
[2017-05-12] MEDS: MULTIVITAMIN with MINERAL TABLET. PO SCH (07:37)
[2017-05-12] MEDS: LURASIDONE 40 MG TABLET. PO SCH (07:37)
[2017-05-12] MEDS: POTASSIUM CHLORIDE 20 MEQ TABLET.ER. PO SCH ×2 (07:37→19:15)
--- NOTE | 2017-05-12 08:55 | NUR ---
Behavior Intervention Response and Plan: BIRP Note: Behavior: Assumed Care of patient, patient located in Dining Room at shift change. Patient exhibited the following behavior Calm, Disorganized, Cooperative. Brief assessment on rounds of vital signs, medication needs, lab studies, and pain. Treatment plan problems 1 and 2. Intervention: Patient assessed and the following interventions initiated safety checks 15 Minute Checks Cognitive Assessment , Head to toe Assessment , Medications. Response: After interactions and interventions patient responded in the following manner, Disorganized , Appropriate ,Compliant. Continue to assess behaviors and condition will continue to monitor throughout the shift as needed. 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 Continue to assess patient for changes in above assessment. Monitor for medication needs, pain, and safety concerns. Hourly rounding performed to ensure safe environment.
--- NOTE | 2017-05-12 09:00 | NUR ---
THERAPEUTIC RECREATION GROUP NOTE TITLE :Pool Noodles/ Balloon Bump, Ball Bounce ACTIVITY : Activities and Games GOAL : Increase alertness, focus, morale, decrease stress DURATION : 40 Minutes RESPONSE : Full participation. Pt. stayed with the group and was alert the entire time. She was able to follow directions well and track/catch/throw the ball with good strength and aim. She hooted and hollered a few times throughout the session.
--- NOTE | 2017-05-12 11:30 | NUR ---
THERAPEUTIC RECREATION GROUP NOTE TITLE :Movement to Music: Flexibility ACTIVITY : Movement/ Exercise GOAL : Increase morale, attention, flexibility. Decrease stress/anxiety. DURATION : 30 Minutes RESPONSE : No participation.
--- NOTE | 2017-05-12 14:15 | NUR ---
THERAPEUTIC RECREATION GROUP NOTE TITLE :What can we do ALONE, that's FREE, needs NO SUPPLIES, that's FUN, and RELAXING? ACTIVITY : Leisure Awareness GOAL : Increase knowledge of leisure activities DURATION : 45 Minutes RESPONSE : Moderate participation. Pt. sat with the group the entire time. She was calm, quiet, and waited patiently for her turn. She selected a folded piece of paper but did not read the activity aloud. She smiled occasionally and was pleasant.
--- NOTE | 2017-05-12 14:15 | NUR ---
wound care patient seen per f/u of wound care consult. see wound assessment. wound to the right lateral lower leg wound is open an has a minimal amount of yellow drainage, patient has very edematous lower legs, recommendations of an Aquacel foam, change every 3-4 days or prn if saturated, and a Medigrip. notified AXEL Shaw about the POC and wound care will continue to f/u for possible changes.
[2017-05-12 16:13] VITALS: BP 138/84
[2017-05-12] MEDS: WARFARIN 3 MG TABLET. PO SCH (17:08)
[2017-05-12] MEDS: WARFARIN 4 MG TABLET. PO SCH (17:08)
[2017-05-12] MEDS: ALLOPURINOL 100 MG TABLET. PO SCH (17:09)
[2017-05-12] MEDS: MIRTAZAPINE 15 MG TAB.RAPDIS PO SCH (19:15)
[2017-05-12] MEDS: INSULIN DETEMIR 300 UNITS/3 ML INSULN.PEN. SQ SCH (19:17)
--- NOTE | 2017-05-12 19:56 | PDOC ---
Exam Tahir Demential Exam: Tahir Note: Please also refer to the separate dictated note~for this date of service dictated separately.~Patient seen individually. Discussed the patient with Nursing staff reviewed the chart.~Reviewed interim history and current functioning. Reviewed vital signs,~Labs/ Radiology~and current medications noted below. Continue current treatment with the changes noted in the dictated addendum note Assessment: Vital Signs: Vital Signs Date Time Temp Pulse Resp B/P (MAP) Pulse Ox O2 Delivery O2 Flow Rate FiO2 05/12/17 19:16 56 138/84 05/12/17 16:13 97.8 18 96 Room Air I&O Intake and Output 05/12/17 07:00 Intake Total 1200 ml Balance 1200 ml Intake Oral 1200 ml # Voids 3 Labs: Laboratory Tests Test 05/12/17 07:08 05/12/17 11:52 05/12/17 17:05 05/12/17 18:55 Glucose (Fingerstick) 141 mg/dL (70-99) H 183 mg/dL (70-99) H 196 mg/dL (70-99) H 225 mg/dL (70-99) H Current Medications: Meds: Current Medications Acetaminophen (Tylenol) 650 mg PRN Q6HRS PRN PO PAIN / TEMP; Start 04/30/17 at 18:30; Stop 04/30/17 at 19:53; Status DC Potassium Chloride (Klor-Con) 20 meq 1X ONCE PO Last administered on 20:51; Start 04/30/17 at 20:00; Stop 04/30/17 at 20:01; Status DC Magnesium Chloride (Mag Delay) 64 mg DAILY PO Last administered on 05/06/17 08: 16; Start 05/01/17 at 09:00; Stop 05/06/17 at 18:08; Status DC Acetaminophen (Tylenol) 650 mg PRN Q6HRS PRN PO PAIN / TEMP Last administered on 05/04/17 11:44; Start 04/30/17 at 20:00; Stop 05/05/17 at 19:37; Status DC Al Hydroxide/Mg Hydroxide (Mylanta Plus Xs) 15 ml PRN AFTMEALHC PRN PO DYSPEPSIA; Start 04/30/17 at 20:00 Magnesium Hydroxide (Milk Of Magnesia) 2,400 mg PRN QHS PRN PO CONSTIPATION Last administered on 05/12/17 19:28; Start 04/30/17 at 20:00 Allopurinol (Zyloprim) 200 mg DAILYWSUP PO Last administered on 05/12/17 17:09 ; Start 05/01/17 at 17:00 Atenolol (Tenormin) 50 mg BID PO Last administered on 05/12/17 19:16; Start at 21:00 Calcium Carbonate/ Glycine (Oscal) 500 mg BIDWMEALS PO Last administered on 17:08; Start 05/01/17 at 08:00 Vitamin D (Vitamin D3) 1,000 unit DAILYWBKFT PO Last administered on 05/12/17 07:35; Start 05/01/17 at 08:00 Digoxin (Lanoxin) 125 mcg DAILY PO Last administered on 05/12/17 07:35; Start 05/01/17 at 09:00 Furosemide (Lasix) 120 mg DAILY PO Last administered on 05/05/17 13:31; Start 05/01/17 at 09:00; Stop 05/05/17 at 19:39; Status DC Metformin HCl (Glucophage) 850 mg BIDWMEALS PO Last administered on 05/12/17 17:08; Start 05/01/17 at 08:00 Potassium Chloride (Klor-Con) 20 meq BID PO Last administered on 05/04/17 20:37 ; Start 05/01/17 at 09:00; Stop 05/05/17 at 19:31; Status DC Warfarin Sodium (Coumadin) 6 mg DAILY16 PO Last administered on 05/01/17 16:56 ; Start 05/01/17 at 16:00; Stop 05/02/17 at 11:39; Status DC Non-Formulary Medication 500 mg BIDWMEALS PO ; Start 05/01/17 at 08:00; Stop 05/01 at 08:00; Status DC Glucosamine/ Chondroitin (Glucosamine-Chondroitin 500/400mg) 1 cap BIDWMEALS PO Last administered on 05/05/17 16:45; Start 05/01/17 at 08:00; Stop 05/05/17 at 18:18; Status DC Lactobacillus Acidophilus (Bacid, Orly-Bid) 2 tab DAILYWBKFT PO Last administered on 05/03/17 07:19; Start 05/01/17 at 08:00; Stop 05/05/17 at 18:18; Status DC Non-Formulary Medication 20 mg QHS PO ; Start 04/30/17 at 21:00; Stop 04/30/17 at 21:00; Status DC Non-Formulary Medication 5 mg QHS PO ; Start 04/30/17 at 21:00; Stop 04/30/17 at 21:00; Status DC Multivitamins/ Minerals (I-Gera) 1 tab DAILY PO Last administered on 05/03/17 07:20; Start 05/01/17 at 09:00; Stop 05/05/17 at 19:39; Status DC Pantoprazole Sodium (Protonix) 40 mg DAILYAC PO Last administered on 05/12/17 07:37; Start 05/01/17 at 07:30 Tamoxifen Citrate (Nolvadex) 20 mg DAILY PO Last administered on 05/12/17 07: 37; Start 05/01/17 at 09:00 Coenzyme Q10 (Coenzyme Q10) 100 mg BID PO Last administered on 05/04/17 20:36; Start 05/01/17 at 09:00; Stop 05/05/17 at 18:18; Status DC Sertraline HCl (Zoloft) 50 mg QHS PO Last administered on 04/30/17 20:51; Start 04/30/17 at 21:00; Stop 05/01/17 at 11:00; Status DC Melatonin 4.5 mg QHS PO Last administered on 05/04/17 20:37; Start 04/30/17 at 21:00; Stop 05/05/17 at 18:18; Status DC Olanzapine (ZyPREXA ZYDIS) 2.5 mg PRN Q4HRS PRN PO Psych Last administered on 16:52; Start 04/30/17 at 20:15 Magnesium Oxide (Magnesium Oxide) 400 mg BID PO Last administered on 05/12/17 19:15; Start 04/30/17 at 21:00 Warfarin Sodium (Coumadin) 6 mg 1X WARF ONCE PO Last administered on 20:51; Start 04/30/17 at 20:45; Stop 04/30/17 at 20:46; Status DC Warfarin Sodium (Coumadin) 0.5 mg 1X WARF ONCE PO Last administered on 20:51; Start 04/30/17 at 20:45; Stop 04/30/17 at 20:46; Status DC Warfarin Sodium (Coumadin Per Physician) 1 each PRN DAILY PRN MC SEE COMMENTS; Start 05/01/17 at 09:45; Stop 05/01/17 at 14:54; Status DC Risperidone (RisperDAL) 0.25 mg HS PO Last administered on 05/02/17 19:39; Start 05/01/17 at 21:00; Stop 05/03/17 at 18:28; Status DC Trazodone HCl (Desyrel) 100 mg QHS PO Last administered on 05/11/17 19:47; Start 05/01/17 at 21:00 Trazodone HCl (Desyrel) 100 mg PRN QHS PRN PO INSOMNIA Last administered on 05/04 00:32; Start 05/01/17 at 10:45 Insulin Detemir (Levemir) 5 units QHS SQ Last administered on 05/12/17 19:17; Start 05/01/17 at 21:00 Insulin Aspart (NovoLOG) 0-5 UNITS QIDACHS SQ Last administered on 05/12/17 17 :14; Start 05/01/17 at 16:30 Dextrose 12.5 gm PRN Q15MIN PRN IV SEE COMMENTS; Start 05/01/17 at 14:45 Warfarin Sodium (Coumadin Per Pharmacy) 1 each PRN DAILY PRN MC SEE COMMENTS Last administered on 05/11/17 10:39; Start 05/01/17 at 14:45 Insulin Aspart (NovoLOG) 10 units 1X ONCE SQ Last administered on 05/01/17 17: 15; Start 05/01/17 at 17:15; Stop 05/01/17 at 17:16; Status DC Warfarin Sodium (Coumadin) 7.5 mg 1X WARF ONCE PO Last administered on 17:16; Start 05/02/17 at 16:00; Stop 05/02/17 at 16:01; Status DC Warfarin Sodium (Coumadin) 7.5 mg 1X WARF ONCE PO Last administered on 16:18; Start 05/03/17 at 16:00; Stop 05/03/17 at 16:01; Status DC Risperidone (RisperDAL) 0.5 mg HS SL Last administered on 05/04/17 20:41; Start 05/03/17 at 21:00; Stop 05/05/17 at 19:33; Status DC Valproic Acid (Depakene) 250 mg BIDWMEALS PO Last administered on 05/07/17 16: 52; Start 05/04/17 at 08:00; Stop 05/07/17 at 18:23; Status DC Warfarin Sodium (Coumadin) 7.5 mg 1X WARF ONCE PO Last administered on 16:02; Start 05/04/17 at 16:00; Stop 05/04/17 at 16:01; Status DC Mirtazapine (Remeron) 7.5 mg QHS PO Last administered on 05/04/17 20:38; Start 05/04/17 at 21:00; Stop 05/05/17 at 19:33; Status DC Warfarin Sodium (Coumadin) 7.5 mg 1X WARF ONCE PO Last administered on 16:46; Start 05/05/17 at 16:00; Stop 05/05/17 at 16:01; Status DC Potassium Chloride (KCl Oral Soln) 20 meq BID PO Last administered on 05/09/17 09:13; Start 05/05/17 at 21:00; Stop 05/09/17 at 18:44; Status DC Risperidone (RisperDAL) 1 mg HS SL ; Start 05/05/17 at 21:00; Stop 05/06/17 at 11: 05; Status DC Mirtazapine (Remeron Olive-Tab) 7.5 mg QHS PO Last administered on 05/12/17 19: 15; Start 05/05/17 at 21:00 Acetaminophen (Tylenol) 650 mg PRN Q6HRS PRN PO PAIN / TEMP Last administered on 05/09/17 09:12; Start 05/05/17 at 19:45; Stop 05/10/17 at 08:51; Status DC Furosemide (Lasix) 120 mg DAILY PO Last administered on 05/09/17 09:43; Start 05/06/17 at 09:00; Stop 05/09/17 at 18:44; Status DC Multivitamins (Thera-Plus) 5 ml DAILY PO Last administered on 05/08/17 08:02; Start 05/06/17 at 09:00; Stop 05/10/17 at 08:51; Status DC Risperidone (RisperDAL) 0.5 mg HS SL Last administered on 05/08/17 21:49; Start 05/06/17 at 21:00; Stop 05/09/17 at 09:00; Status DC Melatonin 3 mg PRN QHS PRN PO INSOMNIA; Start 05/06/17 at 18:15 Warfarin Sodium (Coumadin) 7.5 mg 1X WARF ONCE PO Last administered on 16:51; Start 05/07/17 at 16:00; Stop 05/07/17 at 16:01; Status DC Valproic Acid (Depakene) 375 mg BIDWMEALS PO Last administered on 05/09/17 16: 27; Start 05/08/17 at 08:00; Stop 05/09/17 at 18:44; Status DC Warfarin Sodium (Coumadin) 7.5 mg 1X WARF ONCE PO Last administered on 16:53; Start 05/08/17 at 16:00; Stop 05/08/17 at 16:01; Status DC Warfarin Sodium (Coumadin) 7.5 mg 1X WARF ONCE PO Last administered on 16:26; Start 05/09/17 at 16:00; Stop 05/09/17 at 16:01; Status DC Furosemide (Lasix) 120 mg DAILY PO Last administered on 05/12/17 07:36; Start 05/10/17 at 09:00 Potassium Chloride (Klor-Con) 20 meq BID PO Last administered on 05/12/17 19: 15; Start 05/09/17 at 21:00 Divalproex Sodium (Depakote Sprinkles) 375 mg BIDWMEALS PO Last administered on 05/12/17 17:08; Start 05/10/17 at 08:00 Multivitamins/ Calcium (Thera-M Plus) 1 tab DAILY PO Last administered on 07:37; Start 05/10/17 at 09:00 Acetaminophen (Tylenol) 650 mg PRN Q6HRS PRN PO PAIN / TEMP Last administered on 05/12/17 05:34; Start 05/10/17 at 09:00 Warfarin Sodium (Coumadin) 4 mg 1X WARF ONCE PO Last administered on 16:17; Start 05/10/17 at 16:00; Stop 05/10/17 at 16:01; Status DC Warfarin Sodium (Coumadin) 3 mg 1X WARF ONCE PO Last administered on 16:17; Start 05/10/17 at 16:00; Stop 05/10/17 at 16:01; Status DC Warfarin Sodium (Coumadin) 4 mg DAILY16 PO Last administered on 05/12/17 17:08 ; Start 05/11/17 at 16:00 Warfarin Sodium (Coumadin) 3 mg DAILY16 PO Last administered on 05/12/17 17:08 ; Start 05/11/17 at 16:00 Active Scripts Active Reported Probiotic (Lactobacillus Combo No.10) 1 Each Capsule 1 Cap PO DAILYWBKFT Women's Daily Caplet (Multivits,Ca,Minerals/Iron/Fa) 1 Each Tablet 1 Tab PO BID Zoloft (Sertraline Hcl) 25 Mg Tablet 25 Mg PO QHS 7 Days Zoloft (Sertraline Hcl) 50 Mg Tablet 50 Mg PO QHS 3 Days Omeprazole 20 Mg Tablet.dr 20 Mg PO DAILY07 Allopurinol 100 Mg Tablet 200 Mg PO DAILYWSUP Vitamin D3 (Cholecalciferol (Vitamin D3)) 1,000 Unit Tablet 1,000 Unit PO DAILYWBKFT Oyster Shell Calcium (Calcium Carbonate) 500 Mg Tablet 500 Mg PO BIDWMEALS Cinnamon (Cinnamon Bark) 500 Mg Capsule 500 Mg PO BIDWMEALS Co Q-10 100 Mg Softgel (Ubidecarenone/Vit E Acetate) 1 Each Capsule 100 Mg PO BID Melatonin 5 Mg Tablet (Melatonin/Pyridoxine) 1 Each Tablet 5 Mg PO QHS Lutein 20 Mg Capsule 20 Mg PO QHS Ynrkxnhjfg-Urajyouengc-Oiz Tab (Gluc/Victor M-Msm#2/C/D3/Anthony/Born) 1 Each Tablet 1 Tab PO BIDWMEALS Metformin Hcl 850 Mg Tablet 850 Mg PO BIDWMEALS Digoxin 125 Mcg Tablet 125 Mcg PO DAILY Tamoxifen Citrate 20 Mg Tablet 20 Mg PO DAILY Atenolol 50 Mg Tablet 50 Mg PO BID Lasix (Furosemide) 80 Mg Tablet 120 Mg PO DAILY Coumadin (Warfarin Sodium) 6 Mg Tablet 6 Mg PO QPM Potassium Chloride 10 Meq Capsule.er 10 Meq PO BID Diagnosis: Problems: (1) Anxiety disorder (2) Impulse control disorder (3) Bipolar affective, mixed, sev w/ psych (4) Dementia, vascular, 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
[2017-05-12] MEDS: traZODone 100 MG TABLET. PO SCH (20:13)
--- NOTE | 2017-05-12 20:25 | PDOC ---
Exam Tahir Demential Exam: Tahir Note: Please also refer to the separate dictated note~for this date of service dictated separately.~Patient seen individually. Discussed the patient with Nursing staff reviewed the chart.~Reviewed interim history and current functioning. Reviewed vital signs,~Labs/ Radiology~and current medications noted below. Continue current treatment with the changes noted in the dictated addendum note S/O: This is a late entry for date of service 05/08 and covers elements not covered in my initial note. The patient is seen individually on evening of . Overall per nursing report, the patient remains confused, but calm, compliant, still disorganized in her thinking. Review of Systems: Ambulation impaired, in wheelchair. No CV, , Pulmonary, Eye systems symptoms on review. MSE: Oriented to herself. Pressure of speech is evident, disorganized as I met with her. Insight and judgment, recent and remote memory, attention and concentration, fund of knowledge poor consistent with her diagnosis mentioned in my initial note. Plan: Continue psychotropics mentioned in my initial note including Latuda and Risperdal has been tapered. Adjust further as clinically indicated. Assessment: Vital Signs: Vital Signs Date Time Temp Pulse Resp B/P (MAP) Pulse Ox O2 Delivery O2 Flow Rate FiO2 05/12/17 19:16 56 138/84 05/12/17 16:13 97.8 18 96 Room Air I&O Intake and Output 05/12/17 07:00 Intake Total 1200 ml Balance 1200 ml Intake Oral 1200 ml # Voids 3 Labs: Laboratory Tests Test 05/12/17 07:08 05/12/17 11:52 05/12/17 17:05 05/12/17 18:55 Glucose (Fingerstick) 141 mg/dL (70-99) H 183 mg/dL (70-99) H 196 mg/dL (70-99) H 225 mg/dL (70-99) H Current Medications: Meds: Current Medications Acetaminophen (Tylenol) 650 mg PRN Q6HRS PRN PO PAIN / TEMP; Start 04/30/17 at 18:30; Stop 04/30/17 at 19:53; Status DC Potassium Chloride (Klor-Con) 20 meq 1X ONCE PO Last administered on t 20:51; Start 04/30/17 at 20:00; Stop 04/30/17 at 20:01; Status DC Magnesium Chloride (Mag Delay) 64 mg DAILY PO Last administered on 05/06/17 08: 16; Start 05/01/17 at 09:00; Stop 05/06/17 at 18:08; Status DC Acetaminophen (Tylenol) 650 mg PRN Q6HRS PRN PO PAIN / TEMP Last administered on 05/04/17 11:44; Start 04/30/17 at 20:00; Stop 05/05/17 at 19:37; Status DC Al Hydroxide/Mg Hydroxide (Mylanta Plus Xs) 15 ml PRN AFTMEALHC PRN PO DYSPEPSIA; Start 04/30/17 at 20:00 Magnesium Hydroxide (Milk Of Magnesia) 2,400 mg PRN QHS PRN PO CONSTIPATION Last administered on 05/12/17 19:28; Start 04/30/17 at 20:00 Allopurinol (Zyloprim) 200 mg DAILYWSUP PO Last administered on 05/12/17 17:09 ; Start 05/01/17 at 17:00 Atenolol (Tenormin) 50 mg BID PO Last administered on 05/12/17 19:16; Start at 21:00 Calcium Carbonate/ Glycine (Oscal) 500 mg BIDWMEALS PO Last administered on 17:08; Start 05/01/17 at 08:00 Vitamin D (Vitamin D3) 1,000 unit DAILYWBKFT PO Last administered on 05/12/17 07:35; Start 05/01/17 at 08:00 Digoxin (Lanoxin) 125 mcg DAILY PO Last administered on 05/12/17 07:35; Start 05/01/17 at 09:00 Furosemide (Lasix) 120 mg DAILY PO Last administered on 05/05/17 13:31; Start 05/01/17 at 09:00; Stop 05/05/17 at 19:39; Status DC Metformin HCl (Glucophage) 850 mg BIDWMEALS PO Last administered on 05/12/17 17:08; Start 05/01/17 at 08:00 Potassium Chloride (Klor-Con) 20 meq BID PO Last administered on 05/04/17 20:37 ; Start 05/01/17 at 09:00; Stop 05/05/17 at 19:31; Status DC Warfarin Sodium (Coumadin) 6 mg DAILY16 PO Last administered on 05/01/17 16:56 ; Start 05/01/17 at 16:00; Stop 05/02/17 at 11:39; Status DC Non-Formulary Medication 500 mg BIDWMEALS PO ; Start 05/01/17 at 08:00; Stop 05/01 at 08:00; Status DC Glucosamine/ Chondroitin (Glucosamine-Chondroitin 500/400mg) 1 cap BIDWMEALS PO Last administered on 05/05/17 16:45; Start 05/01/17 at 08:00; Stop 05/05/17 at 18:18; Status DC Lactobacillus Acidophilus (Bacid, Orly-Bid) 2 tab DAILYWBKFT PO Last administered on 05/03/17 07:19; Start 05/01/17 at 08:00; Stop 05/05/17 at 18:18; Status DC Non-Formulary Medication 20 mg QHS PO ; Start 04/30/17 at 21:00; Stop 04/30/17 at 21:00; Status DC Non-Formulary Medication 5 mg QHS PO ; Start 04/30/17 at 21:00; Stop 04/30/17 at 21:00; Status DC Multivitamins/ Minerals (I-Gera) 1 tab DAILY PO Last administered on 05/03/17 07:20; Start 05/01/17 at 09:00; Stop 05/05/17 at 19:39; Status DC Pantoprazole Sodium (Protonix) 40 mg DAILYAC PO Last administered on 05/12/17 07:37; Start 05/01/17 at 07:30 Tamoxifen Citrate (Nolvadex) 20 mg DAILY PO Last administered on 05/12/17 07: 37; Start 05/01/17 at 09:00 Coenzyme Q10 (Coenzyme Q10) 100 mg BID PO Last administered on 05/04/17 20:36; Start 05/01/17 at 09:00; Stop 05/05/17 at 18:18; Status DC Sertraline HCl (Zoloft) 50 mg QHS PO Last administered on 04/30/17 20:51; Start 04/30/17 at 21:00; Stop 05/01/17 at 11:00; Status DC Melatonin 4.5 mg QHS PO Last administered on 05/04/17 20:37; Start 04/30/17 at 21:00; Stop 05/05/17 at 18:18; Status DC Olanzapine (ZyPREXA ZYDIS) 2.5 mg PRN Q4HRS PRN PO Psych Last administered on 16:52; Start 04/30/17 at 20:15 Magnesium Oxide (Magnesium Oxide) 400 mg BID PO Last administered on 05/12/17 19:15; Start 04/30/17 at 21:00 Warfarin Sodium (Coumadin) 6 mg 1X WARF ONCE PO Last administered on 20:51; Start 04/30/17 at 20:45; Stop 04/30/17 at 20:46; Status DC Warfarin Sodium (Coumadin) 0.5 mg 1X WARF ONCE PO Last administered on 20:51; Start 04/30/17 at 20:45; Stop 04/30/17 at 20:46; Status DC Warfarin Sodium (Coumadin Per Physician) 1 each PRN DAILY PRN MC SEE COMMENTS; Start 05/01/17 at 09:45; Stop 05/01/17 at 14:54; Status DC Risperidone (RisperDAL) 0.25 mg HS PO Last administered on 05/02/17 19:39; Start 05/01/17 at 21:00; Stop 05/03/17 at 18:28; Status DC Trazodone HCl (Desyrel) 100 mg QHS PO Last administered on 05/12/17 20:13; Start 05/01/17 at 21:00 Trazodone HCl (Desyrel) 100 mg PRN QHS PRN PO INSOMNIA Last administered on 05/04 00:32; Start 05/01/17 at 10:45 Insulin Detemir (Levemir) 5 units QHS SQ Last administered on 05/12/17 19:17; Start 05/01/17 at 21:00 Insulin Aspart (NovoLOG) 0-5 UNITS QIDACHS SQ Last administered on 05/12/17 17 :14; Start 05/01/17 at 16:30 Dextrose 12.5 gm PRN Q15MIN PRN IV SEE COMMENTS; Start 05/01/17 at 14:45 Warfarin Sodium (Coumadin Per Pharmacy) 1 each PRN DAILY PRN MC SEE COMMENTS Last administered on 05/11/17 10:39; Start 05/01/17 at 14:45 Insulin Aspart (NovoLOG) 10 units 1X ONCE SQ Last administered on 05/01/17 17: 15; Start 05/01/17 at 17:15; Stop 05/01/17 at 17:16; Status DC Warfarin Sodium (Coumadin) 7.5 mg 1X WARF ONCE PO Last administered on 17:16; Start 05/02/17 at 16:00; Stop 05/02/17 at 16:01; Status DC Warfarin Sodium (Coumadin) 7.5 mg 1X WARF ONCE PO Last administered on 16:18; Start 05/03/17 at 16:00; Stop 05/03/17 at 16:01; Status DC Risperidone (RisperDAL) 0.5 mg HS SL Last administered on 05/04/17 20:41; Start 05/03/17 at 21:00; Stop 05/05/17 at 19:33; Status DC Valproic Acid (Depakene) 250 mg BIDWMEALS PO Last administered on 05/07/17 16: 52; Start 05/04/17 at 08:00; Stop 05/07/17 at 18:23; Status DC Warfarin Sodium (Coumadin) 7.5 mg 1X WARF ONCE PO Last administered on 16:02; Start 05/04/17 at 16:00; Stop 05/04/17 at 16:01; Status DC Mirtazapine (Remeron) 7.5 mg QHS PO Last administered on 05/04/17 20:38; Start 05/04/17 at 21:00; Stop 05/05/17 at 19:33; Status DC Warfarin Sodium (Coumadin) 7.5 mg 1X WARF ONCE PO Last administered on 16:46; Start 05/05/17 at 16:00; Stop 05/05/17 at 16:01; Status DC Potassium Chloride (KCl Oral Soln) 20 meq BID PO Last administered on 05/09/17 09:13; Start 05/05/17 at 21:00; Stop 05/09/17 at 18:44; Status DC Risperidone (RisperDAL) 1 mg HS SL ; Start 05/05/17 at 21:00; Stop 05/06/17 at 11: 05; Status DC Mirtazapine (Remeron Olive-Tab) 7.5 mg QHS PO Last administered on 05/12/17 19: 15; Start 05/05/17 at 21:00 Acetaminophen (Tylenol) 650 mg PRN Q6HRS PRN PO PAIN / TEMP Last administered on 05/09/17 09:12; Start 05/05/17 at 19:45; Stop 05/10/17 at 08:51; Status DC Furosemide (Lasix) 120 mg DAILY PO Last administered on 05/09/17 09:43; Start 05/06/17 at 09:00; Stop 05/09/17 at 18:44; Status DC Multivitamins (Thera-Plus) 5 ml DAILY PO Last administered on 05/08/17 08:02; Start 05/06/17 at 09:00; Stop 05/10/17 at 08:51; Status DC Risperidone (RisperDAL) 0.5 mg HS SL Last administered on 05/08/17 21:49; Start 05/06/17 at 21:00; Stop 05/09/17 at 09:00; Status DC Melatonin 3 mg PRN QHS PRN PO INSOMNIA; Start 05/06/17 at 18:15 Warfarin Sodium (Coumadin) 7.5 mg 1X WARF ONCE PO Last administered on 16:51; Start 05/07/17 at 16:00; Stop 05/07/17 at 16:01; Status DC Valproic Acid (Depakene) 375 mg BIDWMEALS PO Last administered on 05/09/17 16: 27; Start 05/08/17 at 08:00; Stop 05/09/17 at 18:44; Status DC Warfarin Sodium (Coumadin) 7.5 mg 1X WARF ONCE PO Last administered on 16:53; Start 05/08/17 at 16:00; Stop 05/08/17 at 16:01; Status DC Warfarin Sodium (Coumadin) 7.5 mg 1X WARF ONCE PO Last administered on 16:26; Start 05/09/17 at 16:00; Stop 05/09/17 at 16:01; Status DC Furosemide (Lasix) 120 mg DAILY PO Last administered on 05/12/17 07:36; Start 05/10/17 at 09:00 Potassium Chloride (Klor-Con) 20 meq BID PO Last administered on 05/12/17 19: 15; Start 05/09/17 at 21:00 Divalproex Sodium (Depakote Sprinkles) 375 mg BIDWMEALS PO Last administered on 05/12/17 17:08; Start 05/10/17 at 08:00 Multivitamins/ Calcium (Thera-M Plus) 1 tab DAILY PO Last administered on 07:37; Start 05/10/17 at 09:00 Acetaminophen (Tylenol) 650 mg PRN Q6HRS PRN PO PAIN / TEMP Last administered on 05/12/17 05:34; Start 05/10/17 at 09:00 Warfarin Sodium (Coumadin) 4 mg 1X WARF ONCE PO Last administered on 16:17; Start 05/10/17 at 16:00; Stop 05/10/17 at 16:01; Status DC Warfarin Sodium (Coumadin) 3 mg 1X WARF ONCE PO Last administered on 16:17; Start 05/10/17 at 16:00; Stop 05/10/17 at 16:01; Status DC Warfarin Sodium (Coumadin) 4 mg DAILY16 PO Last administered on 05/12/17 17:08 ; Start 05/11/17 at 16:00 Warfarin Sodium (Coumadin) 3 mg DAILY16 PO Last administered on 05/12/17 17:08 ; Start 05/11/17 at 16:00 Active Scripts Active Reported Probiotic (Lactobacillus Combo No.10) 1 Each Capsule 1 Cap PO DAILYWBKFT Women's Daily Caplet (Multivits,Ca,Minerals/Iron/Fa) 1 Each Tablet 1 Tab PO BID Zoloft (Sertraline Hcl) 25 Mg Tablet 25 Mg PO QHS 7 Days Zoloft (Sertraline Hcl) 50 Mg Tablet 50 Mg PO QHS 3 Days Omeprazole 20 Mg Tablet.dr 20 Mg PO DAILY07 Allopurinol 100 Mg Tablet 200 Mg PO DAILYWSUP Vitamin D3 (Cholecalciferol (Vitamin D3)) 1,000 Unit Tablet 1,000 Unit PO DAILYWBK Oyster Shell Calcium (Calcium Carbonate) 500 Mg Tablet 500 Mg PO BIDWMEALS Cinnamon (Cinnamon Bark) 500 Mg Capsule 500 Mg PO BIDWMEALS Co Q-10 100 Mg Softgel (Ubidecarenone/Vit E Acetate) 1 Each Capsule 100 Mg PO BID Melatonin 5 Mg Tablet (Melatonin/Pyridoxine) 1 Each Tablet 5 Mg PO QHS Lutein 20 Mg Capsule 20 Mg PO QHS Wyjspteyut-Ziozfhspbir-Ycl Tab (Gluc/Victor M-Msm#2/C/D3/Anthony/Born) 1 Each Tablet 1 Tab PO BIDWMEALS Metformin Hcl 850 Mg Tablet 850 Mg PO BIDWMEALS Digoxin 125 Mcg Tablet 125 Mcg PO DAILY Tamoxifen Citrate 20 Mg Tablet 20 Mg PO DAILY Atenolol 50 Mg Tablet 50 Mg PO BID Lasix (Furosemide) 80 Mg Tablet 120 Mg PO DAILY Coumadin (Warfarin Sodium) 6 Mg Tablet 6 Mg PO QPM Potassium Chloride 10 Meq Capsule.er 10 Meq PO BID CHAU GROSS MD May 12, 2017 20:25
--- NOTE | 2017-05-12 21:00 | PDOC ---
Exam Tahir Demential Exam: Tahir Note: Please also refer to the separate dictated note~for this date of service dictated separately.~Patient seen individually. Discussed the patient with Nursing staff reviewed the chart.~Reviewed interim history and current functioning. Reviewed vital signs,~Labs/ Radiology~and current medications noted below. Continue current treatment with the changes noted in the dictated addendum note S/O: This is a late entry for date of service 05/09/2017 and covers elements not covered in my initial note. Overall, per nursing report, the patient is not likely compliant with medications. Family concerned that she is not at her baseline and curious about discharge date, which was scheduled for this coming Wednesday. We may have to postpone it. Nursing reports that the patient has been calm, compliant, and certainly confused. Review of Systems: Ambulation impaired, in wheelchair. No CV, , Pulmonary, Eye system symptoms on review. Reliability is poor. MSE: Oriented to herself. Insight, judgment, recent and remote memory, attention, concentration, and fund of knowledge are poor consistent with her diagnosis mentioned in my initial note. Imp: Bipolar I disorder mixed with psychotic features; major neurocognitive disorder, Alzheimer vascular with delusions; anxiety disorder unspecified; impulse control disorder unspecified. Plan: Repeat CT head to make sure there is no CVA to account for her confusion. Stop the Risperdal and increase Latuda to 60 mg a day. The patient continues to have some miming. I met with her in the evening of May 09. Assessment: Vital Signs: Vital Signs Date Time Temp Pulse Resp B/P (MAP) Pulse Ox O2 Delivery O2 Flow Rate FiO2 05/12/17 19:16 56 138/84 05/12/17 16:13 97.8 18 96 Room Air I&O Intake and Output 05/12/17 07:00 Intake Total 1200 ml Balance 1200 ml Intake Oral 1200 ml # Voids 3 Labs: Laboratory Tests Test 05/12/17 07:08 05/12/17 11:52 05/12/17 17:05 05/12/17 18:55 Glucose (Fingerstick) 141 mg/dL (70-99) H 183 mg/dL (70-99) H 196 mg/dL (70-99) H 225 mg/dL (70-99) H Current Medications: Meds: Current Medications Acetaminophen (Tylenol) 650 mg PRN Q6HRS PRN PO PAIN / TEMP; Start 04/30/17 at 18:30; Stop 04/30/17 at 19:53; Status DC Potassium Chloride (Klor-Con) 20 meq 1X ONCE PO Last administered on 20:51; Start 04/30/17 at 20:00; Stop 04/30/17 at 20:01; Status DC Magnesium Chloride (Mag Delay) 64 mg DAILY PO Last administered on 05/06/17 08: 16; Start 05/01/17 at 09:00; Stop 05/06/17 at 18:08; Status DC Acetaminophen (Tylenol) 650 mg PRN Q6HRS PRN PO PAIN / TEMP Last administered on 05/04/17 11:44; Start 04/30/17 at 20:00; Stop 05/05/17 at 19:37; Status DC Al Hydroxide/Mg Hydroxide (Mylanta Plus Xs) 15 ml PRN AFTMEALHC PRN PO DYSPEPSIA; Start 04/30/17 at 20:00 Magnesium Hydroxide (Milk Of Magnesia) 2,400 mg PRN QHS PRN PO CONSTIPATION Last administered on 05/12/17 19:28; Start 04/30/17 at 20:00 Allopurinol (Zyloprim) 200 mg DAILYWSUP PO Last administered on 05/12/17 17:09 ; Start 05/01/17 at 17:00 Atenolol (Tenormin) 50 mg BID PO Last administered on 05/12/17 19:16; Start at 21:00 Calcium Carbonate/ Glycine (Oscal) 500 mg BIDWMEALS PO Last administered on 17:08; Start 05/01/17 at 08:00 Vitamin D (Vitamin D3) 1,000 unit DAILYWBKFT PO Last administered on 05/12/17 07:35; Start 05/01/17 at 08:00 Digoxin (Lanoxin) 125 mcg DAILY PO Last administered on 05/12/17 07:35; Start 05/01/17 at 09:00 Furosemide (Lasix) 120 mg DAILY PO Last administered on 05/05/17 13:31; Start 05/01/17 at 09:00; Stop 05/05/17 at 19:39; Status DC Metformin HCl (Glucophage) 850 mg BIDWMEALS PO Last administered on 05/12/17 17:08; Start 05/01/17 at 08:00 Potassium Chloride (Klor-Con) 20 meq BID PO Last administered on 05/04/17 20:37 ; Start 05/01/17 at 09:00; Stop 05/05/17 at 19:31; Status DC Warfarin Sodium (Coumadin) 6 mg DAILY16 PO Last administered on 05/01/17 16:56 ; Start 05/01/17 at 16:00; Stop 05/02/17 at 11:39; Status DC Non-Formulary Medication 500 mg BIDWMEALS PO ; Start 05/01/17 at 08:00; Stop 05/01 at 08:00; Status DC Glucosamine/ Chondroitin (Glucosamine-Chondroitin 500/400mg) 1 cap BIDWMEALS PO Last administered on 05/05/17 16:45; Start 05/01/17 at 08:00; Stop 05/05/17 at 18:18; Status DC Lactobacillus Acidophilus (Bacid, Orly-Bid) 2 tab DAILYWBKFT PO Last administered on 05/03/17 07:19; Start 05/01/17 at 08:00; Stop 05/05/17 at 18:18; Status DC Non-Formulary Medication 20 mg QHS PO ; Start 04/30/17 at 21:00; Stop 04/30/17 at 21:00; Status DC Non-Formulary Medication 5 mg QHS PO ; Start 04/30/17 at 21:00; Stop 04/30/17 at 21:00; Status DC Multivitamins/ Minerals (I-Gera) 1 tab DAILY PO Last administered on 05/03/17 07:20; Start 05/01/17 at 09:00; Stop 05/05/17 at 19:39; Status DC Pantoprazole Sodium (Protonix) 40 mg DAILYAC PO Last administered on 05/12/17 07:37; Start 05/01/17 at 07:30 Tamoxifen Citrate (Nolvadex) 20 mg DAILY PO Last administered on 05/12/17 07: 37; Start 05/01/17 at 09:00 Coenzyme Q10 (Coenzyme Q10) 100 mg BID PO Last administered on 05/04/17 20:36; Start 05/01/17 at 09:00; Stop 05/05/17 at 18:18; Status DC Sertraline HCl (Zoloft) 50 mg QHS PO Last administered on 04/30/17 20:51; Start 04/30/17 at 21:00; Stop 05/01/17 at 11:00; Status DC Melatonin 4.5 mg QHS PO Last administered on 05/04/17 20:37; Start 04/30/17 at 21:00; Stop 05/05/17 at 18:18; Status DC Olanzapine (ZyPREXA ZYDIS) 2.5 mg PRN Q4HRS PRN PO Psych Last administered on 16:52; Start 04/30/17 at 20:15 Magnesium Oxide (Magnesium Oxide) 400 mg BID PO Last administered on 05/12/17 19:15; Start 04/30/17 at 21:00 Warfarin Sodium (Coumadin) 6 mg 1X WARF ONCE PO Last administered on 20:51; Start 04/30/17 at 20:45; Stop 04/30/17 at 20:46; Status DC Warfarin Sodium (Coumadin) 0.5 mg 1X WARF ONCE PO Last administered on 20:51; Start 04/30/17 at 20:45; Stop 04/30/17 at 20:46; Status DC Warfarin Sodium (Coumadin Per Physician) 1 each PRN DAILY PRN MC SEE COMMENTS; Start 05/01/17 at 09:45; Stop 05/01/17 at 14:54; Status DC Risperidone (RisperDAL) 0.25 mg HS PO Last administered on 05/02/17 19:39; Start 05/01/17 at 21:00; Stop 05/03/17 at 18:28; Status DC Trazodone HCl (Desyrel) 100 mg QHS PO Last administered on 05/12/17 20:13; Start 05/01/17 at 21:00 Trazodone HCl (Desyrel) 100 mg PRN QHS PRN PO INSOMNIA Last administered on 05/04 00:32; Start 05/01/17 at 10:45 Insulin Detemir (Levemir) 5 units QHS SQ Last administered on 05/12/17 19:17; Start 05/01/17 at 21:00 Insulin Aspart (NovoLOG) 0-5 UNITS QIDACHS SQ Last administered on 05/12/17 17 :14; Start 05/01/17 at 16:30 Dextrose 12.5 gm PRN Q15MIN PRN IV SEE COMMENTS; Start 05/01/17 at 14:45 Warfarin Sodium (Coumadin Per Pharmacy) 1 each PRN DAILY PRN MC SEE COMMENTS Last administered on 05/11/17 10:39; Start 05/01/17 at 14:45 Insulin Aspart (NovoLOG) 10 units 1X ONCE SQ Last administered on 05/01/17 17: 15; Start 05/01/17 at 17:15; Stop 05/01/17 at 17:16; Status DC Warfarin Sodium (Coumadin) 7.5 mg 1X WARF ONCE PO Last administered on 17:16; Start 05/02/17 at 16:00; Stop 05/02/17 at 16:01; Status DC Warfarin Sodium (Coumadin) 7.5 mg 1X WARF ONCE PO Last administered on 16:18; Start 05/03/17 at 16:00; Stop 05/03/17 at 16:01; Status DC Risperidone (RisperDAL) 0.5 mg HS SL Last administered on 05/04/17 20:41; Start 05/03/17 at 21:00; Stop 05/05/17 at 19:33; Status DC Valproic Acid (Depakene) 250 mg BIDWMEALS PO Last administered on 05/07/17 16: 52; Start 05/04/17 at 08:00; Stop 05/07/17 at 18:23; Status DC Warfarin Sodium (Coumadin) 7.5 mg 1X WARF ONCE PO Last administered on 16:02; Start 05/04/17 at 16:00; Stop 05/04/17 at 16:01; Status DC Mirtazapine (Remeron) 7.5 mg QHS PO Last administered on 05/04/17 20:38; Start 05/04/17 at 21:00; Stop 05/05/17 at 19:33; Status DC Warfarin Sodium (Coumadin) 7.5 mg 1X WARF ONCE PO Last administered on 16:46; Start 05/05/17 at 16:00; Stop 05/05/17 at 16:01; Status DC Potassium Chloride (KCl Oral Soln) 20 meq BID PO Last administered on 05/09/17 09:13; Start 05/05/17 at 21:00; Stop 05/09/17 at 18:44; Status DC Risperidone (RisperDAL) 1 mg HS SL ; Start 05/05/17 at 21:00; Stop 05/06/17 at 11: 05; Status DC Mirtazapine (Remeron Olive-Tab) 7.5 mg QHS PO Last administered on 05/12/17 19: 15; Start 05/05/17 at 21:00 Acetaminophen (Tylenol) 650 mg PRN Q6HRS PRN PO PAIN / TEMP Last administered on 05/09/17 09:12; Start 05/05/17 at 19:45; Stop 05/10/17 at 08:51; Status DC Furosemide (Lasix) 120 mg DAILY PO Last administered on 05/09/17 09:43; Start 05/06/17 at 09:00; Stop 05/09/17 at 18:44; Status DC Multivitamins (Thera-Plus) 5 ml DAILY PO Last administered on 05/08/17 08:02; Start 05/06/17 at 09:00; Stop 05/10/17 at 08:51; Status DC Risperidone (RisperDAL) 0.5 mg HS SL Last administered on 05/08/17 21:49; Start 05/06/17 at 21:00; Stop 05/09/17 at 09:00; Status DC Melatonin 3 mg PRN QHS PRN PO INSOMNIA; Start 05/06/17 at 18:15 Warfarin Sodium (Coumadin) 7.5 mg 1X WARF ONCE PO Last administered on 16:51; Start 05/07/17 at 16:00; Stop 05/07/17 at 16:01; Status DC Valproic Acid (Depakene) 375 mg BIDWMEALS PO Last administered on 05/09/17 16: 27; Start 05/08/17 at 08:00; Stop 05/09/17 at 18:44; Status DC Warfarin Sodium (Coumadin) 7.5 mg 1X WARF ONCE PO Last administered on 16:53; Start 05/08/17 at 16:00; Stop 05/08/17 at 16:01; Status DC Warfarin Sodium (Coumadin) 7.5 mg 1X WARF ONCE PO Last administered on 16:26; Start 05/09/17 at 16:00; Stop 05/09/17 at 16:01; Status DC Furosemide (Lasix) 120 mg DAILY PO Last administered on 05/12/17 07:36; Start 05/10/17 at 09:00 Potassium Chloride (Klor-Con) 20 meq BID PO Last administered on 05/12/17 19: 15; Start 05/09/17 at 21:00 Divalproex Sodium (Depakote Sprinkles) 375 mg BIDWMEALS PO Last administered on 05/12/17 17:08; Start 05/10/17 at 08:00 Multivitamins/ Calcium (Thera-M Plus) 1 tab DAILY PO Last administered on 07:37; Start 05/10/17 at 09:00 Acetaminophen (Tylenol) 650 mg PRN Q6HRS PRN PO PAIN / TEMP Last administered on 05/12/17 05:34; Start 05/10/17 at 09:00 Warfarin Sodium (Coumadin) 4 mg 1X WARF ONCE PO Last administered on 16:17; Start 05/10/17 at 16:00; Stop 05/10/17 at 16:01; Status DC Warfarin Sodium (Coumadin) 3 mg 1X WARF ONCE PO Last administered on 16:17; Start 05/10/17 at 16:00; Stop 05/10/17 at 16:01; Status DC Warfarin Sodium (Coumadin) 4 mg DAILY16 PO Last administered on 05/12/17 17:08 ; Start 05/11/17 at 16:00 Warfarin Sodium (Coumadin) 3 mg DAILY16 PO Last administered on 05/12/17 17:08 ; Start 05/11/17 at 16:00 Active Scripts Active Reported Probiotic (Lactobacillus Combo No.10) 1 Each Capsule 1 Cap PO DAILYWBKFT Women's Daily Caplet (Multivits,Ca,Minerals/Iron/Fa) 1 Each Tablet 1 Tab PO BID Zoloft (Sertraline Hcl) 25 Mg Tablet 25 Mg PO QHS 7 Days Zoloft (Sertraline Hcl) 50 Mg Tablet 50 Mg PO QHS 3 Days Omeprazole 20 Mg Tablet.dr 20 Mg PO DAILY07 Allopurinol 100 Mg Tablet 200 Mg PO DAILYWSUP Vitamin D3 (Cholecalciferol (Vitamin D3)) 1,000 Unit Tablet 1,000 Unit PO DAILYWBKFT Oyster Shell Calcium (Calcium Carbonate) 500 Mg Tablet 500 Mg PO BIDWMEALS Cinnamon (Cinnamon Bark) 500 Mg Capsule 500 Mg PO BIDWMEALS Co Q-10 100 Mg Softgel (Ubidecarenone/Vit E Acetate) 1 Each Capsule 100 Mg PO BID Melatonin 5 Mg Tablet (Melatonin/Pyridoxine) 1 Each Tablet 5 Mg PO QHS Lutein 20 Mg Capsule 20 Mg PO QHS Yubcylljvc-Hdwyepivfpa-Mub Tab (Gluc/Victor M-Msm#2/C/D3/Anthony/Born) 1 Each Tablet 1 Tab PO BIDWMEALS Metformin Hcl 850 Mg Tablet 850 Mg PO BIDWMEALS Digoxin 125 Mcg Tablet 125 Mcg PO DAILY Tamoxifen Citrate 20 Mg Tablet 20 Mg PO DAILY Atenolol 50 Mg Tablet 50 Mg PO BID Lasix (Furosemide) 80 Mg Tablet 120 Mg PO DAILY Coumadin (Warfarin Sodium) 6 Mg Tablet 6 Mg PO QPM Potassium Chloride 10 Meq Capsule.er 10 Meq PO BID CHAU GROSS MD May 12, 2017 20:59
--- NOTE | 2017-05-12 22:10 | NUR ---
Per Nicole in lab, pt VPA level drawn 05/11/2017@0731 was 34.9.
--- NOTE | 2017-05-13 00:46 | NUR ---
Behavior Intervention Response and Plan: BIRP Note: Behavior: Assumed Care of patient, patient located in Day Room at shift change. Patient exhibited the following behavior Calm, Interactive, Cooperative. Brief assessment on rounds of vital signs, medication needs, lab studies, and pain. Treatment plan problems 1 and 2. Intervention: Patient assessed and the following interventions initiated safety checks 15 Minute Checks Cognitive Assessment , Head to toe Assessment , Medications. Response: After interactions and interventions patient responded in the following manner, Calm , Compliant ,Cooperative. Continue to assess behaviors and condition will continue to monitor throughout the shift as needed. 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 Continue to assess patient for changes in above assessment. Monitor for medication needs, pain, and safety concerns. Hourly rounding performed to ensure safe environment.
[2017-05-13 06:00] VITALS: BP 152/66
[2017-05-13] MEDS: PANTOPRAZOLE 40 MG TABLET. PO SCH (08:01)
[2017-05-13] MEDS: LURASIDONE 40 MG TABLET. PO SCH (08:02)
[2017-05-13] MEDS: metFORMIN 850 MG TABLET PO SCH ×2 (08:02→18:14)
[2017-05-13] MEDS: MULTIVITAMIN with MINERAL TABLET. PO SCH (08:02)
[2017-05-13] MEDS: FUROSEMIDE 40 MG TABLET PO SCH (08:03)
[2017-05-13] MEDS: MAGNESIUM OXIDE 400 MG TABLET PO SCH ×2 (08:03→20:42)
[2017-05-13] MEDS: DIGOXIN 125 MCG TABLET PO SCH (08:03)
[2017-05-13] MEDS: CALCIUM CARBONATE 500 MG TABLET PO SCH ×2 (08:03→18:15)
[2017-05-13] MEDS: POTASSIUM CHLORIDE 20 MEQ TABLET.ER. PO SCH ×2 (08:04→20:44)
[2017-05-13] MEDS: CHOLECALCIFEROL (VITAMIN D3) 1,000 UNIT TABLET PO SCH (08:04)
[2017-05-13] MEDS: DIVALPROEX 125 MG CAP.SPRINK PO SCH ×2 (08:04→18:15)
[2017-05-13] MEDS: ATENOLOL 50 MG TABLET PO SCH ×2 (08:04→20:44)
[2017-05-13] MEDS: TAMOXIFEN 10 MG TABLET PO SCH (08:05)
[2017-05-13] MEDS: INSULIN ASPART 300 UNITS/3 ML INSULN.PEN SQ SCH ×4 (08:07→20:52)
--- NOTE | 2017-05-13 11:30 | NUR ---
THERAPEUTIC RECREATION GROUP NOTE TITLE :Movement to Music: Strength ACTIVITY : Movement/ Exercise GOAL : Increase morale, attention, flexibility. Decrease stress/anxiety. DURATION : 30 Minutes RESPONSE : Moderate participation. Pt. needed prompting and encouragment and followed along with about half of the moves to the best of her ability. She was agreeable and pleasant, occasionally hooting sounds.
--- NOTE | 2017-05-13 11:53 | NUR ---
Pharmacy Warfarin Dosing Note S:Pharmacy consulted to assist with anticoagulation therapy started 04/30/17 with target INR: 2 -3 O:RAINER WASHINGTON is a 86 year old F with Atrial Fibrillation LABS: Last INR: 3.6 Last HGB: 12.4 Last HCT: 38.8 Last PLT: 114 Last dose of 7 MG given on 05/12/17 at 1600 Previous Regimen: 6MG HOME DOSE Vitamin K given: N Drug Interaction Changes: Same Interacting Drug Ongoing Drug Interactions: ALLOPURINOL, TAMOXIFEN, GLUCOSAMINE/CHONDROTIN A:INR Above desired Range. Target Range for this patient is: 2 -3 P: Warfarin dose: Hold Today at 1600 Bridge Therapy: None Next INR due 05/14/17 @ 0600 Pharmacy anticoagulation service will continue to follow. FERNANDO RAYA [facility] [place], 05/13/17 1228
--- NOTE | 2017-05-13 13:54 | NUR ---
Behavior Intervention Response and Plan: BIRP Note: Behavior: Assumed Care of patient, patient located in Day Room at shift change. Patient exhibited the following behavior Calm, Interactive, Compliant. Brief assessment on rounds of vital signs, medication needs, lab studies, and pain. Treatment plan problems 1 and 2. Intervention: Patient assessed and the following interventions initiated safety checks 15 Minute Checks Cognitive Assessment , Head to toe Assessment , Medications. Response: After interactions and interventions patient responded in the following manner, Calm , Interactive ,Compliant. Continue to assess behaviors and condition will continue to monitor throughout the shift as needed. 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 Continue to assess patient for changes in above assessment. Monitor for medication needs, pain, and safety concerns. Hourly rounding performed to ensure safe environment.
--- NOTE | 2017-05-13 14:00 | NUR ---
THERAPEUTIC RECREATION GROUP NOTE TITLE :Drum Gruver and Easy Listening ACTIVITY : Music GOAL : Increase socialization, elevate mood, stimulate memory DURATION : 60 Minutes RESPONSE : No participation.
--- NOTE | 2017-05-13 15:30 | NUR ---
SW met with family for about an hour after visiting hours with pt and family. Pt was talking with family and able to follow along with conversation. Pt states she feels much better today with her family. Pt family states they understand she isn't able to go home from here, however pt needs to go to skilled from this facility. SHYANN is currently working on finding placement. SW explained she had reached out to [facility] and they were unable to accept due to no secondary. Family reports pt does have [employer]. SHYANN will look into this as well. SHYANN also reached out to [facility] however, the admissions person will be out until Wednesday. Pt family also participated in treatment team this am. Pt and family states their goal is for pt to go to skilled and gain strength and the ability to return home with pt son.
[2017-05-13 15:37] VITALS: BP 129/73
[2017-05-13] MEDS: ALLOPURINOL 100 MG TABLET. PO SCH (18:14)
--- NOTE | 2017-05-13 20:08 | PDOC ---
Exam Tahir Demential Exam: Tahir Note: Please also refer to the separate dictated note~for this date of service dictated separately.~Patient seen individually. Discussed the patient with Nursing staff reviewed the chart.~Reviewed interim history and current functioning. Reviewed vital signs,~Labs/ Radiology~and current medications noted below. Continue current treatment with the changes noted in the dictated addendum note Assessment: Vital Signs: Vital Signs Date Time Temp Pulse Resp B/P (MAP) Pulse Ox O2 Delivery O2 Flow Rate FiO2 05/13/17 15:37 97.8 62 18 129/73 (91) 99 05/12/17 16:13 Room Air I&O Intake and Output 05/13/17 07:00 Intake Total 1080 ml Balance 1080 ml Intake Oral 1080 ml # Voids 2 Labs: Laboratory Tests Test 05/13/17 06:18 05/13/17 07:12 05/13/17 11:22 05/13/17 16:34 Prothrombin Time 37.3 SEC (9.4-11.4) H Prothrombin Time INR 3.6 (0.9-1.1) H Glucose (Fingerstick) 173 mg/dL (70-99) H 193 mg/dL (70-99) H 181 mg/dL (70-99) H Test 05/13/17 19:08 Glucose (Fingerstick) 258 mg/dL (70-99) H Current Medications: Meds: Current Medications Acetaminophen (Tylenol) 650 mg PRN Q6HRS PRN PO PAIN / TEMP; Start 04/30/17 at 18:30; Stop 04/30/17 at 19:53; Status DC Potassium Chloride (Klor-Con) 20 meq 1X ONCE PO Last administered on 20:51; Start 04/30/17 at 20:00; Stop 04/30/17 at 20:01; Status DC Magnesium Chloride (Mag Delay) 64 mg DAILY PO Last administered on 05/06/17 08: 16; Start 05/01/17 at 09:00; Stop 05/06/17 at 18:08; Status DC Acetaminophen (Tylenol) 650 mg PRN Q6HRS PRN PO PAIN / TEMP Last administered on 05/04/17 11:44; Start 04/30/17 at 20:00; Stop 05/05/17 at 19:37; Status DC Al Hydroxide/Mg Hydroxide (Mylanta Plus Xs) 15 ml PRN AFTMEALHC PRN PO DYSPEPSIA; Start 04/30/17 at 20:00 Magnesium Hydroxide (Milk Of Magnesia) 2,400 mg PRN QHS PRN PO CONSTIPATION Last administered on 05/12/17 19:28; Start 04/30/17 at 20:00 Allopurinol (Zyloprim) 200 mg DAILYWSUP PO Last administered on 05/13/17 18:14 ; Start 05/01/17 at 17:00 Atenolol (Tenormin) 50 mg BID PO Last administered on 05/13/17 08:04; Start at 21:00 Calcium Carbonate/ Glycine (Oscal) 500 mg BIDWMEALS PO Last administered on 18:15; Start 05/01/17 at 08:00 Vitamin D (Vitamin D3) 1,000 unit DAILYWBKFT PO Last administered on 05/13/17 08:04; Start 05/01/17 at 08:00 Digoxin (Lanoxin) 125 mcg DAILY PO Last administered on 05/13/17 08:03; Start 05/01/17 at 09:00 Furosemide (Lasix) 120 mg DAILY PO Last administered on 05/05/17 13:31; Start 05/01/17 at 09:00; Stop 05/05/17 at 19:39; Status DC Metformin HCl (Glucophage) 850 mg BIDWMEALS PO Last administered on 05/13/17 18:14; Start 05/01/17 at 08:00 Potassium Chloride (Klor-Con) 20 meq BID PO Last administered on 05/04/17 20:37 ; Start 05/01/17 at 09:00; Stop 05/05/17 at 19:31; Status DC Warfarin Sodium (Coumadin) 6 mg DAILY16 PO Last administered on 05/01/17 16:56 ; Start 05/01/17 at 16:00; Stop 05/02/17 at 11:39; Status DC Non-Formulary Medication 500 mg BIDWMEALS PO ; Start 05/01/17 at 08:00; Stop 05/01 at 08:00; Status DC Glucosamine/ Chondroitin (Glucosamine-Chondroitin 500/400mg) 1 cap BIDWMEALS PO Last administered on 05/05/17 16:45; Start 05/01/17 at 08:00; Stop 05/05/17 at 18:18; Status DC Lactobacillus Acidophilus (Bacid, Orly-Bid) 2 tab DAILYWBKFT PO Last administered on 05/03/17 07:19; Start 05/01/17 at 08:00; Stop 05/05/17 at 18:18; Status DC Non-Formulary Medication 20 mg QHS PO ; Start 04/30/17 at 21:00; Stop 04/30/17 at 21:00; Status DC Non-Formulary Medication 5 mg QHS PO ; Start 04/30/17 at 21:00; Stop 04/30/17 at 21:00; Status DC Multivitamins/ Minerals (I-Gera) 1 tab DAILY PO Last administered on 05/03/17 07:20; Start 05/01/17 at 09:00; Stop 05/05/17 at 19:39; Status DC Pantoprazole Sodium (Protonix) 40 mg DAILYAC PO Last administered on 05/13/17 08:01; Start 05/01/17 at 07:30 Tamoxifen Citrate (Nolvadex) 20 mg DAILY PO Last administered on 05/13/17 08: 05; Start 05/01/17 at 09:00 Coenzyme Q10 (Coenzyme Q10) 100 mg BID PO Last administered on 05/04/17 20:36; Start 05/01/17 at 09:00; Stop 05/05/17 at 18:18; Status DC Sertraline HCl (Zoloft) 50 mg QHS PO Last administered on 04/30/17 20:51; Start 04/30/17 at 21:00; Stop 05/01/17 at 11:00; Status DC Melatonin 4.5 mg QHS PO Last administered on 05/04/17 20:37; Start 04/30/17 at 21:00; Stop 05/05/17 at 18:18; Status DC Olanzapine (ZyPREXA ZYDIS) 2.5 mg PRN Q4HRS PRN PO Psych Last administered on 16:52; Start 04/30/17 at 20:15 Magnesium Oxide (Magnesium Oxide) 400 mg BID PO Last administered on 05/13/17 08:03; Start 04/30/17 at 21:00 Warfarin Sodium (Coumadin) 6 mg 1X WARF ONCE PO Last administered on 20:51; Start 04/30/17 at 20:45; Stop 04/30/17 at 20:46; Status DC Warfarin Sodium (Coumadin) 0.5 mg 1X WARF ONCE PO Last administered on 20:51; Start 04/30/17 at 20:45; Stop 04/30/17 at 20:46; Status DC Warfarin Sodium (Coumadin Per Physician) 1 each PRN DAILY PRN MC SEE COMMENTS; Start 05/01/17 at 09:45; Stop 05/01/17 at 14:54; Status DC Risperidone (RisperDAL) 0.25 mg HS PO Last administered on 05/02/17 19:39; Start 05/01/17 at 21:00; Stop 05/03/17 at 18:28; Status DC Trazodone HCl (Desyrel) 100 mg QHS PO Last administered on 05/12/17 20:13; Start 05/01/17 at 21:00 Trazodone HCl (Desyrel) 100 mg PRN QHS PRN PO INSOMNIA Last administered on 05/04 00:32; Start 05/01/17 at 10:45 Insulin Detemir (Levemir) 5 units QHS SQ Last administered on 05/12/17 19:17; Start 05/01/17 at 21:00 Insulin Aspart (NovoLOG) 0-5 UNITS QIDACHS SQ Last administered on 05/13/17 18 :12; Start 05/01/17 at 16:30 Dextrose 12.5 gm PRN Q15MIN PRN IV SEE COMMENTS; Start 05/01/17 at 14:45 Warfarin Sodium (Coumadin Per Pharmacy) 1 each PRN DAILY PRN MC SEE COMMENTS Last administered on 05/13/17 11:53; Start 05/01/17 at 14:45 Insulin Aspart (NovoLOG) 10 units 1X ONCE SQ Last administered on 05/01/17 17: 15; Start 05/01/17 at 17:15; Stop 05/01/17 at 17:16; Status DC Warfarin Sodium (Coumadin) 7.5 mg 1X WARF ONCE PO Last administered on 17:16; Start 05/02/17 at 16:00; Stop 05/02/17 at 16:01; Status DC Warfarin Sodium (Coumadin) 7.5 mg 1X WARF ONCE PO Last administered on 16:18; Start 05/03/17 at 16:00; Stop 05/03/17 at 16:01; Status DC Risperidone (RisperDAL) 0.5 mg HS SL Last administered on 05/04/17 20:41; Start 05/03/17 at 21:00; Stop 05/05/17 at 19:33; Status DC Valproic Acid (Depakene) 250 mg BIDWMEALS PO Last administered on 05/07/17 16: 52; Start 05/04/17 at 08:00; Stop 05/07/17 at 18:23; Status DC Warfarin Sodium (Coumadin) 7.5 mg 1X WARF ONCE PO Last administered on 16:02; Start 05/04/17 at 16:00; Stop 05/04/17 at 16:01; Status DC Mirtazapine (Remeron) 7.5 mg QHS PO Last administered on 05/04/17 20:38; Start 05/04/17 at 21:00; Stop 05/05/17 at 19:33; Status DC Warfarin Sodium (Coumadin) 7.5 mg 1X WARF ONCE PO Last administered on 16:46; Start 05/05/17 at 16:00; Stop 05/05/17 at 16:01; Status DC Potassium Chloride (KCl Oral Soln) 20 meq BID PO Last administered on 05/09/17 09:13; Start 05/05/17 at 21:00; Stop 05/09/17 at 18:44; Status DC Risperidone (RisperDAL) 1 mg HS SL ; Start 05/05/17 at 21:00; Stop 05/06/17 at 11: 05; Status DC Mirtazapine (Remeron Olive-Tab) 7.5 mg QHS PO Last administered on 05/12/17 19: 15; Start 05/05/17 at 21:00 Acetaminophen (Tylenol) 650 mg PRN Q6HRS PRN PO PAIN / TEMP Last administered on 05/09/17 09:12; Start 05/05/17 at 19:45; Stop 05/10/17 at 08:51; Status DC Furosemide (Lasix) 120 mg DAILY PO Last administered on 05/09/17 09:43; Start 05/06/17 at 09:00; Stop 05/09/17 at 18:44; Status DC Multivitamins (Thera-Plus) 5 ml DAILY PO Last administered on 05/08/17 08:02; Start 05/06/17 at 09:00; Stop 05/10/17 at 08:51; Status DC Risperidone (RisperDAL) 0.5 mg HS SL Last administered on 05/08/17 21:49; Start 05/06/17 at 21:00; Stop 05/09/17 at 09:00; Status DC Melatonin 3 mg PRN QHS PRN PO INSOMNIA; Start 05/06/17 at 18:15 Warfarin Sodium (Coumadin) 7.5 mg 1X WARF ONCE PO Last administered on 16:51; Start 05/07/17 at 16:00; Stop 05/07/17 at 16:01; Status DC Valproic Acid (Depakene) 375 mg BIDWMEALS PO Last administered on 05/09/17 16: 27; Start 05/08/17 at 08:00; Stop 05/09/17 at 18:44; Status DC Warfarin Sodium (Coumadin) 7.5 mg 1X WARF ONCE PO Last administered on 16:53; Start 05/08/17 at 16:00; Stop 05/08/17 at 16:01; Status DC Warfarin Sodium (Coumadin) 7.5 mg 1X WARF ONCE PO Last administered on 16:26; Start 05/09/17 at 16:00; Stop 05/09/17 at 16:01; Status DC Furosemide (Lasix) 120 mg DAILY PO Last administered on 05/13/17 08:03; Start 05/10/17 at 09:00 Potassium Chloride (Klor-Con) 20 meq BID PO Last administered on 05/13/17 08: 04; Start 05/09/17 at 21:00 Divalproex Sodium (Depakote Sprinkles) 375 mg BIDWMEALS PO Last administered on 05/13/17 18:15; Start 05/10/17 at 08:00 Multivitamins/ Calcium (Thera-M Plus) 1 tab DAILY PO Last administered on 08:02; Start 05/10/17 at 09:00 Acetaminophen (Tylenol) 650 mg PRN Q6HRS PRN PO PAIN / TEMP Last administered on 05/12/17 05:34; Start 05/10/17 at 09:00 Warfarin Sodium (Coumadin) 4 mg 1X WARF ONCE PO Last administered on 16:17; Start 05/10/17 at 16:00; Stop 05/10/17 at 16:01; Status DC Warfarin Sodium (Coumadin) 3 mg 1X WARF ONCE PO Last administered on 16:17; Start 05/10/17 at 16:00; Stop 05/10/17 at 16:01; Status DC Warfarin Sodium (Coumadin) 4 mg DAILY16 PO Last administered on 05/12/17 17:08 ; Start 05/11/17 at 16:00; Stop 05/13/17 at 11:50; Status DC Warfarin Sodium (Coumadin) 3 mg DAILY16 PO Last administered on 05/12/17 17:08 ; Start 05/11/17 at 16:00; Stop 05/13/17 at 11:50; Status DC Warfarin Sodium (Coumadin - No Dose Today) 1 each 1X WARF ONCE MC ; Start 05/13 at 16:00; Stop 05/13/17 at 16:01; Status DC Active Scripts Active Reported Probiotic (Lactobacillus Combo No.10) 1 Each Capsule 1 Cap PO DAILYWBKFT Women's Daily Caplet (Multivits,Ca,Minerals/Iron/Fa) 1 Each Tablet 1 Tab PO BID Zoloft (Sertraline Hcl) 25 Mg Tablet 25 Mg PO QHS 7 Days Zoloft (Sertraline Hcl) 50 Mg Tablet 50 Mg PO QHS 3 Days Omeprazole 20 Mg Tablet.dr 20 Mg PO DAILY07 Allopurinol 100 Mg Tablet 200 Mg PO DAILYWSUP Vitamin D3 (Cholecalciferol (Vitamin D3)) 1,000 Unit Tablet 1,000 Unit PO DAILYWBKFT Oyster Shell Calcium (Calcium Carbonate) 500 Mg Tablet 500 Mg PO BIDWMEALS Cinnamon (Cinnamon Bark) 500 Mg Capsule 500 Mg PO BIDWMEALS Co Q-10 100 Mg Softgel (Ubidecarenone/Vit E Acetate) 1 Each Capsule 100 Mg PO BID Melatonin 5 Mg Tablet (Melatonin/Pyridoxine) 1 Each Tablet 5 Mg PO QHS Lutein 20 Mg Capsule 20 Mg PO QHS Dzabljtwik-Okhbbeuujrd-Yaa Tab (Gluc/Victor M-Msm#2/C/D3/Anthony/Born) 1 Each Tablet 1 Tab PO BIDWMEALS Metformin Hcl 850 Mg Tablet 850 Mg PO BIDWMEALS Digoxin 125 Mcg Tablet 125 Mcg PO DAILY Tamoxifen Citrate 20 Mg Tablet 20 Mg PO DAILY Atenolol 50 Mg Tablet 50 Mg PO BID Lasix (Furosemide) 80 Mg Tablet 120 Mg PO DAILY Coumadin (Warfarin Sodium) 6 Mg Tablet 6 Mg PO QPM Potassium Chloride 10 Meq Capsule.er 10 Meq PO BID Diagnosis: Problems: (1) Anxiety disorder (2) Impulse control disorder (3) Bipolar affective, mixed, sev w/ psych (4) Dementia, vascular, 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
--- NOTE | 2017-05-13 20:32 | PDOC ---
Exam Tahir Demential Exam: Tahir Note: Please also refer to the separate dictated note~for this date of service dictated separately.~Patient seen individually. Discussed the patient with Nursing staff reviewed the chart.~Reviewed interim history and current functioning. Reviewed vital signs,~Labs/ Radiology~and current medications noted below. Continue current treatment with the changes noted in the dictated addendum note S/O: This is a late entry for 05/10/2017 and covers elements not covered in my initial note. The patient remains disorganized with some loose associations. Speech is otherwise coherent and rapid. Repeat CT head, chronic small vessel ischemic disease. No acute changes. Discussed with social service staff. The patient's son visited her today. Placement has been sought. Review of Systems: Ambulation impaired, in wheelchair. No CV, , Pulmonary, Eye, ENT system symptoms on review. Reliability is poor. MSE: Oriented to herself. Insight and judgment, recent and remote memory, attention and concentration, fund of knowledge poor consistent with her diagnosis mentioned in my initial note. Imp: Bipolar I disorder mixed with psychotic features. Major neurocognitive disorder, Alzheimer vascular with delusion and behavioral disturbance. Plan: Continue current psychotropics mentioned in my initial note. Check CBC, CMP, valproic acid level in the morning, adjust as clinically indicated. Assessment: Vital Signs: Vital Signs Date Time Temp Pulse Resp B/P (MAP) Pulse Ox O2 Delivery O2 Flow Rate FiO2 05/13/17 15:37 97.8 62 18 129/73 (91) 99 05/12/17 16:13 Room Air I&O Intake and Output 05/13/17 07:00 Intake Total 1080 ml Balance 1080 ml Intake Oral 1080 ml # Voids 2 Labs: Laboratory Tests Test 05/13/17 06:18 05/13/17 07:12 05/13/17 11:22 05/13/17 16:34 Prothrombin Time 37.3 SEC (9.4-11.4) H Prothrombin Time INR 3.6 (0.9-1.1) H Glucose (Fingerstick) 173 mg/dL (70-99) H 193 mg/dL (70-99) H 181 mg/dL (70-99) H Test 05/13/17 19:08 Glucose (Fingerstick) 258 mg/dL (70-99) H Current Medications: Meds: Current Medications Acetaminophen (Tylenol) 650 mg PRN Q6HRS PRN PO PAIN / TEMP; Start 04/30/17 at 18:30; Stop 04/30/17 at 19:53; Status DC Potassium Chloride (Klor-Con) 20 meq 1X ONCE PO Last administered on 20:51; Start 04/30/17 at 20:00; Stop 04/30/17 at 20:01; Status DC Magnesium Chloride (Mag Delay) 64 mg DAILY PO Last administered on 05/06/17 08: 16; Start 05/01/17 at 09:00; Stop 05/06/17 at 18:08; Status DC Acetaminophen (Tylenol) 650 mg PRN Q6HRS PRN PO PAIN / TEMP Last administered on 05/04/17 11:44; Start 04/30/17 at 20:00; Stop 05/05/17 at 19:37; Status DC Al Hydroxide/Mg Hydroxide (Mylanta Plus Xs) 15 ml PRN AFTMEALHC PRN PO DYSPEPSIA; Start 04/30/17 at 20:00 Magnesium Hydroxide (Milk Of Magnesia) 2,400 mg PRN QHS PRN PO CONSTIPATION Last administered on 05/12/17 19:28; Start 04/30/17 at 20:00 Allopurinol (Zyloprim) 200 mg DAILYWSUP PO Last administered on 05/13/17 18:14 ; Start 05/01/17 at 17:00 Atenolol (Tenormin) 50 mg BID PO Last administered on 05/13/17 08:04; Start at 21:00 Calcium Carbonate/ Glycine (Oscal) 500 mg BIDWMEALS PO Last administered on 18:15; Start 05/01/17 at 08:00 Vitamin D (Vitamin D3) 1,000 unit DAILYWBKFT PO Last administered on 05/13/17 08:04; Start 05/01/17 at 08:00 Digoxin (Lanoxin) 125 mcg DAILY PO Last administered on 05/13/17 08:03; Start 05/01/17 at 09:00 Furosemide (Lasix) 120 mg DAILY PO Last administered on 05/05/17 13:31; Start 05/01/17 at 09:00; Stop 05/05/17 at 19:39; Status DC Metformin HCl (Glucophage) 850 mg BIDWMEALS PO Last administered on 05/13/17 18:14; Start 05/01/17 at 08:00 Potassium Chloride (Klor-Con) 20 meq BID PO Last administered on 05/04/17 20:37 ; Start 05/01/17 at 09:00; Stop 05/05/17 at 19:31; Status DC Warfarin Sodium (Coumadin) 6 mg DAILY16 PO Last administered on 05/01/17 16:56 ; Start 05/01/17 at 16:00; Stop 05/02/17 at 11:39; Status DC Non-Formulary Medication 500 mg BIDWMEALS PO ; Start 05/01/17 at 08:00; Stop 05/01 at 08:00; Status DC Glucosamine/ Chondroitin (Glucosamine-Chondroitin 500/400mg) 1 cap BIDWMEALS PO Last administered on 05/05/17 16:45; Start 05/01/17 at 08:00; Stop 05/05/17 at 18:18; Status DC Lactobacillus Acidophilus (Bacid, Orly-Bid) 2 tab DAILYWBKFT PO Last administered on 05/03/17 07:19; Start 05/01/17 at 08:00; Stop 05/05/17 at 18:18; Status DC Non-Formulary Medication 20 mg QHS PO ; Start 04/30/17 at 21:00; Stop 04/30/17 at 21:00; Status DC Non-Formulary Medication 5 mg QHS PO ; Start 04/30/17 at 21:00; Stop 04/30/17 at 21:00; Status DC Multivitamins/ Minerals (I-Gera) 1 tab DAILY PO Last administered on 05/03/17 07:20; Start 05/01/17 at 09:00; Stop 05/05/17 at 19:39; Status DC Pantoprazole Sodium (Protonix) 40 mg DAILYAC PO Last administered on 05/13/17 08:01; Start 05/01/17 at 07:30 Tamoxifen Citrate (Nolvadex) 20 mg DAILY PO Last administered on 05/13/17 08: 05; Start 05/01/17 at 09:00 Coenzyme Q10 (Coenzyme Q10) 100 mg BID PO Last administered on 05/04/17 20:36; Start 05/01/17 at 09:00; Stop 05/05/17 at 18:18; Status DC Sertraline HCl (Zoloft) 50 mg QHS PO Last administered on 04/30/17 20:51; Start 04/30/17 at 21:00; Stop 05/01/17 at 11:00; Status DC Melatonin 4.5 mg QHS PO Last administered on 05/04/17 20:37; Start 04/30/17 at 21:00; Stop 05/05/17 at 18:18; Status DC Olanzapine (ZyPREXA ZYDIS) 2.5 mg PRN Q4HRS PRN PO Psych Last administered on 16:52; Start 04/30/17 at 20:15 Magnesium Oxide (Magnesium Oxide) 400 mg BID PO Last administered on 05/13/17 08:03; Start 04/30/17 at 21:00 Warfarin Sodium (Coumadin) 6 mg 1X WARF ONCE PO Last administered on 20:51; Start 04/30/17 at 20:45; Stop 04/30/17 at 20:46; Status DC Warfarin Sodium (Coumadin) 0.5 mg 1X WARF ONCE PO Last administered on 20:51; Start 04/30/17 at 20:45; Stop 04/30/17 at 20:46; Status DC Warfarin Sodium (Coumadin Per Physician) 1 each PRN DAILY PRN MC SEE COMMENTS; Start 05/01/17 at 09:45; Stop 05/01/17 at 14:54; Status DC Risperidone (RisperDAL) 0.25 mg HS PO Last administered on 05/02/17 19:39; Start 05/01/17 at 21:00; Stop 05/03/17 at 18:28; Status DC Trazodone HCl (Desyrel) 100 mg QHS PO Last administered on 05/12/17 20:13; Start 05/01/17 at 21:00 Trazodone HCl (Desyrel) 100 mg PRN QHS PRN PO INSOMNIA Last administered on 05/04 00:32; Start 05/01/17 at 10:45 Insulin Detemir (Levemir) 5 units QHS SQ Last administered on 05/12/17 19:17; Start 05/01/17 at 21:00 Insulin Aspart (NovoLOG) 0-5 UNITS QIDACHS SQ Last administered on 05/13/17 18 :12; Start 05/01/17 at 16:30 Dextrose 12.5 gm PRN Q15MIN PRN IV SEE COMMENTS; Start 05/01/17 at 14:45 Warfarin Sodium (Coumadin Per Pharmacy) 1 each PRN DAILY PRN MC SEE COMMENTS Last administered on 05/13/17 11:53; Start 05/01/17 at 14:45 Insulin Aspart (NovoLOG) 10 units 1X ONCE SQ Last administered on 05/01/17 17: 15; Start 05/01/17 at 17:15; Stop 05/01/17 at 17:16; Status DC Warfarin Sodium (Coumadin) 7.5 mg 1X WARF ONCE PO Last administered on 17:16; Start 05/02/17 at 16:00; Stop 05/02/17 at 16:01; Status DC Warfarin Sodium (Coumadin) 7.5 mg 1X WARF ONCE PO Last administered on 16:18; Start 05/03/17 at 16:00; Stop 05/03/17 at 16:01; Status DC Risperidone (RisperDAL) 0.5 mg HS SL Last administered on 05/04/17 20:41; Start 05/03/17 at 21:00; Stop 05/05/17 at 19:33; Status DC Valproic Acid (Depakene) 250 mg BIDWMEALS PO Last administered on 05/07/17 16: 52; Start 05/04/17 at 08:00; Stop 05/07/17 at 18:23; Status DC Warfarin Sodium (Coumadin) 7.5 mg 1X WARF ONCE PO Last administered on 16:02; Start 05/04/17 at 16:00; Stop 05/04/17 at 16:01; Status DC Mirtazapine (Remeron) 7.5 mg QHS PO Last administered on 05/04/17 20:38; Start 05/04/17 at 21:00; Stop 05/05/17 at 19:33; Status DC Warfarin Sodium (Coumadin) 7.5 mg 1X WARF ONCE PO Last administered on 16:46; Start 05/05/17 at 16:00; Stop 05/05/17 at 16:01; Status DC Potassium Chloride (KCl Oral Soln) 20 meq BID PO Last administered on 05/09/17 09:13; Start 05/05/17 at 21:00; Stop 05/09/17 at 18:44; Status DC Risperidone (RisperDAL) 1 mg HS SL ; Start 05/05/17 at 21:00; Stop 05/06/17 at 11: 05; Status DC Mirtazapine (Remeron Olive-Tab) 7.5 mg QHS PO Last administered on 05/12/17 19: 15; Start 05/05/17 at 21:00 Acetaminophen (Tylenol) 650 mg PRN Q6HRS PRN PO PAIN / TEMP Last administered on 05/09/17 09:12; Start 05/05/17 at 19:45; Stop 05/10/17 at 08:51; Status DC Furosemide (Lasix) 120 mg DAILY PO Last administered on 05/09/17 09:43; Start 05/06/17 at 09:00; Stop 05/09/17 at 18:44; Status DC Multivitamins (Thera-Plus) 5 ml DAILY PO Last administered on 05/08/17 08:02; Start 05/06/17 at 09:00; Stop 05/10/17 at 08:51; Status DC Risperidone (RisperDAL) 0.5 mg HS SL Last administered on 05/08/17 21:49; Start 05/06/17 at 21:00; Stop 05/09/17 at 09:00; Status DC Melatonin 3 mg PRN QHS PRN PO INSOMNIA; Start 05/06/17 at 18:15 Warfarin Sodium (Coumadin) 7.5 mg 1X WARF ONCE PO Last administered on 16:51; Start 05/07/17 at 16:00; Stop 05/07/17 at 16:01; Status DC Valproic Acid (Depakene) 375 mg BIDWMEALS PO Last administered on 05/09/17 16: 27; Start 05/08/17 at 08:00; Stop 05/09/17 at 18:44; Status DC Warfarin Sodium (Coumadin) 7.5 mg 1X WARF ONCE PO Last administered on 16:53; Start 05/08/17 at 16:00; Stop 05/08/17 at 16:01; Status DC Warfarin Sodium (Coumadin) 7.5 mg 1X WARF ONCE PO Last administered on 16:26; Start 05/09/17 at 16:00; Stop 05/09/17 at 16:01; Status DC Furosemide (Lasix) 120 mg DAILY PO Last administered on 05/13/17 08:03; Start 05/10/17 at 09:00 Potassium Chloride (Klor-Con) 20 meq BID PO Last administered on 05/13/17 08: 04; Start 05/09/17 at 21:00 Divalproex Sodium (Depakote Sprinkles) 375 mg BIDWMEALS PO Last administered on 05/13/17 18:15; Start 05/10/17 at 08:00 Multivitamins/ Calcium (Thera-M Plus) 1 tab DAILY PO Last administered on 08:02; Start 05/10/17 at 09:00 Acetaminophen (Tylenol) 650 mg PRN Q6HRS PRN PO PAIN / TEMP Last administered on 05/12/17 05:34; Start 05/10/17 at 09:00 Warfarin Sodium (Coumadin) 4 mg 1X WARF ONCE PO Last administered on 16:17; Start 05/10/17 at 16:00; Stop 05/10/17 at 16:01; Status DC Warfarin Sodium (Coumadin) 3 mg 1X WARF ONCE PO Last administered on 16:17; Start 05/10/17 at 16:00; Stop 05/10/17 at 16:01; Status DC Warfarin Sodium (Coumadin) 4 mg DAILY16 PO Last administered on 05/12/17 17:08 ; Start 05/11/17 at 16:00; Stop 05/13/17 at 11:50; Status DC Warfarin Sodium (Coumadin) 3 mg DAILY16 PO Last administered on 05/12/17 17:08 ; Start 05/11/17 at 16:00; Stop 05/13/17 at 11:50; Status DC Warfarin Sodium (Coumadin - No Dose Today) 1 each 1X WARF ONCE MC ; Start 05/13 at 16:00; Stop 05/13/17 at 16:01; Status DC Active Scripts Active Reported Probiotic (Lactobacillus Combo No.10) 1 Each Capsule 1 Cap PO DAILYWBKFT Women's Daily Caplet (Multivits,Ca,Minerals/Iron/Fa) 1 Each Tablet 1 Tab PO BID Zoloft (Sertraline Hcl) 25 Mg Tablet 25 Mg PO QHS 7 Days Zoloft (Sertraline Hcl) 50 Mg Tablet 50 Mg PO QHS 3 Days Omeprazole 20 Mg Tablet.dr 20 Mg PO DAILY07 Allopurinol 100 Mg Tablet 200 Mg PO DAILYWSUP Vitamin D3 (Cholecalciferol (Vitamin D3)) 1,000 Unit Tablet 1,000 Unit PO DAILYWBKFT Oyster Shell Calcium (Calcium Carbonate) 500 Mg Tablet 500 Mg PO BIDWMEALS Cinnamon (Cinnamon Bark) 500 Mg Capsule 500 Mg PO BIDWMEALS Co Q-10 100 Mg Softgel (Ubidecarenone/Vit E Acetate) 1 Each Capsule 100 Mg PO BID Melatonin 5 Mg Tablet (Melatonin/Pyridoxine) 1 Each Tablet 5 Mg PO QHS Lutein 20 Mg Capsule 20 Mg PO QHS Nxfwufdvsi-Epjjyndvjpk-Wnm Tab (Gluc/Victor M-Msm#2/C/D3/Anthony/Born) 1 Each Tablet 1 Tab PO BIDWMEALS Metformin Hcl 850 Mg Tablet 850 Mg PO BIDWMEALS Digoxin 125 Mcg Tablet 125 Mcg PO DAILY Tamoxifen Citrate 20 Mg Tablet 20 Mg PO DAILY Atenolol 50 Mg Tablet 50 Mg PO BID Lasix (Furosemide) 80 Mg Tablet 120 Mg PO DAILY Coumadin (Warfarin Sodium) 6 Mg Tablet 6 Mg PO QPM Potassium Chloride 10 Meq Capsule.er 10 Meq PO BID CHAU GROSS MD May 13, 2017 20:32
[2017-05-13] MEDS: traZODone 100 MG TABLET. PO SCH (20:43)
[2017-05-13] MEDS: ACETAMINOPHEN 325 MG TABLET PO PRN (20:43)
[2017-05-13] MEDS: MIRTAZAPINE 15 MG TAB.RAPDIS PO SCH (20:43)
[2017-05-13] MEDS: INSULIN DETEMIR 300 UNITS/3 ML INSULN.PEN. SQ SCH (20:50)
--- NOTE | 2017-05-13 21:06 | PDOC ---
Exam Tahir Demential Exam: Tahir Note: Please also refer to the separate dictated note~for this date of service dictated separately.~Patient seen individually. Discussed the patient with Nursing staff reviewed the chart.~Reviewed interim history and current functioning. Reviewed vital signs,~Labs/ Radiology~and current medications noted below. Continue current treatment with the changes noted in the dictated addendum note S/O: This is a late entry for date of service 05/11/2017 and covers elements not covered in my initial note. The patient was seen individually on the evening of 05/11/2017. The patient remains intermittently psychotic, confused, and talking to the television set. Valproic acid level is awaited. At times, she is rhyming and clanging in her speech, but appeared more appropriate and a little more organized this evening as I met with her, evening of 05/11/2017. Review of Systems: Ambulation impaired. No CV, , Eye, ENT, Pulmonary systems symptoms on review. Reliability poor. MSE: Oriented to herself. Insight, judgment, recent and remote memory, attention and concentration, and fund of knowledge are poor consistent with her diagnosis mentioned in my initial note. Plan: Continue current psychotropics. Latuda was increased, may need to increase it again to 80 mg a day. Await valproic acid level. Adjust Depakote thereafter to a therapeutic level. Assessment: Vital Signs: Vital Signs Date Time Temp Pulse Resp B/P (MAP) Pulse Ox O2 Delivery O2 Flow Rate FiO2 05/13/17 20:44 62 129/73 05/13/17 15:37 97.8 18 99 05/12/17 16:13 Room Air I&O Intake and Output 05/13/17 07:00 Intake Total 1080 ml Balance 1080 ml Intake Oral 1080 ml # Voids 2 Labs: Laboratory Tests Test 05/13/17 06:18 05/13/17 07:12 05/13/17 11:22 05/13/17 16:34 Prothrombin Time 37.3 SEC (9.4-11.4) H Prothrombin Time INR 3.6 (0.9-1.1) H Glucose (Fingerstick) 173 mg/dL (70-99) H 193 mg/dL (70-99) H 181 mg/dL (70-99) H Test 05/13/17 19:08 Glucose (Fingerstick) 258 mg/dL (70-99) H Current Medications: Meds: Current Medications Acetaminophen (Tylenol) 650 mg PRN Q6HRS PRN PO PAIN / TEMP; Start 04/30/17 at 18:30; Stop 04/30/17 at 19:53; Status DC Potassium Chloride (Klor-Con) 20 meq 1X ONCE PO Last administered on 20:51; Start 04/30/17 at 20:00; Stop 04/30/17 at 20:01; Status DC Magnesium Chloride (Mag Delay) 64 mg DAILY PO Last administered on 05/06/17 08: 16; Start 05/01/17 at 09:00; Stop 05/06/17 at 18:08; Status DC Acetaminophen (Tylenol) 650 mg PRN Q6HRS PRN PO PAIN / TEMP Last administered on 05/04/17 11:44; Start 04/30/17 at 20:00; Stop 05/05/17 at 19:37; Status DC Al Hydroxide/Mg Hydroxide (Mylanta Plus Xs) 15 ml PRN AFTMEALHC PRN PO DYSPEPSIA; Start 04/30/17 at 20:00 Magnesium Hydroxide (Milk Of Magnesia) 2,400 mg PRN QHS PRN PO CONSTIPATION Last administered on 05/12/17 19:28; Start 04/30/17 at 20:00 Allopurinol (Zyloprim) 200 mg DAILYWSUP PO Last administered on 05/13/17 18:14 ; Start 05/01/17 at 17:00 Atenolol (Tenormin) 50 mg BID PO Last administered on 05/13/17 20:44; Start at 21:00 Calcium Carbonate/ Glycine (Oscal) 500 mg BIDWMEALS PO Last administered on 18:15; Start 05/01/17 at 08:00 Vitamin D (Vitamin D3) 1,000 unit DAILYWBKFT PO Last administered on 05/13/17 08:04; Start 05/01/17 at 08:00 Digoxin (Lanoxin) 125 mcg DAILY PO Last administered on 05/13/17 08:03; Start 05/01/17 at 09:00 Furosemide (Lasix) 120 mg DAILY PO Last administered on 05/05/17 13:31; Start 05/01/17 at 09:00; Stop 05/05/17 at 19:39; Status DC Metformin HCl (Glucophage) 850 mg BIDWMEALS PO Last administered on 05/13/17 18:14; Start 05/01/17 at 08:00 Potassium Chloride (Klor-Con) 20 meq BID PO Last administered on 05/04/17 20:37 ; Start 05/01/17 at 09:00; Stop 05/05/17 at 19:31; Status DC Warfarin Sodium (Coumadin) 6 mg DAILY16 PO Last administered on 05/01/17 16:56 ; Start 05/01/17 at 16:00; Stop 05/02/17 at 11:39; Status DC Non-Formulary Medication 500 mg BIDWMEALS PO ; Start 05/01/17 at 08:00; Stop 05/01 at 08:00; Status DC Glucosamine/ Chondroitin (Glucosamine-Chondroitin 500/400mg) 1 cap BIDWMEALS PO Last administered on 05/05/17 16:45; Start 05/01/17 at 08:00; Stop 05/05/17 at 18:18; Status DC Lactobacillus Acidophilus (Bacid, Orly-Bid) 2 tab DAILYWBKFT PO Last administered on 05/03/17 07:19; Start 05/01/17 at 08:00; Stop 05/05/17 at 18:18; Status DC Non-Formulary Medication 20 mg QHS PO ; Start 04/30/17 at 21:00; Stop 04/30/17 at 21:00; Status DC Non-Formulary Medication 5 mg QHS PO ; Start 04/30/17 at 21:00; Stop 04/30/17 at 21:00; Status DC Multivitamins/ Minerals (I-Gera) 1 tab DAILY PO Last administered on 05/03/17 07:20; Start 05/01/17 at 09:00; Stop 05/05/17 at 19:39; Status DC Pantoprazole Sodium (Protonix) 40 mg DAILYAC PO Last administered on 05/13/17 08:01; Start 05/01/17 at 07:30 Tamoxifen Citrate (Nolvadex) 20 mg DAILY PO Last administered on 05/13/17 08: 05; Start 05/01/17 at 09:00 Coenzyme Q10 (Coenzyme Q10) 100 mg BID PO Last administered on 05/04/17 20:36; Start 05/01/17 at 09:00; Stop 05/05/17 at 18:18; Status DC Sertraline HCl (Zoloft) 50 mg QHS PO Last administered on 04/30/17 20:51; Start 04/30/17 at 21:00; Stop 05/01/17 at 11:00; Status DC Melatonin 4.5 mg QHS PO Last administered on 05/04/17 20:37; Start 04/30/17 at 21:00; Stop 05/05/17 at 18:18; Status DC Olanzapine (ZyPREXA ZYDIS) 2.5 mg PRN Q4HRS PRN PO Psych Last administered on 16:52; Start 04/30/17 at 20:15 Magnesium Oxide (Magnesium Oxide) 400 mg BID PO Last administered on 05/13/17 20:42; Start 04/30/17 at 21:00 Warfarin Sodium (Coumadin) 6 mg 1X WARF ONCE PO Last administered on 20:51; Start 04/30/17 at 20:45; Stop 04/30/17 at 20:46; Status DC Warfarin Sodium (Coumadin) 0.5 mg 1X WARF ONCE PO Last administered on 20:51; Start 04/30/17 at 20:45; Stop 04/30/17 at 20:46; Status DC Warfarin Sodium (Coumadin Per Physician) 1 each PRN DAILY PRN MC SEE COMMENTS; Start 05/01/17 at 09:45; Stop 05/01/17 at 14:54; Status DC Risperidone (RisperDAL) 0.25 mg HS PO Last administered on 05/02/17 19:39; Start 05/01/17 at 21:00; Stop 05/03/17 at 18:28; Status DC Trazodone HCl (Desyrel) 100 mg QHS PO Last administered on 05/13/17 20:43; Start 05/01/17 at 21:00 Trazodone HCl (Desyrel) 100 mg PRN QHS PRN PO INSOMNIA Last administered on 05/04 00:32; Start 05/01/17 at 10:45 Insulin Detemir (Levemir) 5 units QHS SQ Last administered on 05/13/17 20:50; Start 05/01/17 at 21:00 Insulin Aspart (NovoLOG) 0-5 UNITS QIDACHS SQ Last administered on 05/13/17 20 :52; Start 05/01/17 at 16:30 Dextrose 12.5 gm PRN Q15MIN PRN IV SEE COMMENTS; Start 05/01/17 at 14:45 Warfarin Sodium (Coumadin Per Pharmacy) 1 each PRN DAILY PRN MC SEE COMMENTS Last administered on 05/13/17 11:53; Start 05/01/17 at 14:45 Insulin Aspart (NovoLOG) 10 units 1X ONCE SQ Last administered on 05/01/17 17: 15; Start 05/01/17 at 17:15; Stop 05/01/17 at 17:16; Status DC Warfarin Sodium (Coumadin) 7.5 mg 1X WARF ONCE PO Last administered on 17:16; Start 05/02/17 at 16:00; Stop 05/02/17 at 16:01; Status DC Warfarin Sodium (Coumadin) 7.5 mg 1X WARF ONCE PO Last administered on 16:18; Start 05/03/17 at 16:00; Stop 05/03/17 at 16:01; Status DC Risperidone (RisperDAL) 0.5 mg HS SL Last administered on 05/04/17 20:41; Start 05/03/17 at 21:00; Stop 05/05/17 at 19:33; Status DC Valproic Acid (Depakene) 250 mg BIDWMEALS PO Last administered on 05/07/17 16: 52; Start 05/04/17 at 08:00; Stop 05/07/17 at 18:23; Status DC Warfarin Sodium (Coumadin) 7.5 mg 1X WARF ONCE PO Last administered on 16:02; Start 05/04/17 at 16:00; Stop 05/04/17 at 16:01; Status DC Mirtazapine (Remeron) 7.5 mg QHS PO Last administered on 05/04/17 20:38; Start 05/04/17 at 21:00; Stop 05/05/17 at 19:33; Status DC Warfarin Sodium (Coumadin) 7.5 mg 1X WARF ONCE PO Last administered on 16:46; Start 05/05/17 at 16:00; Stop 05/05/17 at 16:01; Status DC Potassium Chloride (KCl Oral Soln) 20 meq BID PO Last administered on 05/09/17 09:13; Start 05/05/17 at 21:00; Stop 05/09/17 at 18:44; Status DC Risperidone (RisperDAL) 1 mg HS SL ; Start 05/05/17 at 21:00; Stop 05/06/17 at 11: 05; Status DC Mirtazapine (Remeron Olive-Tab) 7.5 mg QHS PO Last administered on 05/13/17 20: 43; Start 05/05/17 at 21:00 Acetaminophen (Tylenol) 650 mg PRN Q6HRS PRN PO PAIN / TEMP Last administered on 05/09/17 09:12; Start 05/05/17 at 19:45; Stop 05/10/17 at 08:51; Status DC Furosemide (Lasix) 120 mg DAILY PO Last administered on 05/09/17 09:43; Start 05/06/17 at 09:00; Stop 05/09/17 at 18:44; Status DC Multivitamins (Thera-Plus) 5 ml DAILY PO Last administered on 05/08/17 08:02; Start 05/06/17 at 09:00; Stop 05/10/17 at 08:51; Status DC Risperidone (RisperDAL) 0.5 mg HS SL Last administered on 05/08/17 21:49; Start 05/06/17 at 21:00; Stop 05/09/17 at 09:00; Status DC Melatonin 3 mg PRN QHS PRN PO INSOMNIA; Start 05/06/17 at 18:15 Warfarin Sodium (Coumadin) 7.5 mg 1X WARF ONCE PO Last administered on 16:51; Start 05/07/17 at 16:00; Stop 05/07/17 at 16:01; Status DC Valproic Acid (Depakene) 375 mg BIDWMEALS PO Last administered on 05/09/17 16: 27; Start 05/08/17 at 08:00; Stop 05/09/17 at 18:44; Status DC Warfarin Sodium (Coumadin) 7.5 mg 1X WARF ONCE PO Last administered on 16:53; Start 05/08/17 at 16:00; Stop 05/08/17 at 16:01; Status DC Warfarin Sodium (Coumadin) 7.5 mg 1X WARF ONCE PO Last administered on 16:26; Start 05/09/17 at 16:00; Stop 05/09/17 at 16:01; Status DC Furosemide (Lasix) 120 mg DAILY PO Last administered on 05/13/17 08:03; Start 05/10/17 at 09:00 Potassium Chloride (Klor-Con) 20 meq BID PO Last administered on 05/13/17 20: 44; Start 05/09/17 at 21:00 Divalproex Sodium (Depakote Sprinkles) 375 mg BIDWMEALS PO Last administered on 05/13/17 18:15; Start 05/10/17 at 08:00 Multivitamins/ Calcium (Thera-M Plus) 1 tab DAILY PO Last administered on 08:02; Start 05/10/17 at 09:00 Acetaminophen (Tylenol) 650 mg PRN Q6HRS PRN PO PAIN / TEMP Last administered on 05/13/17 20:43; Start 05/10/17 at 09:00 Warfarin Sodium (Coumadin) 4 mg 1X WARF ONCE PO Last administered on 16:17; Start 05/10/17 at 16:00; Stop 05/10/17 at 16:01; Status DC Warfarin Sodium (Coumadin) 3 mg 1X WARF ONCE PO Last administered on 16:17; Start 05/10/17 at 16:00; Stop 05/10/17 at 16:01; Status DC Warfarin Sodium (Coumadin) 4 mg DAILY16 PO Last administered on 05/12/17 17:08 ; Start 05/11/17 at 16:00; Stop 05/13/17 at 11:50; Status DC Warfarin Sodium (Coumadin) 3 mg DAILY16 PO Last administered on 05/12/17 17:08 ; Start 05/11/17 at 16:00; Stop 05/13/17 at 11:50; Status DC Warfarin Sodium (Coumadin - No Dose Today) 1 each 1X WARF ONCE MC ; Start 05/13 at 16:00; Stop 05/13/17 at 16:01; Status DC Active Scripts Active Reported Probiotic (Lactobacillus Combo No.10) 1 Each Capsule 1 Cap PO DAILYWBKFT Women's Daily Caplet (Multivits,Ca,Minerals/Iron/Fa) 1 Each Tablet 1 Tab PO BID Zoloft (Sertraline Hcl) 25 Mg Tablet 25 Mg PO QHS 7 Days Zoloft (Sertraline Hcl) 50 Mg Tablet 50 Mg PO QHS 3 Days Omeprazole 20 Mg Tablet.dr 20 Mg PO DAILY07 Allopurinol 100 Mg Tablet 200 Mg PO DAILYWSUP Vitamin D3 (Cholecalciferol (Vitamin D3)) 1,000 Unit Tablet 1,000 Unit PO DAILYWBKFT Oyster Shell Calcium (Calcium Carbonate) 500 Mg Tablet 500 Mg PO BIDWMEALS Cinnamon (Cinnamon Bark) 500 Mg Capsule 500 Mg PO BIDWMEALS Co Q-10 100 Mg Softgel (Ubidecarenone/Vit E Acetate) 1 Each Capsule 100 Mg PO BID Melatonin 5 Mg Tablet (Melatonin/Pyridoxine) 1 Each Tablet 5 Mg PO QHS Lutein 20 Mg Capsule 20 Mg PO QHS Hrsayaerfl-Ikhobivkkhp-Gxm Tab (Gluc/Victor M-Msm#2/C/D3/Anthony/Born) 1 Each Tablet 1 Tab PO BIDWMEALS Metformin Hcl 850 Mg Tablet 850 Mg PO BIDWMEALS Digoxin 125 Mcg Tablet 125 Mcg PO DAILY Tamoxifen Citrate 20 Mg Tablet 20 Mg PO DAILY Atenolol 50 Mg Tablet 50 Mg PO BID Lasix (Furosemide) 80 Mg Tablet 120 Mg PO DAILY Coumadin (Warfarin Sodium) 6 Mg Tablet 6 Mg PO QPM Potassium Chloride 10 Meq Capsule.er 10 Meq PO BID CHAU GROSS MD May 13, 2017 21:06
--- NOTE | 2017-05-14 01:30 | NUR ---
Behavior Intervention Response and Plan: BIRP Note: Behavior: Assumed Care of patient, patient located in Day Room at shift change. Patient exhibited the following behavior Calm, Compliant, Cooperative. Brief assessment on rounds of vital signs, medication needs, lab studies, and pain. Treatment plan problems Danger to Others and Fall Risk. Intervention: Patient assessed and the following interventions initiated safety checks 15 Minute Checks Cognitive Assessment , Head to toe Assessment , Medications. Response: After interactions and interventions patient responded in the following manner, Calm , Compliant ,Cooperative. Continue to assess behaviors and condition will continue to monitor throughout the shift as needed. Plan: Continue to monitor Master Treatment Plan for patient's progress toward short term goals of Medication Compliance, Decreased Agitation, half-way goals to return to previous living setting vs placement. Continue to assess patient for changes in above assessment. Monitor for medication needs, pain, and safety concerns. Hourly rounding performed to ensure safe environment.
[2017-05-14] MEDS: ACETAMINOPHEN 325 MG TABLET PO PRN ×2 (05:16→22:23)
--- NOTE | 2017-05-14 05:16 | NUR ---
Nursing Note: Pt c/o generalized pain. PRN given.
[2017-05-14 06:27] VITALS: BP 136/70
[2017-05-14] MEDS: INSULIN ASPART 300 UNITS/3 ML INSULN.PEN SQ SCH ×4 (08:30→20:19)
--- NOTE | 2017-05-14 09:00 | NUR ---
THERAPEUTIC RECREATION GROUP NOTE TITLE :Relaxation Session: Progressive Rain Storm, Music and Aromatherapy ACTIVITY : Relaxation GOAL : Decrease stress, elevate mood, increase concentration/attention, encourage awareness DURATION : 50 Minutes RESPONSE : Full participation. Pt. copied CALF SKINNER's moves with cues, agreeable to sit outside, expressed herself clearly in conversation about half of the time. She was talkative and jumped topics occasionally. She was able to identify a few mandaen statues around the patio. She smiled often and was pleasant to have in group.
[2017-05-14] MEDS: POTASSIUM CHLORIDE 20 MEQ TABLET.ER. PO SCH ×2 (09:33→20:12)
[2017-05-14] MEDS: PANTOPRAZOLE 40 MG TABLET. PO SCH (09:34)
[2017-05-14] MEDS: FUROSEMIDE 40 MG TABLET PO SCH (09:34)
[2017-05-14] MEDS: CALCIUM CARBONATE 500 MG TABLET PO SCH ×2 (09:34→17:05)
[2017-05-14] MEDS: CHOLECALCIFEROL (VITAMIN D3) 1,000 UNIT TABLET PO SCH (09:34)
[2017-05-14] MEDS: DIGOXIN 125 MCG TABLET PO SCH (09:34)
[2017-05-14] MEDS: MULTIVITAMIN with MINERAL TABLET. PO SCH (09:35)
[2017-05-14] MEDS: MAGNESIUM OXIDE 400 MG TABLET PO SCH ×3 (09:35→20:13)
[2017-05-14] MEDS: metFORMIN 850 MG TABLET PO SCH ×2 (09:35→17:05)
[2017-05-14] MEDS: DIVALPROEX 125 MG CAP.SPRINK PO SCH ×2 (09:35→17:05)
[2017-05-14] MEDS: ATENOLOL 50 MG TABLET PO SCH ×2 (09:35→20:15)
[2017-05-14] MEDS: TAMOXIFEN 10 MG TABLET PO SCH (09:36)
[2017-05-14] MEDS: LURASIDONE 40 MG TABLET. PO SCH (09:36)
--- NOTE | 2017-05-14 11:30 | NUR ---
THERAPEUTIC RECREATION GROUP NOTE TITLE :Movement to Music: Flexibility and Ball Bounce ACTIVITY : Movement/ Exercise GOAL : Increase morale, attention, flexibility. Decrease stress/anxiety. DURATION : 30 Minutes RESPONSE : Full participation. Pt. shouted loudly a few times and needed redirection to stay quiet and focused. She needed repeat prompting to follow along with stretches but struggled to comply. She stayed on task with only occasional cues when bouncing the ball with others. She was able to track and aim the ball well. She sat quietly as the session progressed.
--- NOTE | 2017-05-14 11:31 | NUR ---
Behavior Intervention Response and Plan: BIRP Note: Behavior: Assumed Care of patient, patient located in Patient Room at shift change. Patient exhibited the following behavior Calm, Compliant, Withdrawn. Brief assessment on rounds of vital signs, medication needs, lab studies, and pain. Treatment plan problems 1 and 2. Intervention: Patient assessed and the following interventions initiated safety checks 15 Minute Checks Medications , Head to toe Assessment , Cognitive Assessment. Response: After interactions and interventions patient responded in the following manner, Calm , Compliant ,Cooperative. Continue to assess behaviors and condition will continue to monitor throughout the shift as needed. 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 Continue to assess patient for changes in above assessment. Monitor for medication needs, pain, and safety concerns. Hourly rounding performed to ensure safe environment.
--- NOTE | 2017-05-14 11:49 | NUR ---
Pharmacy Warfarin Dosing Note S:Pharmacy consulted to assist with anticoagulation therapy started 04/30/17 with target INR: 2 -3 O:RAINER WASHINGTON is a 86 year old F with Atrial Fibrillation LABS: Last INR: 3.7 Last HGB: 12.4 Last HCT: 38.8 Last PLT: 114 Last dose of Hold given on 05/13/17 at 1600 Previous Regimen: 6MG HOME DOSE Vitamin K given: N Drug Interaction Changes: Same Interacting Drug Ongoing Drug Interactions: ALLOPURINOL, TAMOXIFEN, GLUCOSAMINE/CHONDROTIN A:INR Above desired Range. Target Range for this patient is: 2 -3 P: Warfarin dose: Hold Today at 1600 Bridge Therapy: None Next INR due 05/15/17 @ 0600 Pharmacy anticoagulation service will continue to follow. FERNANDO RAYA RP, 05/14/17 114
--- NOTE | 2017-05-14 14:15 | NUR ---
THERAPEUTIC RECREATION GROUP NOTE TITLE :Bounce Imaging ACTIVITY : Music GOAL : Increase socialization, elevate mood, stimulate memory DURATION : 60 Minutes RESPONSE : Full participation. Pt. sang the entire time, with and without the microphone. She read the lyrics before it was time to sing them but was pleasant. She hooted throughout the entire session. She was patient while others in the room needed attention from staff and gave a high five to TIRE AND TUBE REPAIRER at the end
--- NOTE | 2017-05-14 14:21 | NUR ---
SW met with family regarding pt after visiting hours pt was with family, family reports visit wasn't as positive as the prior days visit. Family states pt was singing and having difficult time finding words. Pt family states they know pt will have good days as well as not as great days regarding Bipolar and her age. Family is still hoping for pt to be able to return home after going to a facility to be skilled. Pt would be at home once in awhile by herself, family at this time understands pt wouldn't be safe at home without supervision as pt hadn't been taking her medications as well as having difficult with her thought process.
--- NOTE | 2017-05-14 15:46 | NUR ---
SHYANN called and spoke with pt facility [facility] [place], SHYANN spoke with the [facility], Brittany for about 25 minutes. Brittany states she will assists if SW unable to find placement. Family is against [facility]. Brittany provided other options [facility], [facility], and [facility]. SHYANN will reach out to these places Wednesday regarding possible admission for skilled placement.
[2017-05-14 16:35] VITALS: BP 101/53
[2017-05-14] MEDS: ALLOPURINOL 100 MG TABLET. PO SCH (17:05)
--- NOTE | 2017-05-14 20:11 | PDOC ---
Exam Tahir Demential Exam: Tahir Note: Please also refer to the separate dictated note~for this date of service dictated separately.~Patient seen individually. Discussed the patient with Nursing staff reviewed the chart.~Reviewed interim history and current functioning. Reviewed vital signs,~Labs/ Radiology~and current medications noted below. Continue current treatment with the changes noted in the dictated addendum note Assessment: Vital Signs: Vital Signs Date Time Temp Pulse Resp B/P (MAP) Pulse Ox O2 Delivery O2 Flow Rate FiO2 05/14/17 16:35 98.3 71 18 101/53 (69) 97 05/12/17 16:13 Room Air I&O Intake and Output 05/14/17 06:59 Intake Total 1140 ml Balance 1140 ml Intake Oral 1140 ml # Voids 1 # Bowel Movements 1 Labs: Laboratory Tests Test 05/14/17 05:52 05/14/17 07:40 05/14/17 11:14 05/14/17 17:28 Prothrombin Time 37.9 SEC (9.4-11.4) H Prothrombin Time INR 3.7 (0.9-1.1) H Glucose (Fingerstick) 131 mg/dL (70-99) H 251 mg/dL (70-99) H 277 mg/dL (70-99) H Current Medications: Meds: Current Medications Acetaminophen (Tylenol) 650 mg PRN Q6HRS PRN PO PAIN / TEMP; Start 04/30/17 at 18:30; Stop 04/30/17 at 19:53; Status DC Potassium Chloride (Klor-Con) 20 meq 1X ONCE PO Last administered on 20:51; Start 04/30/17 at 20:00; Stop 04/30/17 at 20:01; Status DC Magnesium Chloride (Mag Delay) 64 mg DAILY PO Last administered on 05/06/17 08: 16; Start 05/01/17 at 09:00; Stop 05/06/17 at 18:08; Status DC Acetaminophen (Tylenol) 650 mg PRN Q6HRS PRN PO PAIN / TEMP Last administered on 05/04/17 11:44; Start 04/30/17 at 20:00; Stop 05/05/17 at 19:37; Status DC Al Hydroxide/Mg Hydroxide (Mylanta Plus Xs) 15 ml PRN AFTMEALHC PRN PO DYSPEPSIA; Start 04/30/17 at 20:00 Magnesium Hydroxide (Milk Of Magnesia) 2,400 mg PRN QHS PRN PO CONSTIPATION Last administered on 05/12/17 19:28; Start 04/30/17 at 20:00 Allopurinol (Zyloprim) 200 mg DAILYWSUP PO Last administered on 05/14/17 17:05 ; Start 05/01/17 at 17:00 Atenolol (Tenormin) 50 mg BID PO Last administered on 05/14/17 09:35; Start at 21:00 Calcium Carbonate/ Glycine (Oscal) 500 mg BIDWMEALS PO Last administered on 17:05; Start 05/01/17 at 08:00 Vitamin D (Vitamin D3) 1,000 unit DAILYWBKFT PO Last administered on 05/14/17 09:34; Start 05/01/17 at 08:00 Digoxin (Lanoxin) 125 mcg DAILY PO Last administered on 05/14/17 09:34; Start 05/01/17 at 09:00 Furosemide (Lasix) 120 mg DAILY PO Last administered on 05/05/17 13:31; Start 05/01/17 at 09:00; Stop 05/05/17 at 19:39; Status DC Metformin HCl (Glucophage) 850 mg BIDWMEALS PO Last administered on 05/14/17 17:05; Start 05/01/17 at 08:00 Potassium Chloride (Klor-Con) 20 meq BID PO Last administered on 05/04/17 20:37 ; Start 05/01/17 at 09:00; Stop 05/05/17 at 19:31; Status DC Warfarin Sodium (Coumadin) 6 mg DAILY16 PO Last administered on 05/01/17 16:56 ; Start 05/01/17 at 16:00; Stop 05/02/17 at 11:39; Status DC Non-Formulary Medication 500 mg BIDWMEALS PO ; Start 05/01/17 at 08:00; Stop 05/01 at 08:00; Status DC Glucosamine/ Chondroitin (Glucosamine-Chondroitin 500/400mg) 1 cap BIDWMEALS PO Last administered on 05/05/17 16:45; Start 05/01/17 at 08:00; Stop 05/05/17 at 18:18; Status DC Lactobacillus Acidophilus (Bacid, Orly-Bid) 2 tab DAILYWBKFT PO Last administered on 05/03/17 07:19; Start 05/01/17 at 08:00; Stop 05/05/17 at 18:18; Status DC Non-Formulary Medication 20 mg QHS PO ; Start 04/30/17 at 21:00; Stop 04/30/17 at 21:00; Status DC Non-Formulary Medication 5 mg QHS PO ; Start 04/30/17 at 21:00; Stop 04/30/17 at 21:00; Status DC Multivitamins/ Minerals (I-Gera) 1 tab DAILY PO Last administered on 05/03/17 07:20; Start 05/01/17 at 09:00; Stop 05/05/17 at 19:39; Status DC Pantoprazole Sodium (Protonix) 40 mg DAILYAC PO Last administered on 05/14/17 09:34; Start 05/01/17 at 07:30 Tamoxifen Citrate (Nolvadex) 20 mg DAILY PO Last administered on 05/14/17 09: 36; Start 05/01/17 at 09:00 Coenzyme Q10 (Coenzyme Q10) 100 mg BID PO Last administered on 05/04/17 20:36; Start 05/01/17 at 09:00; Stop 05/05/17 at 18:18; Status DC Sertraline HCl (Zoloft) 50 mg QHS PO Last administered on 04/30/17 20:51; Start 04/30/17 at 21:00; Stop 05/01/17 at 11:00; Status DC Melatonin 4.5 mg QHS PO Last administered on 05/04/17 20:37; Start 04/30/17 at 21:00; Stop 05/05/17 at 18:18; Status DC Olanzapine (ZyPREXA ZYDIS) 2.5 mg PRN Q4HRS PRN PO Psych Last administered on 16:52; Start 04/30/17 at 20:15 Magnesium Oxide (Magnesium Oxide) 400 mg BID PO Last administered on 05/14/17 09:35; Start 04/30/17 at 21:00; Stop 05/14/17 at 11:01; Status DC Warfarin Sodium (Coumadin) 6 mg 1X WARF ONCE PO Last administered on 20:51; Start 04/30/17 at 20:45; Stop 04/30/17 at 20:46; Status DC Warfarin Sodium (Coumadin) 0.5 mg 1X WARF ONCE PO Last administered on 20:51; Start 04/30/17 at 20:45; Stop 04/30/17 at 20:46; Status DC Warfarin Sodium (Coumadin Per Physician) 1 each PRN DAILY PRN MC SEE COMMENTS; Start 05/01/17 at 09:45; Stop 05/01/17 at 14:54; Status DC Risperidone (RisperDAL) 0.25 mg HS PO Last administered on 05/02/17 19:39; Start 05/01/17 at 21:00; Stop 05/03/17 at 18:28; Status DC Trazodone HCl (Desyrel) 100 mg QHS PO Last administered on 05/13/17 20:43; Start 05/01/17 at 21:00 Trazodone HCl (Desyrel) 100 mg PRN QHS PRN PO INSOMNIA Last administered on 05/04 00:32; Start 05/01/17 at 10:45 Insulin Detemir (Levemir) 5 units QHS SQ Last administered on 05/13/17 20:50; Start 05/01/17 at 21:00 Insulin Aspart (NovoLOG) 0-5 UNITS QIDACHS SQ Last administered on 05/14/17 17 :42; Start 05/01/17 at 16:30 Dextrose 12.5 gm PRN Q15MIN PRN IV SEE COMMENTS; Start 05/01/17 at 14:45 Warfarin Sodium (Coumadin Per Pharmacy) 1 each PRN DAILY PRN MC SEE COMMENTS Last administered on 05/14/17 11:49; Start 05/01/17 at 14:45 Insulin Aspart (NovoLOG) 10 units 1X ONCE SQ Last administered on 05/01/17 17: 15; Start 05/01/17 at 17:15; Stop 05/01/17 at 17:16; Status DC Warfarin Sodium (Coumadin) 7.5 mg 1X WARF ONCE PO Last administered on 17:16; Start 05/02/17 at 16:00; Stop 05/02/17 at 16:01; Status DC Warfarin Sodium (Coumadin) 7.5 mg 1X WARF ONCE PO Last administered on 16:18; Start 05/03/17 at 16:00; Stop 05/03/17 at 16:01; Status DC Risperidone (RisperDAL) 0.5 mg HS SL Last administered on 05/04/17 20:41; Start 05/03/17 at 21:00; Stop 05/05/17 at 19:33; Status DC Valproic Acid (Depakene) 250 mg BIDWMEALS PO Last administered on 05/07/17 16: 52; Start 05/04/17 at 08:00; Stop 05/07/17 at 18:23; Status DC Warfarin Sodium (Coumadin) 7.5 mg 1X WARF ONCE PO Last administered on 16:02; Start 05/04/17 at 16:00; Stop 05/04/17 at 16:01; Status DC Mirtazapine (Remeron) 7.5 mg QHS PO Last administered on 05/04/17 20:38; Start 05/04/17 at 21:00; Stop 05/05/17 at 19:33; Status DC Warfarin Sodium (Coumadin) 7.5 mg 1X WARF ONCE PO Last administered on 16:46; Start 05/05/17 at 16:00; Stop 05/05/17 at 16:01; Status DC Potassium Chloride (KCl Oral Soln) 20 meq BID PO Last administered on 05/09/17 09:13; Start 05/05/17 at 21:00; Stop 05/09/17 at 18:44; Status DC Risperidone (RisperDAL) 1 mg HS SL ; Start 05/05/17 at 21:00; Stop 05/06/17 at 11: 05; Status DC Mirtazapine (Remeron Olive-Tab) 7.5 mg QHS PO Last administered on 05/13/17 20: 43; Start 05/05/17 at 21:00 Acetaminophen (Tylenol) 650 mg PRN Q6HRS PRN PO PAIN / TEMP Last administered on 05/09/17 09:12; Start 05/05/17 at 19:45; Stop 05/10/17 at 08:51; Status DC Furosemide (Lasix) 120 mg DAILY PO Last administered on 05/09/17 09:43; Start 05/06/17 at 09:00; Stop 05/09/17 at 18:44; Status DC Multivitamins (Thera-Plus) 5 ml DAILY PO Last administered on 05/08/17 08:02; Start 05/06/17 at 09:00; Stop 05/10/17 at 08:51; Status DC Risperidone (RisperDAL) 0.5 mg HS SL Last administered on 05/08/17 21:49; Start 05/06/17 at 21:00; Stop 05/09/17 at 09:00; Status DC Melatonin 3 mg PRN QHS PRN PO INSOMNIA; Start 05/06/17 at 18:15 Warfarin Sodium (Coumadin) 7.5 mg 1X WARF ONCE PO Last administered on 16:51; Start 05/07/17 at 16:00; Stop 05/07/17 at 16:01; Status DC Valproic Acid (Depakene) 375 mg BIDWMEALS PO Last administered on 05/09/17 16: 27; Start 05/08/17 at 08:00; Stop 05/09/17 at 18:44; Status DC Warfarin Sodium (Coumadin) 7.5 mg 1X WARF ONCE PO Last administered on 16:53; Start 05/08/17 at 16:00; Stop 05/08/17 at 16:01; Status DC Warfarin Sodium (Coumadin) 7.5 mg 1X WARF ONCE PO Last administered on 16:26; Start 05/09/17 at 16:00; Stop 05/09/17 at 16:01; Status DC Furosemide (Lasix) 120 mg DAILY PO Last administered on 05/14/17 09:34; Start 05/10/17 at 09:00 Potassium Chloride (Klor-Con) 20 meq BID PO Last administered on 05/14/17 09: 33; Start 05/09/17 at 21:00 Divalproex Sodium (Depakote Sprinkles) 375 mg BIDWMEALS PO Last administered on 05/14/17 17:05; Start 05/10/17 at 08:00 Multivitamins/ Calcium (Thera-M Plus) 1 tab DAILY PO Last administered on 09:35; Start 05/10/17 at 09:00 Acetaminophen (Tylenol) 650 mg PRN Q6HRS PRN PO PAIN / TEMP Last administered on 05/14/17 05:16; Start 05/10/17 at 09:00 Warfarin Sodium (Coumadin) 4 mg 1X WARF ONCE PO Last administered on 16:17; Start 05/10/17 at 16:00; Stop 05/10/17 at 16:01; Status DC Warfarin Sodium (Coumadin) 3 mg 1X WARF ONCE PO Last administered on 16:17; Start 05/10/17 at 16:00; Stop 05/10/17 at 16:01; Status DC Warfarin Sodium (Coumadin) 4 mg DAILY16 PO Last administered on 05/12/17 17:08 ; Start 05/11/17 at 16:00; Stop 05/13/17 at 11:50; Status DC Warfarin Sodium (Coumadin) 3 mg DAILY16 PO Last administered on 05/12/17 17:08 ; Start 05/11/17 at 16:00; Stop 05/13/17 at 11:50; Status DC Warfarin Sodium (Coumadin - No Dose Today) 1 each 1X WARF ONCE MC ; Start 05/13 at 16:00; Stop 05/13/17 at 16:01; Status DC Magnesium Oxide (Magnesium Oxide) 400 mg TID PO Last administered on 05/14/17 15:40; Start 05/14/17 at 14:00 Warfarin Sodium (Coumadin - No Dose Today) 1 each 1X WARF ONCE MC ; Start 05/14 at 16:00; Stop 05/14/17 at 16:02; Status DC Active Scripts Active Reported Probiotic (Lactobacillus Combo No.10) 1 Each Capsule 1 Cap PO DAILYWBKFT Women's Daily Caplet (Multivits,Ca,Minerals/Iron/Fa) 1 Each Tablet 1 Tab PO BID Zoloft (Sertraline Hcl) 25 Mg Tablet 25 Mg PO QHS 7 Days Zoloft (Sertraline Hcl) 50 Mg Tablet 50 Mg PO QHS 3 Days Omeprazole 20 Mg Tablet.dr 20 Mg PO DAILY07 Allopurinol 100 Mg Tablet 200 Mg PO DAILYWSUP Vitamin D3 (Cholecalciferol (Vitamin D3)) 1,000 Unit Tablet 1,000 Unit PO DAILYWBKFT Oyster Shell Calcium (Calcium Carbonate) 500 Mg Tablet 500 Mg PO BIDWMEALS Cinnamon (Cinnamon Bark) 500 Mg Capsule 500 Mg PO BIDWMEALS Co Q-10 100 Mg Softgel (Ubidecarenone/Vit E Acetate) 1 Each Capsule 100 Mg PO BID Melatonin 5 Mg Tablet (Melatonin/Pyridoxine) 1 Each Tablet 5 Mg PO QHS Lutein 20 Mg Capsule 20 Mg PO QHS Fjcjrqundt-Doizlgzdaqt-Xkg Tab (Gluc/Victor M-Msm#2/C/D3/Anthony/Born) 1 Each Tablet 1 Tab PO BIDWMEALS Metformin Hcl 850 Mg Tablet 850 Mg PO BIDWMEALS Digoxin 125 Mcg Tablet 125 Mcg PO DAILY Tamoxifen Citrate 20 Mg Tablet 20 Mg PO DAILY Atenolol 50 Mg Tablet 50 Mg PO BID Lasix (Furosemide) 80 Mg Tablet 120 Mg PO DAILY Coumadin (Warfarin Sodium) 6 Mg Tablet 6 Mg PO QPM Potassium Chloride 10 Meq Capsule.er 10 Meq PO BID Diagnosis: Problems: (1) Anxiety disorder (2) Impulse control disorder (3) Bipolar affective, mixed, sev w/ psych (4) Dementia, vascular, 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
[2017-05-14] MEDS: traZODone 100 MG TABLET. PO SCH (20:12)
[2017-05-14] MEDS: MIRTAZAPINE 15 MG TAB.RAPDIS PO SCH (20:12)
[2017-05-14] MEDS: INSULIN DETEMIR 300 UNITS/3 ML INSULN.PEN. SQ SCH (20:16)
--- NOTE | 2017-05-14 20:48 | PDOC ---
Exam Tahir Demential Exam: Tahir Note: Please also refer to the separate dictated note~for this date of service dictated separately.~Patient seen individually. Discussed the patient with Nursing staff reviewed the chart.~Reviewed interim history and current functioning. Reviewed vital signs,~Labs/ Radiology~and current medications noted below. Continue current treatment with the changes noted in the dictated addendum note S/O: This is late entry for 05/12/2017 and covers elements not covered in my initial note. I met with the patient on the evening of 05/12/2017. Per nursing report, she is doing better, less grandiose, less hyperverbal, less psychotic, less clanging and rhyming in her speech. Review of Systems: Ambulation impaired in wheelchair. No CV, , Pulmonary, Eye, ENT system symptoms on review. Very appropriate during the individual visit, able to tell me exactly what she had for supper accurately even though nothing was in front of her and it had been sometime since she had finished supper. MSE: Better oriented. Speech less pressured. Abstraction is fair. Computation impaired. Language function is intact. Mood and affect appears more stable. Labs: Reviewed. Imp: Unchanged from initial note. Plan: Continue current psychotropics, adjust as indicated. Assessment: Vital Signs: Vital Signs Date Time Temp Pulse Resp B/P (MAP) Pulse Ox O2 Delivery O2 Flow Rate FiO2 05/14/17 20:15 71 111/63 05/14/17 16:35 98.3 18 97 05/12/17 16:13 Room Air I&O Intake and Output 05/14/17 07:00 Intake Total 1140 ml Balance 1140 ml Intake Oral 1140 ml # Voids 1 # Bowel Movements 1 Labs: Laboratory Tests Test 05/14/17 05:52 05/14/17 07:40 05/14/17 11:14 05/14/17 17:28 Prothrombin Time 37.9 SEC (9.4-11.4) H Prothrombin Time INR 3.7 (0.9-1.1) H Glucose (Fingerstick) 131 mg/dL (70-99) H 251 mg/dL (70-99) H 277 mg/dL (70-99) H Current Medications: Meds: Current Medications Acetaminophen (Tylenol) 650 mg PRN Q6HRS PRN PO PAIN / TEMP; Start 04/30/17 at 18:30; Stop 04/30/17 at 19:53; Status DC Potassium Chloride (Klor-Con) 20 meq 1X ONCE PO Last administered on 20:51; Start 04/30/17 at 20:00; Stop 04/30/17 at 20:01; Status DC Magnesium Chloride (Mag Delay) 64 mg DAILY PO Last administered on 05/06/17 08: 16; Start 05/01/17 at 09:00; Stop 05/06/17 at 18:08; Status DC Acetaminophen (Tylenol) 650 mg PRN Q6HRS PRN PO PAIN / TEMP Last administered on 05/04/17 11:44; Start 04/30/17 at 20:00; Stop 05/05/17 at 19:37; Status DC Al Hydroxide/Mg Hydroxide (Mylanta Plus Xs) 15 ml PRN AFTMEALHC PRN PO DYSPEPSIA; Start 04/30/17 at 20:00 Magnesium Hydroxide (Milk Of Magnesia) 2,400 mg PRN QHS PRN PO CONSTIPATION Last administered on 05/12/17 19:28; Start 04/30/17 at 20:00 Allopurinol (Zyloprim) 200 mg DAILYWSUP PO Last administered on 05/14/17 17:05 ; Start 05/01/17 at 17:00 Atenolol (Tenormin) 50 mg BID PO Last administered on 05/14/17 20:15; Start at 21:00 Calcium Carbonate/ Glycine (Oscal) 500 mg BIDWMEALS PO Last administered on 17:05; Start 05/01/17 at 08:00 Vitamin D (Vitamin D3) 1,000 unit DAILYWBKFT PO Last administered on 05/14/17 09:34; Start 05/01/17 at 08:00 Digoxin (Lanoxin) 125 mcg DAILY PO Last administered on 05/14/17 09:34; Start 05/01/17 at 09:00 Furosemide (Lasix) 120 mg DAILY PO Last administered on 05/05/17 13:31; Start 05/01/17 at 09:00; Stop 05/05/17 at 19:39; Status DC Metformin HCl (Glucophage) 850 mg BIDWMEALS PO Last administered on 05/14/17 17:05; Start 05/01/17 at 08:00 Potassium Chloride (Klor-Con) 20 meq BID PO Last administered on 05/04/17 20:37 ; Start 05/01/17 at 09:00; Stop 05/05/17 at 19:31; Status DC Warfarin Sodium (Coumadin) 6 mg DAILY16 PO Last administered on 05/01/17 16:56 ; Start 05/01/17 at 16:00; Stop 05/02/17 at 11:39; Status DC Non-Formulary Medication 500 mg BIDWMEALS PO ; Start 05/01/17 at 08:00; Stop 05/01 at 08:00; Status DC Glucosamine/ Chondroitin (Glucosamine-Chondroitin 500/400mg) 1 cap BIDWMEALS PO Last administered on 05/05/17 16:45; Start 05/01/17 at 08:00; Stop 05/05/17 at 18:18; Status DC Lactobacillus Acidophilus (Bacid, Orly-Bid) 2 tab DAILYWBKFT PO Last administered on 05/03/17 07:19; Start 05/01/17 at 08:00; Stop 05/05/17 at 18:18; Status DC Non-Formulary Medication 20 mg QHS PO ; Start 04/30/17 at 21:00; Stop 04/30/17 at 21:00; Status DC Non-Formulary Medication 5 mg QHS PO ; Start 04/30/17 at 21:00; Stop 04/30/17 at 21:00; Status DC Multivitamins/ Minerals (I-Gera) 1 tab DAILY PO Last administered on 05/03/17 07:20; Start 05/01/17 at 09:00; Stop 05/05/17 at 19:39; Status DC Pantoprazole Sodium (Protonix) 40 mg DAILYAC PO Last administered on 05/14/17 09:34; Start 05/01/17 at 07:30 Tamoxifen Citrate (Nolvadex) 20 mg DAILY PO Last administered on 05/14/17 09: 36; Start 05/01/17 at 09:00 Coenzyme Q10 (Coenzyme Q10) 100 mg BID PO Last administered on 05/04/17 20:36; Start 05/01/17 at 09:00; Stop 05/05/17 at 18:18; Status DC Sertraline HCl (Zoloft) 50 mg QHS PO Last administered on 04/30/17 20:51; Start 04/30/17 at 21:00; Stop 05/01/17 at 11:00; Status DC Melatonin 4.5 mg QHS PO Last administered on 05/04/17 20:37; Start 04/30/17 at 21:00; Stop 05/05/17 at 18:18; Status DC Olanzapine (ZyPREXA ZYDIS) 2.5 mg PRN Q4HRS PRN PO Psych Last administered on 16:52; Start 04/30/17 at 20:15 Magnesium Oxide (Magnesium Oxide) 400 mg BID PO Last administered on 05/14/17 09:35; Start 04/30/17 at 21:00; Stop 05/14/17 at 11:01; Status DC Warfarin Sodium (Coumadin) 6 mg 1X WARF ONCE PO Last administered on 20:51; Start 04/30/17 at 20:45; Stop 04/30/17 at 20:46; Status DC Warfarin Sodium (Coumadin) 0.5 mg 1X WARF ONCE PO Last administered on 20:51; Start 04/30/17 at 20:45; Stop 04/30/17 at 20:46; Status DC Warfarin Sodium (Coumadin Per Physician) 1 each PRN DAILY PRN MC SEE COMMENTS; Start 05/01/17 at 09:45; Stop 05/01/17 at 14:54; Status DC Risperidone (RisperDAL) 0.25 mg HS PO Last administered on 05/02/17 19:39; Start 05/01/17 at 21:00; Stop 05/03/17 at 18:28; Status DC Trazodone HCl (Desyrel) 100 mg QHS PO Last administered on 05/14/17 20:12; Start 05/01/17 at 21:00 Trazodone HCl (Desyrel) 100 mg PRN QHS PRN PO INSOMNIA Last administered on 05/04 00:32; Start 05/01/17 at 10:45 Insulin Detemir (Levemir) 5 units QHS SQ Last administered on 05/14/17 20:16; Start 05/01/17 at 21:00 Insulin Aspart (NovoLOG) 0-5 UNITS QIDACHS SQ Last administered on 05/14/17 20 :19; Start 05/01/17 at 16:30 Dextrose 12.5 gm PRN Q15MIN PRN IV SEE COMMENTS; Start 05/01/17 at 14:45 Warfarin Sodium (Coumadin Per Pharmacy) 1 each PRN DAILY PRN MC SEE COMMENTS Last administered on 05/14/17 11:49; Start 05/01/17 at 14:45 Insulin Aspart (NovoLOG) 10 units 1X ONCE SQ Last administered on 05/01/17 17: 15; Start 05/01/17 at 17:15; Stop 05/01/17 at 17:16; Status DC Warfarin Sodium (Coumadin) 7.5 mg 1X WARF ONCE PO Last administered on 17:16; Start 05/02/17 at 16:00; Stop 05/02/17 at 16:01; Status DC Warfarin Sodium (Coumadin) 7.5 mg 1X WARF ONCE PO Last administered on 16:18; Start 05/03/17 at 16:00; Stop 05/03/17 at 16:01; Status DC Risperidone (RisperDAL) 0.5 mg HS SL Last administered on 05/04/17 20:41; Start 05/03/17 at 21:00; Stop 05/05/17 at 19:33; Status DC Valproic Acid (Depakene) 250 mg BIDWMEALS PO Last administered on 05/07/17 16: 52; Start 05/04/17 at 08:00; Stop 05/07/17 at 18:23; Status DC Warfarin Sodium (Coumadin) 7.5 mg 1X WARF ONCE PO Last administered on 16:02; Start 05/04/17 at 16:00; Stop 05/04/17 at 16:01; Status DC Mirtazapine (Remeron) 7.5 mg QHS PO Last administered on 05/04/17 20:38; Start 05/04/17 at 21:00; Stop 05/05/17 at 19:33; Status DC Warfarin Sodium (Coumadin) 7.5 mg 1X WARF ONCE PO Last administered on 16:46; Start 05/05/17 at 16:00; Stop 05/05/17 at 16:01; Status DC Potassium Chloride (KCl Oral Soln) 20 meq BID PO Last administered on 05/09/17 09:13; Start 05/05/17 at 21:00; Stop 05/09/17 at 18:44; Status DC Risperidone (RisperDAL) 1 mg HS SL ; Start 05/05/17 at 21:00; Stop 05/06/17 at 11: 05; Status DC Mirtazapine (Remeron Olive-Tab) 7.5 mg QHS PO Last administered on 05/14/17 20: 12; Start 05/05/17 at 21:00 Acetaminophen (Tylenol) 650 mg PRN Q6HRS PRN PO PAIN / TEMP Last administered on 05/09/17 09:12; Start 05/05/17 at 19:45; Stop 05/10/17 at 08:51; Status DC Furosemide (Lasix) 120 mg DAILY PO Last administered on 05/09/17 09:43; Start 05/06/17 at 09:00; Stop 05/09/17 at 18:44; Status DC Multivitamins (Thera-Plus) 5 ml DAILY PO Last administered on 05/08/17 08:02; Start 05/06/17 at 09:00; Stop 05/10/17 at 08:51; Status DC Risperidone (RisperDAL) 0.5 mg HS SL Last administered on 05/08/17 21:49; Start 05/06/17 at 21:00; Stop 05/09/17 at 09:00; Status DC Melatonin 3 mg PRN QHS PRN PO INSOMNIA; Start 05/06/17 at 18:15 Warfarin Sodium (Coumadin) 7.5 mg 1X WARF ONCE PO Last administered on 16:51; Start 05/07/17 at 16:00; Stop 05/07/17 at 16:01; Status DC Valproic Acid (Depakene) 375 mg BIDWMEALS PO Last administered on 05/09/17 16: 27; Start 05/08/17 at 08:00; Stop 05/09/17 at 18:44; Status DC Warfarin Sodium (Coumadin) 7.5 mg 1X WARF ONCE PO Last administered on 16:53; Start 05/08/17 at 16:00; Stop 05/08/17 at 16:01; Status DC Warfarin Sodium (Coumadin) 7.5 mg 1X WARF ONCE PO Last administered on 16:26; Start 05/09/17 at 16:00; Stop 05/09/17 at 16:01; Status DC Furosemide (Lasix) 120 mg DAILY PO Last administered on 05/14/17 09:34; Start 05/10/17 at 09:00 Potassium Chloride (Klor-Con) 20 meq BID PO Last administered on 05/14/17 20: 12; Start 05/09/17 at 21:00 Divalproex Sodium (Depakote Sprinkles) 375 mg BIDWMEALS PO Last administered on 05/14/17 17:05; Start 05/10/17 at 08:00 Multivitamins/ Calcium (Thera-M Plus) 1 tab DAILY PO Last administered on 09:35; Start 05/10/17 at 09:00 Acetaminophen (Tylenol) 650 mg PRN Q6HRS PRN PO PAIN / TEMP Last administered on 05/14/17 05:16; Start 05/10/17 at 09:00 Warfarin Sodium (Coumadin) 4 mg 1X WARF ONCE PO Last administered on 16:17; Start 05/10/17 at 16:00; Stop 05/10/17 at 16:01; Status DC Warfarin Sodium (Coumadin) 3 mg 1X WARF ONCE PO Last administered on 16:17; Start 05/10/17 at 16:00; Stop 05/10/17 at 16:01; Status DC Warfarin Sodium (Coumadin) 4 mg DAILY16 PO Last administered on 05/12/17 17:08 ; Start 05/11/17 at 16:00; Stop 05/13/17 at 11:50; Status DC Warfarin Sodium (Coumadin) 3 mg DAILY16 PO Last administered on 05/12/17 17:08 ; Start 05/11/17 at 16:00; Stop 05/13/17 at 11:50; Status DC Warfarin Sodium (Coumadin - No Dose Today) 1 each 1X WARF ONCE MC ; Start 05/13 at 16:00; Stop 05/13/17 at 16:01; Status DC Magnesium Oxide (Magnesium Oxide) 400 mg TID PO Last administered on 05/14/17t 20:13; Start 05/14/17 at 14:00 Warfarin Sodium (Coumadin - No Dose Today) 1 each 1X WARF ONCE MC ; Start 05/14 at 16:00; Stop 05/14/17 at 16:02; Status DC Active Scripts Active Reported Probiotic (Lactobacillus Combo No.10) 1 Each Capsule 1 Cap PO DAILYWBKFT Women's Daily Caplet (Multivits,Ca,Minerals/Iron/Fa) 1 Each Tablet 1 Tab PO BID Zoloft (Sertraline Hcl) 25 Mg Tablet 25 Mg PO QHS 7 Days Zoloft (Sertraline Hcl) 50 Mg Tablet 50 Mg PO QHS 3 Days Omeprazole 20 Mg Tablet.dr 20 Mg PO [id number] Allopurinol 100 Mg Tablet 200 Mg PO DAILYWSUP Vitamin D3 (Cholecalciferol (Vitamin D3)) 1,000 Unit Tablet 1,000 Unit PO DAILYWBKFT Oyster Shell Calcium (Calcium Carbonate) 500 Mg Tablet 500 Mg PO BIDWMEALS Cinnamon (Cinnamon Bark) 500 Mg Capsule 500 Mg PO BIDWMEALS Co Q-10 100 Mg Softgel (Ubidecarenone/Vit E Acetate) 1 Each Capsule 100 Mg PO BID Melatonin 5 Mg Tablet (Melatonin/Pyridoxine) 1 Each Tablet 5 Mg PO QHS Lutein 20 Mg Capsule 20 Mg PO QHS Iksxfwbhmg-Dgltgxhjmng-Otu Tab (Gluc/Victor M-Msm#2/C/D3/Anthony/Born) 1 Each Tablet 1 Tab PO BIDWMEALS Metformin Hcl 850 Mg Tablet 850 Mg PO BIDWMEALS Digoxin 125 Mcg Tablet 125 Mcg PO DAILY Tamoxifen Citrate 20 Mg Tablet 20 Mg PO DAILY Atenolol 50 Mg Tablet 50 Mg PO BID Lasix (Furosemide) 80 Mg Tablet 120 Mg PO DAILY Coumadin (Warfarin Sodium) 6 Mg Tablet 6 Mg PO QPM Potassium Chloride 10 Meq Capsule.er 10 Meq PO BID CHAU GROSS MD May 14, 2017 20:48
[2017-05-14] MEDS: traZODone 100 MG TABLET. PO PRN (22:24)
--- NOTE | 2017-05-15 00:45 | NUR ---
Behavior Intervention Response and Plan: BIRP Note: Behavior: Assumed Care of patient, patient located in Patient Room at shift change. Patient exhibited the following behavior Cooperative, Compliant, Delusions, thinks I am her family member, is for sure that we are related. Brief assessment on rounds of vital signs, medication needs, lab studies, and pain. Treatment plan problems 1-2. Intervention: Patient assessed and the following interventions initiated safety checks 15 Minute Checks Cognitive Assessment , Head to toe Assessment , Medications. Response: After interactions and interventions patient responded in the following manner, Anxious , Delusions ,Compliant. Continue to assess behaviors and condition will continue to monitor throughout the shift as needed. Plan: Continue to monitor Master Treatment Plan for patient's progress toward short term goals of Decreased Anxiety, Improved Mood, long term care social worker goals to return to previous living setting vs placement. Continue to assess patient for changes in above assessment. Monitor for medication needs, pain, and safety concerns. Hourly rounding performed to ensure safe environment.
[2017-05-15] MEDS: NYSTATIN TOPICAL POWDER 15GM BOTTLE. TP SCH ×3 (05:06→19:47)
[2017-05-15 06:09] VITALS: BP 138/74
[2017-05-15] MEDS ORDERED: NYSTATIN TOPICAL POWDER 15GM BOTTLE. TP SCH (09:00)
[2017-05-15] MEDS: INSULIN ASPART 300 UNITS/3 ML INSULN.PEN SQ SCH ×4 (09:06→19:46)
[2017-05-15] MEDS: PANTOPRAZOLE 40 MG TABLET. PO SCH (09:08)
[2017-05-15] MEDS: DIVALPROEX 125 MG CAP.SPRINK PO SCH ×2 (09:09→17:08)
[2017-05-15] MEDS: metFORMIN 850 MG TABLET PO SCH ×2 (09:09→17:08)
[2017-05-15] MEDS: CALCIUM CARBONATE 500 MG TABLET PO SCH ×2 (09:11→17:08)
[2017-05-15] MEDS: CHOLECALCIFEROL (VITAMIN D3) 1,000 UNIT TABLET PO SCH (09:11)
[2017-05-15] MEDS: POTASSIUM CHLORIDE 20 MEQ TABLET.ER. PO SCH ×2 (09:11→19:42)
[2017-05-15] MEDS: LURASIDONE 40 MG TABLET. PO SCH (09:11)
[2017-05-15] MEDS: FUROSEMIDE 40 MG TABLET PO SCH (09:13)
[2017-05-15] MEDS: DIGOXIN 125 MCG TABLET PO SCH (09:13)
[2017-05-15] MEDS: MAGNESIUM OXIDE 400 MG TABLET PO SCH ×3 (09:14→19:42)
[2017-05-15] MEDS: TAMOXIFEN 10 MG TABLET PO SCH (09:15)
[2017-05-15] MEDS: MULTIVITAMIN with MINERAL TABLET. PO SCH (09:16)
[2017-05-15] MEDS: ATENOLOL 50 MG TABLET PO SCH ×2 (09:16→19:42)
--- NOTE | 2017-05-15 11:37 | NUR ---
Behavior Intervention Response and Plan: BIRP Note: Behavior: Assumed Care of patient, patient located in Patient Room at shift change. Patient exhibited the following behavior Cooperative, Compliant, and cooperative. Brief assessment on rounds of vital signs, medication needs, lab studies, and pain. Treatment plan problems 1-2. Intervention: Patient assessed and the following interventions initiated safety checks 15 Minute Checks Cognitive Assessment , Head to toe Assessment , Medications. Response: After interactions and interventions patient responded in the following manner, cooperative, calm and Compliant. Continue to assess behaviors and condition will continue to monitor throughout the shift as needed. Plan: Continue to monitor Master Treatment Plan for patient's progress toward short term goals of Decreased Anxiety, Improved Mood, director of it operations goals to return to previous living setting vs placement. Continue to assess patient for changes in above assessment. Monitor for medication needs, pain, and safety concerns. Hourly rounding performed to ensure safe environment.
--- NOTE | 2017-05-15 15:04 | NUR ---
Pharmacy Warfarin Dosing Note S:Pharmacy consulted to assist with anticoagulation therapy started 04/30/17 with target INR: 2 -3 O:RAINER WASHINGTON is a 86 year old F with Atrial Fibrillation LABS: Last INR: 2.2 Last HGB: 12.4 Last HCT: 38.8 Last PLT: 114 Last dose of Hold given on 05/14/17 at 1600 Previous Regimen: 6MG HOME DOSE Vitamin K given: N Drug Interaction Changes: Same Interacting Drug Ongoing Drug Interactions: ALLOPURINOL, TAMOXIFEN, GLUCOSAMINE/CHONDROTIN A:INR Within desired Range. Target Range for this patient is: 2 -3 P: Warfarin dose: 7.5 mg Today at 1600 Bridge Therapy: None Next INR due 05/16/17 Pharmacy anticoagulation service will continue to follow. JESUS CLEANING [facility] 05/15/17 1504 Signed: 05/15/17 at 1505 by JESUS ANTUNEZ
[2017-05-15] MEDS ORDERED: WARFARIN 7.5 MG TABLET. PO ONE (16:00)
[2017-05-15 16:18] VITALS: BP 143/69
[2017-05-15 16:20] VITALS: BP 143/69
--- NOTE | 2017-05-15 17:06 | NUR ---
Held coumadin after consulting with Dr. Campo.
[2017-05-15] MEDS: ALLOPURINOL 100 MG TABLET. PO SCH (17:08)
[2017-05-15] MEDS: MIRTAZAPINE 15 MG TAB.RAPDIS PO SCH (19:42)
[2017-05-15] MEDS: traZODone 100 MG TABLET. PO SCH (19:42)
--- NOTE | 2017-05-15 19:45 | PDOC ---
Exam Tahir Demential Exam: Tahir Note: .~Patient seen individually. Discussed the patient with Nursing staff reviewed the chart.~Reviewed interim history and current functioning. Reviewed vital signs,~Labs/ Radiology~and current medications noted below. Continue current treatment with the changes noted I met with the patient individually the evening of 05/15. Per nursing report patient as being much more oriented. She is been doing "much better". She is calmer often responding to nursing staff appreciated bleeding with "thank you". She is eating by herself. Last night she was somewhat delusional believing one of the female nursing staff was related to her but this is understandable. Her son called and came to visit with her this afternoon. Review of systems: Ambulation impaired. She is seated in a wheelchair and is hard of hearing. I had to talk loudly into her ear. No CV GI pulmonary EYE ENT system symptoms on review other than the hard of hearing and impaired ambulation Mental status examination: Patient is oriented to herself and situation. Speech is coherent she is pleasant and verbal abstraction fair computation impaired language function intact attention span short short-term memory does have some deficits but mood lability is improved. No active hallucinations suicidal or homicidal ideation as I met with her. Plan: Continue patient on her current psychotropics melatonin 3 mg at bedtime when necessary L ATU DA 60 mg a day trazodone 100 mg at bedtime may repeat 1 for insomnia Zyprexa when necessary Depakote sprinkles 375 mg twice a day Remeron 7.5 mg at bedtime. Adjust further risk clinically indicated and transition to a lower level of care early next week Assessment: Vital Signs: Vital Signs Date Time Temp Pulse Resp B/P (MAP) Pulse Ox O2 Delivery O2 Flow Rate FiO2 05/15/17 16:20 97.6 79 20 143/69 (93) 94 Room Air I&O Intake and Output 05/15/17 07:00 Intake Total 600 ml Balance 600 ml Intake Oral 600 ml # Bowel Movements 1 Labs: Laboratory Tests Test 05/15/17 07:17 05/15/17 07:40 05/15/17 12:21 05/15/17 17:14 Glucose (Fingerstick) 275 mg/dL (70-99) H 227 mg/dL (70-99) H 195 mg/dL (70-99) H Prothrombin Time 22.9 SEC (9.4-11.4) H Prothrombin Time INR 2.2 (0.9-1.1) H Test 05/15/17 19:11 Glucose (Fingerstick) 217 mg/dL (70-99) H Current Medications: Meds: Current Medications Acetaminophen (Tylenol) 650 mg PRN Q6HRS PRN PO PAIN / TEMP; Start 04/30/17 at 18:30; Stop 04/30/17 at 19:53; Status DC Potassium Chloride (Klor-Con) 20 meq 1X ONCE PO Last administered on 20:51; Start 04/30/17 at 20:00; Stop 04/30/17 at 20:01; Status DC Magnesium Chloride (Mag Delay) 64 mg DAILY PO Last administered on 05/06/17 08: 16; Start 05/01/17 at 09:00; Stop 05/06/17 at 18:08; Status DC Acetaminophen (Tylenol) 650 mg PRN Q6HRS PRN PO PAIN / TEMP Last administered on 05/04/17 11:44; Start 04/30/17 at 20:00; Stop 05/05/17 at 19:37; Status DC Al Hydroxide/Mg Hydroxide (Mylanta Plus Xs) 15 ml PRN AFTMEALHC PRN PO DYSPEPSIA; Start 04/30/17 at 20:00 Magnesium Hydroxide (Milk Of Magnesia) 2,400 mg PRN QHS PRN PO CONSTIPATION Last administered on 05/12/17 19:28; Start 04/30/17 at 20:00 Allopurinol (Zyloprim) 200 mg DAILYWSUP PO Last administered on 05/15/17 17:08 ; Start 05/01/17 at 17:00 Atenolol (Tenormin) 50 mg BID PO Last administered on 05/15/17 09:16; Start at 21:00 Calcium Carbonate/ Glycine (Oscal) 500 mg BIDWMEALS PO Last administered on 17:08; Start 05/01/17 at 08:00 Vitamin D (Vitamin D3) 1,000 unit DAILYWBKFT PO Last administered on 05/15/17 09:11; Start 05/01/17 at 08:00 Digoxin (Lanoxin) 125 mcg DAILY PO Last administered on 05/15/17 09:13; Start 05/01/17 at 09:00 Furosemide (Lasix) 120 mg DAILY PO Last administered on 05/05/17 13:31; Start 05/01/17 at 09:00; Stop 05/05/17 at 19:39; Status DC Metformin HCl (Glucophage) 850 mg BIDWMEALS PO Last administered on 05/15/17 17:08; Start 05/01/17 at 08:00 Potassium Chloride (Klor-Con) 20 meq BID PO Last administered on 05/04/17 20:37 ; Start 05/01/17 at 09:00; Stop 05/05/17 at 19:31; Status DC Warfarin Sodium (Coumadin) 6 mg DAILY16 PO Last administered on 05/01/17 16:56 ; Start 05/01/17 at 16:00; Stop 05/02/17 at 11:39; Status DC Non-Formulary Medication 500 mg BIDWMEALS PO ; Start 05/01/17 at 08:00; Stop 05/01 at 08:00; Status DC Glucosamine/ Chondroitin (Glucosamine-Chondroitin 500/400mg) 1 cap BIDWMEALS PO Last administered on 05/05/17 16:45; Start 05/01/17 at 08:00; Stop 05/05/17 at 18:18; Status DC Lactobacillus Acidophilus (Bacid, Orly-Bid) 2 tab DAILYWBKFT PO Last administered on 05/03/17 07:19; Start 05/01/17 at 08:00; Stop 05/05/17 at 18:18; Status DC Non-Formulary Medication 20 mg QHS PO ; Start 04/30/17 at 21:00; Stop 04/30/17 at 21:00; Status DC Non-Formulary Medication 5 mg QHS PO ; Start 04/30/17 at 21:00; Stop 04/30/17 at 21:00; Status DC Multivitamins/ Minerals (I-Gera) 1 tab DAILY PO Last administered on 05/03/17 07:20; Start 05/01/17 at 09:00; Stop 05/05/17 at 19:39; Status DC Pantoprazole Sodium (Protonix) 40 mg DAILYAC PO Last administered on 05/15/17 09:08; Start 05/01/17 at 07:30 Tamoxifen Citrate (Nolvadex) 20 mg DAILY PO Last administered on 05/15/17 09: 15; Start 05/01/17 at 09:00 Coenzyme Q10 (Coenzyme Q10) 100 mg BID PO Last administered on 05/04/17 20:36; Start 05/01/17 at 09:00; Stop 05/05/17 at 18:18; Status DC Sertraline HCl (Zoloft) 50 mg QHS PO Last administered on 04/30/17 20:51; Start 04/30/17 at 21:00; Stop 05/01/17 at 11:00; Status DC Melatonin 4.5 mg QHS PO Last administered on 05/04/17 20:37; Start 04/30/17 at 21:00; Stop 05/05/17 at 18:18; Status DC Olanzapine (ZyPREXA ZYDIS) 2.5 mg PRN Q4HRS PRN PO Psych Last administered on 16:52; Start 04/30/17 at 20:15 Magnesium Oxide (Magnesium Oxide) 400 mg BID PO Last administered on 05/14/17 09:35; Start 04/30/17 at 21:00; Stop 05/14/17 at 11:01; Status DC Warfarin Sodium (Coumadin) 6 mg 1X WARF ONCE PO Last administered on 20:51; Start 04/30/17 at 20:45; Stop 04/30/17 at 20:46; Status DC Warfarin Sodium (Coumadin) 0.5 mg 1X WARF ONCE PO Last administered on 20:51; Start 04/30/17 at 20:45; Stop 04/30/17 at 20:46; Status DC Warfarin Sodium (Coumadin Per Physician) 1 each PRN DAILY PRN MC SEE COMMENTS; Start 05/01/17 at 09:45; Stop 05/01/17 at 14:54; Status DC Risperidone (RisperDAL) 0.25 mg HS PO Last administered on 05/02/17 19:39; Start 05/01/17 at 21:00; Stop 05/03/17 at 18:28; Status DC Trazodone HCl (Desyrel) 100 mg QHS PO Last administered on 05/14/17 20:12; Start 05/01/17 at 21:00 Trazodone HCl (Desyrel) 100 mg PRN QHS PRN PO INSOMNIA Last administered on 22:24; Start 05/01/17 at 10:45 Insulin Detemir (Levemir) 5 units QHS SQ Last administered on 05/14/17 20:16; Start 05/01/17 at 21:00 Insulin Aspart (NovoLOG) 0-5 UNITS QIDACHS SQ Last administered on 05/15/17 17 :23; Start 05/01/17 at 16:30 Dextrose 12.5 gm PRN Q15MIN PRN IV SEE COMMENTS; Start 05/01/17 at 14:45 Warfarin Sodium (Coumadin Per Pharmacy) 1 each PRN DAILY PRN MC SEE COMMENTS Last administered on 05/15/17 15:03; Start 05/01/17 at 14:45 Insulin Aspart (NovoLOG) 10 units 1X ONCE SQ Last administered on 05/01/17 17: 15; Start 05/01/17 at 17:15; Stop 05/01/17 at 17:16; Status DC Warfarin Sodium (Coumadin) 7.5 mg 1X WARF ONCE PO Last administered on 17:16; Start 05/02/17 at 16:00; Stop 05/02/17 at 16:01; Status DC Warfarin Sodium (Coumadin) 7.5 mg 1X WARF ONCE PO Last administered on 16:18; Start 05/03/17 at 16:00; Stop 05/03/17 at 16:01; Status DC Risperidone (RisperDAL) 0.5 mg HS SL Last administered on 05/04/17 20:41; Start 05/03/17 at 21:00; Stop 05/05/17 at 19:33; Status DC Valproic Acid (Depakene) 250 mg BIDWMEALS PO Last administered on 05/07/17 16: 52; Start 05/04/17 at 08:00; Stop 05/07/17 at 18:23; Status DC Warfarin Sodium (Coumadin) 7.5 mg 1X WARF ONCE PO Last administered on 16:02; Start 05/04/17 at 16:00; Stop 05/04/17 at 16:01; Status DC Mirtazapine (Remeron) 7.5 mg QHS PO Last administered on 05/04/17 20:38; Start 05/04/17 at 21:00; Stop 05/05/17 at 19:33; Status DC Warfarin Sodium (Coumadin) 7.5 mg 1X WARF ONCE PO Last administered on 16:46; Start 05/05/17 at 16:00; Stop 05/05/17 at 16:01; Status DC Potassium Chloride (KCl Oral Soln) 20 meq BID PO Last administered on 05/09/17 09:13; Start 05/05/17 at 21:00; Stop 05/09/17 at 18:44; Status DC Risperidone (RisperDAL) 1 mg HS SL ; Start 05/05/17 at 21:00; Stop 05/06/17 at 11: 05; Status DC Mirtazapine (Remeron Olive-Tab) 7.5 mg QHS PO Last administered on 05/14/17 20: 12; Start 05/05/17 at 21:00 Acetaminophen (Tylenol) 650 mg PRN Q6HRS PRN PO PAIN / TEMP Last administered on 05/09/17 09:12; Start 05/05/17 at 19:45; Stop 05/10/17 at 08:51; Status DC Furosemide (Lasix) 120 mg DAILY PO Last administered on 05/09/17 09:43; Start 05/06/17 at 09:00; Stop 05/09/17 at 18:44; Status DC Multivitamins (Thera-Plus) 5 ml DAILY PO Last administered on 05/08/17 08:02; Start 05/06/17 at 09:00; Stop 05/10/17 at 08:51; Status DC Risperidone (RisperDAL) 0.5 mg HS SL Last administered on 05/08/17 21:49; Start 05/06/17 at 21:00; Stop 05/09/17 at 09:00; Status DC Melatonin 3 mg PRN QHS PRN PO INSOMNIA; Start 05/06/17 at 18:15 Warfarin Sodium (Coumadin) 7.5 mg 1X WARF ONCE PO Last administered on 16:51; Start 05/07/17 at 16:00; Stop 05/07/17 at 16:01; Status DC Valproic Acid (Depakene) 375 mg BIDWMEALS PO Last administered on 05/09/17 16: 27; Start 05/08/17 at 08:00; Stop 05/09/17 at 18:44; Status DC Warfarin Sodium (Coumadin) 7.5 mg 1X WARF ONCE PO Last administered on 16:53; Start 05/08/17 at 16:00; Stop 05/08/17 at 16:01; Status DC Warfarin Sodium (Coumadin) 7.5 mg 1X WARF ONCE PO Last administered on 16:26; Start 05/09/17 at 16:00; Stop 05/09/17 at 16:01; Status DC Furosemide (Lasix) 120 mg DAILY PO Last administered on 05/15/17 09:13; Start 05/10/17 at 09:00 Potassium Chloride (Klor-Con) 20 meq BID PO Last administered on 05/15/17 09: 11; Start 05/09/17 at 21:00 Divalproex Sodium (Depakote Sprinkles) 375 mg BIDWMEALS PO Last administered on 05/15/17 17:08; Start 05/10/17 at 08:00 Multivitamins/ Calcium (Thera-M Plus) 1 tab DAILY PO Last administered on 09:16; Start 05/10/17 at 09:00 Acetaminophen (Tylenol) 650 mg PRN Q6HRS PRN PO PAIN / TEMP Last administered on 05/14/17 22:23; Start 05/10/17 at 09:00 Warfarin Sodium (Coumadin) 4 mg 1X WARF ONCE PO Last administered on 16:17; Start 05/10/17 at 16:00; Stop 05/10/17 at 16:01; Status DC Warfarin Sodium (Coumadin) 3 mg 1X WARF ONCE PO Last administered on 16:17; Start 05/10/17 at 16:00; Stop 05/10/17 at 16:01; Status DC Warfarin Sodium (Coumadin) 4 mg DAILY16 PO Last administered on 05/12/17 17:08 ; Start 05/11/17 at 16:00; Stop 05/13/17 at 11:50; Status DC Warfarin Sodium (Coumadin) 3 mg DAILY16 PO Last administered on 05/12/17 17:08 ; Start 05/11/17 at 16:00; Stop 05/13/17 at 11:50; Status DC Warfarin Sodium (Coumadin - No Dose Today) 1 each 1X WARF ONCE MC ; Start 05/13 at 16:00; Stop 05/13/17 at 16:01; Status DC Magnesium Oxide (Magnesium Oxide) 400 mg TID PO Last administered on 05/15/17 09:14; Start 05/14/17 at 14:00 Warfarin Sodium (Coumadin - No Dose Today) 1 each 1X WARF ONCE MC ; Start 05/14 at 16:00; Stop 05/14/17 at 16:02; Status DC Nystatin (Nystop) 1 lexie BID TP ; Start 05/15/17 at 09:00; Stop 05/15/17 at 09:00 ; Status DC Nystatin (Nystop) 1 lexie BID TP Last administered on 05/15/17 09:19; Start at 23:15 Warfarin Sodium (Coumadin) 7.5 mg 1X WARF ONCE PO ; Start 05/15/17 at 16:00; Stop 05/15/17 at 16:01; Status DC Active Scripts Active Reported Probiotic (Lactobacillus Combo No.10) 1 Each Capsule 1 Cap PO DAILYWBKFT Women's Daily Caplet (Multivits,Ca,Minerals/Iron/Fa) 1 Each Tablet 1 Tab PO BID Zoloft (Sertraline Hcl) 25 Mg Tablet 25 Mg PO QHS 7 Days Zoloft (Sertraline Hcl) 50 Mg Tablet 50 Mg PO QHS 3 Days Omeprazole 20 Mg Tablet.dr 20 Mg PO DAILY07 Allopurinol 100 Mg Tablet 200 Mg PO DAILYWSUP Vitamin D3 (Cholecalciferol (Vitamin D3)) 1,000 Unit Tablet 1,000 Unit PO DAILYWBKFT Oyster Shell Calcium (Calcium Carbonate) 500 Mg Tablet 500 Mg PO BIDWMEALS Cinnamon (Cinnamon Bark) 500 Mg Capsule 500 Mg PO BIDWMEALS Co Q-10 100 Mg Softgel (Ubidecarenone/Vit E Acetate) 1 Each Capsule 100 Mg PO BID Melatonin 5 Mg Tablet (Melatonin/Pyridoxine) 1 Each Tablet 5 Mg PO QHS Lutein 20 Mg Capsule 20 Mg PO QHS Ixksffeeuw-Bmqvngorulf-Sbk Tab (Gluc/Victor M-Msm#2/C/D3/Anthony/Born) 1 Each Tablet 1 Tab PO BIDWMEALS Metformin Hcl 850 Mg Tablet 850 Mg PO BIDWMEALS Digoxin 125 Mcg Tablet 125 Mcg PO DAILY Tamoxifen Citrate 20 Mg Tablet 20 Mg PO DAILY Atenolol 50 Mg Tablet 50 Mg PO BID Lasix (Furosemide) 80 Mg Tablet 120 Mg PO DAILY Coumadin (Warfarin Sodium) 6 Mg Tablet 6 Mg PO QPM Potassium Chloride 10 Meq Capsule.er 10 Meq PO BID Diagnosis: Problems: (1) Bipolar affective, mixed, sev w/ psych (2) Impulse control disorder (3) Anxiety disorder (4) Dementia, vascular, with delusions CHAU GROSS MD May 15, 2017 19:45
[2017-05-15] MEDS: INSULIN DETEMIR 300 UNITS/3 ML INSULN.PEN. SQ SCH (19:46)
--- NOTE | 2017-05-15 23:54 | NUR ---
Behavior Intervention Response and Plan: BIRP Note: Behavior: Assumed Care of patient, patient located in Day Room at shift change. Patient exhibited the following behavior Calm, Compliant and Cooperative. Brief assessment on rounds of vital signs, medication needs, lab studies, and pain. Treatment plan problems Alteration in Mood, Danger to Others and Fall Risk. Intervention: Patient assessed and the following interventions initiated safety checks 15 Minute Checks Cognitive Assessment , Head to toe Assessment , Medications. Response: After interactions and interventions patient responded in the following manner, Calm , Compliant ,Cooperative. Continue to assess behaviors and condition will continue to monitor throughout the shift as needed. Plan: Continue to monitor Master Treatment Plan for patient's progress toward short term goals of Decreased Aggression, Improved Mood, custodial goals to return to previous living setting vs placement. Continue to assess patient for changes in above assessment. Monitor for medication needs, pain, and safety concerns. Hourly rounding performed to ensure safe environment.
[2017-05-16 06:43] VITALS: BP 135/80
[2017-05-16] MEDS: PANTOPRAZOLE 40 MG TABLET. PO SCH (07:50)
[2017-05-16] MEDS: INSULIN ASPART 300 UNITS/3 ML INSULN.PEN SQ SCH ×4 (07:50→19:43)
[2017-05-16] MEDS: metFORMIN 850 MG TABLET PO SCH ×2 (07:54→16:46)
[2017-05-16] MEDS: CALCIUM CARBONATE 500 MG TABLET PO SCH ×2 (07:54→16:46)
[2017-05-16] MEDS: DIVALPROEX 125 MG CAP.SPRINK PO SCH ×2 (07:54→16:46)
[2017-05-16] MEDS: LURASIDONE 40 MG TABLET. PO SCH (07:54)
[2017-05-16] MEDS: DIGOXIN 125 MCG TABLET PO SCH (07:55)
[2017-05-16] MEDS: POTASSIUM CHLORIDE 20 MEQ TABLET.ER. PO SCH ×2 (07:55→19:38)
[2017-05-16] MEDS: CHOLECALCIFEROL (VITAMIN D3) 1,000 UNIT TABLET PO SCH (07:55)
[2017-05-16] MEDS: MAGNESIUM OXIDE 400 MG TABLET PO SCH ×3 (07:56→19:38)
[2017-05-16] MEDS: FUROSEMIDE 40 MG TABLET PO SCH (07:56)
[2017-05-16] MEDS: TAMOXIFEN 10 MG TABLET PO SCH (07:56)
[2017-05-16] MEDS: ATENOLOL 50 MG TABLET PO SCH ×2 (07:57→19:39)
[2017-05-16] MEDS: MULTIVITAMIN with MINERAL TABLET. PO SCH (07:57)
[2017-05-16] MEDS: NYSTATIN TOPICAL POWDER 15GM BOTTLE. TP SCH ×2 (07:57→23:05)
--- NOTE | 2017-05-16 09:36 | NUR ---
Behavior Intervention Response and Plan: BIRP Note: Behavior: Assumed Care of patient, patient located in Patient Room at shift change. Patient exhibited the following behavior Cooperative, Compliant, appropriate, and cooperative. Brief assessment on rounds of vital signs, medication needs, lab studies, and pain. Treatment plan problems 1-2. Intervention: Patient assessed and the following interventions initiated safety checks 15 Minute Checks Cognitive Assessment , Head to toe Assessment , Medications. Response: After interactions and interventions patient responded in the following manner, cooperative, calm and Compliant. Continue to assess behaviors and condition will continue to monitor throughout the shift as needed. Plan: Continue to monitor Master Treatment Plan for patient's progress toward short term goals of Decreased Anxiety, Improved Mood, senior care goals to return to previous living setting vs placement. Continue to assess patient for changes in above assessment. Monitor for medication needs, pain, and safety concerns. Hourly rounding performed to ensure safe environment.
[2017-05-16 10:20] LABS: BASO % 1 % (0-3); EOS # 0.1 x10^3/uL (0.0-0.7); EOS % 2 % (0-3); HEMOGLOBIN 12.3 g/dL (12.0-15.5); LYMPH # 1.1 x10^3/uL (1.0-4.8); LYMPH % 22 % (24-48); MEAN CORPUSCULAR HEMOGLOBIN 27 pg (25-35); MEAN CORPUSCULAR HGB CONC 32 g/dL (31-37); MEAN CORPUSCULAR VOLUME 85 fL (79-100); MONO # 0.3 x10^3/uL (0.0-1.1); MONO % 6 % (0-9); NEUT # 3.6 x10^3uL (1.8-7.7); NEUT % 70 % (31-73); PLATELET COUNT 99 x10^3/uL (140-400); RED BLOOD COUNT 4.49 x10^6/uL (3.50-5.40); RED CELL DISTRIBUTION WIDTH 15.9 % (11.5-14.5); WHITE BLOOD COUNT 5.2 x10^3/uL (4.0-11.0)
[2017-05-16 10:42] LABS: ALBUMIN 2.9 g/dL (3.4-5.0); ALBUMIN/GLOBULIN RATIO 0.8 (1.0-1.7); CALCIUM 8.4 mg/dL (8.5-10.1); CREATININE 1.1 mg/dL (0.6-1.0); GFR 47.2; POTASSIUM 4.1 mmol/L (3.5-5.1); TOTAL BILIRUBIN 0.4 mg/dL (0.2-1.0); TOTAL PROTEIN 6.4 g/dL (6.4-8.2)
--- NOTE | 2017-05-16 12:44 | NUR ---
Pharmacy Warfarin Dosing Note S:Pharmacy consulted to assist with anticoagulation therapy started 04/30/17 with target INR: 2 -3 O:RAINER WASHINGTON is a 86 year old F with Atrial Fibrillation LABS: Last INR: 1.6 Last HGB: 12.3 Last HCT: 38.0 Last PLT: 99 Last dose of 7.5 mg given on 05/15/17 at 1600 Previous Regimen: 6MG HOME DOSE Vitamin K given: N Drug Interaction Changes: Same Interacting Drug Ongoing Drug Interactions: ALLOPURINOL, TAMOXIFEN, GLUCOSAMINE/CHONDROTIN A:INR Below desired Range. Target Range for this patient is: 2 -3 P: Warfarin dose: Give Coumadin 7.5mg today at 1600 Bridge Therapy: None Next INR due 05/17/17 Pharmacy anticoagulation service will continue to follow. JESUS CLEANING [facility] 05/16/17 4110
[2017-05-16] MEDS ORDERED: WARFARIN 7.5 MG TABLET. PO ONE (16:00)
[2017-05-16 16:05] VITALS: BP 142/78
[2017-05-16] MEDS: ALLOPURINOL 100 MG TABLET. PO SCH (16:47)
[2017-05-16] MEDS: traZODone 100 MG TABLET. PO SCH (19:37)
[2017-05-16] MEDS: MIRTAZAPINE 15 MG TAB.RAPDIS PO SCH (19:39)
--- NOTE | 2017-05-16 20:08 | PDOC ---
Exam Tahir Demential Exam: Tahir Note: Please also refer to the separate dictated note~for this date of service dictated separately.~Patient seen individually. Discussed the patient with Nursing staff reviewed the chart.~Reviewed interim history and current functioning. Reviewed vital signs,~Labs/ Radiology~and current medications noted below. Continue current treatment with the changes noted in the dictated addendum note Assessment: Vital Signs: Vital Signs Date Time Temp Pulse Resp B/P (MAP) Pulse Ox O2 Delivery O2 Flow Rate FiO2 05/16/17 19:39 90 142/78 05/16/17 16:05 97.5 18 95 05/15/17 16:20 Room Air I&O Intake and Output 05/16/17 07:00 Intake Total 1260 ml Balance 1260 ml Intake Oral 1260 ml # Bowel Movements 1 Labs: Laboratory Tests Test 05/16/17 07:18 05/16/17 09:20 05/16/17 11:25 05/16/17 16:24 Glucose (Fingerstick) 146 mg/dL (70-99) H 242 mg/dL (70-99) H 234 mg/dL (70-99) H White Blood Count 5.2 x10^3/uL (4.0-11.0) Red Blood Count 4.49 x10^6/uL (3.50-5.40) Hemoglobin 12.3 g/dL (12.0-15.5) Hematocrit 38.0 % (36.0-47.0) Mean Corpuscular Volume 85 fL (79-100) Mean Corpuscular Hemoglobin 27 pg (25-35) Mean Corpuscular Hemoglobin Concent 32 g/dL (31-37) Red Cell Distribution Width 15.9 % (11.5-14.5) H Platelet Count 99 x10^3/uL (140-400) L Neutrophils (%) (Auto) 70 % (31-73) Lymphocytes (%) (Auto) 22 % (24-48) L Monocytes (%) (Auto) 6 % (0-9) Eosinophils (%) (Auto) 2 % (0-3) Basophils (%) (Auto) 1 % (0-3) Neutrophils # (Auto) 3.6 x10^3uL (1.8-7.7) Lymphocytes # (Auto) 1.1 x10^3/uL (1.0-4.8) Monocytes # (Auto) 0.3 x10^3/uL (0.0-1.1) Eosinophils # (Auto) 0.1 x10^3/uL (0.0-0.7) Basophils # (Auto) 0.0 x10^3/uL (0.0-0.2) Prothrombin Time 16.0 SEC (9.4-11.4) H Prothrombin Time INR 1.6 (0.9-1.1) H Sodium Level 136 mmol/L (136-145) Potassium Level 4.1 mmol/L (3.5-5.1) Chloride Level 99 mmol/L (98-107) Carbon Dioxide Level 34 mmol/L (21-32) H Anion Gap 3 (6-14) L Blood Urea Nitrogen 22 mg/dL (7-20) H Creatinine 1.1 mg/dL (0.6-1.0) H Estimated GFR (Cockcroft-Gault) 47.2 BUN/Creatinine Ratio 20 (6-20) Glucose Level 234 mg/dL (70-99) H Calcium Level 8.4 mg/dL (8.5-10.1) L Total Bilirubin 0.4 mg/dL (0.2-1.0) Aspartate Amino Transferase (AST) 19 U/L (15-37) Alanine Aminotransferase (ALT) 22 U/L (14-59) Alkaline Phosphatase 60 U/L (46-116) Total Protein 6.4 g/dL (6.4-8.2) Albumin 2.9 g/dL (3.4-5.0) L Albumin/Globulin Ratio 0.8 (1.0-1.7) L Test 05/16/17 19:14 Glucose (Fingerstick) 251 mg/dL (70-99) H Current Medications: Meds: Current Medications Acetaminophen (Tylenol) 650 mg PRN Q6HRS PRN PO PAIN / TEMP; Start 04/30/17 at 18:30; Stop 04/30/17 at 19:53; Status DC Potassium Chloride (Klor-Con) 20 meq 1X ONCE PO Last administered on t 20:51; Start 04/30/17 at 20:00; Stop 04/30/17 at 20:01; Status DC Magnesium Chloride (Mag Delay) 64 mg DAILY PO Last administered on 05/06/17 08: 16; Start 05/01/17 at 09:00; Stop 05/06/17 at 18:08; Status DC Acetaminophen (Tylenol) 650 mg PRN Q6HRS PRN PO PAIN / TEMP Last administered on 05/04/17 11:44; Start 04/30/17 at 20:00; Stop 05/05/17 at 19:37; Status DC Al Hydroxide/Mg Hydroxide (Mylanta Plus Xs) 15 ml PRN AFTMEALHC PRN PO DYSPEPSIA; Start 04/30/17 at 20:00 Magnesium Hydroxide (Milk Of Magnesia) 2,400 mg PRN QHS PRN PO CONSTIPATION Last administered on 05/12/17 19:28; Start 04/30/17 at 20:00 Allopurinol (Zyloprim) 200 mg DAILYWSUP PO Last administered on 05/16/17 16:47 ; Start 05/01/17 at 17:00 Atenolol (Tenormin) 50 mg BID PO Last administered on 05/16/17 19:39; Start at 21:00 Calcium Carbonate/ Glycine (Oscal) 500 mg BIDWMEALS PO Last administered on 16:46; Start 05/01/17 at 08:00 Vitamin D (Vitamin D3) 1,000 unit DAILYWBKFT PO Last administered on 05/16/17 07:55; Start 05/01/17 at 08:00 Digoxin (Lanoxin) 125 mcg DAILY PO Last administered on 05/16/17 07:55; Start 05/01/17 at 09:00 Furosemide (Lasix) 120 mg DAILY PO Last administered on 05/05/17 13:31; Start 05/01/17 at 09:00; Stop 05/05/17 at 19:39; Status DC Metformin HCl (Glucophage) 850 mg BIDWMEALS PO Last administered on 05/16/17 16:46; Start 05/01/17 at 08:00 Potassium Chloride (Klor-Con) 20 meq BID PO Last administered on 05/04/17 20:37 ; Start 05/01/17 at 09:00; Stop 05/05/17 at 19:31; Status DC Warfarin Sodium (Coumadin) 6 mg DAILY16 PO Last administered on 05/01/17 16:56 ; Start 05/01/17 at 16:00; Stop 05/02/17 at 11:39; Status DC Non-Formulary Medication 500 mg BIDWMEALS PO ; Start 05/01/17 at 08:00; Stop 05/01 at 08:00; Status DC Glucosamine/ Chondroitin (Glucosamine-Chondroitin 500/400mg) 1 cap BIDWMEALS PO Last administered on 05/05/17 16:45; Start 05/01/17 at 08:00; Stop 05/05/17 at 18:18; Status DC Lactobacillus Acidophilus (Bacid, Orly-Bid) 2 tab DAILYWBKFT PO Last administered on 05/03/17 07:19; Start 05/01/17 at 08:00; Stop 05/05/17 at 18:18; Status DC Non-Formulary Medication 20 mg QHS PO ; Start 04/30/17 at 21:00; Stop 04/30/17 at 21:00; Status DC Non-Formulary Medication 5 mg QHS PO ; Start 04/30/17 at 21:00; Stop 04/30/17 at 21:00; Status DC Multivitamins/ Minerals (I-Gera) 1 tab DAILY PO Last administered on 05/03/17 07:20; Start 05/01/17 at 09:00; Stop 05/05/17 at 19:39; Status DC Pantoprazole Sodium (Protonix) 40 mg DAILYAC PO Last administered on 05/16/17 07:50; Start 05/01/17 at 07:30 Tamoxifen Citrate (Nolvadex) 20 mg DAILY PO Last administered on 05/16/17 07: 56; Start 05/01/17 at 09:00 Coenzyme Q10 (Coenzyme Q10) 100 mg BID PO Last administered on 05/04/17 20:36; Start 05/01/17 at 09:00; Stop 05/05/17 at 18:18; Status DC Sertraline HCl (Zoloft) 50 mg QHS PO Last administered on 04/30/17 20:51; Start 04/30/17 at 21:00; Stop 05/01/17 at 11:00; Status DC Melatonin 4.5 mg QHS PO Last administered on 05/04/17 20:37; Start 04/30/17 at 21:00; Stop 05/05/17 at 18:18; Status DC Olanzapine (ZyPREXA ZYDIS) 2.5 mg PRN Q4HRS PRN PO Psych Last administered on 16:52; Start 04/30/17 at 20:15 Magnesium Oxide (Magnesium Oxide) 400 mg BID PO Last administered on 05/14/17 09:35; Start 04/30/17 at 21:00; Stop 05/14/17 at 11:01; Status DC Warfarin Sodium (Coumadin) 6 mg 1X WARF ONCE PO Last administered on 20:51; Start 04/30/17 at 20:45; Stop 04/30/17 at 20:46; Status DC Warfarin Sodium (Coumadin) 0.5 mg 1X WARF ONCE PO Last administered on 20:51; Start 04/30/17 at 20:45; Stop 04/30/17 at 20:46; Status DC Warfarin Sodium (Coumadin Per Physician) 1 each PRN DAILY PRN MC SEE COMMENTS; Start 05/01/17 at 09:45; Stop 05/01/17 at 14:54; Status DC Risperidone (RisperDAL) 0.25 mg HS PO Last administered on 05/02/17 19:39; Start 05/01/17 at 21:00; Stop 05/03/17 at 18:28; Status DC Trazodone HCl (Desyrel) 100 mg QHS PO Last administered on 05/16/17 19:37; Start 05/01/17 at 21:00 Trazodone HCl (Desyrel) 100 mg PRN QHS PRN PO INSOMNIA Last administered on 22:24; Start 05/01/17 at 10:45 Insulin Detemir (Levemir) 5 units QHS SQ Last administered on 05/15/17 19:46; Start 05/01/17 at 21:00 Insulin Aspart (NovoLOG) 0-5 UNITS QIDACHS SQ Last administered on 05/16/17 16 :46; Start 05/01/17 at 16:30 Dextrose 12.5 gm PRN Q15MIN PRN IV SEE COMMENTS; Start 05/01/17 at 14:45 Warfarin Sodium (Coumadin Per Pharmacy) 1 each PRN DAILY PRN MC SEE COMMENTS Last administered on 05/16/17 12:43; Start 05/01/17 at 14:45 Insulin Aspart (NovoLOG) 10 units 1X ONCE SQ Last administered on 05/01/17 17: 15; Start 05/01/17 at 17:15; Stop 05/01/17 at 17:16; Status DC Warfarin Sodium (Coumadin) 7.5 mg 1X WARF ONCE PO Last administered on 17:16; Start 05/02/17 at 16:00; Stop 05/02/17 at 16:01; Status DC Warfarin Sodium (Coumadin) 7.5 mg 1X WARF ONCE PO Last administered on 16:18; Start 05/03/17 at 16:00; Stop 05/03/17 at 16:01; Status DC Risperidone (RisperDAL) 0.5 mg HS SL Last administered on 05/04/17 20:41; Start 05/03/17 at 21:00; Stop 05/05/17 at 19:33; Status DC Valproic Acid (Depakene) 250 mg BIDWMEALS PO Last administered on 05/07/17 16: 52; Start 05/04/17 at 08:00; Stop 05/07/17 at 18:23; Status DC Warfarin Sodium (Coumadin) 7.5 mg 1X WARF ONCE PO Last administered on 16:02; Start 05/04/17 at 16:00; Stop 05/04/17 at 16:01; Status DC Mirtazapine (Remeron) 7.5 mg QHS PO Last administered on 05/04/17 20:38; Start 05/04/17 at 21:00; Stop 05/05/17 at 19:33; Status DC Warfarin Sodium (Coumadin) 7.5 mg 1X WARF ONCE PO Last administered on 16:46; Start 05/05/17 at 16:00; Stop 05/05/17 at 16:01; Status DC Potassium Chloride (KCl Oral Soln) 20 meq BID PO Last administered on 05/09/17 09:13; Start 05/05/17 at 21:00; Stop 05/09/17 at 18:44; Status DC Risperidone (RisperDAL) 1 mg HS SL ; Start 05/05/17 at 21:00; Stop 05/06/17 at 11: 05; Status DC Mirtazapine (Remeron Olive-Tab) 7.5 mg QHS PO Last administered on 05/16/17 19: 39; Start 05/05/17 at 21:00 Acetaminophen (Tylenol) 650 mg PRN Q6HRS PRN PO PAIN / TEMP Last administered on 05/09/17 09:12; Start 05/05/17 at 19:45; Stop 05/10/17 at 08:51; Status DC Furosemide (Lasix) 120 mg DAILY PO Last administered on 05/09/17 09:43; Start 05/06/17 at 09:00; Stop 05/09/17 at 18:44; Status DC Multivitamins (Thera-Plus) 5 ml DAILY PO Last administered on 05/08/17 08:02; Start 05/06/17 at 09:00; Stop 05/10/17 at 08:51; Status DC Risperidone (RisperDAL) 0.5 mg HS SL Last administered on 05/08/17 21:49; Start 05/06/17 at 21:00; Stop 05/09/17 at 09:00; Status DC Melatonin 3 mg PRN QHS PRN PO INSOMNIA; Start 05/06/17 at 18:15 Warfarin Sodium (Coumadin) 7.5 mg 1X WARF ONCE PO Last administered on 16:51; Start 05/07/17 at 16:00; Stop 05/07/17 at 16:01; Status DC Valproic Acid (Depakene) 375 mg BIDWMEALS PO Last administered on 05/09/17 16: 27; Start 05/08/17 at 08:00; Stop 05/09/17 at 18:44; Status DC Warfarin Sodium (Coumadin) 7.5 mg 1X WARF ONCE PO Last administered on 16:53; Start 05/08/17 at 16:00; Stop 05/08/17 at 16:01; Status DC Warfarin Sodium (Coumadin) 7.5 mg 1X WARF ONCE PO Last administered on 16:26; Start 05/09/17 at 16:00; Stop 05/09/17 at 16:01; Status DC Furosemide (Lasix) 120 mg DAILY PO Last administered on 05/16/17 07:56; Start 05/10/17 at 09:00 Potassium Chloride (Klor-Con) 20 meq BID PO Last administered on 05/16/17 19: 38; Start 05/09/17 at 21:00 Divalproex Sodium (Depakote Sprinkles) 375 mg BIDWMEALS PO Last administered on 05/16/17 16:46; Start 05/10/17 at 08:00 Multivitamins/ Calcium (Thera-M Plus) 1 tab DAILY PO Last administered on 07:57; Start 05/10/17 at 09:00 Acetaminophen (Tylenol) 650 mg PRN Q6HRS PRN PO PAIN / TEMP Last administered on 05/14/17 22:23; Start 05/10/17 at 09:00 Warfarin Sodium (Coumadin) 4 mg 1X WARF ONCE PO Last administered on 16:17; Start 05/10/17 at 16:00; Stop 05/10/17 at 16:01; Status DC Warfarin Sodium (Coumadin) 3 mg 1X WARF ONCE PO Last administered on 16:17; Start 05/10/17 at 16:00; Stop 05/10/17 at 16:01; Status DC Warfarin Sodium (Coumadin) 4 mg DAILY16 PO Last administered on 05/12/17 17:08 ; Start 05/11/17 at 16:00; Stop 05/13/17 at 11:50; Status DC Warfarin Sodium (Coumadin) 3 mg DAILY16 PO Last administered on 05/12/17 17:08 ; Start 05/11/17 at 16:00; Stop 05/13/17 at 11:50; Status DC Warfarin Sodium (Coumadin - No Dose Today) 1 each 1X WARF ONCE MC ; Start 05/13 at 16:00; Stop 05/13/17 at 16:01; Status DC Magnesium Oxide (Magnesium Oxide) 400 mg TID PO Last administered on 05/16/17 19:38; Start 05/14/17 at 14:00 Warfarin Sodium (Coumadin - No Dose Today) 1 each 1X WARF ONCE MC ; Start 05/14 at 16:00; Stop 05/14/17 at 16:02; Status DC Nystatin (Nystop) 1 lexie BID TP ; Start 05/15/17 at 09:00; Stop 05/15/17 at 09:00 ; Status DC Nystatin (Nystop) 1 lexie BID TP Last administered on 05/16/17t 07:57; Start at 23:15 Warfarin Sodium (Coumadin) 7.5 mg 1X WARF ONCE PO ; Start 05/15/17 at 16:00; Stop 05/15/17 at 16:01; Status DC Warfarin Sodium (Coumadin) 7.5 mg 1X WARF ONCE PO Last administered on 14:59; Start 05/16/17 at 16:00; Stop 05/16/17 at 16:01; Status DC Active Scripts Active Reported Probiotic (Lactobacillus Combo No.10) 1 Each Capsule 1 Cap PO DAILYWBKFT Women's Daily Caplet (Multivits,Ca,Minerals/Iron/Fa) 1 Each Tablet 1 Tab PO BID Zoloft (Sertraline Hcl) 25 Mg Tablet 25 Mg PO QHS 7 Days Zoloft (Sertraline Hcl) 50 Mg Tablet 50 Mg PO QHS 3 Days Omeprazole 20 Mg Tablet.dr 20 Mg PO DAILY07 Allopurinol 100 Mg Tablet 200 Mg PO DAILYWSUP Vitamin D3 (Cholecalciferol (Vitamin D3)) 1,000 Unit Tablet 1,000 Unit PO DAILYWBKFT Oyster Shell Calcium (Calcium Carbonate) 500 Mg Tablet 500 Mg PO BIDWMEALS Cinnamon (Cinnamon Bark) 500 Mg Capsule 500 Mg PO BIDWMEALS Co Q-10 100 Mg Softgel (Ubidecarenone/Vit E Acetate) 1 Each Capsule 100 Mg PO BID Melatonin 5 Mg Tablet (Melatonin/Pyridoxine) 1 Each Tablet 5 Mg PO QHS Lutein 20 Mg Capsule 20 Mg PO QHS Drfedmcjsm-Szwppzmryqc-Spe Tab (Gluc/Victor M-Msm#2/C/D3/Anthony/Born) 1 Each Tablet 1 Tab PO BIDWMEALS Metformin Hcl 850 Mg Tablet 850 Mg PO BIDWMEALS Digoxin 125 Mcg Tablet 125 Mcg PO DAILY Tamoxifen Citrate 20 Mg Tablet 20 Mg PO DAILY Atenolol 50 Mg Tablet 50 Mg PO BID Lasix (Furosemide) 80 Mg Tablet 120 Mg PO DAILY Coumadin (Warfarin Sodium) 6 Mg Tablet 6 Mg PO QPM Potassium Chloride 10 Meq Capsule.er 10 Meq PO BID Diagnosis: Problems: (1) Anxiety disorder (2) Impulse control disorder (3) Bipolar affective, mixed, sev w/ psych (4) Dementia, vascular, 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
--- NOTE | 2017-05-16 21:00 | NUR ---
Behavior Intervention Response and Plan: BIRP Note: Behavior: Assumed Care of patient, patient located in Patient Room at shift change. Patient exhibited the following behavior Cooperative, Compliant, appropriate, and cooperative. Brief assessment on rounds of vital signs, medication needs, lab studies, and pain. Treatment plan problems 1-2. Intervention: Patient assessed and the following interventions initiated safety checks 15 Minute Checks Cognitive Assessment , Head to toe Assessment , Medications. Response: After interactions and interventions patient responded in the following manner, cooperative, calm and Compliant. Continue to assess behaviors and condition will continue to monitor throughout the shift as needed. Plan: Continue to monitor Master Treatment Plan for patient's progress toward short term goals of Decreased Anxiety, Improved Mood, mcc goals to return to previous living setting vs placement. Continue to assess patient for changes in above assessment. Monitor for medication needs, pain, and safety concerns. Hourly rounding performed to ensure safe environment.
[2017-05-16] MEDS: INSULIN DETEMIR 300 UNITS/3 ML INSULN.PEN. SQ SCH (23:04)
[2017-05-17 06:13] VITALS: BP 168/54
[2017-05-17] MEDS: PANTOPRAZOLE 40 MG TABLET. PO SCH (08:14)
[2017-05-17] MEDS: INSULIN ASPART 300 UNITS/3 ML INSULN.PEN SQ SCH ×4 (08:14→20:08)
[2017-05-17] MEDS: DIVALPROEX 125 MG CAP.SPRINK PO SCH ×2 (08:14→17:09)
[2017-05-17] MEDS: metFORMIN 850 MG TABLET PO SCH ×2 (08:14→17:09)
[2017-05-17] MEDS: POTASSIUM CHLORIDE 20 MEQ TABLET.ER. PO SCH ×2 (08:18→20:00)
[2017-05-17] MEDS: CHOLECALCIFEROL (VITAMIN D3) 1,000 UNIT TABLET PO SCH (08:18)
[2017-05-17] MEDS: CALCIUM CARBONATE 500 MG TABLET PO SCH ×2 (08:18→17:09)
[2017-05-17] MEDS: LURASIDONE 40 MG TABLET. PO SCH (08:18)
[2017-05-17] MEDS: DIGOXIN 125 MCG TABLET PO SCH (08:19)
[2017-05-17] MEDS: MAGNESIUM OXIDE 400 MG TABLET PO SCH ×3 (08:19→20:01)
[2017-05-17] MEDS: FUROSEMIDE 40 MG TABLET PO SCH (08:19)
--- NOTE | 2017-05-17 08:19 | NUR ---
SHYANN faxed information to Swing bed unit for [facility], as Julienne called this clinical writer back this am and provided a fax number. SHYANN will conutie to look for skilled placement.
[2017-05-17] MEDS: MULTIVITAMIN with MINERAL TABLET. PO SCH (08:20)
[2017-05-17] MEDS: ATENOLOL 50 MG TABLET PO SCH ×2 (08:20→20:01)
[2017-05-17] MEDS: TAMOXIFEN 10 MG TABLET PO SCH (08:20)
--- NOTE | 2017-05-17 09:00 | NUR ---
THERAPEUTIC RECREATION GROUP NOTE TITLE :Beach Ball Bump ACTIVITY : Activities and Games GOAL : Increase alertness, focus, morale, decrease stress DURATION : 40 Minutes RESPONSE : Full participation. Pt. was with the group the entire time and needed no prompting to stay on task. She was able to bump the ball with good hand eye coordination. She smiled often and hooted a few times.
[2017-05-17] MEDS: NYSTATIN TOPICAL POWDER 15GM BOTTLE. TP SCH ×2 (09:06→23:06)
--- NOTE | 2017-05-17 09:47 | NUR ---
Behavior Intervention Response and Plan: BIRP Note: Behavior: Assumed Care of patient, patient located in Patient Room at shift change. Patient exhibited the following behavior Cooperative, Compliant, and cooperative. Brief assessment on rounds of vital signs, medication needs, lab studies, and pain. Treatment plan problems 1-2. Intervention: Patient assessed and the following interventions initiated safety checks 15 Minute Checks Cognitive Assessment , Head to toe Assessment , Medications. Response: After interactions and interventions patient responded in the following manner, cooperative, calm and Compliant. Continue to assess behaviors and condition will continue to monitor throughout the shift as needed. 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 Continue to assess patient for changes in above assessment. Monitor for medication needs, pain, and safety concerns. Hourly rounding performed to ensure safe environment.
--- NOTE | 2017-05-17 11:02 | NUR ---
[facility] states they are unable to meet pt needs at this time. SW will continue to look for skilled placement.
--- NOTE | 2017-05-17 11:12 | NUR ---
Group Note [facility] Group Type "You are My Thendara" Start Time: 9:45 End Time: 10:20 Problem: Depression Purpose: Increase Motivation, socialization, Level of Participation: High Behaviors or Symptoms Observed: Pt sang her own version of you are my sunshine, pt was pleasent during group, however would have to be redirected as she would start to sing while others were trying to share, pt was very redirected, pt smiled throughout the group at times had difficult time finding her words. Interventions: Directed Focus Response: Pt's had a picture of the sun and talked about what they think of regarding the Sun, Sang the song You are my sunshine, group talked about who they sang the song to, who sang it to them, as well as who was the sunshine in their lives. Plan: Group Participation Additional Comments:
--- NOTE | 2017-05-17 11:30 | NUR ---
THERAPEUTIC RECREATION GROUP NOTE TITLE :Movement to Music: Flexibility ACTIVITY : Movement/ Exercise GOAL : Increase morale, attention, flexibility. Decrease stress/anxiety. DURATION : 20 Minutes RESPONSE : Minimal participation. Pt. stayed with the group the entire time but only followed along with a couple moves, even after prompting and encouragement. She talked to herself some of the time, not making complete sense.
--- NOTE | 2017-05-17 15:02 | NUR ---
Pharmacy Warfarin Dosing Note S:Pharmacy consulted to assist with anticoagulation therapy started 04/30/17 with target INR: 2 -3 O:RAINER WASHINGTON is a 86 year old F with Atrial Fibrillation LABS: Last INR: 1.3 Last HGB: 12.3 Last HCT: 38 Last PLT: 99 Last dose of 7.5 mg given on 05/16/17 at 1600 Previous Regimen: 6MG HOME DOSE Vitamin K given: N Drug Interaction Changes: Same Interacting Drug Ongoing Drug Interactions: ALLOPURINOL, TAMOXIFEN, GLUCOSAMINE/CHONDROTIN A:INR Below desired Range. Target Range for this patient is: 2 -3 P: Warfarin dose: 7.5 mg Today at 1600 Bridge Therapy: None Next INR due 05/18/17 @0600 Pharmacy anticoagulation service will continue to follow. FERNANDO RAYA [facility], 05/17/17 4000
[2017-05-17 15:35] VITALS: BP 124/67
[2017-05-17] MEDS ORDERED: WARFARIN 7.5 MG TABLET. PO ONE (16:00)
[2017-05-17] MEDS: ALLOPURINOL 100 MG TABLET. PO SCH (17:09)
[2017-05-17] MEDS: MIRTAZAPINE 15 MG TAB.RAPDIS PO SCH (20:00)
[2017-05-17] MEDS: traZODone 100 MG TABLET. PO SCH (20:00)
[2017-05-17] MEDS: INSULIN DETEMIR 300 UNITS/3 ML INSULN.PEN. SQ SCH (20:07)
--- NOTE | 2017-05-17 20:11 | PDOC ---
Exam Tahir Demential Exam: Tahir Note: Please also refer to the separate dictated note~for this date of service dictated separately.~Patient seen individually. Discussed the patient with Nursing staff reviewed the chart.~Reviewed interim history and current functioning. Reviewed vital signs,~Labs/ Radiology~and current medications noted below. Continue current treatment with the changes noted in the dictated addendum note Assessment: Vital Signs: Vital Signs Date Time Temp Pulse Resp B/P (MAP) Pulse Ox O2 Delivery O2 Flow Rate FiO2 05/17/17 20:01 75 124/67 05/17/17 15:35 97.8 20 99 Room Air I&O Intake and Output 05/17/17 07:00 Intake Total 1080 ml Balance 1080 ml Intake Oral 1080 ml # Bowel Movements 3 Labs: Laboratory Tests Test 05/17/17 07:17 05/17/17 12:02 05/17/17 13:45 05/17/17 17:06 Glucose (Fingerstick) 206 mg/dL (70-99) H 227 mg/dL (70-99) H 225 mg/dL (70-99) H Prothrombin Time 13.5 SEC (9.4-11.4) H Prothrombin Time INR 1.3 (0.9-1.1) H Current Medications: Meds: Current Medications Acetaminophen (Tylenol) 650 mg PRN Q6HRS PRN PO PAIN / TEMP; Start 04/30/17 at 18:30; Stop 04/30/17 at 19:53; Status DC Potassium Chloride (Klor-Con) 20 meq 1X ONCE PO Last administered on 20:51; Start 04/30/17 at 20:00; Stop 04/30/17 at 20:01; Status DC Magnesium Chloride (Mag Delay) 64 mg DAILY PO Last administered on 05/06/17 08: 16; Start 05/01/17 at 09:00; Stop 05/06/17 at 18:08; Status DC Acetaminophen (Tylenol) 650 mg PRN Q6HRS PRN PO PAIN / TEMP Last administered on 05/04/17 11:44; Start 04/30/17 at 20:00; Stop 05/05/17 at 19:37; Status DC Al Hydroxide/Mg Hydroxide (Mylanta Plus Xs) 15 ml PRN AFTMEALHC PRN PO DYSPEPSIA; Start 04/30/17 at 20:00 Magnesium Hydroxide (Milk Of Magnesia) 2,400 mg PRN QHS PRN PO CONSTIPATION Last administered on 05/12/17 19:28; Start 04/30/17 at 20:00 Allopurinol (Zyloprim) 200 mg DAILYWSUP PO Last administered on 05/17/17 17:09 ; Start 05/01/17 at 17:00 Atenolol (Tenormin) 50 mg BID PO Last administered on 05/17/17 20:01; Start at 21:00 Calcium Carbonate/ Glycine (Oscal) 500 mg BIDWMEALS PO Last administered on 17:09; Start 05/01/17 at 08:00 Vitamin D (Vitamin D3) 1,000 unit DAILYWBKFT PO Last administered on 05/17/17 08:18; Start 05/01/17 at 08:00 Digoxin (Lanoxin) 125 mcg DAILY PO Last administered on 05/17/17 08:19; Start 05/01/17 at 09:00 Furosemide (Lasix) 120 mg DAILY PO Last administered on 05/05/17 13:31; Start 05/01/17 at 09:00; Stop 05/05/17 at 19:39; Status DC Metformin HCl (Glucophage) 850 mg BIDWMEALS PO Last administered on 05/17/17 17:09; Start 05/01/17 at 08:00 Potassium Chloride (Klor-Con) 20 meq BID PO Last administered on 05/04/17 20:37 ; Start 05/01/17 at 09:00; Stop 05/05/17 at 19:31; Status DC Warfarin Sodium (Coumadin) 6 mg DAILY16 PO Last administered on 05/01/17 16:56 ; Start 05/01/17 at 16:00; Stop 05/02/17 at 11:39; Status DC Non-Formulary Medication 500 mg BIDWMEALS PO ; Start 05/01/17 at 08:00; Stop 05/01 at 08:00; Status DC Glucosamine/ Chondroitin (Glucosamine-Chondroitin 500/400mg) 1 cap BIDWMEALS PO Last administered on 05/05/17 16:45; Start 05/01/17 at 08:00; Stop 05/05/17 at 18:18; Status DC Lactobacillus Acidophilus (Bacid, Orly-Bid) 2 tab DAILYWBKFT PO Last administered on 05/03/17 07:19; Start 05/01/17 at 08:00; Stop 05/05/17 at 18:18; Status DC Non-Formulary Medication 20 mg QHS PO ; Start 04/30/17 at 21:00; Stop 04/30/17 at 21:00; Status DC Non-Formulary Medication 5 mg QHS PO ; Start 04/30/17 at 21:00; Stop 04/30/17 at 21:00; Status DC Multivitamins/ Minerals (I-Gera) 1 tab DAILY PO Last administered on 05/03/17 07:20; Start 05/01/17 at 09:00; Stop 05/05/17 at 19:39; Status DC Pantoprazole Sodium (Protonix) 40 mg DAILYAC PO Last administered on 05/17/17 08:14; Start 05/01/17 at 07:30 Tamoxifen Citrate (Nolvadex) 20 mg DAILY PO Last administered on 05/17/17 08: 20; Start 05/01/17 at 09:00 Coenzyme Q10 (Coenzyme Q10) 100 mg BID PO Last administered on 05/04/17 20:36; Start 05/01/17 at 09:00; Stop 05/05/17 at 18:18; Status DC Sertraline HCl (Zoloft) 50 mg QHS PO Last administered on 04/30/17 20:51; Start 04/30/17 at 21:00; Stop 05/01/17 at 11:00; Status DC Melatonin 4.5 mg QHS PO Last administered on 05/04/17 20:37; Start 04/30/17 at 21:00; Stop 05/05/17 at 18:18; Status DC Olanzapine (ZyPREXA ZYDIS) 2.5 mg PRN Q4HRS PRN PO Psych Last administered on 16:52; Start 04/30/17 at 20:15 Magnesium Oxide (Magnesium Oxide) 400 mg BID PO Last administered on 05/14/17 09:35; Start 04/30/17 at 21:00; Stop 05/14/17 at 11:01; Status DC Warfarin Sodium (Coumadin) 6 mg 1X WARF ONCE PO Last administered on 20:51; Start 04/30/17 at 20:45; Stop 04/30/17 at 20:46; Status DC Warfarin Sodium (Coumadin) 0.5 mg 1X WARF ONCE PO Last administered on 20:51; Start 04/30/17 at 20:45; Stop 04/30/17 at 20:46; Status DC Warfarin Sodium (Coumadin Per Physician) 1 each PRN DAILY PRN MC SEE COMMENTS; Start 05/01/17 at 09:45; Stop 05/01/17 at 14:54; Status DC Risperidone (RisperDAL) 0.25 mg HS PO Last administered on 05/02/17 19:39; Start 05/01/17 at 21:00; Stop 05/03/17 at 18:28; Status DC Trazodone HCl (Desyrel) 100 mg QHS PO Last administered on 05/17/17 20:00; Start 05/01/17 at 21:00 Trazodone HCl (Desyrel) 100 mg PRN QHS PRN PO INSOMNIA Last administered on 22:24; Start 05/01/17 at 10:45 Insulin Detemir (Levemir) 5 units QHS SQ Last administered on 05/17/17 20:07; Start 05/01/17 at 21:00 Insulin Aspart (NovoLOG) 0-5 UNITS QIDACHS SQ Last administered on 05/17/17 20 :08; Start 05/01/17 at 16:30 Dextrose 12.5 gm PRN Q15MIN PRN IV SEE COMMENTS; Start 05/01/17 at 14:45 Warfarin Sodium (Coumadin Per Pharmacy) 1 each PRN DAILY PRN MC SEE COMMENTS Last administered on 05/17/17 15:01; Start 05/01/17 at 14:45 Insulin Aspart (NovoLOG) 10 units 1X ONCE SQ Last administered on 05/01/17 17: 15; Start 05/01/17 at 17:15; Stop 05/01/17 at 17:16; Status DC Warfarin Sodium (Coumadin) 7.5 mg 1X WARF ONCE PO Last administered on 17:16; Start 05/02/17 at 16:00; Stop 05/02/17 at 16:01; Status DC Warfarin Sodium (Coumadin) 7.5 mg 1X WARF ONCE PO Last administered on 16:18; Start 05/03/17 at 16:00; Stop 05/03/17 at 16:01; Status DC Risperidone (RisperDAL) 0.5 mg HS SL Last administered on 05/04/17 20:41; Start 05/03/17 at 21:00; Stop 05/05/17 at 19:33; Status DC Valproic Acid (Depakene) 250 mg BIDWMEALS PO Last administered on 05/07/17 16: 52; Start 05/04/17 at 08:00; Stop 05/07/17 at 18:23; Status DC Warfarin Sodium (Coumadin) 7.5 mg 1X WARF ONCE PO Last administered on 16:02; Start 05/04/17 at 16:00; Stop 05/04/17 at 16:01; Status DC Mirtazapine (Remeron) 7.5 mg QHS PO Last administered on 05/04/17 20:38; Start 05/04/17 at 21:00; Stop 05/05/17 at 19:33; Status DC Warfarin Sodium (Coumadin) 7.5 mg 1X WARF ONCE PO Last administered on 16:46; Start 05/05/17 at 16:00; Stop 05/05/17 at 16:01; Status DC Potassium Chloride (KCl Oral Soln) 20 meq BID PO Last administered on 05/09/17 09:13; Start 05/05/17 at 21:00; Stop 05/09/17 at 18:44; Status DC Risperidone (RisperDAL) 1 mg HS SL ; Start 05/05/17 at 21:00; Stop 05/06/17 at 11: 05; Status DC Mirtazapine (Remeron Olive-Tab) 7.5 mg QHS PO Last administered on 05/17/17 20: 00; Start 05/05/17 at 21:00 Acetaminophen (Tylenol) 650 mg PRN Q6HRS PRN PO PAIN / TEMP Last administered on 05/09/17 09:12; Start 05/05/17 at 19:45; Stop 05/10/17 at 08:51; Status DC Furosemide (Lasix) 120 mg DAILY PO Last administered on 05/09/17 09:43; Start 05/06/17 at 09:00; Stop 05/09/17 at 18:44; Status DC Multivitamins (Thera-Plus) 5 ml DAILY PO Last administered on 05/08/17 08:02; Start 05/06/17 at 09:00; Stop 05/10/17 at 08:51; Status DC Risperidone (RisperDAL) 0.5 mg HS SL Last administered on 05/08/17 21:49; Start 05/06/17 at 21:00; Stop 05/09/17 at 09:00; Status DC Melatonin 3 mg PRN QHS PRN PO INSOMNIA; Start 05/06/17 at 18:15 Warfarin Sodium (Coumadin) 7.5 mg 1X WARF ONCE PO Last administered on 16:51; Start 05/07/17 at 16:00; Stop 05/07/17 at 16:01; Status DC Valproic Acid (Depakene) 375 mg BIDWMEALS PO Last administered on 05/09/17 16: 27; Start 05/08/17 at 08:00; Stop 05/09/17 at 18:44; Status DC Warfarin Sodium (Coumadin) 7.5 mg 1X WARF ONCE PO Last administered on 16:53; Start 05/08/17 at 16:00; Stop 05/08/17 at 16:01; Status DC Warfarin Sodium (Coumadin) 7.5 mg 1X WARF ONCE PO Last administered on 16:26; Start 05/09/17 at 16:00; Stop 05/09/17 at 16:01; Status DC Furosemide (Lasix) 120 mg DAILY PO Last administered on 05/17/17 08:19; Start 05/10/17 at 09:00 Potassium Chloride (Klor-Con) 20 meq BID PO Last administered on 05/17/17 20: 00; Start 05/09/17 at 21:00 Divalproex Sodium (Depakote Sprinkles) 375 mg BIDWMEALS PO Last administered on 05/17/17 17:09; Start 05/10/17 at 08:00 Multivitamins/ Calcium (Thera-M Plus) 1 tab DAILY PO Last administered on 08:20; Start 05/10/17 at 09:00 Acetaminophen (Tylenol) 650 mg PRN Q6HRS PRN PO PAIN / TEMP Last administered on 05/14/17 22:23; Start 05/10/17 at 09:00 Warfarin Sodium (Coumadin) 4 mg 1X WARF ONCE PO Last administered on 16:17; Start 05/10/17 at 16:00; Stop 05/10/17 at 16:01; Status DC Warfarin Sodium (Coumadin) 3 mg 1X WARF ONCE PO Last administered on 16:17; Start 05/10/17 at 16:00; Stop 05/10/17 at 16:01; Status DC Warfarin Sodium (Coumadin) 4 mg DAILY16 PO Last administered on 05/12/17 17:08 ; Start 05/11/17 at 16:00; Stop 05/13/17 at 11:50; Status DC Warfarin Sodium (Coumadin) 3 mg DAILY16 PO Last administered on 05/12/17 17:08 ; Start 05/11/17 at 16:00; Stop 05/13/17 at 11:50; Status DC Warfarin Sodium (Coumadin - No Dose Today) 1 each 1X WARF ONCE MC ; Start 05/13 at 16:00; Stop 05/13/17 at 16:01; Status DC Magnesium Oxide (Magnesium Oxide) 400 mg TID PO Last administered on 05/17/17 20:01; Start 05/14/17 at 14:00 Warfarin Sodium (Coumadin - No Dose Today) 1 each 1X WARF ONCE MC ; Start 05/14 at 16:00; Stop 05/14/17 at 16:02; Status DC Nystatin (Nystop) 1 lexie BID TP ; Start 05/15/17 at 09:00; Stop 05/15/17 at 09:00 ; Status DC Nystatin (Nystop) 1 lexie BID TP Last administered on 05/17/17 09:06; Start at 23:15 Warfarin Sodium (Coumadin) 7.5 mg 1X WARF ONCE PO ; Start 05/15/17 at 16:00; Stop 05/15/17 at 16:01; Status DC Warfarin Sodium (Coumadin) 7.5 mg 1X WARF ONCE PO Last administered on 14:59; Start 05/16/17 at 16:00; Stop 05/16/17 at 16:01; Status DC Warfarin Sodium (Coumadin) 7.5 mg 1X WARF ONCE PO Last administered on 17:08; Start 05/17/17 at 16:00; Stop 05/17/17 at 16:01; Status DC Active Scripts Active Reported Probiotic (Lactobacillus Combo No.10) 1 Each Capsule 1 Cap PO DAILYWBKFT Women's Daily Caplet (Multivits,Ca,Minerals/Iron/Fa) 1 Each Tablet 1 Tab PO BID Zoloft (Sertraline Hcl) 25 Mg Tablet 25 Mg PO QHS 7 Days Zoloft (Sertraline Hcl) 50 Mg Tablet 50 Mg PO QHS 3 Days Omeprazole 20 Mg Tablet.dr 20 Mg PO DAILY07 Allopurinol 100 Mg Tablet 200 Mg PO DAILYWSUP Vitamin D3 (Cholecalciferol (Vitamin D3)) 1,000 Unit Tablet 1,000 Unit PO DAILYWBKFT Oyster Shell Calcium (Calcium Carbonate) 500 Mg Tablet 500 Mg PO BIDWMEALS Cinnamon (Cinnamon Bark) 500 Mg Capsule 500 Mg PO BIDWMEALS Co Q-10 100 Mg Softgel (Ubidecarenone/Vit E Acetate) 1 Each Capsule 100 Mg PO BID Melatonin 5 Mg Tablet (Melatonin/Pyridoxine) 1 Each Tablet 5 Mg PO QHS Lutein 20 Mg Capsule 20 Mg PO QHS Qeciqkrkxy-Wtpgymluima-Sup Tab (Gluc/Victor M-Msm#2/C/D3/Anthony/Born) 1 Each Tablet 1 Tab PO BIDWMEALS Metformin Hcl 850 Mg Tablet 850 Mg PO BIDWMEALS Digoxin 125 Mcg Tablet 125 Mcg PO DAILY Tamoxifen Citrate 20 Mg Tablet 20 Mg PO DAILY Atenolol 50 Mg Tablet 50 Mg PO BID Lasix (Furosemide) 80 Mg Tablet 120 Mg PO DAILY Coumadin (Warfarin Sodium) 6 Mg Tablet 6 Mg PO QPM Potassium Chloride 10 Meq Capsule.er 10 Meq PO BID Diagnosis: Problems: (1) Anxiety disorder (2) Impulse control disorder (3) Bipolar affective, mixed, sev w/ psych (4) Dementia, vascular, 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
--- NOTE | 2017-05-17 20:49 | PDOC ---
Exam Tahir Demential Exam: Tahir Note: Please also refer to the separate dictated note~for this date of service dictated separately.~Patient seen individually. Discussed the patient with Nursing staff reviewed the chart.~Reviewed interim history and current functioning. Reviewed vital signs,~Labs/ Radiology~and current medications noted below. Continue current treatment with the changes noted in the dictated addendum note S/O: This is a late entry for 05/13/2017, covers the elements that are not covered in my initial note. The patient was staffed treatment team meeting with the entire team on morning of 05/13/2017 and seen individually on the evening of 05/13/2017. Slept about 6 hours. Appetite is 65%. Compliant with medications. The patient's son, Paresh, attended the conference. Review of Systems: No CV, , Pulmonary, Eye, ENT system symptoms on review. Gait is unsteady, on wheelchair. MSE: Oriented to herself, situation. Speech is coherent, less pressured, less rhyming, less slanging. Insight and judgment, recent memory is impaired. Mood and affect is improved. Imp: Unchanged from initial note. Plan: Continue current psychotropics. Assessment: Vital Signs: Vital Signs Date Time Temp Pulse Resp B/P (MAP) Pulse Ox O2 Delivery O2 Flow Rate FiO2 05/17/17 20:01 75 124/67 05/17/17 15:35 97.8 20 99 Room Air I&O Intake and Output 05/17/17 07:00 Intake Total 1080 ml Balance 1080 ml Intake Oral 1080 ml # Bowel Movements 3 Labs: Laboratory Tests Test 05/17/17 07:17 05/17/17 12:02 05/17/17 13:45 05/17/17 17:06 Glucose (Fingerstick) 206 mg/dL (70-99) H 227 mg/dL (70-99) H 225 mg/dL (70-99) H Prothrombin Time 13.5 SEC (9.4-11.4) H Prothrombin Time INR 1.3 (0.9-1.1) H Current Medications: Meds: Current Medications Acetaminophen (Tylenol) 650 mg PRN Q6HRS PRN PO PAIN / TEMP; Start 04/30/17 at 18:30; Stop 04/30/17 at 19:53; Status DC Potassium Chloride (Klor-Con) 20 meq 1X ONCE PO Last administered on 20:51; Start 04/30/17 at 20:00; Stop 04/30/17 at 20:01; Status DC Magnesium Chloride (Mag Delay) 64 mg DAILY PO Last administered on 05/06/17 08: 16; Start 05/01/17 at 09:00; Stop 05/06/17 at 18:08; Status DC Acetaminophen (Tylenol) 650 mg PRN Q6HRS PRN PO PAIN / TEMP Last administered on 05/04/17 11:44; Start 04/30/17 at 20:00; Stop 05/05/17 at 19:37; Status DC Al Hydroxide/Mg Hydroxide (Mylanta Plus Xs) 15 ml PRN AFTMEALHC PRN PO DYSPEPSIA; Start 04/30/17 at 20:00 Magnesium Hydroxide (Milk Of Magnesia) 2,400 mg PRN QHS PRN PO CONSTIPATION Last administered on 05/12/17 19:28; Start 04/30/17 at 20:00 Allopurinol (Zyloprim) 200 mg DAILYWSUP PO Last administered on 05/17/17 17:09 ; Start 05/01/17 at 17:00 Atenolol (Tenormin) 50 mg BID PO Last administered on 05/17/17 20:01; Start at 21:00 Calcium Carbonate/ Glycine (Oscal) 500 mg BIDWMEALS PO Last administered on 17:09; Start 05/01/17 at 08:00 Vitamin D (Vitamin D3) 1,000 unit DAILYWBKFT PO Last administered on 05/17/17 08:18; Start 05/01/17 at 08:00 Digoxin (Lanoxin) 125 mcg DAILY PO Last administered on 05/17/17 08:19; Start 05/01/17 at 09:00 Furosemide (Lasix) 120 mg DAILY PO Last administered on 05/05/17 13:31; Start 05/01/17 at 09:00; Stop 05/05/17 at 19:39; Status DC Metformin HCl (Glucophage) 850 mg BIDWMEALS PO Last administered on 05/17/17 17:09; Start 05/01/17 at 08:00 Potassium Chloride (Klor-Con) 20 meq BID PO Last administered on 05/04/17 20:37 ; Start 05/01/17 at 09:00; Stop 05/05/17 at 19:31; Status DC Warfarin Sodium (Coumadin) 6 mg DAILY16 PO Last administered on 05/01/17 16:56 ; Start 05/01/17 at 16:00; Stop 05/02/17 at 11:39; Status DC Non-Formulary Medication 500 mg BIDWMEALS PO ; Start 05/01/17 at 08:00; Stop 05/01 at 08:00; Status DC Glucosamine/ Chondroitin (Glucosamine-Chondroitin 500/400mg) 1 cap BIDWMEALS PO Last administered on 05/05/17 16:45; Start 05/01/17 at 08:00; Stop 05/05/17 at 18:18; Status DC Lactobacillus Acidophilus (Bacid, Orly-Bid) 2 tab DAILYWBKFT PO Last administered on 05/03/17 07:19; Start 05/01/17 at 08:00; Stop 05/05/17 at 18:18; Status DC Non-Formulary Medication 20 mg QHS PO ; Start 04/30/17 at 21:00; Stop 04/30/17 at 21:00; Status DC Non-Formulary Medication 5 mg QHS PO ; Start 04/30/17 at 21:00; Stop 04/30/17 at 21:00; Status DC Multivitamins/ Minerals (I-Gera) 1 tab DAILY PO Last administered on 05/03/17 07:20; Start 05/01/17 at 09:00; Stop 05/05/17 at 19:39; Status DC Pantoprazole Sodium (Protonix) 40 mg DAILYAC PO Last administered on 05/17/17 08:14; Start 05/01/17 at 07:30 Tamoxifen Citrate (Nolvadex) 20 mg DAILY PO Last administered on 05/17/17 08: 20; Start 05/01/17 at 09:00 Coenzyme Q10 (Coenzyme Q10) 100 mg BID PO Last administered on 05/04/17 20:36; Start 05/01/17 at 09:00; Stop 05/05/17 at 18:18; Status DC Sertraline HCl (Zoloft) 50 mg QHS PO Last administered on 04/30/17 20:51; Start 04/30/17 at 21:00; Stop 05/01/17 at 11:00; Status DC Melatonin 4.5 mg QHS PO Last administered on 05/04/17 20:37; Start 04/30/17 at 21:00; Stop 05/05/17 at 18:18; Status DC Olanzapine (ZyPREXA ZYDIS) 2.5 mg PRN Q4HRS PRN PO Psych Last administered on 16:52; Start 04/30/17 at 20:15 Magnesium Oxide (Magnesium Oxide) 400 mg BID PO Last administered on 05/14/17 09:35; Start 04/30/17 at 21:00; Stop 05/14/17 at 11:01; Status DC Warfarin Sodium (Coumadin) 6 mg 1X WARF ONCE PO Last administered on 20:51; Start 04/30/17 at 20:45; Stop 04/30/17 at 20:46; Status DC Warfarin Sodium (Coumadin) 0.5 mg 1X WARF ONCE PO Last administered on 20:51; Start 04/30/17 at 20:45; Stop 04/30/17 at 20:46; Status DC Warfarin Sodium (Coumadin Per Physician) 1 each PRN DAILY PRN MC SEE COMMENTS; Start 05/01/17 at 09:45; Stop 05/01/17 at 14:54; Status DC Risperidone (RisperDAL) 0.25 mg HS PO Last administered on 05/02/17 19:39; Start 05/01/17 at 21:00; Stop 05/03/17 at 18:28; Status DC Trazodone HCl (Desyrel) 100 mg QHS PO Last administered on 05/17/17 20:00; Start 05/01/17 at 21:00 Trazodone HCl (Desyrel) 100 mg PRN QHS PRN PO INSOMNIA Last administered on 22:24; Start 05/01/17 at 10:45 Insulin Detemir (Levemir) 5 units QHS SQ Last administered on 05/17/17 20:07; Start 05/01/17 at 21:00 Insulin Aspart (NovoLOG) 0-5 UNITS QIDACHS SQ Last administered on 05/17/17 20 :08; Start 05/01/17 at 16:30 Dextrose 12.5 gm PRN Q15MIN PRN IV SEE COMMENTS; Start 05/01/17 at 14:45 Warfarin Sodium (Coumadin Per Pharmacy) 1 each PRN DAILY PRN MC SEE COMMENTS Last administered on 05/17/17 15:01; Start 05/01/17 at 14:45 Insulin Aspart (NovoLOG) 10 units 1X ONCE SQ Last administered on 05/01/17 17: 15; Start 05/01/17 at 17:15; Stop 05/01/17 at 17:16; Status DC Warfarin Sodium (Coumadin) 7.5 mg 1X WARF ONCE PO Last administered on 17:16; Start 05/02/17 at 16:00; Stop 05/02/17 at 16:01; Status DC Warfarin Sodium (Coumadin) 7.5 mg 1X WARF ONCE PO Last administered on 16:18; Start 05/03/17 at 16:00; Stop 05/03/17 at 16:01; Status DC Risperidone (RisperDAL) 0.5 mg HS SL Last administered on 05/04/17 20:41; Start 05/03/17 at 21:00; Stop 05/05/17 at 19:33; Status DC Valproic Acid (Depakene) 250 mg BIDWMEALS PO Last administered on 05/07/17 16: 52; Start 05/04/17 at 08:00; Stop 05/07/17 at 18:23; Status DC Warfarin Sodium (Coumadin) 7.5 mg 1X WARF ONCE PO Last administered on 16:02; Start 05/04/17 at 16:00; Stop 05/04/17 at 16:01; Status DC Mirtazapine (Remeron) 7.5 mg QHS PO Last administered on 05/04/17 20:38; Start 05/04/17 at 21:00; Stop 05/05/17 at 19:33; Status DC Warfarin Sodium (Coumadin) 7.5 mg 1X WARF ONCE PO Last administered on 16:46; Start 05/05/17 at 16:00; Stop 05/05/17 at 16:01; Status DC Potassium Chloride (KCl Oral Soln) 20 meq BID PO Last administered on 05/09/17 09:13; Start 05/05/17 at 21:00; Stop 05/09/17 at 18:44; Status DC Risperidone (RisperDAL) 1 mg HS SL ; Start 05/05/17 at 21:00; Stop 05/06/17 at 11: 05; Status DC Mirtazapine (Remeron Olive-Tab) 7.5 mg QHS PO Last administered on 05/17/17 20: 00; Start 05/05/17 at 21:00 Acetaminophen (Tylenol) 650 mg PRN Q6HRS PRN PO PAIN / TEMP Last administered on 05/09/17 09:12; Start 05/05/17 at 19:45; Stop 05/10/17 at 08:51; Status DC Furosemide (Lasix) 120 mg DAILY PO Last administered on 05/09/17 09:43; Start 05/06/17 at 09:00; Stop 05/09/17 at 18:44; Status DC Multivitamins (Thera-Plus) 5 ml DAILY PO Last administered on 05/08/17 08:02; Start 05/06/17 at 09:00; Stop 05/10/17 at 08:51; Status DC Risperidone (RisperDAL) 0.5 mg HS SL Last administered on 05/08/17 21:49; Start 05/06/17 at 21:00; Stop 05/09/17 at 09:00; Status DC Melatonin 3 mg PRN QHS PRN PO INSOMNIA; Start 05/06/17 at 18:15 Warfarin Sodium (Coumadin) 7.5 mg 1X WARF ONCE PO Last administered on 16:51; Start 05/07/17 at 16:00; Stop 05/07/17 at 16:01; Status DC Valproic Acid (Depakene) 375 mg BIDWMEALS PO Last administered on 05/09/17 16: 27; Start 05/08/17 at 08:00; Stop 05/09/17 at 18:44; Status DC Warfarin Sodium (Coumadin) 7.5 mg 1X WARF ONCE PO Last administered on 16:53; Start 05/08/17 at 16:00; Stop 05/08/17 at 16:01; Status DC Warfarin Sodium (Coumadin) 7.5 mg 1X WARF ONCE PO Last administered on 16:26; Start 05/09/17 at 16:00; Stop 05/09/17 at 16:01; Status DC Furosemide (Lasix) 120 mg DAILY PO Last administered on 05/17/17 08:19; Start 05/10/17 at 09:00 Potassium Chloride (Klor-Con) 20 meq BID PO Last administered on 05/17/17 20: 00; Start 05/09/17 at 21:00 Divalproex Sodium (Depakote Sprinkles) 375 mg BIDWMEALS PO Last administered on 05/17/17 17:09; Start 05/10/17 at 08:00 Multivitamins/ Calcium (Thera-M Plus) 1 tab DAILY PO Last administered on 08:20; Start 05/10/17 at 09:00 Acetaminophen (Tylenol) 650 mg PRN Q6HRS PRN PO PAIN / TEMP Last administered on 05/14/17 22:23; Start 05/10/17 at 09:00 Warfarin Sodium (Coumadin) 4 mg 1X WARF ONCE PO Last administered on 16:17; Start 05/10/17 at 16:00; Stop 05/10/17 at 16:01; Status DC Warfarin Sodium (Coumadin) 3 mg 1X WARF ONCE PO Last administered on 16:17; Start 05/10/17 at 16:00; Stop 05/10/17 at 16:01; Status DC Warfarin Sodium (Coumadin) 4 mg DAILY16 PO Last administered on 05/12/17 17:08 ; Start 05/11/17 at 16:00; Stop 05/13/17 at 11:50; Status DC Warfarin Sodium (Coumadin) 3 mg DAILY16 PO Last administered on 05/12/17 17:08 ; Start 05/11/17 at 16:00; Stop 05/13/17 at 11:50; Status DC Warfarin Sodium (Coumadin - No Dose Today) 1 each 1X WARF ONCE MC ; Start 05/13 at 16:00; Stop 05/13/17 at 16:01; Status DC Magnesium Oxide (Magnesium Oxide) 400 mg TID PO Last administered on 05/17/17 20:01; Start 05/14/17 at 14:00 Warfarin Sodium (Coumadin - No Dose Today) 1 each 1X WARF ONCE MC ; Start 05/14 at 16:00; Stop 05/14/17 at 16:02; Status DC Nystatin (Nystop) 1 lexie BID TP ; Start 05/15/17 at 09:00; Stop 05/15/17 at 09:00 ; Status DC Nystatin (Nystop) 1 lexie BID TP Last administered on 05/17/17 09:06; Start at 23:15 Warfarin Sodium (Coumadin) 7.5 mg 1X WARF ONCE PO ; Start 05/15/17 at 16:00; Stop 05/15/17 at 16:01; Status DC Warfarin Sodium (Coumadin) 7.5 mg 1X WARF ONCE PO Last administered on 14:59; Start 05/16/17 at 16:00; Stop 05/16/17 at 16:01; Status DC Warfarin Sodium (Coumadin) 7.5 mg 1X WARF ONCE PO Last administered on 17:08; Start 05/17/17 at 16:00; Stop 05/17/17 at 16:01; Status DC Active Scripts Active Reported Probiotic (Lactobacillus Combo No.10) 1 Each Capsule 1 Cap PO DAILYWBKFT Women's Daily Caplet (Multivits,Ca,Minerals/Iron/Fa) 1 Each Tablet 1 Tab PO BID Zoloft (Sertraline Hcl) 25 Mg Tablet 25 Mg PO QHS 7 Days Zoloft (Sertraline Hcl) 50 Mg Tablet 50 Mg PO QHS 3 Days Omeprazole 20 Mg Tablet.dr 20 Mg PO DAILY07 Allopurinol 100 Mg Tablet 200 Mg PO DAILYWSUP Vitamin D3 (Cholecalciferol (Vitamin D3)) 1,000 Unit Tablet 1,000 Unit PO DAILYWBKFT Oyster Shell Calcium (Calcium Carbonate) 500 Mg Tablet 500 Mg PO BIDWMEALS Cinnamon (Cinnamon Bark) 500 Mg Capsule 500 Mg PO BIDWMEALS Co Q-10 100 Mg Softgel (Ubidecarenone/Vit E Acetate) 1 Each Capsule 100 Mg PO BID Melatonin 5 Mg Tablet (Melatonin/Pyridoxine) 1 Each Tablet 5 Mg PO QHS Lutein 20 Mg Capsule 20 Mg PO QHS Ucepapiwwi-Occmlhzadzu-Wpn Tab (Gluc/Victor M-Msm#2/C/D3/Anthony/Born) 1 Each Tablet 1 Tab PO BIDWMEALS Metformin Hcl 850 Mg Tablet 850 Mg PO BIDWMEALS Digoxin 125 Mcg Tablet 125 Mcg PO DAILY Tamoxifen Citrate 20 Mg Tablet 20 Mg PO DAILY Atenolol 50 Mg Tablet 50 Mg PO BID Lasix (Furosemide) 80 Mg Tablet 120 Mg PO DAILY Coumadin (Warfarin Sodium) 6 Mg Tablet 6 Mg PO QPM Potassium Chloride 10 Meq Capsule.er 10 Meq PO BID CHAU GROSS MD May 17, 2017 20:49
[2017-05-17] MEDS: traZODone 100 MG TABLET. PO PRN (23:05)
--- NOTE | 2017-05-18 00:32 | NUR ---
Behavior Intervention Response and Plan: BIRP Note: Behavior: Assumed Care of patient, patient located in Patient Room at shift change. Patient exhibited the following behavior Cooperative, Compliant, appropriate, and cooperative. Brief assessment on rounds of vital signs, medication needs, lab studies, and pain. Treatment plan problems 1-2. Intervention: Patient assessed and the following interventions initiated safety checks 15 Minute Checks Cognitive Assessment , Head to toe Assessment , Medications. Response: After interactions and interventions patient responded in the following manner, cooperative, calm and Compliant. Continue to assess behaviors and condition will continue to monitor throughout the shift as needed. Plan: Continue to monitor Master Treatment Plan for patient's progress toward short term goals of Decreased Anxiety, Improved Mood, longterm goals to return to previous living setting vs placement. Continue to assess patient for changes in above assessment. Monitor for medication needs, pain, and safety concerns. Hourly rounding performed to ensure safe environment.
[2017-05-18 05:59] VITALS: BP 137/73
[2017-05-18] MEDS: CALCIUM CARBONATE 500 MG TABLET PO SCH ×2 (07:54→16:59)
[2017-05-18] MEDS: FUROSEMIDE 40 MG TABLET PO SCH (07:54)
[2017-05-18] MEDS: MAGNESIUM OXIDE 400 MG TABLET PO SCH ×3 (07:54→20:00)
[2017-05-18] MEDS: ATENOLOL 50 MG TABLET PO SCH ×2 (07:54→20:00)
[2017-05-18] MEDS: metFORMIN 850 MG TABLET PO SCH ×2 (07:55→16:59)
[2017-05-18] MEDS: POTASSIUM CHLORIDE 20 MEQ TABLET.ER. PO SCH ×2 (07:55→19:59)
[2017-05-18] MEDS: CHOLECALCIFEROL (VITAMIN D3) 1,000 UNIT TABLET PO SCH (07:56)
[2017-05-18] MEDS: DIGOXIN 125 MCG TABLET PO SCH (07:56)
[2017-05-18] MEDS: PANTOPRAZOLE 40 MG TABLET. PO SCH (07:56)
[2017-05-18] MEDS: MULTIVITAMIN with MINERAL TABLET. PO SCH (07:56)
[2017-05-18] MEDS: DIVALPROEX 125 MG CAP.SPRINK PO SCH ×2 (07:56→16:59)
[2017-05-18] MEDS: LURASIDONE 40 MG TABLET. PO SCH (07:59)
[2017-05-18] MEDS: NYSTATIN TOPICAL POWDER 15GM BOTTLE. TP SCH ×2 (07:59→20:09)
[2017-05-18] MEDS: TAMOXIFEN 10 MG TABLET PO SCH (08:00)
[2017-05-18] MEDS: INSULIN ASPART 300 UNITS/3 ML INSULN.PEN SQ SCH ×4 (08:01→20:07)
--- NOTE | 2017-05-18 08:03 | NUR ---
SHYANN faxed information to [facility], [facility] currently doesn't have any openings. SHYANN also faxed information to [facility], yesterday. SHYANN had message this am for [facility] stating they are unable to accept pt. SHYANN will countiue to work with family regarding skilled placement.
--- NOTE | 2017-05-18 09:00 | NUR ---
THERAPEUTIC RECREATION GROUP NOTE TITLE :Tin Can Flower Arranging ACTIVITY : Arts and Crafts GOAL : Increase socialization, fine motor skills, creativity DURATION : 60 Minutes RESPONSE : Full participation. Pt. was quick to complete a tin can arrangement, she put together independently. She was clear and understandable when being social with NURSING PROGRAM DIRECTOR and others. She was agreeable with encouragement to continue to work on her arrangement. She left the group for the restroom/ shower and did not return until the very end.
--- NOTE | 2017-05-18 10:10 | NUR ---
Behavior Intervention Response and Plan: BIRP Note: Behavior: Assumed Care of patient, patient located in Day Room at shift change. Patient exhibited the following behavior Interactive, Calm, Appropriate. Brief assessment on rounds of vital signs, medication needs, lab studies, and pain. Treatment plan problems 1 and 2. Intervention: Patient assessed and the following interventions initiated safety checks 15 Minute Checks Cognitive Assessment , Head to toe Assessment , Medications. Response: After interactions and interventions patient responded in the following manner, Calm , Compliant ,Cooperative. Continue to assess behaviors and condition will continue to monitor throughout the shift as needed. 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 Continue to assess patient for changes in above assessment. Monitor for medication needs, pain, and safety concerns. Hourly rounding performed to ensure safe environment.
--- NOTE | 2017-05-18 11:30 | NUR ---
THERAPEUTIC RECREATION GROUP NOTE TITLE :Movement to Music: Strength ACTIVITY : Movement/ Exercise GOAL : Increase morale, attention, flexibility. Decrease stress/anxiety. DURATION : 20 Minutes RESPONSE : No participation
--- NOTE | 2017-05-18 12:27 | NUR ---
Pharmacy Warfarin Dosing Note S:Pharmacy consulted to assist with anticoagulation therapy started 04/30/17 with target INR: 2 -3 O:RAINER WASHINGTON is a 86 year old F with Atrial Fibrillation LABS: Last INR: 1.5 Last HGB: 12.3 Last HCT: 38 Last PLT: 99 Last dose of 7.5 mg given on 05/17/17 at 1600 Previous Regimen: 7.5MG DAILY Vitamin K given: N Drug Interaction Changes: Same Interacting Drug Ongoing Drug Interactions: ALLOPURINOL, TAMOXIFEN, GLUCOSAMINE/CHONDROTIN A:INR Below desired Range. Target Range for this patient is: 2 -3 P: Warfarin dose: 8MG Today at 1600 Bridge Therapy: None Next INR due 05/19/17 @0600 Pharmacy anticoagulation service will continue to follow. FERNANDO RAYA [facility], 05/18/17 [id number]
--- NOTE | 2017-05-18 12:35 | NUR ---
Group Note [facility] Group Type tropical Fish Start Time: 10:30 End Time: 11:30 Problem: Anxiety Purpose: Decrease Wandering Level of Participation: High Behaviors or Symptoms Observed: Risa talked throughout the group with this screen writer as well as participated, Risa smiled and appeared to enjoy the group and talking with peers. Interventions: Directed Focus Response: Pts sat within the group at the table and colored pictures of tropical fish, answering questions about different types of fish, discussing family vacations as well Plan: Group Participation Additional Comments:
--- NOTE | 2017-05-18 14:00 | NUR ---
THERAPEUTIC RECREATION GROUP NOTE TITLE :Sing along with Carina ACTIVITY : Music GOAL : Increase socialization, elevate mood, stimulate memory DURATION : 60 minutes RESPONSE : Full participation. Pt. read/ sang the lyrics on the screen the entire hour, she was front and center the second half. She smiled often and hooted a few times. She made lucid comments and was a pleasure to have in group.
--- NOTE | 2017-05-18 14:59 | NUR ---
Group Note [facility] Group Type Start Time: 1:00pm End Time: 2:00pm Problem: increased behaviors/restlessness during leisure time Purpose: engagement, social skills, cognitive behavior, problem solving, validation Level of Participation: low, wandered away from group Behaviors or Symptoms Observed: confused Interventions: Personalized hand fans group Response: actively participated initially w/a snack in hand, but then finished snack and began walking the unit Plan: continue to monitor for improvements Addendum: 05/18/17 at 1501 by CHELE BOOTHE charted group on wrong PT. Group Note [facility] Group Type Start Time: 1:00pm End Time: 2:00pm Problem: increased behaviors/restlessness during leisure time Purpose: engagement, social skills, cognitive behavior, problem solving, validation Level of Participation: High Behaviors or Symptoms Observed: quiet and hyper focused Interventions: Personalized hand fans group Response: actively participated, although did not socialize much w/the group, remained focused Plan: continue to monitor for improvements
[2017-05-18] MEDS ORDERED: WARFARIN 4 MG TABLET. PO ONE ×2 (16:00)
[2017-05-18 16:09] VITALS: BP 125/67
[2017-05-18] MEDS: ALLOPURINOL 100 MG TABLET. PO SCH (16:59)
--- NOTE | 2017-05-18 18:30 | NUR ---
wound care patient seen per f/u of wound care consult. see wound assessment. wound to the right lateral lower leg wound has a minimal amount of serosanguineous drainage, patient has very edematous lower legs, recommendations of a contact layer with an Aquacel foam, change every 3-4 days or prn if saturated. notified AXEL Shaw about the POC and wound care will continue to f/u for possible changes.
--- NOTE | 2017-05-18 18:50 | NUR ---
Family requested we d/c depakote because they feel it causes edema. Per Dr. Santizo we can d/c the depakote if the family wishes. It has been discontinued. Evelia REYNA
[2017-05-18] MEDS: traZODone 100 MG TABLET. PO SCH (19:59)
[2017-05-18] MEDS: MIRTAZAPINE 15 MG TAB.RAPDIS PO SCH (20:00)
[2017-05-18] MEDS: INSULIN DETEMIR 300 UNITS/3 ML INSULN.PEN. SQ SCH (20:09)
--- NOTE | 2017-05-18 20:35 | PDOC ---
Exam Tahir Demential Exam: Tahir Note: Please also refer to the separate dictated note~for this date of service dictated separately.~Patient seen individually. Discussed the patient with Nursing staff reviewed the chart.~Reviewed interim history and current functioning. Reviewed vital signs,~Labs/ Radiology~and current medications noted below. Continue current treatment with the changes noted in the dictated addendum note Assessment: Vital Signs: Vital Signs Date Time Temp Pulse Resp B/P (MAP) Pulse Ox O2 Delivery O2 Flow Rate FiO2 05/18/17 20:00 65 125/67 05/18/17 16:09 98.6 20 97 05/17/17 15:35 Room Air I&O Intake and Output 05/18/17 07:00 Intake Total 1080 ml Balance 1080 ml Intake Oral 1080 ml # Bowel Movements 1 Labs: Laboratory Tests Test 05/18/17 06:52 05/18/17 07:11 05/18/17 11:31 05/18/17 17:05 Prothrombin Time 15.4 SEC (9.4-11.4) H Prothrombin Time INR 1.5 (0.9-1.1) H Glucose (Fingerstick) 236 mg/dL (70-99) H 247 mg/dL (70-99) H 204 mg/dL (70-99) H Test 05/18/17 19:00 Glucose (Fingerstick) 255 mg/dL (70-99) H Current Medications: Meds: Current Medications Acetaminophen (Tylenol) 650 mg PRN Q6HRS PRN PO PAIN / TEMP; Start 04/30/17 at 18:30; Stop 04/30/17 at 19:53; Status DC Potassium Chloride (Klor-Con) 20 meq 1X ONCE PO Last administered on 20:51; Start 04/30/17 at 20:00; Stop 04/30/17 at 20:01; Status DC Magnesium Chloride (Mag Delay) 64 mg DAILY PO Last administered on 05/06/17 08: 16; Start 05/01/17 at 09:00; Stop 05/06/17 at 18:08; Status DC Acetaminophen (Tylenol) 650 mg PRN Q6HRS PRN PO PAIN / TEMP Last administered on 05/04/17 11:44; Start 04/30/17 at 20:00; Stop 05/05/17 at 19:37; Status DC Al Hydroxide/Mg Hydroxide (Mylanta Plus Xs) 15 ml PRN AFTMEALHC PRN PO DYSPEPSIA; Start 04/30/17 at 20:00 Magnesium Hydroxide (Milk Of Magnesia) 2,400 mg PRN QHS PRN PO CONSTIPATION Last administered on 05/12/17 19:28; Start 04/30/17 at 20:00 Allopurinol (Zyloprim) 200 mg DAILYWSUP PO Last administered on 05/18/17 16:59 ; Start 05/01/17 at 17:00 Atenolol (Tenormin) 50 mg BID PO Last administered on 05/18/17 20:00; Start at 21:00 Calcium Carbonate/ Glycine (Oscal) 500 mg BIDWMEALS PO Last administered on 16:59; Start 05/01/17 at 08:00 Vitamin D (Vitamin D3) 1,000 unit DAILYWBKFT PO Last administered on 05/18/17 07:56; Start 05/01/17 at 08:00 Digoxin (Lanoxin) 125 mcg DAILY PO Last administered on 05/18/17 07:56; Start 05/01/17 at 09:00 Furosemide (Lasix) 120 mg DAILY PO Last administered on 05/05/17 13:31; Start 05/01/17 at 09:00; Stop 05/05/17 at 19:39; Status DC Metformin HCl (Glucophage) 850 mg BIDWMEALS PO Last administered on 05/18/17 16:59; Start 05/01/17 at 08:00 Potassium Chloride (Klor-Con) 20 meq BID PO Last administered on 05/04/17 20:37 ; Start 05/01/17 at 09:00; Stop 05/05/17 at 19:31; Status DC Warfarin Sodium (Coumadin) 6 mg DAILY16 PO Last administered on 05/01/17 16:56 ; Start 05/01/17 at 16:00; Stop 05/02/17 at 11:39; Status DC Non-Formulary Medication 500 mg BIDWMEALS PO ; Start 05/01/17 at 08:00; Stop 05/01 at 08:00; Status DC Glucosamine/ Chondroitin (Glucosamine-Chondroitin 500/400mg) 1 cap BIDWMEALS PO Last administered on 05/05/17 16:45; Start 05/01/17 at 08:00; Stop 05/05/17 at 18:18; Status DC Lactobacillus Acidophilus (Bacid, Orly-Bid) 2 tab DAILYWBKFT PO Last administered on 05/03/17 07:19; Start 05/01/17 at 08:00; Stop 05/05/17 at 18:18; Status DC Non-Formulary Medication 20 mg QHS PO ; Start 04/30/17 at 21:00; Stop 04/30/17 at 21:00; Status DC Non-Formulary Medication 5 mg QHS PO ; Start 04/30/17 at 21:00; Stop 04/30/17 at 21:00; Status DC Multivitamins/ Minerals (I-Gera) 1 tab DAILY PO Last administered on 05/03/17 07:20; Start 05/01/17 at 09:00; Stop 05/05/17 at 19:39; Status DC Pantoprazole Sodium (Protonix) 40 mg DAILYAC PO Last administered on 05/18/17 07:56; Start 05/01/17 at 07:30 Tamoxifen Citrate (Nolvadex) 20 mg DAILY PO Last administered on 05/18/17 08: 00; Start 05/01/17 at 09:00 Coenzyme Q10 (Coenzyme Q10) 100 mg BID PO Last administered on 05/04/17 20:36; Start 05/01/17 at 09:00; Stop 05/05/17 at 18:18; Status DC Sertraline HCl (Zoloft) 50 mg QHS PO Last administered on 04/30/17 20:51; Start 04/30/17 at 21:00; Stop 05/01/17 at 11:00; Status DC Melatonin 4.5 mg QHS PO Last administered on 05/04/17 20:37; Start 04/30/17 at 21:00; Stop 05/05/17 at 18:18; Status DC Olanzapine (ZyPREXA ZYDIS) 2.5 mg PRN Q4HRS PRN PO Psych Last administered on 16:52; Start 04/30/17 at 20:15 Magnesium Oxide (Magnesium Oxide) 400 mg BID PO Last administered on 05/14/17 09:35; Start 04/30/17 at 21:00; Stop 05/14/17 at 11:01; Status DC Warfarin Sodium (Coumadin) 6 mg 1X WARF ONCE PO Last administered on 20:51; Start 04/30/17 at 20:45; Stop 04/30/17 at 20:46; Status DC Warfarin Sodium (Coumadin) 0.5 mg 1X WARF ONCE PO Last administered on 20:51; Start 04/30/17 at 20:45; Stop 04/30/17 at 20:46; Status DC Warfarin Sodium (Coumadin Per Physician) 1 each PRN DAILY PRN MC SEE COMMENTS; Start 05/01/17 at 09:45; Stop 05/01/17 at 14:54; Status DC Risperidone (RisperDAL) 0.25 mg HS PO Last administered on 05/02/17 19:39; Start 05/01/17 at 21:00; Stop 05/03/17 at 18:28; Status DC Trazodone HCl (Desyrel) 100 mg QHS PO Last administered on 05/18/17 19:59; Start 05/01/17 at 21:00 Trazodone HCl (Desyrel) 100 mg PRN QHS PRN PO INSOMNIA Last administered on 23:05; Start 05/01/17 at 10:45 Insulin Detemir (Levemir) 5 units QHS SQ Last administered on 05/18/17 20:09; Start 05/01/17 at 21:00 Insulin Aspart (NovoLOG) 0-5 UNITS QIDACHS SQ Last administered on 05/18/17 20 :07; Start 05/01/17 at 16:30 Dextrose 12.5 gm PRN Q15MIN PRN IV SEE COMMENTS; Start 05/01/17 at 14:45 Warfarin Sodium (Coumadin Per Pharmacy) 1 each PRN DAILY PRN MC SEE COMMENTS Last administered on 05/18/17 12:26; Start 05/01/17 at 14:45 Insulin Aspart (NovoLOG) 10 units 1X ONCE SQ Last administered on 05/01/17 17: 15; Start 05/01/17 at 17:15; Stop 05/01/17 at 17:16; Status DC Warfarin Sodium (Coumadin) 7.5 mg 1X WARF ONCE PO Last administered on 17:16; Start 05/02/17 at 16:00; Stop 05/02/17 at 16:01; Status DC Warfarin Sodium (Coumadin) 7.5 mg 1X WARF ONCE PO Last administered on 16:18; Start 05/03/17 at 16:00; Stop 05/03/17 at 16:01; Status DC Risperidone (RisperDAL) 0.5 mg HS SL Last administered on 05/04/17 20:41; Start 05/03/17 at 21:00; Stop 05/05/17 at 19:33; Status DC Valproic Acid (Depakene) 250 mg BIDWMEALS PO Last administered on 05/07/17 16: 52; Start 05/04/17 at 08:00; Stop 05/07/17 at 18:23; Status DC Warfarin Sodium (Coumadin) 7.5 mg 1X WARF ONCE PO Last administered on 16:02; Start 05/04/17 at 16:00; Stop 05/04/17 at 16:01; Status DC Mirtazapine (Remeron) 7.5 mg QHS PO Last administered on 05/04/17 20:38; Start 05/04/17 at 21:00; Stop 05/05/17 at 19:33; Status DC Warfarin Sodium (Coumadin) 7.5 mg 1X WARF ONCE PO Last administered on 16:46; Start 05/05/17 at 16:00; Stop 05/05/17 at 16:01; Status DC Potassium Chloride (KCl Oral Soln) 20 meq BID PO Last administered on 05/09/17 09:13; Start 05/05/17 at 21:00; Stop 05/09/17 at 18:44; Status DC Risperidone (RisperDAL) 1 mg HS SL ; Start 05/05/17 at 21:00; Stop 05/06/17 at 11: 05; Status DC Mirtazapine (Remeron Olive-Tab) 7.5 mg QHS PO Last administered on 05/18/17 20: 00; Start 05/05/17 at 21:00 Acetaminophen (Tylenol) 650 mg PRN Q6HRS PRN PO PAIN / TEMP Last administered on 05/09/17 09:12; Start 05/05/17 at 19:45; Stop 05/10/17 at 08:51; Status DC Furosemide (Lasix) 120 mg DAILY PO Last administered on 05/09/17 09:43; Start 05/06/17 at 09:00; Stop 05/09/17 at 18:44; Status DC Multivitamins (Thera-Plus) 5 ml DAILY PO Last administered on 05/08/17 08:02; Start 05/06/17 at 09:00; Stop 05/10/17 at 08:51; Status DC Risperidone (RisperDAL) 0.5 mg HS SL Last administered on 05/08/17 21:49; Start 05/06/17 at 21:00; Stop 05/09/17 at 09:00; Status DC Melatonin 3 mg PRN QHS PRN PO INSOMNIA Last administered on 05/18/17 19:59; Start 05/06/17 at 18:15 Warfarin Sodium (Coumadin) 7.5 mg 1X WARF ONCE PO Last administered on 16:51; Start 05/07/17 at 16:00; Stop 05/07/17 at 16:01; Status DC Valproic Acid (Depakene) 375 mg BIDWMEALS PO Last administered on 05/09/17 16: 27; Start 05/08/17 at 08:00; Stop 05/09/17 at 18:44; Status DC Warfarin Sodium (Coumadin) 7.5 mg 1X WARF ONCE PO Last administered on 16:53; Start 05/08/17 at 16:00; Stop 05/08/17 at 16:01; Status DC Warfarin Sodium (Coumadin) 7.5 mg 1X WARF ONCE PO Last administered on 16:26; Start 05/09/17 at 16:00; Stop 05/09/17 at 16:01; Status DC Furosemide (Lasix) 120 mg DAILY PO Last administered on 05/18/17 07:54; Start 05/10/17 at 09:00 Potassium Chloride (Klor-Con) 20 meq BID PO Last administered on 05/18/17 19: 59; Start 05/09/17 at 21:00 Divalproex Sodium (Depakote Sprinkles) 375 mg BIDWMEALS PO Last administered on 05/18/17 16:59; Start 05/10/17 at 08:00; Stop 05/18/17 at 18:50; Status DC Multivitamins/ Calcium (Thera-M Plus) 1 tab DAILY PO Last administered on 07:56; Start 05/10/17 at 09:00 Acetaminophen (Tylenol) 650 mg PRN Q6HRS PRN PO PAIN / TEMP Last administered on 05/14/17 22:23; Start 05/10/17 at 09:00 Warfarin Sodium (Coumadin) 4 mg 1X WARF ONCE PO Last administered on 16:17; Start 05/10/17 at 16:00; Stop 05/10/17 at 16:01; Status DC Warfarin Sodium (Coumadin) 3 mg 1X WARF ONCE PO Last administered on 16:17; Start 05/10/17 at 16:00; Stop 05/10/17 at 16:01; Status DC Warfarin Sodium (Coumadin) 4 mg DAILY16 PO Last administered on 05/12/17 17:08 ; Start 05/11/17 at 16:00; Stop 05/13/17 at 11:50; Status DC Warfarin Sodium (Coumadin) 3 mg DAILY16 PO Last administered on 05/12/17 17:08 ; Start 05/11/17 at 16:00; Stop 05/13/17 at 11:50; Status DC Warfarin Sodium (Coumadin - No Dose Today) 1 each 1X WARF ONCE MC ; Start 05/13 at 16:00; Stop 05/13/17 at 16:01; Status DC Magnesium Oxide (Magnesium Oxide) 400 mg TID PO Last administered on 05/18/17 20:00; Start 05/14/17 at 14:00 Warfarin Sodium (Coumadin - No Dose Today) 1 each 1X WARF ONCE MC ; Start 05/14 at 16:00; Stop 05/14/17 at 16:02; Status DC Nystatin (Nystop) 1 lexie BID TP ; Start 05/15/17 at 09:00; Stop 05/15/17 at 09:00 ; Status DC Nystatin (Nystop) 1 lexie BID TP Last administered on 05/18/17 20:09; Start at 23:15 Warfarin Sodium (Coumadin) 7.5 mg 1X WARF ONCE PO ; Start 05/15/17 at 16:00; Stop 05/15/17 at 16:01; Status DC Warfarin Sodium (Coumadin) 7.5 mg 1X WARF ONCE PO Last administered on 14:59; Start 05/16/17 at 16:00; Stop 05/16/17 at 16:01; Status DC Warfarin Sodium (Coumadin) 7.5 mg 1X WARF ONCE PO Last administered on 17:08; Start 05/17/17 at 16:00; Stop 05/17/17 at 16:01; Status DC Warfarin Sodium (Coumadin) 8 mg 1X WARF ONCE PO ; Start 05/18/17 at 16:00; Stop 05/18/17 at 16:00; Status DC Warfarin Sodium (Coumadin) 8 mg 1X WARF ONCE PO Last administered on 16:59; Start 05/18/17 at 16:00; Stop 05/18/17 at 16:01; Status DC Active Scripts Active Reported Probiotic (Lactobacillus Combo No.10) 1 Each Capsule 1 Cap PO DAILYWBKFT Women's Daily Caplet (Multivits,Ca,Minerals/Iron/Fa) 1 Each Tablet 1 Tab PO BID Zoloft (Sertraline Hcl) 25 Mg Tablet 25 Mg PO QHS 7 Days Zoloft (Sertraline Hcl) 50 Mg Tablet 50 Mg PO QHS 3 Days Omeprazole 20 Mg Tablet.dr 20 Mg PO DAILY07 Allopurinol 100 Mg Tablet 200 Mg PO DAILYWSUP Vitamin D3 (Cholecalciferol (Vitamin D3)) 1,000 Unit Tablet 1,000 Unit PO DAILYWBKFT Oyster Shell Calcium (Calcium Carbonate) 500 Mg Tablet 500 Mg PO BIDWMEALS Cinnamon (Cinnamon Bark) 500 Mg Capsule 500 Mg PO BIDWMEALS Co Q-10 100 Mg Softgel (Ubidecarenone/Vit E Acetate) 1 Each Capsule 100 Mg PO BID Melatonin 5 Mg Tablet (Melatonin/Pyridoxine) 1 Each Tablet 5 Mg PO QHS Lutein 20 Mg Capsule 20 Mg PO QHS Oksvukqske-Ewfzguptyrd-Xuf Tab (Gluc/Victor M-Msm#2/C/D3/Anthony/Born) 1 Each Tablet 1 Tab PO BIDWMEALS Metformin Hcl 850 Mg Tablet 850 Mg PO BIDWMEALS Digoxin 125 Mcg Tablet 125 Mcg PO DAILY Tamoxifen Citrate 20 Mg Tablet 20 Mg PO DAILY Atenolol 50 Mg Tablet 50 Mg PO BID Lasix (Furosemide) 80 Mg Tablet 120 Mg PO DAILY Coumadin (Warfarin Sodium) 6 Mg Tablet 6 Mg PO QPM Potassium Chloride 10 Meq Capsule.er 10 Meq PO BID Diagnosis: Problems: (1) Anxiety disorder (2) Impulse control disorder (3) Bipolar affective, mixed, sev w/ psych (4) Dementia, vascular, 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
--- NOTE | 2017-05-19 01:51 | NUR ---
Behavior Intervention Response and Plan: BIRP Note: Behavior: Assumed Care of patient, patient located in Day Room at shift change. Patient exhibited the following behavior Calm, Disorganized, Compliant. Brief assessment on rounds of vital signs, medication needs, lab studies, and pain. Treatment plan problems Alteration in Mood, Danger to Others and Fall Risk. Intervention: Patient assessed and the following interventions initiated safety checks 15 Minute Checks Personal Alarm in place , Cognitive Assessment , Medications. Response: After interactions and interventions patient responded in the following manner, Calm , Compliant ,Cooperative. Continue to assess behaviors and condition will continue to monitor throughout the shift as needed. Plan: Continue to monitor Master Treatment Plan for patient's progress toward short term goals of Decreased Agitation, Medication Compliance, intermediate project manager goals to return to previous living setting vs placement. Continue to assess patient for changes in above assessment. Monitor for medication needs, pain, and safety concerns. Hourly rounding performed to ensure safe environment.
[2017-05-19] MEDS: ACETAMINOPHEN 325 MG TABLET PO PRN (05:18)
--- NOTE | 2017-05-19 05:23 | NUR ---
Nursing Note While preforming morning ADL's with patient CULVERT INSTALLER reported that patient displayed symptoms of pain (moaning, calling out and facial grimacing). This nurse assessed patient in hallway and determined that patient was displaying signs of pain. Patient offered and accepted PRN Tylenol. PRN Tylenol given per PRN order.
[2017-05-19 05:34] VITALS: BP 143/53
[2017-05-19] MEDS: INSULIN ASPART 300 UNITS/3 ML INSULN.PEN SQ SCH ×4 (07:30→19:35)
[2017-05-19] MEDS: MULTIVITAMIN with MINERAL TABLET. PO SCH (08:18)
[2017-05-19] MEDS: CALCIUM CARBONATE 500 MG TABLET PO SCH ×2 (08:18→17:08)
[2017-05-19] MEDS: metFORMIN 850 MG TABLET PO SCH ×2 (08:18→17:08)
[2017-05-19] MEDS: DIGOXIN 125 MCG TABLET PO SCH (08:18)
[2017-05-19] MEDS: MAGNESIUM OXIDE 400 MG TABLET PO SCH ×3 (08:18→19:33)
[2017-05-19] MEDS: FUROSEMIDE 40 MG TABLET PO SCH (08:18)
[2017-05-19] MEDS: CHOLECALCIFEROL (VITAMIN D3) 1,000 UNIT TABLET PO SCH (08:18)
[2017-05-19] MEDS: PANTOPRAZOLE 40 MG TABLET. PO SCH (08:19)
[2017-05-19] MEDS: ATENOLOL 50 MG TABLET PO SCH ×2 (08:19→19:33)
[2017-05-19] MEDS: POTASSIUM CHLORIDE 20 MEQ TABLET.ER. PO SCH ×2 (08:19→19:33)
[2017-05-19] MEDS: LURASIDONE 40 MG TABLET. PO SCH (08:20)
[2017-05-19] MEDS: NYSTATIN TOPICAL POWDER 15GM BOTTLE. TP SCH ×2 (08:23→21:41)
[2017-05-19] MEDS: TAMOXIFEN 10 MG TABLET PO SCH (08:23)
--- NOTE | 2017-05-19 09:00 | NUR ---
THERAPEUTIC RECREATION GROUP NOTE TITLE :Music Bingo ACTIVITY : Music GOAL : Increase socialization, elevate mood, stimulate memory DURATION : 50 minutes RESPONSE : No participation
--- NOTE | 2017-05-19 10:40 | NUR ---
Pharmacy Warfarin Dosing Note S:Pharmacy consulted to assist with anticoagulation therapy started 04/30/17 with target INR: 2 -3 O:RAINER WASHINGTON is a 86 year old F with Atrial Fibrillation LABS: Last INR: 1.9 Last HGB: 12.3 Last HCT: 38 Last PLT: 99 Last dose of 8MG given on 05/17/17 at 1600 Vitamin K given: N Drug Interaction Changes: Same Interacting Drug Ongoing Drug Interactions: ALLOPURINOL, TAMOXIFEN, GLUCOSAMINE/CHONDROTIN A:INR is slightly below the desired range. Target Range for this patient is: 2 -3 P: Warfarin dose: Give Coumadin 7.5mg po today at 1600 Bridge Therapy: None Next INR due 05/20/17 Pharmacy anticoagulation service will continue to follow. JESUS [facility] [facility] 05/19/17 [id number]
--- NOTE | 2017-05-19 11:00 | NUR ---
Behavior Intervention Response and Plan: BIRP Note: Behavior: Assumed Care of patient, patient located in Day Room at shift change. Patient exhibited the following behavior Calm, Compliant, Drowsy. Brief assessment on rounds of vital signs, medication needs, lab studies, and pain. Treatment plan problems 1 and 2. Intervention: Patient assessed and the following interventions initiated safety checks 15 Minute Checks Cognitive Assessment , Head to toe Assessment , Medications. Response: After interactions and interventions patient responded in the following manner, Calm , Compliant ,Drowsy. Continue to assess behaviors and condition will continue to monitor throughout the shift as needed. Plan: Continue to monitor Master Treatment Plan for patient's progress toward short term goals of Medication Compliance, Decreased Agitation, prison goals to return to previous living setting vs placement. Continue to assess patient for changes in above assessment. Monitor for medication needs, pain, and safety concerns. Hourly rounding performed to ensure safe environment.
--- NOTE | 2017-05-19 11:30 | NUR ---
THERAPEUTIC RECREATION GROUP NOTE TITLE :Movement to Music: Flexibility ACTIVITY : Movement/ Exercise GOAL : Increase morale, attention, flexibility. Decrease stress/anxiety. DURATION : 30 Minutes RESPONSE : No participation
--- NOTE | 2017-05-19 12:06 | NUR ---
Patient up in cardiac lounger with feet elevated r/t edema and swelling in BLLE. Will continue to monitor.
--- NOTE | 2017-05-19 14:20 | NUR ---
THERAPEUTIC RECREATION GROUP NOTE TITLE :ABC's of Leisure ACTIVITY : Leisure Awareness GOAL : Increase knowledge of leisure activities DURATION : 50 Minutes RESPONSE : No participation
[2017-05-19] MEDS ORDERED: WARFARIN 7.5 MG TABLET. PO ONE (16:00)
[2017-05-19 16:02] VITALS: BP 121/67
[2017-05-19] MEDS: ALLOPURINOL 100 MG TABLET. PO SCH (17:08)
[2017-05-19] MEDS: traZODone 100 MG TABLET. PO SCH (19:33)
[2017-05-19] MEDS: MIRTAZAPINE 15 MG TAB.RAPDIS PO SCH (19:33)
[2017-05-19] MEDS: INSULIN DETEMIR 300 UNITS/3 ML INSULN.PEN. SQ SCH (19:35)
--- NOTE | 2017-05-19 20:36 | PDOC ---
Exam Tahir Demential Exam: Tahir Note: Please also refer to the separate dictated note~for this date of service dictated separately.~Patient seen individually. Discussed the patient with Nursing staff reviewed the chart.~Reviewed interim history and current functioning. Reviewed vital signs,~Labs/ Radiology~and current medications noted below. Continue current treatment with the changes noted in the dictated addendum note Patient was seen on grounds the evening of 05/19. Per nursing report patient as had some pedal edema and is in the cardiac recliner. Will defer to Dr. Mariee for medical management. Family was concerned with the Depakote could be contemplating to her edema and this has since been discontinued. Review of systems hard of hearing impaired ambulation in recliner no CV GI/ pulmonary eye system symptoms on review. Mental status examination: Patient is oriented to herself and situation. Speech has some latency coherent thought processes goal directed. I had to talk loudly into her ear to communicate with her. Mood is better. Affect is mood congruent. No clear psychotic symptoms suicidal or homicidal ideation. Impression: Bipolar 1 disorder mixed with psychotic features in partial remission. Cognitive disorder unspecified. Plan: Continue current psychotropics mentioned below. Adjust further as clinically indicated. Social service staff is arranging placement at a lower level of care. Assessment: Vital Signs: Vital Signs Date Time Temp Pulse Resp B/P (MAP) Pulse Ox O2 Delivery O2 Flow Rate FiO2 05/19/17 19:33 78 121/67 05/19/17 16:02 97.6 18 99 05/17/17 15:35 Room Air I&O Intake and Output 05/19/17 07:00 Intake Total 960 ml Balance 960 ml Intake Oral 960 ml # Voids 2 # Bowel Movements 1 Labs: Laboratory Tests Test 05/19/17 06:43 05/19/17 07:32 05/19/17 11:50 05/19/17 16:54 Prothrombin Time 19.8 SEC (9.4-11.4) H Prothrombin Time INR 1.9 (0.9-1.1) H Glucose (Fingerstick) 129 mg/dL (70-99) H 209 mg/dL (70-99) H 172 mg/dL (70-99) H Test 05/19/17 19:13 Glucose (Fingerstick) 213 mg/dL (70-99) H Current Medications: Meds: Current Medications Acetaminophen (Tylenol) 650 mg PRN Q6HRS PRN PO PAIN / TEMP; Start 04/30/17 at 18:30; Stop 04/30/17 at 19:53; Status DC Potassium Chloride (Klor-Con) 20 meq 1X ONCE PO Last administered on 20:51; Start 04/30/17 at 20:00; Stop 04/30/17 at 20:01; Status DC Magnesium Chloride (Mag Delay) 64 mg DAILY PO Last administered on 05/06/17 08: 16; Start 05/01/17 at 09:00; Stop 05/06/17 at 18:08; Status DC Acetaminophen (Tylenol) 650 mg PRN Q6HRS PRN PO PAIN / TEMP Last administered on 05/04/17 11:44; Start 04/30/17 at 20:00; Stop 05/05/17 at 19:37; Status DC Al Hydroxide/Mg Hydroxide (Mylanta Plus Xs) 15 ml PRN AFTMEALHC PRN PO DYSPEPSIA; Start 04/30/17 at 20:00 Magnesium Hydroxide (Milk Of Magnesia) 2,400 mg PRN QHS PRN PO CONSTIPATION Last administered on 05/12/17 19:28; Start 04/30/17 at 20:00 Allopurinol (Zyloprim) 200 mg DAILYWSUP PO Last administered on 05/19/17 17:08 ; Start 05/01/17 at 17:00 Atenolol (Tenormin) 50 mg BID PO Last administered on 05/19/17 19:33; Start at 21:00 Calcium Carbonate/ Glycine (Oscal) 500 mg BIDWMEALS PO Last administered on 17:08; Start 05/01/17 at 08:00 Vitamin D (Vitamin D3) 1,000 unit DAILYWBKFT PO Last administered on 05/19/17 08:18; Start 05/01/17 at 08:00 Digoxin (Lanoxin) 125 mcg DAILY PO Last administered on 05/19/17 08:18; Start 05/01/17 at 09:00 Furosemide (Lasix) 120 mg DAILY PO Last administered on 05/05/17 13:31; Start 05/01/17 at 09:00; Stop 05/05/17 at 19:39; Status DC Metformin HCl (Glucophage) 850 mg BIDWMEALS PO Last administered on 05/19/17 17:08; Start 05/01/17 at 08:00 Potassium Chloride (Klor-Con) 20 meq BID PO Last administered on 05/04/17 20:37 ; Start 05/01/17 at 09:00; Stop 05/05/17 at 19:31; Status DC Warfarin Sodium (Coumadin) 6 mg DAILY16 PO Last administered on 05/01/17 16:56 ; Start 05/01/17 at 16:00; Stop 05/02/17 at 11:39; Status DC Non-Formulary Medication 500 mg BIDWMEALS PO ; Start 05/01/17 at 08:00; Stop 05/01 at 08:00; Status DC Glucosamine/ Chondroitin (Glucosamine-Chondroitin 500/400mg) 1 cap BIDWMEALS PO Last administered on 05/05/17 16:45; Start 05/01/17 at 08:00; Stop 05/05/17 at 18:18; Status DC Lactobacillus Acidophilus (Bacid, Orly-Bid) 2 tab DAILYWBKFT PO Last administered on 05/03/17 07:19; Start 05/01/17 at 08:00; Stop 05/05/17 at 18:18; Status DC Non-Formulary Medication 20 mg QHS PO ; Start 04/30/17 at 21:00; Stop 04/30/17 at 21:00; Status DC Non-Formulary Medication 5 mg QHS PO ; Start 04/30/17 at 21:00; Stop 04/30/17 at 21:00; Status DC Multivitamins/ Minerals (I-Gera) 1 tab DAILY PO Last administered on 05/03/17 07:20; Start 05/01/17 at 09:00; Stop 05/05/17 at 19:39; Status DC Pantoprazole Sodium (Protonix) 40 mg DAILYAC PO Last administered on 05/19/17 08:19; Start 05/01/17 at 07:30 Tamoxifen Citrate (Nolvadex) 20 mg DAILY PO Last administered on 05/19/17 08: 23; Start 05/01/17 at 09:00 Coenzyme Q10 (Coenzyme Q10) 100 mg BID PO Last administered on 05/04/17 20:36; Start 05/01/17 at 09:00; Stop 05/05/17 at 18:18; Status DC Sertraline HCl (Zoloft) 50 mg QHS PO Last administered on 04/30/17 20:51; Start 04/30/17 at 21:00; Stop 05/01/17 at 11:00; Status DC Melatonin 4.5 mg QHS PO Last administered on 05/04/17 20:37; Start 04/30/17 at 21:00; Stop 05/05/17 at 18:18; Status DC Olanzapine (ZyPREXA ZYDIS) 2.5 mg PRN Q4HRS PRN PO Psych Last administered on 16:52; Start 04/30/17 at 20:15 Magnesium Oxide (Magnesium Oxide) 400 mg BID PO Last administered on 05/14/17 09:35; Start 04/30/17 at 21:00; Stop 05/14/17 at 11:01; Status DC Warfarin Sodium (Coumadin) 6 mg 1X WARF ONCE PO Last administered on 20:51; Start 04/30/17 at 20:45; Stop 04/30/17 at 20:46; Status DC Warfarin Sodium (Coumadin) 0.5 mg 1X WARF ONCE PO Last administered on 20:51; Start 04/30/17 at 20:45; Stop 04/30/17 at 20:46; Status DC Warfarin Sodium (Coumadin Per Physician) 1 each PRN DAILY PRN MC SEE COMMENTS; Start 05/01/17 at 09:45; Stop 05/01/17 at 14:54; Status DC Risperidone (RisperDAL) 0.25 mg HS PO Last administered on 05/02/17 19:39; Start 05/01/17 at 21:00; Stop 05/03/17 at 18:28; Status DC Trazodone HCl (Desyrel) 100 mg QHS PO Last administered on 05/19/17 19:33; Start 05/01/17 at 21:00 Trazodone HCl (Desyrel) 100 mg PRN QHS PRN PO INSOMNIA Last administered on 23:05; Start 05/01/17 at 10:45 Insulin Detemir (Levemir) 5 units QHS SQ Last administered on 05/19/17 19:35; Start 05/01/17 at 21:00 Insulin Aspart (NovoLOG) 0-5 UNITS QIDACHS SQ Last administered on 05/19/17 17 :10; Start 05/01/17 at 16:30 Dextrose 12.5 gm PRN Q15MIN PRN IV SEE COMMENTS; Start 05/01/17 at 14:45 Warfarin Sodium (Coumadin Per Pharmacy) 1 each PRN DAILY PRN MC SEE COMMENTS Last administered on 05/19/17 10:39; Start 05/01/17 at 14:45 Insulin Aspart (NovoLOG) 10 units 1X ONCE SQ Last administered on 05/01/17 17: 15; Start 05/01/17 at 17:15; Stop 05/01/17 at 17:16; Status DC Warfarin Sodium (Coumadin) 7.5 mg 1X WARF ONCE PO Last administered on 17:16; Start 05/02/17 at 16:00; Stop 05/02/17 at 16:01; Status DC Warfarin Sodium (Coumadin) 7.5 mg 1X WARF ONCE PO Last administered on 16:18; Start 05/03/17 at 16:00; Stop 05/03/17 at 16:01; Status DC Risperidone (RisperDAL) 0.5 mg HS SL Last administered on 05/04/17 20:41; Start 05/03/17 at 21:00; Stop 05/05/17 at 19:33; Status DC Valproic Acid (Depakene) 250 mg BIDWMEALS PO Last administered on 05/07/17 16: 52; Start 05/04/17 at 08:00; Stop 05/07/17 at 18:23; Status DC Warfarin Sodium (Coumadin) 7.5 mg 1X WARF ONCE PO Last administered on 16:02; Start 05/04/17 at 16:00; Stop 05/04/17 at 16:01; Status DC Mirtazapine (Remeron) 7.5 mg QHS PO Last administered on 05/04/17 20:38; Start 05/04/17 at 21:00; Stop 05/05/17 at 19:33; Status DC Warfarin Sodium (Coumadin) 7.5 mg 1X WARF ONCE PO Last administered on 16:46; Start 05/05/17 at 16:00; Stop 05/05/17 at 16:01; Status DC Potassium Chloride (KCl Oral Soln) 20 meq BID PO Last administered on 05/09/17 09:13; Start 05/05/17 at 21:00; Stop 05/09/17 at 18:44; Status DC Risperidone (RisperDAL) 1 mg HS SL ; Start 05/05/17 at 21:00; Stop 05/06/17 at 11: 05; Status DC Mirtazapine (Remeron Olive-Tab) 7.5 mg QHS PO Last administered on 05/19/17 19: 33; Start 05/05/17 at 21:00 Acetaminophen (Tylenol) 650 mg PRN Q6HRS PRN PO PAIN / TEMP Last administered on 05/09/17 09:12; Start 05/05/17 at 19:45; Stop 05/10/17 at 08:51; Status DC Furosemide (Lasix) 120 mg DAILY PO Last administered on 05/09/17 09:43; Start 05/06/17 at 09:00; Stop 05/09/17 at 18:44; Status DC Multivitamins (Thera-Plus) 5 ml DAILY PO Last administered on 05/08/17 08:02; Start 05/06/17 at 09:00; Stop 05/10/17 at 08:51; Status DC Risperidone (RisperDAL) 0.5 mg HS SL Last administered on 05/08/17 21:49; Start 05/06/17 at 21:00; Stop 05/09/17 at 09:00; Status DC Melatonin 3 mg PRN QHS PRN PO INSOMNIA Last administered on 05/18/17 19:59; Start 05/06/17 at 18:15 Warfarin Sodium (Coumadin) 7.5 mg 1X WARF ONCE PO Last administered on 16:51; Start 05/07/17 at 16:00; Stop 05/07/17 at 16:01; Status DC Valproic Acid (Depakene) 375 mg BIDWMEALS PO Last administered on 05/09/17 16: 27; Start 05/08/17 at 08:00; Stop 05/09/17 at 18:44; Status DC Warfarin Sodium (Coumadin) 7.5 mg 1X WARF ONCE PO Last administered on 16:53; Start 05/08/17 at 16:00; Stop 05/08/17 at 16:01; Status DC Warfarin Sodium (Coumadin) 7.5 mg 1X WARF ONCE PO Last administered on 16:26; Start 05/09/17 at 16:00; Stop 05/09/17 at 16:01; Status DC Furosemide (Lasix) 120 mg DAILY PO Last administered on 05/19/17 08:18; Start 05/10/17 at 09:00 Potassium Chloride (Klor-Con) 20 meq BID PO Last administered on 05/19/17 19: 33; Start 05/09/17 at 21:00 Divalproex Sodium (Depakote Sprinkles) 375 mg BIDWMEALS PO Last administered on 05/18/17 16:59; Start 05/10/17 at 08:00; Stop 05/18/17 at 18:50; Status DC Multivitamins/ Calcium (Thera-M Plus) 1 tab DAILY PO Last administered on 08:18; Start 05/10/17 at 09:00 Acetaminophen (Tylenol) 650 mg PRN Q6HRS PRN PO PAIN / TEMP Last administered on 05/19/17 05:18; Start 05/10/17 at 09:00 Warfarin Sodium (Coumadin) 4 mg 1X WARF ONCE PO Last administered on 16:17; Start 05/10/17 at 16:00; Stop 05/10/17 at 16:01; Status DC Warfarin Sodium (Coumadin) 3 mg 1X WARF ONCE PO Last administered on 16:17; Start 05/10/17 at 16:00; Stop 05/10/17 at 16:01; Status DC Warfarin Sodium (Coumadin) 4 mg DAILY16 PO Last administered on 05/12/17 17:08 ; Start 05/11/17 at 16:00; Stop 05/13/17 at 11:50; Status DC Warfarin Sodium (Coumadin) 3 mg DAILY16 PO Last administered on 05/12/17 17:08 ; Start 05/11/17 at 16:00; Stop 05/13/17 at 11:50; Status DC Warfarin Sodium (Coumadin - No Dose Today) 1 each 1X WARF ONCE MC ; Start 05/13 at 16:00; Stop 05/13/17 at 16:01; Status DC Magnesium Oxide (Magnesium Oxide) 400 mg TID PO Last administered on 05/19/17 19:33; Start 05/14/17 at 14:00 Warfarin Sodium (Coumadin - No Dose Today) 1 each 1X WARF ONCE MC ; Start 05/14 at 16:00; Stop 05/14/17 at 16:02; Status DC Nystatin (Nystop) 1 lexie BID TP ; Start 05/15/17 at 09:00; Stop 05/15/17 at 09:00 ; Status DC Nystatin (Nystop) 1 lexie BID TP Last administered on 05/19/17 08:23; Start at 23:15 Warfarin Sodium (Coumadin) 7.5 mg 1X WARF ONCE PO ; Start 05/15/17 at 16:00; Stop 05/15/17 at 16:01; Status DC Warfarin Sodium (Coumadin) 7.5 mg 1X WARF ONCE PO Last administered on 14:59; Start 05/16/17 at 16:00; Stop 05/16/17 at 16:01; Status DC Warfarin Sodium (Coumadin) 7.5 mg 1X WARF ONCE PO Last administered on 17:08; Start 05/17/17 at 16:00; Stop 05/17/17 at 16:01; Status DC Warfarin Sodium (Coumadin) 8 mg 1X WARF ONCE PO ; Start 05/18/17 at 16:00; Stop 05/18/17 at 16:00; Status DC Warfarin Sodium (Coumadin) 8 mg 1X WARF ONCE PO Last administered on 16:59; Start 05/18/17 at 16:00; Stop 05/18/17 at 16:01; Status DC Warfarin Sodium (Coumadin) 7.5 mg 1X WARF ONCE PO Last administered on 17:08; Start 05/19/17 at 16:00; Stop 05/19/17 at 16:01; Status DC Active Scripts Active Reported Probiotic (Lactobacillus Combo No.10) 1 Each Capsule 1 Cap PO DAILYWBKFT Women's Daily Caplet (Multivits,Ca,Minerals/Iron/Fa) 1 Each Tablet 1 Tab PO BID Zoloft (Sertraline Hcl) 25 Mg Tablet 25 Mg PO QHS 7 Days Zoloft (Sertraline Hcl) 50 Mg Tablet 50 Mg PO QHS 3 Days Omeprazole 20 Mg Tablet.dr 20 Mg PO DAILY07 Allopurinol 100 Mg Tablet 200 Mg PO DAILYWSUP Vitamin D3 (Cholecalciferol (Vitamin D3)) 1,000 Unit Tablet 1,000 Unit PO DAILYWBKFT Oyster Shell Calcium (Calcium Carbonate) 500 Mg Tablet 500 Mg PO BIDWMEALS Cinnamon (Cinnamon Bark) 500 Mg Capsule 500 Mg PO BIDWMEALS Co Q-10 100 Mg Softgel (Ubidecarenone/Vit E Acetate) 1 Each Capsule 100 Mg PO BID Melatonin 5 Mg Tablet (Melatonin/Pyridoxine) 1 Each Tablet 5 Mg PO QHS Lutein 20 Mg Capsule 20 Mg PO QHS Ejhcsjojqk-Xhfbkglcjtp-[id number] Tab (Gluc/Victor M-Msm#2/C/D3/Anthony/Born) 1 Each Tablet 1 Tab PO BIDWMEALS Metformin Hcl 850 Mg Tablet 850 Mg PO BIDWMEALS Digoxin 125 Mcg Tablet 125 Mcg PO DAILY Tamoxifen Citrate 20 Mg Tablet 20 Mg PO DAILY Atenolol 50 Mg Tablet 50 Mg PO BID Lasix (Furosemide) 80 Mg Tablet 120 Mg PO DAILY Coumadin (Warfarin Sodium) 6 Mg Tablet 6 Mg PO QPM Potassium Chloride 10 Meq Capsule.er 10 Meq PO BID Diagnosis: Problems: (1) Anxiety disorder (2) Impulse control disorder (3) Bipolar affective, mixed, sev w/ psych (4) Dementia, vascular, 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
--- NOTE | 2017-05-19 21:28 | PDOC ---
Exam Tahir Demential Exam: Tahir Note: Please also refer to the separate dictated note~for this date of service dictated separately.~Patient seen individually. Discussed the patient with Nursing staff reviewed the chart.~Reviewed interim history and current functioning. Reviewed vital signs,~Labs/ Radiology~and current medications noted below. Continue current treatment with the changes noted in the dictated addendum note S/O: This is a late entry for date of service 05/16/2017. I met with the patient individually on evening of May 16, discussed with nursing staff, and reviewed the chart. This note covers elements not covered in my initial note. The patient had a good night and a good day today, well oriented during the day today, quite an improvement for her compared to several days back. Review of Systems: Hard of hearing, impaired ambulation in wheelchair. No CV, , Pulmonary, Eye, system symptoms on review. MSE: Oriented to herself and situation. Speech is coherent. Abstraction is fair. Computation is impaired. Language function is intact. No active hallucinations. No suicidal or homicidal ideation. Labs: Reviewed. Imp: Unchanged from initial note. Plan: Continue current psychotropics. Adjust as indicated. Assessment: Vital Signs: Vital Signs Date Time Temp Pulse Resp B/P (MAP) Pulse Ox O2 Delivery O2 Flow Rate FiO2 05/19/17 19:33 78 121/67 05/19/17 16:02 97.6 18 99 05/17/17 15:35 Room Air I&O Intake and Output 05/19/17 07:00 Intake Total 960 ml Balance 960 ml Intake Oral 960 ml # Voids 2 # Bowel Movements 1 Labs: Laboratory Tests Test 05/19/17 06:43 05/19/17 07:32 05/19/17 11:50 05/19/17 16:54 Prothrombin Time 19.8 SEC (9.4-11.4) H Prothrombin Time INR 1.9 (0.9-1.1) H Glucose (Fingerstick) 129 mg/dL (70-99) H 209 mg/dL (70-99) H 172 mg/dL (70-99) H Test 05/19/17 19:13 Glucose (Fingerstick) 213 mg/dL (70-99) H Current Medications: Meds: Current Medications Acetaminophen (Tylenol) 650 mg PRN Q6HRS PRN PO PAIN / TEMP; Start 6/30/17 at 18:30; Stop 04/30/17 at 19:53; Status DC Potassium Chloride (Klor-Con) 20 meq 1X ONCE PO Last administered on 20:51; Start 04/30/17 at 20:00; Stop 04/30/17 at 20:01; Status DC Magnesium Chloride (Mag Delay) 64 mg DAILY PO Last administered on 05/06/17 08: 16; Start 05/01/17 at 09:00; Stop 05/06/17 at 18:08; Status DC Acetaminophen (Tylenol) 650 mg PRN Q6HRS PRN PO PAIN / TEMP Last administered on 05/04/17 11:44; Start 04/30/17 at 20:00; Stop 05/05/17 at 19:37; Status DC Al Hydroxide/Mg Hydroxide (Mylanta Plus Xs) 15 ml PRN AFTMEALHC PRN PO DYSPEPSIA; Start 04/30/17 at 20:00 Magnesium Hydroxide (Milk Of Magnesia) 2,400 mg PRN QHS PRN PO CONSTIPATION Last administered on 05/12/17 19:28; Start 04/30/17 at 20:00 Allopurinol (Zyloprim) 200 mg DAILYWSUP PO Last administered on 05/19/17 17:08 ; Start 05/01/17 at 17:00 Atenolol (Tenormin) 50 mg BID PO Last administered on 05/19/17 19:33; Start at 21:00 Calcium Carbonate/ Glycine (Oscal) 500 mg BIDWMEALS PO Last administered on 17:08; Start 05/01/17 at 08:00 Vitamin D (Vitamin D3) 1,000 unit DAILYWBKFT PO Last administered on 05/19/17 08:18; Start 05/01/17 at 08:00 Digoxin (Lanoxin) 125 mcg DAILY PO Last administered on 05/19/17 08:18; Start 05/01/17 at 09:00 Furosemide (Lasix) 120 mg DAILY PO Last administered on 05/05/17 13:31; Start 05/01/17 at 09:00; Stop 05/05/17 at 19:39; Status DC Metformin HCl (Glucophage) 850 mg BIDWMEALS PO Last administered on 05/19/17 17:08; Start 05/01/17 at 08:00 Potassium Chloride (Klor-Con) 20 meq BID PO Last administered on 05/04/17 20:37 ; Start 05/01/17 at 09:00; Stop 05/05/17 at 19:31; Status DC Warfarin Sodium (Coumadin) 6 mg DAILY16 PO Last administered on 05/01/17 16:56 ; Start 05/01/17 at 16:00; Stop 05/02/17 at 11:39; Status DC Non-Formulary Medication 500 mg BIDWMEALS PO ; Start 05/01/17 at 08:00; Stop 05/01 at 08:00; Status DC Glucosamine/ Chondroitin (Glucosamine-Chondroitin 500/400mg) 1 cap BIDWMEALS PO Last administered on 05/05/17 16:45; Start 05/01/17 at 08:00; Stop 05/05/17 at 18:18; Status DC Lactobacillus Acidophilus (Bacid, Orly-Bid) 2 tab DAILYWBKFT PO Last administered on 05/03/17 07:19; Start 05/01/17 at 08:00; Stop 05/05/17 at 18:18; Status DC Non-Formulary Medication 20 mg QHS PO ; Start 04/30/17 at 21:00; Stop 04/30/17 at 21:00; Status DC Non-Formulary Medication 5 mg QHS PO ; Start 04/30/17 at 21:00; Stop 04/30/17 at 21:00; Status DC Multivitamins/ Minerals (I-Gera) 1 tab DAILY PO Last administered on 05/03/17 07:20; Start 05/01/17 at 09:00; Stop 05/05/17 at 19:39; Status DC Pantoprazole Sodium (Protonix) 40 mg DAILYAC PO Last administered on 05/19/17 08:19; Start 05/01/17 at 07:30 Tamoxifen Citrate (Nolvadex) 20 mg DAILY PO Last administered on 05/19/17 08: 23; Start 05/01/17 at 09:00 Coenzyme Q10 (Coenzyme Q10) 100 mg BID PO Last administered on 05/04/17 20:36; Start 05/01/17 at 09:00; Stop 05/05/17 at 18:18; Status DC Sertraline HCl (Zoloft) 50 mg QHS PO Last administered on 04/30/17 20:51; Start 04/30/17 at 21:00; Stop 05/01/17 at 11:00; Status DC Melatonin 4.5 mg QHS PO Last administered on 05/04/17 20:37; Start 04/30/17 at 21:00; Stop 05/05/17 at 18:18; Status DC Olanzapine (ZyPREXA ZYDIS) 2.5 mg PRN Q4HRS PRN PO Psych Last administered on 16:52; Start 04/30/17 at 20:15 Magnesium Oxide (Magnesium Oxide) 400 mg BID PO Last administered on 05/14/17 09:35; Start 04/30/17 at 21:00; Stop 05/14/17 at 11:01; Status DC Warfarin Sodium (Coumadin) 6 mg 1X WARF ONCE PO Last administered on 20:51; Start 04/30/17 at 20:45; Stop 04/30/17 at 20:46; Status DC Warfarin Sodium (Coumadin) 0.5 mg 1X WARF ONCE PO Last administered on 20:51; Start 04/30/17 at 20:45; Stop 04/30/17 at 20:46; Status DC Warfarin Sodium (Coumadin Per Physician) 1 each PRN DAILY PRN MC SEE COMMENTS; Start 05/01/17 at 09:45; Stop 05/01/17 at 14:54; Status DC Risperidone (RisperDAL) 0.25 mg HS PO Last administered on 05/02/17 19:39; Start 05/01/17 at 21:00; Stop 05/03/17 at 18:28; Status DC Trazodone HCl (Desyrel) 100 mg QHS PO Last administered on 05/19/17 19:33; Start 05/01/17 at 21:00 Trazodone HCl (Desyrel) 100 mg PRN QHS PRN PO INSOMNIA Last administered on 23:05; Start 05/01/17 at 10:45 Insulin Detemir (Levemir) 5 units QHS SQ Last administered on 05/19/17 19:35; Start 05/01/17 at 21:00 Insulin Aspart (NovoLOG) 0-5 UNITS QIDACHS SQ Last administered on 05/19/17 17 :10; Start 05/01/17 at 16:30 Dextrose 12.5 gm PRN Q15MIN PRN IV SEE COMMENTS; Start 05/01/17 at 14:45 Warfarin Sodium (Coumadin Per Pharmacy) 1 each PRN DAILY PRN MC SEE COMMENTS Last administered on 05/19/17 10:39; Start 05/01/17 at 14:45 Insulin Aspart (NovoLOG) 10 units 1X ONCE SQ Last administered on 05/01/17 17: 15; Start 05/01/17 at 17:15; Stop 05/01/17 at 17:16; Status DC Warfarin Sodium (Coumadin) 7.5 mg 1X WARF ONCE PO Last administered on 17:16; Start 05/02/17 at 16:00; Stop 05/02/17 at 16:01; Status DC Warfarin Sodium (Coumadin) 7.5 mg 1X WARF ONCE PO Last administered on 16:18; Start 05/03/17 at 16:00; Stop 05/03/17 at 16:01; Status DC Risperidone (RisperDAL) 0.5 mg HS SL Last administered on 05/04/17 20:41; Start 05/03/17 at 21:00; Stop 05/05/17 at 19:33; Status DC Valproic Acid (Depakene) 250 mg BIDWMEALS PO Last administered on 05/07/17 16: 52; Start 05/04/17 at 08:00; Stop 05/07/17 at 18:23; Status DC Warfarin Sodium (Coumadin) 7.5 mg 1X WARF ONCE PO Last administered on 16:02; Start 05/04/17 at 16:00; Stop 05/04/17 at 16:01; Status DC Mirtazapine (Remeron) 7.5 mg QHS PO Last administered on 05/04/17 20:38; Start 05/04/17 at 21:00; Stop 05/05/17 at 19:33; Status DC Warfarin Sodium (Coumadin) 7.5 mg 1X WARF ONCE PO Last administered on 16:46; Start 05/05/17 at 16:00; Stop 05/05/17 at 16:01; Status DC Potassium Chloride (KCl Oral Soln) 20 meq BID PO Last administered on 05/09/17 09:13; Start 05/05/17 at 21:00; Stop 05/09/17 at 18:44; Status DC Risperidone (RisperDAL) 1 mg HS SL ; Start 05/05/17 at 21:00; Stop 05/06/17 at 11: 05; Status DC Mirtazapine (Remeron Olive-Tab) 7.5 mg QHS PO Last administered on 05/19/17 19: 33; Start 05/05/17 at 21:00 Acetaminophen (Tylenol) 650 mg PRN Q6HRS PRN PO PAIN / TEMP Last administered on 05/09/17 09:12; Start 05/05/17 at 19:45; Stop 05/10/17 at 08:51; Status DC Furosemide (Lasix) 120 mg DAILY PO Last administered on 05/09/17 09:43; Start 05/06/17 at 09:00; Stop 05/09/17 at 18:44; Status DC Multivitamins (Thera-Plus) 5 ml DAILY PO Last administered on 05/08/17 08:02; Start 05/06/17 at 09:00; Stop 05/10/17 at 08:51; Status DC Risperidone (RisperDAL) 0.5 mg HS SL Last administered on 05/08/17 21:49; Start 05/06/17 at 21:00; Stop 05/09/17 at 09:00; Status DC Melatonin 3 mg PRN QHS PRN PO INSOMNIA Last administered on 05/18/17 19:59; Start 05/06/17 at 18:15 Warfarin Sodium (Coumadin) 7.5 mg 1X WARF ONCE PO Last administered on 16:51; Start 05/07/17 at 16:00; Stop 05/07/17 at 16:01; Status DC Valproic Acid (Depakene) 375 mg BIDWMEALS PO Last administered on 05/09/17 16: 27; Start 05/08/17 at 08:00; Stop 05/09/17 at 18:44; Status DC Warfarin Sodium (Coumadin) 7.5 mg 1X WARF ONCE PO Last administered on 16:53; Start 05/08/17 at 16:00; Stop 05/08/17 at 16:01; Status DC Warfarin Sodium (Coumadin) 7.5 mg 1X WARF ONCE PO Last administered on 16:26; Start 05/09/17 at 16:00; Stop 05/09/17 at 16:01; Status DC Furosemide (Lasix) 120 mg DAILY PO Last administered on 05/19/17 08:18; Start 05/10/17 at 09:00 Potassium Chloride (Klor-Con) 20 meq BID PO Last administered on 05/19/17 19: 33; Start 05/09/17 at 21:00 Divalproex Sodium (Depakote Sprinkles) 375 mg BIDWMEALS PO Last administered on 05/18/17 16:59; Start 05/10/17 at 08:00; Stop 05/18/17 at 18:50; Status DC Multivitamins/ Calcium (Thera-M Plus) 1 tab DAILY PO Last administered on 08:18; Start 05/10/17 at 09:00 Acetaminophen (Tylenol) 650 mg PRN Q6HRS PRN PO PAIN / TEMP Last administered on 05/19/17 05:18; Start 05/10/17 at 09:00 Warfarin Sodium (Coumadin) 4 mg 1X WARF ONCE PO Last administered on 16:17; Start 05/10/17 at 16:00; Stop 05/10/17 at 16:01; Status DC Warfarin Sodium (Coumadin) 3 mg 1X WARF ONCE PO Last administered on 16:17; Start 05/10/17 at 16:00; Stop 05/10/17 at 16:01; Status DC Warfarin Sodium (Coumadin) 4 mg DAILY16 PO Last administered on 05/12/17 17:08 ; Start 05/11/17 at 16:00; Stop 05/13/17 at 11:50; Status DC Warfarin Sodium (Coumadin) 3 mg DAILY16 PO Last administered on 05/12/17 17:08 ; Start 05/11/17 at 16:00; Stop 05/13/17 at 11:50; Status DC Warfarin Sodium (Coumadin - No Dose Today) 1 each 1X WARF ONCE MC ; Start 05/13 at 16:00; Stop 05/13/17 at 16:01; Status DC Magnesium Oxide (Magnesium Oxide) 400 mg TID PO Last administered on 05/19/17 19:33; Start 05/14/17 at 14:00 Warfarin Sodium (Coumadin - No Dose Today) 1 each 1X WARF ONCE MC ; Start 05/14 at 16:00; Stop 05/14/17 at 16:02; Status DC Nystatin (Nystop) 1 lexie BID TP ; Start 05/15/17 at 09:00; Stop 05/15/17 at 09:00 ; Status DC Nystatin (Nystop) 1 lexie BID TP Last administered on 05/19/17 08:23; Start at 23:15 Warfarin Sodium (Coumadin) 7.5 mg 1X WARF ONCE PO ; Start 05/15/17 at 16:00; Stop 05/15/17 at 16:01; Status DC Warfarin Sodium (Coumadin) 7.5 mg 1X WARF ONCE PO Last administered on 14:59; Start 05/16/17 at 16:00; Stop 05/16/17 at 16:01; Status DC Warfarin Sodium (Coumadin) 7.5 mg 1X WARF ONCE PO Last administered on 17:08; Start 05/17/17 at 16:00; Stop 05/17/17 at 16:01; Status DC Warfarin Sodium (Coumadin) 8 mg 1X WARF ONCE PO ; Start 05/18/17 at 16:00; Stop 05/18/17 at 16:00; Status DC Warfarin Sodium (Coumadin) 8 mg 1X WARF ONCE PO Last administered on 16:59; Start 05/18/17 at 16:00; Stop 05/18/17 at 16:01; Status DC Warfarin Sodium (Coumadin) 7.5 mg 1X WARF ONCE PO Last administered on 17:08; Start 05/19/17 at 16:00; Stop 05/19/17 at 16:01; Status DC Active Scripts Active Reported Probiotic (Lactobacillus Combo No.10) 1 Each Capsule 1 Cap PO DAILYWBKFT Women's Daily Caplet (Multivits,Ca,Minerals/Iron/Fa) 1 Each Tablet 1 Tab PO BID Zoloft (Sertraline Hcl) 25 Mg Tablet 25 Mg PO QHS 7 Days Zoloft (Sertraline Hcl) 50 Mg Tablet 50 Mg PO QHS 3 Days Omeprazole 20 Mg Tablet.dr 20 Mg PO DAILY07 Allopurinol 100 Mg Tablet 200 Mg PO DAILYWSUP Vitamin D3 (Cholecalciferol (Vitamin D3)) 1,000 Unit Tablet 1,000 Unit PO DAILYWBKFT Oyster Shell Calcium (Calcium Carbonate) 500 Mg Tablet 500 Mg PO BIDWMEALS Cinnamon (Cinnamon Bark) 500 Mg Capsule 500 Mg PO BIDWMEALS Co Q-10 100 Mg Softgel (Ubidecarenone/Vit E Acetate) 1 Each Capsule 100 Mg PO BID Melatonin 5 Mg Tablet (Melatonin/Pyridoxine) 1 Each Tablet 5 Mg PO QHS Lutein 20 Mg Capsule 20 Mg PO QHS Vysttmolsx-Kmbcmbeagnc-Qdz Tab (Gluc/Victor M-Msm#2/C/D3/Anthony/Born) 1 Each Tablet 1 Tab PO BIDWMEALS Metformin Hcl 850 Mg Tablet 850 Mg PO BIDWMEALS Digoxin 125 Mcg Tablet 125 Mcg PO DAILY Tamoxifen Citrate 20 Mg Tablet 20 Mg PO DAILY Atenolol 50 Mg Tablet 50 Mg PO BID Lasix (Furosemide) 80 Mg Tablet 120 Mg PO DAILY Coumadin (Warfarin Sodium) 6 Mg Tablet 6 Mg PO QPM Potassium Chloride 10 Meq Capsule.er 10 Meq PO BID CHAU GROSS MD May 19, 2017 21:28
--- NOTE | 2017-05-19 22:13 | NUR ---
Behavior Intervention Response and Plan: BIRP Note: Behavior: Assumed Care of patient, patient located in Day Room at shift change. Patient exhibited the following behavior Calm, Compliant and Cooperative. Brief assessment on rounds of vital signs, medication needs, lab studies, and pain. Treatment plan problems Alteration in Mood, Danger to Others and Fall Risk. Intervention: Patient assessed and the following interventions initiated safety checks 15 Minute Checks Cognitive Assessment , Head to toe Assessment , Medications. Response: After interactions and interventions patient responded in the following manner, Calm , Compliant ,Cooperative. Continue to assess behaviors and condition will continue to monitor throughout the shift as needed. Plan: Continue to monitor Master Treatment Plan for patient's progress toward short term goals of Decreased Aggression, Improved Mood, long-term goals to return to previous living setting vs placement. Continue to assess patient for changes in above assessment. Monitor for medication needs, pain, and safety concerns. Hourly rounding performed to ensure safe environment.
[2017-05-20] MEDS: ACETAMINOPHEN 325 MG TABLET PO PRN (01:21)
[2017-05-20] MEDS: traZODone 100 MG TABLET. PO PRN (01:22)
[2017-05-20 05:40] VITALS: BP 121/76
[2017-05-20 06:45] LABS: BASO % 1 % (0-3); EOS # 0.1 x10^3/uL (0.0-0.7); EOS % 1 % (0-3); HEMOGLOBIN 11.4 g/dL (12.0-15.5); LYMPH # 1.4 x10^3/uL (1.0-4.8); LYMPH % 23 % (24-48); MEAN CORPUSCULAR HEMOGLOBIN 27 pg (25-35); MEAN CORPUSCULAR HGB CONC 33 g/dL (31-37); MEAN CORPUSCULAR VOLUME 84 fL (79-100); MONO # 0.4 x10^3/uL (0.0-1.1); MONO % 7 % (0-9); NEUT # 4.1 x10^3uL (1.8-7.7); NEUT % 68 % (31-73); PLATELET COUNT 91 x10^3/uL (140-400); RED BLOOD COUNT 4.18 x10^6/uL (3.50-5.40); RED CELL DISTRIBUTION WIDTH 15.4 % (11.5-14.5)
[2017-05-20 06:51] LABS: ALBUMIN 2.6 g/dL (3.4-5.0); ALBUMIN/GLOBULIN RATIO 0.8 (1.0-1.7); CALCIUM 8.6 mg/dL (8.5-10.1); CREATININE 1.1 mg/dL (0.6-1.0); GFR 47.2; POTASSIUM 4.7 mmol/L (3.5-5.1); TOTAL BILIRUBIN 0.3 mg/dL (0.2-1.0); TOTAL PROTEIN 5.8 g/dL (6.4-8.2)
[2017-05-20] MEDS: PANTOPRAZOLE 40 MG TABLET. PO SCH (08:33)
[2017-05-20] MEDS: CALCIUM CARBONATE 500 MG TABLET PO SCH ×2 (08:33→17:19)
[2017-05-20] MEDS: DIGOXIN 125 MCG TABLET PO SCH (08:33)
[2017-05-20] MEDS: MAGNESIUM OXIDE 400 MG TABLET PO SCH ×3 (08:33→19:32)
[2017-05-20] MEDS: metFORMIN 850 MG TABLET PO SCH ×2 (08:33→17:19)
[2017-05-20] MEDS: MULTIVITAMIN with MINERAL TABLET. PO SCH (08:33)
[2017-05-20] MEDS: FUROSEMIDE 40 MG TABLET PO SCH (08:34)
[2017-05-20] MEDS: ATENOLOL 50 MG TABLET PO SCH ×2 (08:34→19:33)
[2017-05-20] MEDS: POTASSIUM CHLORIDE 20 MEQ TABLET.ER. PO SCH ×2 (08:34→19:34)
[2017-05-20] MEDS: CHOLECALCIFEROL (VITAMIN D3) 1,000 UNIT TABLET PO SCH (08:34)
[2017-05-20] MEDS: LURASIDONE 40 MG TABLET. PO SCH (08:35)
[2017-05-20] MEDS: NYSTATIN TOPICAL POWDER 15GM BOTTLE. TP SCH ×2 (08:40→19:32)
[2017-05-20] MEDS: TAMOXIFEN 10 MG TABLET PO SCH (08:40)
[2017-05-20] MEDS: INSULIN ASPART 300 UNITS/3 ML INSULN.PEN SQ SCH ×4 (08:40→19:36)
--- NOTE | 2017-05-20 09:43 | NUR ---
Behavior Intervention Response and Plan: BIRP Note: Behavior: Assumed Care of patient, patient located in Day Room at shift change. Patient exhibited the following behavior Calm, Interactive, Compliant. Brief assessment on rounds of vital signs, medication needs, lab studies, and pain. Treatment plan problems 1 and 2. Intervention: Patient assessed and the following interventions initiated safety checks 15 Minute Checks Cognitive Assessment , Head to toe Assessment , Medications. Response: After interactions and interventions patient responded in the following manner, Calm , Appropriate ,Compliant. Continue to assess behaviors and condition will continue to monitor throughout the shift as needed. 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 Continue to assess patient for changes in above assessment. Monitor for medication needs, pain, and safety concerns. Hourly rounding performed to ensure safe environment.
--- NOTE | 2017-05-20 10:54 | NUR ---
Pharmacy Warfarin Dosing Note S:Pharmacy consulted to assist with anticoagulation therapy started 04/30/17 with target INR: 2 -3 O:RAINER WASHINGTON is a 86 year old F with Atrial Fibrillation LABS: Last INR: 2.2 Last HGB: 11.4 Last HCT: 35 Last PLT: 91 Last dose of 7.5 mg given on 05/19/17 at 1600 Vitamin K given: N Drug Interaction Changes: Same Interacting Drug Ongoing Drug Interactions: ALLOPURINOL, TAMOXIFEN, GLUCOSAMINE/CHONDROTIN A:INR is within the desired range. Target Range for this patient is: 2 -3 P: Warfarin dose: Give Coumadin 7mg po today at 1600 Bridge Therapy: None Next INR due 05/21/17 Pharmacy anticoagulation service will continue to follow. JESUS CLEANING [facility] 05/20/17 1054 Signed: 05/20/17 at 1056 by JESUS CLEANING [facility]
--- NOTE | 2017-05-20 11:30 | NUR ---
THERAPEUTIC RECREATION GROUP NOTE TITLE :Ball Bounce ACTIVITY : Movement/ Exercise GOAL : Increase morale, attention, flexibility. Decrease stress/anxiety. DURATION : 30 Minutes RESPONSE : No participation
--- NOTE | 2017-05-20 14:00 | NUR ---
THERAPEUTIC RECREATION GROUP NOTE TITLE :Clothespin Painting ACTIVITY : Arts and Crafts GOAL : Increase socialization, fine motor skills, creativity DURATION : 60 Minutes RESPONSE : Full participation. Pt. joined the group a little late but painted a picture independenly and calmly. She needed encouragement to add to it but was agreeable. She smiled often.
--- NOTE | 2017-05-20 14:52 | NUR ---
[facility] Social Work Discharge Planning Form Patient Name RAINER WASHINGTON Admit Date: 04/30/17 DISCHARGE PLAN [facility]charge Destination[facility] Assessment: Not Needed Level II Assessment: Not Needed Transportation: 9 am Special Instructions/Notes: DISCHARGE TO FACILITY Facility: [facility] Address: [address] [place] [id number] Contact Name: SHYANN GIVENS, Other: Tere Contact Name: SHYANN GIVENS, Other: PCP: at facility Psychiatrist: at facility Psychiatrist/Mental Health Follow Up at facility Primary Care Follow Up at facility
[2017-05-20] MEDS ORDERED: WARFARIN 3 MG TABLET. PO ONE (16:00)
[2017-05-20] MEDS ORDERED: WARFARIN 4 MG TABLET. PO ONE (16:00)
[2017-05-20 16:06] VITALS: BP 135/78
--- NOTE | 2017-05-20 16:08 | NUR ---
SW called and spoke with pt son about possible d/c in the am. Pt son has no questions at this time.
[2017-05-20] MEDS: ALLOPURINOL 100 MG TABLET. PO SCH (17:19)
--- NOTE | 2017-05-20 18:14 | NUR ---
Family usually brings patients hearing aides with them at lunch and puts them in her ears, then takes them home with them after visiting hours. Today family left them in her ears. Hearing aides are in nurses station, passed on in report, as patient is discharging tomorrow.
[2017-05-20] MEDS: MIRTAZAPINE 15 MG TAB.RAPDIS PO SCH (19:33)
[2017-05-20] MEDS: traZODone 100 MG TABLET. PO SCH (19:34)
[2017-05-20] MEDS: INSULIN DETEMIR 300 UNITS/3 ML INSULN.PEN. SQ SCH (19:35)
--- NOTE | 2017-05-20 20:10 | PDOC ---
Exam Tahir Demential Exam: Tahir Note: Please also refer to the separate dictated note~for this date of service dictated separately.~Patient seen individually. Discussed the patient with Nursing staff reviewed the chart.~Reviewed interim history and current functioning. Reviewed vital signs,~Labs/ Radiology~and current medications noted below. Continue current treatment with the changes noted in the dictated addendum note Assessment: Vital Signs: Vital Signs Date Time Temp Pulse Resp B/P (MAP) Pulse Ox O2 Delivery O2 Flow Rate FiO2 05/20/17 19:33 68 135/78 05/20/17 16:06 98.2 20 97 05/17/17 15:35 Room Air I&O Intake and Output 05/20/17 07:00 Intake Total 1320 ml Balance 1320 ml Intake Oral 1320 ml Labs: Laboratory Tests Test 05/20/17 06:18 05/20/17 07:14 05/20/17 12:40 05/20/17 16:42 White Blood Count 6.0 x10^3/uL (4.0-11.0) Red Blood Count 4.18 x10^6/uL (3.50-5.40) Hemoglobin 11.4 g/dL (12.0-15.5) L Hematocrit 35.0 % (36.0-47.0) L Mean Corpuscular Volume 84 fL (79-100) Mean Corpuscular Hemoglobin 27 pg (25-35) Mean Corpuscular Hemoglobin Concent 33 g/dL (31-37) Red Cell Distribution Width 15.4 % (11.5-14.5) H Platelet Count 91 x10^3/uL (140-400) L Neutrophils (%) (Auto) 68 % (31-73) Lymphocytes (%) (Auto) 23 % (24-48) L Monocytes (%) (Auto) 7 % (0-9) Eosinophils (%) (Auto) 1 % (0-3) Basophils (%) (Auto) 1 % (0-3) Neutrophils # (Auto) 4.1 x10^3uL (1.8-7.7) Lymphocytes # (Auto) 1.4 x10^3/uL (1.0-4.8) Monocytes # (Auto) 0.4 x10^3/uL (0.0-1.1) Eosinophils # (Auto) 0.1 x10^3/uL (0.0-0.7) Basophils # (Auto) 0.0 x10^3/uL (0.0-0.2) Prothrombin Time 22.6 SEC (9.4-11.4) H Prothrombin Time INR 2.2 (0.9-1.1) H Sodium Level 137 mmol/L (136-145) Potassium Level 4.7 mmol/L (3.5-5.1) Chloride Level 97 mmol/L (98-107) L Carbon Dioxide Level 39 mmol/L (21-32) H Anion Gap 1 (6-14) L Blood Urea Nitrogen 28 mg/dL (7-20) H Creatinine 1.1 mg/dL (0.6-1.0) H Estimated GFR (Cockcroft-Gault) 47.2 BUN/Creatinine Ratio 25 (6-20) H Glucose Level 197 mg/dL (70-99) H Calcium Level 8.6 mg/dL (8.5-10.1) Total Bilirubin 0.3 mg/dL (0.2-1.0) Aspartate Amino Transferase (AST) 26 U/L (15-37) Alanine Aminotransferase (ALT) 21 U/L (14-59) Alkaline Phosphatase 71 U/L (46-116) Total Protein 5.8 g/dL (6.4-8.2) L Albumin 2.6 g/dL (3.4-5.0) L Albumin/Globulin Ratio 0.8 (1.0-1.7) L Glucose (Fingerstick) 164 mg/dL (70-99) H 220 mg/dL (70-99) H 219 mg/dL (70-99) H Test 05/20/17 19:00 Glucose (Fingerstick) 266 mg/dL (70-99) H Current Medications: Meds: Current Medications Acetaminophen (Tylenol) 650 mg PRN Q6HRS PRN PO PAIN / TEMP; Start 04/30/17 at 18:30; Stop 04/30/17 at 19:53; Status DC Potassium Chloride (Klor-Con) 20 meq 1X ONCE PO Last administered on t 20:51; Start 04/30/17 at 20:00; Stop 04/30/17 at 20:01; Status DC Magnesium Chloride (Mag Delay) 64 mg DAILY PO Last administered on 05/06/17 08: 16; Start 05/01/17 at 09:00; Stop 05/06/17 at 18:08; Status DC Acetaminophen (Tylenol) 650 mg PRN Q6HRS PRN PO PAIN / TEMP Last administered on 05/04/17 11:44; Start 04/30/17 at 20:00; Stop 05/05/17 at 19:37; Status DC Al Hydroxide/Mg Hydroxide (Mylanta Plus Xs) 15 ml PRN AFTMEALHC PRN PO DYSPEPSIA; Start 04/30/17 at 20:00 Magnesium Hydroxide (Milk Of Magnesia) 2,400 mg PRN QHS PRN PO CONSTIPATION Last administered on 05/12/17 19:28; Start 04/30/17 at 20:00 Allopurinol (Zyloprim) 200 mg DAILYWSUP PO Last administered on 05/20/17 17:19 ; Start 05/01/17 at 17:00 Atenolol (Tenormin) 50 mg BID PO Last administered on 05/20/17 19:33; Start at 21:00 Calcium Carbonate/ Glycine (Oscal) 500 mg BIDWMEALS PO Last administered on 17:19; Start 05/01/17 at 08:00 Vitamin D (Vitamin D3) 1,000 unit DAILYWBKFT PO Last administered on 05/20/17 08:34; Start 05/01/17 at 08:00 Digoxin (Lanoxin) 125 mcg DAILY PO Last administered on 05/20/17 08:33; Start 05/01/17 at 09:00 Furosemide (Lasix) 120 mg DAILY PO Last administered on 05/05/17 13:31; Start 05/01/17 at 09:00; Stop 05/05/17 at 19:39; Status DC Metformin HCl (Glucophage) 850 mg BIDWMEALS PO Last administered on 05/20/17 17:19; Start 05/01/17 at 08:00 Potassium Chloride (Klor-Con) 20 meq BID PO Last administered on 05/04/17 20:37 ; Start 05/01/17 at 09:00; Stop 05/05/17 at 19:31; Status DC Warfarin Sodium (Coumadin) 6 mg DAILY16 PO Last administered on 05/01/17 16:56 ; Start 05/01/17 at 16:00; Stop 05/02/17 at 11:39; Status DC Non-Formulary Medication 500 mg BIDWMEALS PO ; Start 05/01/17 at 08:00; Stop 05/01 at 08:00; Status DC Glucosamine/ Chondroitin (Glucosamine-Chondroitin 500/400mg) 1 cap BIDWMEALS PO Last administered on 05/05/17 16:45; Start 05/01/17 at 08:00; Stop 05/05/17 at 18:18; Status DC Lactobacillus Acidophilus (Bacid, Orly-Bid) 2 tab DAILYWBKFT PO Last administered on 05/03/17 07:19; Start 05/01/17 at 08:00; Stop 05/05/17 at 18:18; Status DC Non-Formulary Medication 20 mg QHS PO ; Start 04/30/17 at 21:00; Stop 04/30/17 at 21:00; Status DC Non-Formulary Medication 5 mg QHS PO ; Start 04/30/17 at 21:00; Stop 04/30/17 at 21:00; Status DC Multivitamins/ Minerals (I-Gera) 1 tab DAILY PO Last administered on 05/03/17 07:20; Start 05/01/17 at 09:00; Stop 05/05/17 at 19:39; Status DC Pantoprazole Sodium (Protonix) 40 mg DAILYAC PO Last administered on 05/20/17 08:33; Start 05/01/17 at 07:30 Tamoxifen Citrate (Nolvadex) 20 mg DAILY PO Last administered on 05/20/17 08: 40; Start 05/01/17 at 09:00 Coenzyme Q10 (Coenzyme Q10) 100 mg BID PO Last administered on 05/04/17 20:36; Start 05/01/17 at 09:00; Stop 05/05/17 at 18:18; Status DC Sertraline HCl (Zoloft) 50 mg QHS PO Last administered on 04/30/17 20:51; Start 04/30/17 at 21:00; Stop 05/01/17 at 11:00; Status DC Melatonin 4.5 mg QHS PO Last administered on 05/04/17 20:37; Start 04/30/17 at 21:00; Stop 05/05/17 at 18:18; Status DC Olanzapine (ZyPREXA ZYDIS) 2.5 mg PRN Q4HRS PRN PO Psych Last administered on 16:52; Start 04/30/17 at 20:15 Magnesium Oxide (Magnesium Oxide) 400 mg BID PO Last administered on 05/14/17 09:35; Start 04/30/17 at 21:00; Stop 05/14/17 at 11:01; Status DC Warfarin Sodium (Coumadin) 6 mg 1X WARF ONCE PO Last administered on 20:51; Start 04/30/17 at 20:45; Stop 04/30/17 at 20:46; Status DC Warfarin Sodium (Coumadin) 0.5 mg 1X WARF ONCE PO Last administered on 20:51; Start 04/30/17 at 20:45; Stop 04/30/17 at 20:46; Status DC Warfarin Sodium (Coumadin Per Physician) 1 each PRN DAILY PRN MC SEE COMMENTS; Start 05/01/17 at 09:45; Stop 05/01/17 at 14:54; Status DC Risperidone (RisperDAL) 0.25 mg HS PO Last administered on 05/02/17 19:39; Start 05/01/17 at 21:00; Stop 05/03/17 at 18:28; Status DC Trazodone HCl (Desyrel) 100 mg QHS PO Last administered on 05/20/17 19:34; Start 05/01/17 at 21:00 Trazodone HCl (Desyrel) 100 mg PRN QHS PRN PO INSOMNIA Last administered on 01:22; Start 05/01/17 at 10:45 Insulin Detemir (Levemir) 5 units QHS SQ Last administered on 05/20/17 19:35; Start 05/01/17 at 21:00 Insulin Aspart (NovoLOG) 0-5 UNITS QIDACHS SQ Last administered on 05/20/17 19 :36; Start 05/01/17 at 16:30 Dextrose 12.5 gm PRN Q15MIN PRN IV SEE COMMENTS; Start 05/01/17 at 14:45 Warfarin Sodium (Coumadin Per Pharmacy) 1 each PRN DAILY PRN MC SEE COMMENTS Last administered on 05/20/17 10:53; Start 05/01/17 at 14:45 Insulin Aspart (NovoLOG) 10 units 1X ONCE SQ Last administered on 05/01/17 17: 15; Start 05/01/17 at 17:15; Stop 05/01/17 at 17:16; Status DC Warfarin Sodium (Coumadin) 7.5 mg 1X WARF ONCE PO Last administered on 17:16; Start 05/02/17 at 16:00; Stop 05/02/17 at 16:01; Status DC Warfarin Sodium (Coumadin) 7.5 mg 1X WARF ONCE PO Last administered on 16:18; Start 05/03/17 at 16:00; Stop 05/03/17 at 16:01; Status DC Risperidone (RisperDAL) 0.5 mg HS SL Last administered on 05/04/17 20:41; Start 05/03/17 at 21:00; Stop 05/05/17 at 19:33; Status DC Valproic Acid (Depakene) 250 mg BIDWMEALS PO Last administered on 05/07/17 16: 52; Start 05/04/17 at 08:00; Stop 05/07/17 at 18:23; Status DC Warfarin Sodium (Coumadin) 7.5 mg 1X WARF ONCE PO Last administered on 16:02; Start 05/04/17 at 16:00; Stop 05/04/17 at 16:01; Status DC Mirtazapine (Remeron) 7.5 mg QHS PO Last administered on 05/04/17 20:38; Start 05/04/17 at 21:00; Stop 05/05/17 at 19:33; Status DC Warfarin Sodium (Coumadin) 7.5 mg 1X WARF ONCE PO Last administered on 16:46; Start 05/05/17 at 16:00; Stop 05/05/17 at 16:01; Status DC Potassium Chloride (KCl Oral Soln) 20 meq BID PO Last administered on 05/09/17 09:13; Start 05/05/17 at 21:00; Stop 05/09/17 at 18:44; Status DC Risperidone (RisperDAL) 1 mg HS SL ; Start 05/05/17 at 21:00; Stop 05/06/17 at 11: 05; Status DC Mirtazapine (Remeron Olive-Tab) 7.5 mg QHS PO Last administered on 05/20/17 19: 33; Start 05/05/17 at 21:00 Acetaminophen (Tylenol) 650 mg PRN Q6HRS PRN PO PAIN / TEMP Last administered on 05/09/17 09:12; Start 05/05/17 at 19:45; Stop 05/10/17 at 08:51; Status DC Furosemide (Lasix) 120 mg DAILY PO Last administered on 05/09/17 09:43; Start 05/06/17 at 09:00; Stop 05/09/17 at 18:44; Status DC Multivitamins (Thera-Plus) 5 ml DAILY PO Last administered on 05/08/17 08:02; Start 05/06/17 at 09:00; Stop 05/10/17 at 08:51; Status DC Risperidone (RisperDAL) 0.5 mg HS SL Last administered on 05/08/17 21:49; Start 05/06/17 at 21:00; Stop 05/09/17 at 09:00; Status DC Melatonin 3 mg PRN QHS PRN PO INSOMNIA Last administered on 05/18/17 19:59; Start 05/06/17 at 18:15 Warfarin Sodium (Coumadin) 7.5 mg 1X WARF ONCE PO Last administered on 16:51; Start 05/07/17 at 16:00; Stop 05/07/17 at 16:01; Status DC Valproic Acid (Depakene) 375 mg BIDWMEALS PO Last administered on 05/09/17 16: 27; Start 05/08/17 at 08:00; Stop 05/09/17 at 18:44; Status DC Warfarin Sodium (Coumadin) 7.5 mg 1X WARF ONCE PO Last administered on 16:53; Start 05/08/17 at 16:00; Stop 05/08/17 at 16:01; Status DC Warfarin Sodium (Coumadin) 7.5 mg 1X WARF ONCE PO Last administered on 16:26; Start 05/09/17 at 16:00; Stop 05/09/17 at 16:01; Status DC Furosemide (Lasix) 120 mg DAILY PO Last administered on 05/20/17 08:34; Start 05/10/17 at 09:00 Potassium Chloride (Klor-Con) 20 meq BID PO Last administered on 05/20/17 19: 34; Start 05/09/17 at 21:00 Divalproex Sodium (Depakote Sprinkles) 375 mg BIDWMEALS PO Last administered on 05/18/17 16:59; Start 05/10/17 at 08:00; Stop 05/18/17 at 18:50; Status DC Multivitamins/ Calcium (Thera-M Plus) 1 tab DAILY PO Last administered on 08:33; Start 05/10/17 at 09:00 Acetaminophen (Tylenol) 650 mg PRN Q6HRS PRN PO PAIN / TEMP Last administered on 05/20/17 01:21; Start 05/10/17 at 09:00 Warfarin Sodium (Coumadin) 4 mg 1X WARF ONCE PO Last administered on 16:17; Start 05/10/17 at 16:00; Stop 05/10/17 at 16:01; Status DC Warfarin Sodium (Coumadin) 3 mg 1X WARF ONCE PO Last administered on 16:17; Start 05/10/17 at 16:00; Stop 05/10/17 at 16:01; Status DC Warfarin Sodium (Coumadin) 4 mg DAILY16 PO Last administered on 05/12/17 17:08 ; Start 05/11/17 at 16:00; Stop 05/13/17 at 11:50; Status DC Warfarin Sodium (Coumadin) 3 mg DAILY16 PO Last administered on 05/12/17 17:08 ; Start 05/11/17 at 16:00; Stop 05/13/17 at 11:50; Status DC Warfarin Sodium (Coumadin - No Dose Today) 1 each 1X WARF ONCE MC ; Start 05/13 at 16:00; Stop 05/13/17 at 16:01; Status DC Magnesium Oxide (Magnesium Oxide) 400 mg TID PO Last administered on 05/20/17 19:32; Start 05/14/17 at 14:00 Warfarin Sodium (Coumadin - No Dose Today) 1 each 1X WARF ONCE MC ; Start 05/14 at 16:00; Stop 05/14/17 at 16:02; Status DC Nystatin (Nystop) 1 lexie BID TP ; Start 05/15/17 at 09:00; Stop 05/15/17 at 09:00 ; Status DC Nystatin (Nystop) 1 lexie BID TP Last administered on 05/20/17 19:32; Start at 23:15 Warfarin Sodium (Coumadin) 7.5 mg 1X WARF ONCE PO ; Start 05/15/17 at 16:00; Stop 05/15/17 at 16:01; Status DC Warfarin Sodium (Coumadin) 7.5 mg 1X WARF ONCE PO Last administered on 14:59; Start 05/16/17 at 16:00; Stop 05/16/17 at 16:01; Status DC Warfarin Sodium (Coumadin) 7.5 mg 1X WARF ONCE PO Last administered on 17:08; Start 05/17/17 at 16:00; Stop 05/17/17 at 16:01; Status DC Warfarin Sodium (Coumadin) 8 mg 1X WARF ONCE PO ; Start 05/18/17 at 16:00; Stop 05/18/17 at 16:00; Status DC Warfarin Sodium (Coumadin) 8 mg 1X WARF ONCE PO Last administered on 16:59; Start 05/18/17 at 16:00; Stop 05/18/17 at 16:01; Status DC Warfarin Sodium (Coumadin) 7.5 mg 1X WARF ONCE PO Last administered on 17:08; Start 05/19/17 at 16:00; Stop 05/19/17 at 16:01; Status DC Warfarin Sodium (Coumadin) 3 mg 1X WARF ONCE PO Last administered on 17:24; Start 05/20/17 at 16:00; Stop 05/20/17 at 16:01; Status DC Warfarin Sodium (Coumadin) 4 mg 1X WARF ONCE PO Last administered on 17:24; Start 05/20/17 at 16:00; Stop 05/20/17 at 16:01; Status DC Active Scripts Active Reported Probiotic (Lactobacillus Combo No.10) 1 Each Capsule 1 Cap PO DAILYWBKFT Women's Daily Caplet (Multivits,Ca,Minerals/Iron/Fa) 1 Each Tablet 1 Tab PO BID Zoloft (Sertraline Hcl) 25 Mg Tablet 25 Mg PO QHS 7 Days Zoloft (Sertraline Hcl) 50 Mg Tablet 50 Mg PO QHS 3 Days Omeprazole 20 Mg Tablet.dr 20 Mg PO DAILY07 Allopurinol 100 Mg Tablet 200 Mg PO DAILYWSUP Vitamin D3 (Cholecalciferol (Vitamin D3)) 1,000 Unit Tablet 1,000 Unit PO DAILYWBKFT Oyster Shell Calcium (Calcium Carbonate) 500 Mg Tablet 500 Mg PO BIDWMEALS Cinnamon (Cinnamon Bark) 500 Mg Capsule 500 Mg PO BIDWMEALS Co Q-10 100 Mg Softgel (Ubidecarenone/Vit E Acetate) 1 Each Capsule 100 Mg PO BID Melatonin 5 Mg Tablet (Melatonin/Pyridoxine) 1 Each Tablet 5 Mg PO QHS Lutein 20 Mg Capsule 20 Mg PO QHS Qngregljgw-Ubhhpomfewe-Skm Tab (Gluc/Victor M-Msm#2/C/D3/Anthony/Born) 1 Each Tablet 1 Tab PO BIDWMEALS Metformin Hcl 850 Mg Tablet 850 Mg PO BIDWMEALS Digoxin 125 Mcg Tablet 125 Mcg PO DAILY Tamoxifen Citrate 20 Mg Tablet 20 Mg PO DAILY Atenolol 50 Mg Tablet 50 Mg PO BID Lasix (Furosemide) 80 Mg Tablet 120 Mg PO DAILY Coumadin (Warfarin Sodium) 6 Mg Tablet 6 Mg PO QPM Potassium Chloride 10 Meq Capsule.er 10 Meq PO BID Diagnosis: Problems: (1) Anxiety disorder (2) Impulse control disorder (3) Bipolar affective, mixed, sev w/ psych (4) Dementia, vascular, 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
[2017-05-21] MEDS ORDERED: LURA40TA PO (00:13)
[2017-05-21] MEDS ORDERED: MIRT15TA2 SL (00:15)
[2017-05-21] MEDS ORDERED: OLAN5TAB5 PO (00:16)
[2017-05-21] MEDS ORDERED: TRAZ-90 PO ×2 (00:17→00:18)
[2017-05-21] MEDS ORDERED: MELA3TAB2 PO (00:20)
[2017-05-21] MEDS ORDERED: ACET325T9 PO (00:29)
[2017-05-21] MEDS ORDERED: INSU100V13 SQ (00:36)
[2017-05-21] MEDS ORDERED: INSU100V31 SQ (00:36)
[2017-05-21] MEDS ORDERED: MAGN2400 PO (00:41)
[2017-05-21] MEDS ORDERED: MAG355OR17 PO (00:41)
[2017-05-21] MEDS ORDERED: MAGN400T3 PO (00:42)
[2017-05-21] MEDS ORDERED: NYST60PO TP (00:43)
[2017-05-21] MEDS ORDERED: PANT40TA5 PO (00:44)
[2017-05-21] MEDS ORDERED: POTA20TA4 PO (00:45)
[2017-05-21] MEDS ORDERED: WARF3TAB7 PO (00:50)
[2017-05-21] MEDS ORDERED: WARF4TAB7 PO (00:50)
[2017-05-21 06:31] VITALS: BP 137/65
[2017-05-21] MEDS: INSULIN ASPART 300 UNITS/3 ML INSULN.PEN SQ SCH (07:30)
[2017-05-21] MEDS ORDERED: WARF6TAB PO (07:56)
[2017-05-21] MEDS: POTASSIUM CHLORIDE 20 MEQ TABLET.ER. PO SCH (08:29)
[2017-05-21] MEDS: CALCIUM CARBONATE 500 MG TABLET PO SCH (08:29)
[2017-05-21] MEDS: MULTIVITAMIN with MINERAL TABLET. PO SCH (08:29)
[2017-05-21] MEDS: LURASIDONE 40 MG TABLET. PO SCH (08:29)
[2017-05-21] MEDS: metFORMIN 850 MG TABLET PO SCH (08:30)
[2017-05-21] MEDS: FUROSEMIDE 40 MG TABLET PO SCH (08:30)
[2017-05-21] MEDS: ATENOLOL 50 MG TABLET PO SCH (08:30)
[2017-05-21] MEDS: CHOLECALCIFEROL (VITAMIN D3) 1,000 UNIT TABLET PO SCH (08:30)
[2017-05-21 08:31] VITALS: BP 137/65
[2017-05-21] MEDS: NYSTATIN TOPICAL POWDER 15GM BOTTLE. TP SCH (08:31)
[2017-05-21] MEDS: MAGNESIUM OXIDE 400 MG TABLET PO SCH (08:31)
[2017-05-21] MEDS: DIGOXIN 125 MCG TABLET PO SCH (08:31)
[2017-05-21] MEDS: PANTOPRAZOLE 40 MG TABLET. PO SCH (08:31)
[2017-05-21] MEDS: TAMOXIFEN 10 MG TABLET PO SCH (08:33)
--- NOTE | 2017-05-21 09:54 | NUR ---
Behavior Intervention Response and Plan: BIRP Note: Behavior: Assumed Care of patient, patient located in Dining Room at shift change. Patient exhibited the following behavior Disorganized, Calm, Compliant. Brief assessment on rounds of vital signs, medication needs, lab studies, and pain. Treatment plan problems . Intervention: Patient assessed and the following interventions initiated safety checks 15 Minute Checks Cognitive Assessment , Head to toe Assessment , Medications. Response: After interactions and interventions patient responded in the following manner, Disorganized , Compliant ,Appropriate. Continue to assess behaviors and condition will continue to monitor throughout the shift as needed. Plan: Continue to monitor Master Treatment Plan for patient's progress toward short term goals of Decreased Agitation, Decreased Anxiety, express clerk goals to return to previous living setting vs placement. Continue to assess patient for changes in above assessment. Monitor for medication needs, pain, and safety concerns. Hourly rounding performed to ensure safe environment.
--- NOTE | 2017-05-21 09:55 | NUR ---
Discharge Note [facility] Patient is not currently a tobacco user. Follow up Appointment made: Date and Time 05/21 820 instructions and Social Work Discharge planning sheet sent to next level of care. [facility] contact Number for 24 hour support [phone] Discharge Packet Sent, and discusssed with patient and caregiver that includes Copies from the record of current medications with indications and frequencies, history and physical, Psychiatric Eval with reason and justification for admission, Lab values, Radiology results , follow up instructions for continuation of care, and Social Work discharge planning form: yes Discharge Packet Faxed to Provider/Next Level of Care: yes Discharge Packet Faxed with discharge Order and Discharge diagnosis sent to:[facility] Discharge Packet Discussed, and report Given to: caregiver Discharge instruction sheet was included in the packet and sent with the patient upon discharge. Any Pending lab results can be obtained by calling [phone] Discharge Summary will be sent to next care provider when available. This includes the reason for admission, DC diagnosis, and next level of care recommendations.
[2017-05-21] MEDS ORDERED: WARFARIN 6 MG TABLET. PO SCH (16:00)
--- NOTE | 2017-05-21 22:15 | PN ---
DATE: 05/20/2017 This note covers the elements not covered in my initial note. SUBJECTIVE: The patient was staffed at a treatment team meeting with the entire team on morning of 05/20/2017, seen individually on evening of 05/20/2017, sleeping about 6-1/2 hours, appetite 90%. Overall, pleasant, cooperative, compliant with medications, ankles have less swelling. The singing, repetitiveness, loud verbalizations have improved significantly. REVIEW OF SYSTEMS: Hard of hearing, impaired ambulation in a Broda chair. No CV, , pulmonary, eye system symptoms on review. MENTAL STATUS EXAM: Oriented to herself and situation. Speech is coherent, abstraction fair, computation impaired, language function intact, attention span short. Mood and affect, lability is improved. LABORATORY DATA: Reviewed. IMPRESSION: Unchanged from initial note. PLAN: Continue current medications. MAN Angel GROSS MD DR: DAO/brooklyn JOB#: [id number] / [id number]
--- NOTE | 2017-05-22 01:37 | DS ---
DATE OF DISCHARGE: 05/21/2017 DISCHARGE SUMMARY/PSYCHIATRIC PROGRESS NOTE REASON FOR ADMISSION: Please refer to the admission history for details. Briefly, the patient is an 86-year-old female, referred to us from [facility], referred by her primary care physician on account of recurrence of her bipolar disorder. She was yelling out, intrusive, agitated, physically hitting staff, refusing medications, having abnormal jerking movements, laughing inappropriately with marked insomnia. She had been an inpatient in the past in [place] and according to the son had responded to a combination of Remeron and Latuda during that stay. SIGNIFICANT FINDINGS AND CLINICAL COURSE: Following admission, the patient was seen daily individually by myself, followed medically per Dr. Mercer/Dr. Mariee. She was loud, psychotic, agitated, very confused, remained hard of hearing in a wheelchair. She was extremely disorganized. Initially, she appeared quite demented, but on further review of her history and evaluation of her individually was very reflective of her diagnosis of bipolar disorder. She was initially started on Depakote and Risperdal, but after we received information from the family of her positive response to Remeron and Latuda, we made the change. Risperdal was changed to Latuda, Depakote was initially continued, but later even this was discontinued. Gradually mood appeared to stabilize. Psychotic symptoms subsided. She was much more appropriate prior to discharge on 05/21/2017. REVIEW OF SYSTEMS: Hard of hearing, impaired ambulation in a wheelchair. No CV, , pulmonary, eye system symptoms on review. MENTAL STATUS EXAM: Oriented to herself and situation. Speech coherent, not pressured. Abstraction fair, computation impaired, language function intact. Mood and affect improved. The patient's son was very closely involved in her treatment and aftercare plans, which was an asset for her. FINAL DIAGNOSES: Bipolar 1 disorder, manic with psychotic features, in partial remission; anxiety disorder, unspecified; impulse control disorder, unspecified; cognitive disorder, unspecified. Rest diagnosis unchanged from admission. DISCHARGE MEDICATIONS: Please refer to the MRAD. DISCHARGE INSTRUCTIONS: Outpatient psychiatric and medical followup at the facility she was transferred to for penitentiary care. Time for discharge and management greater than 30 minutes. MAN Angel GROSS MD DR: DAO/brooklyn JOB#: [id number] / [id number]
--- NOTE | 2017-05-23 20:04 | PDOC ---
Exam Tahir Demential Exam: Tahir Note: Please also refer to the separate dictated note~for this date of service dictated separately.~Patient seen individually. Discussed the patient with Nursing staff reviewed the chart.~Reviewed interim history and current functioning. Reviewed vital signs,~Labs/ Radiology~and current medications noted below. Continue current treatment with the changes noted in the dictated addendum note S/O: This is a late entry of May 17 covers elements not covered in my initial note. Overall, the patient had a good day and good night per nursing report. Review of systems: Hard of hearing and I had to talk loudly into her ear. Impaired ambulation, in wheelchair. No CV, , Pulmonary, Eye system symptoms on review. MSE: Oriented to herself and situation. Speech is coherent. Abstraction fair. Computation impaired. Language function intact. No active hallucinations, suicidal, or homicidal ideation. Intellect average. Insight fair. Judgment grossly intact. Labs: Reviewed. Imp: Unchanged from initial note. Bipolar I disorder mixed with psychotic features, in partial remission; cognitive disorder, unspecified; anxiety disorder, unspecified. Plan: Continued current psychotropics including Depakote Sprinkles 375 mg b.i.d. with the level of 34.9. Even though, this is subtherapeutic clinically it is adequate for now. Adjust further as clinically indicated. Assessment: Vital Signs: Vital Signs Date Time Temp Pulse Resp B/P (MAP) Pulse Ox O2 Delivery O2 Flow Rate FiO2 05/21/17 08:31 86 137/65 05/21/17 06:31 98.9 20 93 05/17/17 15:35 Room Air Current Medications: Meds: Current Medications Acetaminophen (Tylenol) 650 mg PRN Q6HRS PRN PO PAIN / TEMP; Start 04/30/17 at 18:30; Stop 04/30/17 at 19:53; Status DC Potassium Chloride (Klor-Con) 20 meq 1X ONCE PO Last administered on 20:51; Start 04/30/17 at 20:00; Stop 04/30/17 at 20:01; Status DC Magnesium Chloride (Mag Delay) 64 mg DAILY PO Last administered on 05/06/17 08: 16; Start 05/01/17 at 09:00; Stop 05/06/17 at 18:08; Status DC Acetaminophen (Tylenol) 650 mg PRN Q6HRS PRN PO PAIN / TEMP Last administered on 05/04/17 11:44; Start 04/30/17 at 20:00; Stop 05/05/17 at 19:37; Status DC Al Hydroxide/Mg Hydroxide (Mylanta Plus Xs) 15 ml PRN AFTMEALHC PRN PO DYSPEPSIA; Start 04/30/17 at 20:00; Stop 05/21/17 at 10:12; Status DC Magnesium Hydroxide (Milk Of Magnesia) 2,400 mg PRN QHS PRN PO CONSTIPATION Last administered on 05/12/17 19:28; Start 04/30/17 at 20:00; Stop 05/21/17 at 10:12; Status DC Allopurinol (Zyloprim) 200 mg DAILYWSUP PO Last administered on 05/20/17 17:19 ; Start 05/01/17 at 17:00; Stop 05/21/17 at 10:12; Status DC Atenolol (Tenormin) 50 mg BID PO Last administered on 05/21/17 08:30; Start at 21:00; Stop 05/21/17 at 10:12; Status DC Calcium Carbonate/ Glycine (Oscal) 500 mg BIDWMEALS PO Last administered on 08:29; Start 05/01/17 at 08:00; Stop 05/21/17 at 10:12; Status DC Vitamin D (Vitamin D3) 1,000 unit DAILYWBKFT PO Last administered on 05/21/17 08:30; Start 05/01/17 at 08:00; Stop 05/21/17 at 10:12; Status DC Digoxin (Lanoxin) 125 mcg DAILY PO Last administered on 05/21/17 08:31; Start 05/01/17 at 09:00; Stop 05/21/17 at 10:12; Status DC Furosemide (Lasix) 120 mg DAILY PO Last administered on 05/05/17 13:31; Start 05/01/17 at 09:00; Stop 05/05/17 at 19:39; Status DC Metformin HCl (Glucophage) 850 mg BIDWMEALS PO Last administered on 05/21/17 08:30; Start 05/01/17 at 08:00; Stop 05/21/17 at 10:12; Status DC Potassium Chloride (Klor-Con) 20 meq BID PO Last administered on 05/04/17 20:37 ; Start 05/01/17 at 09:00; Stop 05/05/17 at 19:31; Status DC Warfarin Sodium (Coumadin) 6 mg DAILY16 PO Last administered on 05/01/17 16:56 ; Start 05/01/17 at 16:00; Stop 05/02/17 at 11:39; Status DC Non-Formulary Medication 500 mg BIDWMEALS PO ; Start 05/01/17 at 08:00; Stop 05/01 at 08:00; Status DC Glucosamine/ Chondroitin (Glucosamine-Chondroitin 500/400mg) 1 cap BIDWMEALS PO Last administered on 05/05/17 16:45; Start 05/01/17 at 08:00; Stop 05/05/17 at 18:18; Status DC Lactobacillus Acidophilus (Bacid, Orly-Bid) 2 tab DAILYWBKFT PO Last administered on 05/03/17 07:19; Start 05/01/17 at 08:00; Stop 05/05/17 at 18:18; Status DC Non-Formulary Medication 20 mg QHS PO ; Start 04/30/17 at 21:00; Stop 04/30/17 at 21:00; Status DC Non-Formulary Medication 5 mg QHS PO ; Start 04/30/17 at 21:00; Stop 04/30/17 at 21:00; Status DC Multivitamins/ Minerals (I-Gera) 1 tab DAILY PO Last administered on 05/03/17 07:20; Start 05/01/17 at 09:00; Stop 05/05/17 at 19:39; Status DC Pantoprazole Sodium (Protonix) 40 mg DAILYAC PO Last administered on 05/21/17 08:31; Start 05/01/17 at 07:30; Stop 05/21/17 at 10:12; Status DC Tamoxifen Citrate (Nolvadex) 20 mg DAILY PO Last administered on 05/21/17 08: 33; Start 05/01/17 at 09:00; Stop 05/21/17 at 10:12; Status DC Coenzyme Q10 (Coenzyme Q10) 100 mg BID PO Last administered on 05/04/17 20:36; Start 05/01/17 at 09:00; Stop 05/05/17 at 18:18; Status DC Sertraline HCl (Zoloft) 50 mg QHS PO Last administered on 04/30/17 20:51; Start 04/30/17 at 21:00; Stop 05/01/17 at 11:00; Status DC Melatonin 4.5 mg QHS PO Last administered on 05/04/17 20:37; Start 04/30/17 at 21:00; Stop 05/05/17 at 18:18; Status DC Olanzapine (ZyPREXA ZYDIS) 2.5 mg PRN Q4HRS PRN PO Psych Last administered on 16:52; Start 04/30/17 at 20:15; Stop 05/21/17 at 10:12; Status DC Magnesium Oxide (Magnesium Oxide) 400 mg BID PO Last administered on 05/14/17 09:35; Start 04/30/17 at 21:00; Stop 05/14/17 at 11:01; Status DC Warfarin Sodium (Coumadin) 6 mg 1X WARF ONCE PO Last administered on 20:51; Start 04/30/17 at 20:45; Stop 04/30/17 at 20:46; Status DC Warfarin Sodium (Coumadin) 0.5 mg 1X WARF ONCE PO Last administered on 20:51; Start 04/30/17 at 20:45; Stop 04/30/17 at 20:46; Status DC Warfarin Sodium (Coumadin Per Physician) 1 each PRN DAILY PRN MC SEE COMMENTS; Start 05/01/17 at 09:45; Stop 05/01/17 at 14:54; Status DC Risperidone (RisperDAL) 0.25 mg HS PO Last administered on 05/02/17 19:39; Start 05/01/17 at 21:00; Stop 05/03/17 at 18:28; Status DC Trazodone HCl (Desyrel) 100 mg QHS PO Last administered on 05/20/17 19:34; Start 05/01/17 at 21:00; Stop 05/21/17 at 10:12; Status DC Trazodone HCl (Desyrel) 100 mg PRN QHS PRN PO INSOMNIA Last administered on 01:22; Start 05/01/17 at 10:45; Stop 05/21/17 at 10:12; Status DC Insulin Detemir (Levemir) 5 units QHS SQ Last administered on 05/20/17 19:35; Start 05/01/17 at 21:00; Stop 05/21/17 at 10:12; Status DC Insulin Aspart (NovoLOG) 0-5 UNITS QIDACHS SQ Last administered on 05/20/17 19 :36; Start 05/01/17 at 16:30; Stop 05/21/17 at 10:12; Status DC Dextrose 12.5 gm PRN Q15MIN PRN IV SEE COMMENTS; Start 05/01/17 at 14:45; Stop 05/21/17 at 10:12; Status DC Warfarin Sodium (Coumadin Per Pharmacy) 1 each PRN DAILY PRN MC SEE COMMENTS Last administered on 05/20/17 10:53; Start 05/01/17 at 14:45; Stop 05/21/17 at 10:12; Status DC Insulin Aspart (NovoLOG) 10 units 1X ONCE SQ Last administered on 05/01/17 17: 15; Start 05/01/17 at 17:15; Stop 05/01/17 at 17:16; Status DC Warfarin Sodium (Coumadin) 7.5 mg 1X WARF ONCE PO Last administered on 17:16; Start 05/02/17 at 16:00; Stop 05/02/17 at 16:01; Status DC Warfarin Sodium (Coumadin) 7.5 mg 1X WARF ONCE PO Last administered on 16:18; Start 05/03/17 at 16:00; Stop 05/03/17 at 16:01; Status DC Risperidone (RisperDAL) 0.5 mg HS SL Last administered on 05/04/17 20:41; Start 05/03/17 at 21:00; Stop 05/05/17 at 19:33; Status DC Valproic Acid (Depakene) 250 mg BIDWMEALS PO Last administered on 05/07/17 16: 52; Start 05/04/17 at 08:00; Stop 05/07/17 at 18:23; Status DC Warfarin Sodium (Coumadin) 7.5 mg 1X WARF ONCE PO Last administered on 16:02; Start 05/04/17 at 16:00; Stop 05/04/17 at 16:01; Status DC Mirtazapine (Remeron) 7.5 mg QHS PO Last administered on 05/04/17 20:38; Start 05/04/17 at 21:00; Stop 05/05/17 at 19:33; Status DC Warfarin Sodium (Coumadin) 7.5 mg 1X WARF ONCE PO Last administered on 16:46; Start 05/05/17 at 16:00; Stop 05/05/17 at 16:01; Status DC Potassium Chloride (KCl Oral Soln) 20 meq BID PO Last administered on 05/09/17 09:13; Start 05/05/17 at 21:00; Stop 05/09/17 at 18:44; Status DC Risperidone (RisperDAL) 1 mg HS SL ; Start 05/05/17 at 21:00; Stop 05/06/17 at 11: 05; Status DC Mirtazapine (Remeron Olive-Tab) 7.5 mg QHS PO Last administered on 05/20/17 19: 33; Start 05/05/17 at 21:00; Stop 05/21/17 at 10:12; Status DC Acetaminophen (Tylenol) 650 mg PRN Q6HRS PRN PO PAIN / TEMP Last administered on 05/09/17 09:12; Start 05/05/17 at 19:45; Stop 05/10/17 at 08:51; Status DC Furosemide (Lasix) 120 mg DAILY PO Last administered on 05/09/17 09:43; Start 05/06/17 at 09:00; Stop 05/09/17 at 18:44; Status DC Multivitamins (Thera-Plus) 5 ml DAILY PO Last administered on 05/08/17 08:02; Start 05/06/17 at 09:00; Stop 05/10/17 at 08:51; Status DC Risperidone (RisperDAL) 0.5 mg HS SL Last administered on 05/08/17 21:49; Start 05/06/17 at 21:00; Stop 05/09/17 at 09:00; Status DC Melatonin 3 mg PRN QHS PRN PO INSOMNIA Last administered on 05/18/17 19:59; Start 05/06/17 at 18:15; Stop 05/21/17 at 10:12; Status DC Warfarin Sodium (Coumadin) 7.5 mg 1X WARF ONCE PO Last administered on 16:51; Start 05/07/17 at 16:00; Stop 05/07/17 at 16:01; Status DC Valproic Acid (Depakene) 375 mg BIDWMEALS PO Last administered on 05/09/17 16: 27; Start 05/08/17 at 08:00; Stop 05/09/17 at 18:44; Status DC Warfarin Sodium (Coumadin) 7.5 mg 1X WARF ONCE PO Last administered on 16:53; Start 05/08/17 at 16:00; Stop 05/08/17 at 16:01; Status DC Warfarin Sodium (Coumadin) 7.5 mg 1X WARF ONCE PO Last administered on 16:26; Start 05/09/17 at 16:00; Stop 05/09/17 at 16:01; Status DC Furosemide (Lasix) 120 mg DAILY PO Last administered on 05/21/17 08:30; Start 05/10/17 at 09:00; Stop 05/21/17 at 10:12; Status DC Potassium Chloride (Klor-Con) 20 meq BID PO Last administered on 05/21/17 08: 29; Start 05/09/17 at 21:00; Stop 05/21/17 at 10:12; Status DC Divalproex Sodium (Depakote Sprinkles) 375 mg BIDWMEALS PO Last administered on 05/18/17 16:59; Start 05/10/17 at 08:00; Stop 05/18/17 at 18:50; Status DC Multivitamins/ Calcium (Thera-M Plus) 1 tab DAILY PO Last administered on 08:29; Start 05/10/17 at 09:00; Stop 05/21/17 at 10:12; Status DC Acetaminophen (Tylenol) 650 mg PRN Q6HRS PRN PO PAIN / TEMP Last administered on 05/20/17 01:21; Start 05/10/17 at 09:00; Stop 05/21/17 at 10:12; Status DC Warfarin Sodium (Coumadin) 4 mg 1X WARF ONCE PO Last administered on 16:17; Start 05/10/17 at 16:00; Stop 05/10/17 at 16:01; Status DC Warfarin Sodium (Coumadin) 3 mg 1X WARF ONCE PO Last administered on 16:17; Start 05/10/17 at 16:00; Stop 05/10/17 at 16:01; Status DC Warfarin Sodium (Coumadin) 4 mg DAILY16 PO Last administered on 05/12/17 17:08 ; Start 05/11/17 at 16:00; Stop 05/13/17 at 11:50; Status DC Warfarin Sodium (Coumadin) 3 mg DAILY16 PO Last administered on 05/12/17 17:08 ; Start 05/11/17 at 16:00; Stop 05/13/17 at 11:50; Status DC Warfarin Sodium (Coumadin - No Dose Today) 1 each 1X WARF ONCE MC ; Start 05/13 at 16:00; Stop 05/13/17 at 16:01; Status DC Magnesium Oxide (Magnesium Oxide) 400 mg TID PO Last administered on 05/21/17 08:31; Start 05/14/17 at 14:00; Stop 05/21/17 at 10:12; Status DC Warfarin Sodium (Coumadin - No Dose Today) 1 each 1X WARF ONCE MC ; Start 05/14 at 16:00; Stop 05/14/17 at 16:02; Status DC Nystatin (Nystop) 1 manuel BID TP ; Start 05/15/17 at 09:00; Stop 05/15/17 at 09:00 ; Status DC Nystatin (Nystop) 1 manuel BID TP Last administered on 05/21/17 08:31; Start at 23:15; Stop 05/21/17 at 10:12; Status DC Warfarin Sodium (Coumadin) 7.5 mg 1X WARF ONCE PO ; Start 05/15/17 at 16:00; Stop 05/15/17 at 16:01; Status DC Warfarin Sodium (Coumadin) 7.5 mg 1X WARF ONCE PO Last administered on 14:59; Start 05/16/17 at 16:00; Stop 05/16/17 at 16:01; Status DC Warfarin Sodium (Coumadin) 7.5 mg 1X WARF ONCE PO Last administered on 17:08; Start 05/17/17 at 16:00; Stop 05/17/17 at 16:01; Status DC Warfarin Sodium (Coumadin) 8 mg 1X WARF ONCE PO ; Start 05/18/17 at 16:00; Stop 05/18/17 at 16:00; Status DC Warfarin Sodium (Coumadin) 8 mg 1X WARF ONCE PO Last administered on 16:59; Start 05/18/17 at 16:00; Stop 05/18/17 at 16:01; Status DC Warfarin Sodium (Coumadin) 7.5 mg 1X WARF ONCE PO Last administered on 17:08; Start 05/19/17 at 16:00; Stop 05/19/17 at 16:01; Status DC Warfarin Sodium (Coumadin) 3 mg 1X WARF ONCE PO Last administered on 17:24; Start 05/20/17 at 16:00; Stop 05/20/17 at 16:01; Status DC Warfarin Sodium (Coumadin) 4 mg 1X WARF ONCE PO Last administered on 17:24; Start 05/20/17 at 16:00; Stop 05/20/17 at 16:01; Status DC Warfarin Sodium (Coumadin) 6 mg DAILY16 PO ; Start 05/21/17 at 16:00; Stop 05/21 at 16:00; Status DC Active Scripts Active Reported Coumadin (Warfarin Sodium) 6 Mg Tablet 6 Mg PO DAILY16 Klor-Con M20 (Potassium Chloride) 20 Meq Tab.er.prt 20 Meq PO BID Pantoprazole Sodium 40 Mg Tablet.dr 40 Mg PO DAILYAC Nystop (Nystatin) 60 Gm Powder 1 Manuel TP BID Magnesium Oxide 400 Mg Tablet 400 Mg PO TID Milk Of Magnesia (Magnesium Hydroxide) 2,400 Mg/10 Ml Oral.susp 2,400 Mg PO PRN QHS PRN Advanced Antacid Liquid (Mag Hydrox/Al Hydrox/Simeth) 355 Ml Oral.susp 15 Ml PO PRN AFTMEALHC PRN Levemir (Insulin Detemir) 100 Unit/1 Ml Vial 5 Unit SQ QHS Novolog (Insulin Aspart) 100 Unit/1 Ml Vial 0-5 Unit SQ QIDACHS Tylenol (Acetaminophen) 325 Mg Tablet 650 Mg PO PRN Q6HRS PRN Melatonin 3 Mg Tablet 3 Mg PO PRN QHS PRN Trazodone Hcl 100 Mg Tablet 100 Mg PO PRN QHS PRN If scheduled dose of Trazodone ineffective. Trazodone Hcl 100 Mg Tablet 100 Mg PO QHS Zyprexa Zydis (Olanzapine) 5 Mg Tab.rapdis 2.5 Mg PO PRN Q4HRS PRN Remeron (Mirtazapine) 15 Mg Tab.rapdis 7.5 Mg SL QHS Latuda (Lurasidone Hcl) 40 Mg Tablet 60 Mg PO DAILYWBKFT Women's Daily Caplet (Multivits,Ca,Minerals/Iron/Fa) 1 Each Tablet 1 Tab PO DAILY Allopurinol 100 Mg Tablet 200 Mg PO DAILYWSUP Vitamin D3 (Cholecalciferol (Vitamin D3)) 1,000 Unit Tablet 1,000 Unit PO DAILYWBKFT Oyster Shell Calcium (Calcium Carbonate) 500 Mg Tablet 500 Mg PO BIDWMEALS Metformin Hcl 850 Mg Tablet 850 Mg PO BIDWMEALS Digoxin 125 Mcg Tablet 125 Mcg PO DAILY Hold for HR less than 60. After a held dose, reassess in 2 hours. If HR is above the threshold, administer dose as ordered. If HR is below the threshold, contact provider for additional instructions. Tamoxifen Citrate 20 Mg Tablet 20 Mg PO DAILY Atenolol 50 Mg Tablet 50 Mg PO BID Lasix (Furosemide) 80 Mg Tablet 120 Mg PO DAILY Hold for SBP less than 100. After a held dose, reassess in 2 hours. If SBP is above the threshold, administer dose as ordered. If SBP is below the threshold, contact provider for additional instructions. CHAU GROSS MD May 23, 2017 20:04
--- NOTE | 2017-05-23 20:40 | PDOC ---
Exam Tahir Demential Exam: Tahir Note: Please also refer to the separate dictated note~for this date of service dictated separately.~Patient seen individually. Discussed the patient with Nursing staff reviewed the chart.~Reviewed interim history and current functioning. Reviewed vital signs,~Labs/ Radiology~and current medications noted below. Continue current treatment with the changes noted in the dictated addendum note S/O: This is a late entry for date of service 05/18/2017 and covers the elements not covered in my initial note of 05/18/2017. The patient was seen individually in the evening of 05/18/2017. Overall, the patient is doing much better per nursing report. Review of Systems: Hard of hearing, impaired ambulation, in a wheelchair. No CV, , Pulmonary, Eye system symptoms on review. MSE: Oriented to herself and situation. Speech is coherent. Abstraction fair. Computation impaired. Language function intact. Attention span short. Mood and affect improved. Labs: Reviewed. Family had expressed concern about the patient's pedal edema which they attribute to Depakote. In fact, nursing staff indicate she had the edema prior to treatment on Depakote as well, but given the family's concerns, we will stop the Depakote. Imp: Unchanged. Plan: Discontinue Depakote. Continue Latuda 60 mg a day, Remeron 7.5 mg h.s., melatonin 3 mg h.s. p.r.n., trazodone p.r.n., Zyprexa p.r.n. Adjust further as clinically indicated. Transition to a lower level of care in the next day or so. Assessment: Vital Signs: Vital Signs Date Time Temp Pulse Resp B/P (MAP) Pulse Ox O2 Delivery O2 Flow Rate FiO2 05/21/17 08:31 86 137/65 05/21/17 06:31 98.9 20 93 05/17/17 15:35 Room Air Current Medications: Meds: Current Medications Acetaminophen (Tylenol) 650 mg PRN Q6HRS PRN PO PAIN / TEMP; Start 04/30/17 at 18:30; Stop 04/30/17 at 19:53; Status DC Potassium Chloride (Klor-Con) 20 meq 1X ONCE PO Last administered on t 20:51; Start 04/30/17 at 20:00; Stop 04/30/17 at 20:01; Status DC Magnesium Chloride (Mag Delay) 64 mg DAILY PO Last administered on 05/06/17 08: 16; Start 05/01/17 at 09:00; Stop 05/06/17 at 18:08; Status DC Acetaminophen (Tylenol) 650 mg PRN Q6HRS PRN PO PAIN / TEMP Last administered on 05/04/17 11:44; Start 04/30/17 at 20:00; Stop 05/05/17 at 19:37; Status DC Al Hydroxide/Mg Hydroxide (Mylanta Plus Xs) 15 ml PRN AFTMEALHC PRN PO DYSPEPSIA; Start 04/30/17 at 20:00; Stop 05/21/17 at 10:12; Status DC Magnesium Hydroxide (Milk Of Magnesia) 2,400 mg PRN QHS PRN PO CONSTIPATION Last administered on 05/12/17 19:28; Start 04/30/17 at 20:00; Stop 05/21/17 at 10:12; Status DC Allopurinol (Zyloprim) 200 mg DAILYWSUP PO Last administered on 05/20/17 17:19 ; Start 05/01/17 at 17:00; Stop 05/21/17 at 10:12; Status DC Atenolol (Tenormin) 50 mg BID PO Last administered on 05/21/17 08:30; Start at 21:00; Stop 05/21/17 at 10:12; Status DC Calcium Carbonate/ Glycine (Oscal) 500 mg BIDWMEALS PO Last administered on 08:29; Start 05/01/17 at 08:00; Stop 05/21/17 at 10:12; Status DC Vitamin D (Vitamin D3) 1,000 unit DAILYWBKFT PO Last administered on 05/21/17 08:30; Start 05/01/17 at 08:00; Stop 05/21/17 at 10:12; Status DC Digoxin (Lanoxin) 125 mcg DAILY PO Last administered on 05/21/17 08:31; Start 05/01/17 at 09:00; Stop 05/21/17 at 10:12; Status DC Furosemide (Lasix) 120 mg DAILY PO Last administered on 05/05/17 13:31; Start 05/01/17 at 09:00; Stop 05/05/17 at 19:39; Status DC Metformin HCl (Glucophage) 850 mg BIDWMEALS PO Last administered on 05/21/17 08:30; Start 05/01/17 at 08:00; Stop 05/21/17 at 10:12; Status DC Potassium Chloride (Klor-Con) 20 meq BID PO Last administered on 05/04/17 20:37 ; Start 05/01/17 at 09:00; Stop 05/05/17 at 19:31; Status DC Warfarin Sodium (Coumadin) 6 mg DAILY16 PO Last administered on 05/01/17 16:56 ; Start 05/01/17 at 16:00; Stop 05/02/17 at 11:39; Status DC Non-Formulary Medication 500 mg BIDWMEALS PO ; Start 05/01/17 at 08:00; Stop 05/01 at 08:00; Status DC Glucosamine/ Chondroitin (Glucosamine-Chondroitin 500/400mg) 1 cap BIDWMEALS PO Last administered on 05/05/17 16:45; Start 05/01/17 at 08:00; Stop 05/05/17 at 18:18; Status DC Lactobacillus Acidophilus (Bacid, Orly-Bid) 2 tab DAILYWBKFT PO Last administered on 05/03/17 07:19; Start 05/01/17 at 08:00; Stop 05/05/17 at 18:18; Status DC Non-Formulary Medication 20 mg QHS PO ; Start 04/30/17 at 21:00; Stop 04/30/17 at 21:00; Status DC Non-Formulary Medication 5 mg QHS PO ; Start 04/30/17 at 21:00; Stop 04/30/17 at 21:00; Status DC Multivitamins/ Minerals (I-Gera) 1 tab DAILY PO Last administered on 05/03/17 07:20; Start 05/01/17 at 09:00; Stop 05/05/17 at 19:39; Status DC Pantoprazole Sodium (Protonix) 40 mg DAILYAC PO Last administered on 05/21/17 08:31; Start 05/01/17 at 07:30; Stop 05/21/17 at 10:12; Status DC Tamoxifen Citrate (Nolvadex) 20 mg DAILY PO Last administered on 05/21/17 08: 33; Start 05/01/17 at 09:00; Stop 05/21/17 at 10:12; Status DC Coenzyme Q10 (Coenzyme Q10) 100 mg BID PO Last administered on 05/04/17 20:36; Start 05/01/17 at 09:00; Stop 05/05/17 at 18:18; Status DC Sertraline HCl (Zoloft) 50 mg QHS PO Last administered on 04/30/17 20:51; Start 04/30/17 at 21:00; Stop 05/01/17 at 11:00; Status DC Melatonin 4.5 mg QHS PO Last administered on 05/04/17 20:37; Start 04/30/17 at 21:00; Stop 05/05/17 at 18:18; Status DC Olanzapine (ZyPREXA ZYDIS) 2.5 mg PRN Q4HRS PRN PO Psych Last administered on 16:52; Start 04/30/17 at 20:15; Stop 05/21/17 at 10:12; Status DC Magnesium Oxide (Magnesium Oxide) 400 mg BID PO Last administered on 05/14/17 09:35; Start 04/30/17 at 21:00; Stop 05/14/17 at 11:01; Status DC Warfarin Sodium (Coumadin) 6 mg 1X WARF ONCE PO Last administered on 20:51; Start 04/30/17 at 20:45; Stop 04/30/17 at 20:46; Status DC Warfarin Sodium (Coumadin) 0.5 mg 1X WARF ONCE PO Last administered on 20:51; Start 04/30/17 at 20:45; Stop 04/30/17 at 20:46; Status DC Warfarin Sodium (Coumadin Per Physician) 1 each PRN DAILY PRN MC SEE COMMENTS; Start 05/01/17 at 09:45; Stop 05/01/17 at 14:54; Status DC Risperidone (RisperDAL) 0.25 mg HS PO Last administered on 05/02/17 19:39; Start 05/01/17 at 21:00; Stop 05/03/17 at 18:28; Status DC Trazodone HCl (Desyrel) 100 mg QHS PO Last administered on 05/20/17 19:34; Start 05/01/17 at 21:00; Stop 05/21/17 at 10:12; Status DC Trazodone HCl (Desyrel) 100 mg PRN QHS PRN PO INSOMNIA Last administered on 01:22; Start 05/01/17 at 10:45; Stop 05/21/17 at 10:12; Status DC Insulin Detemir (Levemir) 5 units QHS SQ Last administered on 05/20/17 19:35; Start 05/01/17 at 21:00; Stop 05/21/17 at 10:12; Status DC Insulin Aspart (NovoLOG) 0-5 UNITS QIDACHS SQ Last administered on 05/20/17 19 :36; Start 05/01/17 at 16:30; Stop 05/21/17 at 10:12; Status DC Dextrose 12.5 gm PRN Q15MIN PRN IV SEE COMMENTS; Start 05/01/17 at 14:45; Stop 05/21/17 at 10:12; Status DC Warfarin Sodium (Coumadin Per Pharmacy) 1 each PRN DAILY PRN MC SEE COMMENTS Last administered on 05/20/17 10:53; Start 05/01/17 at 14:45; Stop 05/21/17 at 10:12; Status DC Insulin Aspart (NovoLOG) 10 units 1X ONCE SQ Last administered on 05/01/17 17: 15; Start 05/01/17 at 17:15; Stop 05/01/17 at 17:16; Status DC Warfarin Sodium (Coumadin) 7.5 mg 1X WARF ONCE PO Last administered on 17:16; Start 05/02/17 at 16:00; Stop 05/02/17 at 16:01; Status DC Warfarin Sodium (Coumadin) 7.5 mg 1X WARF ONCE PO Last administered on 16:18; Start 05/03/17 at 16:00; Stop 05/03/17 at 16:01; Status DC Risperidone (RisperDAL) 0.5 mg HS SL Last administered on 05/04/17 20:41; Start 05/03/17 at 21:00; Stop 05/05/17 at 19:33; Status DC Valproic Acid (Depakene) 250 mg BIDWMEALS PO Last administered on 05/07/17 16: 52; Start 05/04/17 at 08:00; Stop 05/07/17 at 18:23; Status DC Warfarin Sodium (Coumadin) 7.5 mg 1X WARF ONCE PO Last administered on 16:02; Start 05/04/17 at 16:00; Stop 05/04/17 at 16:01; Status DC Mirtazapine (Remeron) 7.5 mg QHS PO Last administered on 05/04/17 20:38; Start 05/04/17 at 21:00; Stop 05/05/17 at 19:33; Status DC Warfarin Sodium (Coumadin) 7.5 mg 1X WARF ONCE PO Last administered on 16:46; Start 05/05/17 at 16:00; Stop 05/05/17 at 16:01; Status DC Potassium Chloride (KCl Oral Soln) 20 meq BID PO Last administered on 05/09/17 09:13; Start 05/05/17 at 21:00; Stop 05/09/17 at 18:44; Status DC Risperidone (RisperDAL) 1 mg HS SL ; Start 05/05/17 at 21:00; Stop 05/06/17 at 11: 05; Status DC Mirtazapine (Remeron Olive-Tab) 7.5 mg QHS PO Last administered on 05/20/17 19: 33; Start 05/05/17 at 21:00; Stop 05/21/17 at 10:12; Status DC Acetaminophen (Tylenol) 650 mg PRN Q6HRS PRN PO PAIN / TEMP Last administered on 05/09/17 09:12; Start 05/05/17 at 19:45; Stop 05/10/17 at 08:51; Status DC Furosemide (Lasix) 120 mg DAILY PO Last administered on 05/09/17 09:43; Start 05/06/17 at 09:00; Stop 05/09/17 at 18:44; Status DC Multivitamins (Thera-Plus) 5 ml DAILY PO Last administered on 05/08/17 08:02; Start 05/06/17 at 09:00; Stop 05/10/17 at 08:51; Status DC Risperidone (RisperDAL) 0.5 mg HS SL Last administered on 05/08/17 21:49; Start 05/06/17 at 21:00; Stop 05/09/17 at 09:00; Status DC Melatonin 3 mg PRN QHS PRN PO INSOMNIA Last administered on 05/18/17 19:59; Start 05/06/17 at 18:15; Stop 05/21/17 at 10:12; Status DC Warfarin Sodium (Coumadin) 7.5 mg 1X WARF ONCE PO Last administered on 16:51; Start 05/07/17 at 16:00; Stop 05/07/17 at 16:01; Status DC Valproic Acid (Depakene) 375 mg BIDWMEALS PO Last administered on 05/09/17 16: 27; Start 05/08/17 at 08:00; Stop 05/09/17 at 18:44; Status DC Warfarin Sodium (Coumadin) 7.5 mg 1X WARF ONCE PO Last administered on 16:53; Start 05/08/17 at 16:00; Stop 05/08/17 at 16:01; Status DC Warfarin Sodium (Coumadin) 7.5 mg 1X WARF ONCE PO Last administered on 16:26; Start 05/09/17 at 16:00; Stop 05/09/17 at 16:01; Status DC Furosemide (Lasix) 120 mg DAILY PO Last administered on 05/21/17 08:30; Start 05/10/17 at 09:00; Stop 05/21/17 at 10:12; Status DC Potassium Chloride (Klor-Con) 20 meq BID PO Last administered on 05/21/17 08: 29; Start 05/09/17 at 21:00; Stop 05/21/17 at 10:12; Status DC Divalproex Sodium (Depakote Sprinkles) 375 mg BIDWMEALS PO Last administered on 05/18/17 16:59; Start 05/10/17 at 08:00; Stop 05/18/17 at 18:50; Status DC Multivitamins/ Calcium (Thera-M Plus) 1 tab DAILY PO Last administered on 08:29; Start 05/10/17 at 09:00; Stop 05/21/17 at 10:12; Status DC Acetaminophen (Tylenol) 650 mg PRN Q6HRS PRN PO PAIN / TEMP Last administered on 05/20/17 01:21; Start 05/10/17 at 09:00; Stop 05/21/17 at 10:12; Status DC Warfarin Sodium (Coumadin) 4 mg 1X WARF ONCE PO Last administered on 16:17; Start 05/10/17 at 16:00; Stop 05/10/17 at 16:01; Status DC Warfarin Sodium (Coumadin) 3 mg 1X WARF ONCE PO Last administered on 16:17; Start 05/10/17 at 16:00; Stop 05/10/17 at 16:01; Status DC Warfarin Sodium (Coumadin) 4 mg DAILY16 PO Last administered on 05/12/17 17:08 ; Start 05/11/17 at 16:00; Stop 05/13/17 at 11:50; Status DC Warfarin Sodium (Coumadin) 3 mg DAILY16 PO Last administered on 05/12/17 17:08 ; Start 05/11/17 at 16:00; Stop 05/13/17 at 11:50; Status DC Warfarin Sodium (Coumadin - No Dose Today) 1 each 1X WARF ONCE MC ; Start 05/13 at 16:00; Stop 05/13/17 at 16:01; Status DC Magnesium Oxide (Magnesium Oxide) 400 mg TID PO Last administered on 05/21/17 08:31; Start 05/14/17 at 14:00; Stop 05/21/17 at 10:12; Status DC Warfarin Sodium (Coumadin - No Dose Today) 1 each 1X WARF ONCE MC ; Start 05/14 at 16:00; Stop 05/14/17 at 16:02; Status DC Nystatin (Nystop) 1 manuel BID TP ; Start 05/15/17 at 09:00; Stop 05/15/17 at 09:00 ; Status DC Nystatin (Nystop) 1 manuel BID TP Last administered on 05/21/17 08:31; Start at 23:15; Stop 05/21/17 at 10:12; Status DC Warfarin Sodium (Coumadin) 7.5 mg 1X WARF ONCE PO ; Start 05/15/17 at 16:00; Stop 05/15/17 at 16:01; Status DC Warfarin Sodium (Coumadin) 7.5 mg 1X WARF ONCE PO Last administered on 14:59; Start 05/16/17 at 16:00; Stop 05/16/17 at 16:01; Status DC Warfarin Sodium (Coumadin) 7.5 mg 1X WARF ONCE PO Last administered on 17:08; Start 05/17/17 at 16:00; Stop 05/17/17 at 16:01; Status DC Warfarin Sodium (Coumadin) 8 mg 1X WARF ONCE PO ; Start 05/18/17 at 16:00; Stop 05/18/17 at 16:00; Status DC Warfarin Sodium (Coumadin) 8 mg 1X WARF ONCE PO Last administered on 16:59; Start 05/18/17 at 16:00; Stop 05/18/17 at 16:01; Status DC Warfarin Sodium (Coumadin) 7.5 mg 1X WARF ONCE PO Last administered on 17:08; Start 05/19/17 at 16:00; Stop 05/19/17 at 16:01; Status DC Warfarin Sodium (Coumadin) 3 mg 1X WARF ONCE PO Last administered on 17:24; Start 05/20/17 at 16:00; Stop 05/20/17 at 16:01; Status DC Warfarin Sodium (Coumadin) 4 mg 1X WARF ONCE PO Last administered on 17:24; Start 05/20/17 at 16:00; Stop 05/20/17 at 16:01; Status DC Warfarin Sodium (Coumadin) 6 mg DAILY16 PO ; Start 05/21/17 at 16:00; Stop 05/21 at 16:00; Status DC Active Scripts Active Reported Coumadin (Warfarin Sodium) 6 Mg Tablet 6 Mg PO DAILY16 Klor-Con M20 (Potassium Chloride) 20 Meq Tab.er.prt 20 Meq PO BID Pantoprazole Sodium 40 Mg Tablet.dr 40 Mg PO DAILYAC Nystop (Nystatin) 60 Gm Powder 1 Manuel TP BID Magnesium Oxide 400 Mg Tablet 400 Mg PO TID Milk Of Magnesia (Magnesium Hydroxide) 2,400 Mg/10 Ml Oral.susp 2,400 Mg PO PRN QHS PRN Advanced Antacid Liquid (Mag Hydrox/Al Hydrox/Simeth) 355 Ml Oral.susp 15 Ml PO PRN AFTMEALHC PRN Levemir (Insulin Detemir) 100 Unit/1 Ml Vial 5 Unit SQ QHS Novolog (Insulin Aspart) 100 Unit/1 Ml Vial 0-5 Unit SQ QIDACHS Tylenol (Acetaminophen) 325 Mg Tablet 650 Mg PO PRN Q6HRS PRN Melatonin 3 Mg Tablet 3 Mg PO PRN QHS PRN Trazodone Hcl 100 Mg Tablet 100 Mg PO PRN QHS PRN If scheduled dose of Trazodone ineffective. Trazodone Hcl 100 Mg Tablet 100 Mg PO QHS Zyprexa Zydis (Olanzapine) 5 Mg Tab.rapdis 2.5 Mg PO PRN Q4HRS PRN Remeron (Mirtazapine) 15 Mg Tab.rapdis 7.5 Mg SL QHS Latuda (Lurasidone Hcl) 40 Mg Tablet 60 Mg PO DAILYWBKFT Women's Daily Caplet (Multivits,Ca,Minerals/Iron/Fa) 1 Each Tablet 1 Tab PO DAILY Allopurinol 100 Mg Tablet 200 Mg PO DAILYWSUP Vitamin D3 (Cholecalciferol (Vitamin D3)) 1,000 Unit Tablet 1,000 Unit PO DAILYWBKFT Oyster Shell Calcium (Calcium Carbonate) 500 Mg Tablet 500 Mg PO BIDWMEALS Metformin Hcl 850 Mg Tablet 850 Mg PO BIDWMEALS Digoxin 125 Mcg Tablet 125 Mcg PO DAILY Hold for HR less than 60. After a held dose, reassess in 2 hours. If HR is above the threshold, administer dose as ordered. If HR is below the threshold, contact provider for additional instructions. Tamoxifen Citrate 20 Mg Tablet 20 Mg PO DAILY Atenolol 50 Mg Tablet 50 Mg PO BID Lasix (Furosemide) 80 Mg Tablet 120 Mg PO DAILY Hold for SBP less than 100. After a held dose, reassess in 2 hours. If SBP is above the threshold, administer dose as ordered. If SBP is below the threshold, contact provider for additional instructions. CHAU GROSS MD May 23, 2017 20:40
== END 2017-05-21 10:12 | disposition home or self-care (01) | DRG 884 ==
LOC: ER 18:47 → GEROPSY 18:55
PROVIDERS: ADMIT Psychiatry & Neurology Psychiatry; ATTEND Psychiatry & Neurology Psychiatry
DX: F01.51 Vascular dementia, unspecified severity, with behavioral disturbance (principal); F02.81 Dementia in other diseases classified elsewhere, unspecified severity, with behavioral disturbance; F31.2 Bipolar disorder, current episode manic severe with psychotic features; E03.9 Hypothyroidism, unspecified; E11.9 Type 2 diabetes mellitus without complications; F41.9 Anxiety disorder, unspecified; F63.9 Impulse disorder, unspecified; G30.9 Alzheimer's disease, unspecified; I11.0 Hypertensive heart disease with heart failure; H91.90 Unspecified hearing loss, unspecified ear; I48.91 Unspecified atrial fibrillation; I50.9 Heart failure, unspecified; E87.6 Hypokalemia; E83.42 Hypomagnesemia; G47.00 Insomnia, unspecified; F31.73 Bipolar disorder, in partial remission, most recent episode manic; K21.9 Gastro-esophageal reflux disease without esophagitis; Z66 Do not resuscitate; Z95.0 Presence of cardiac pacemaker; Z88.2 Allergy status to sulfonamides; Z88.5 Allergy status to narcotic agent; Z91.011 Allergy to milk products; Z88.4 Allergy status to anesthetic agent
CPT/HCPCS: 36415; 51701; 70450; 80053; 80061; 80162; 80164; 81001; 82306; 82550; 82607; 82947; 83036; 83540; 83550; 83735; 83880; 84436; 84443; 84480; 84484; 85027; 85610; 85730; 86592; 86593; 93005; J1815; 97110; 97116; 97530; 99285-25